=== PATIENT | female | born 1930 | race Caucasian/White ===

== ENCOUNTER 2017-08-28 12:43 | Observation (INO) | payer OTHER ==
[~2017-08-28] VITALS: Ht 149.9 cm; Wt 61.0 kg
[~2017-08-28 12:43] MED LIST: ACAI500 MG PO; FLOVENT DISKUS50 MCG; FLOVENT HFA12 GM INH; HARD NAILS2500 MCG PO; HYDROCODON-ACE1 EAC9 PO; MACROBID 100 M100 MG PO; MONTELUKAST SOD10 MG PO; OCUVITE SOFTGE1 EACH PO; RANITIDINE HCL300 M1 PO; SYMBICORT 80-10.2 GM INH; VITAMIN D32000 UNIT PO; Z LEVOXYL PO; Z.0.AMLODIPINE BESYL PO; Z.0.GABAPENTIN600 MG PO; Z.0.NEXIUM40 MG PO; Z.0.SIMVASTATIN20 MG PO
[2017-08-28] MEDS ORDERED: SODIUM CHLORIDE 0.9% 500ML 500 ML IV STA (13:18)
[2017-08-28] MEDS ORDERED: MORPHINE SULFATE 2 MG/ML SYR IV STA (13:18)
[2017-08-28] MEDS ORDERED: ONDANSETRON HCL INJ 2 MG/ML VIAL IV STA (13:18)
[2017-08-28] MEDS ORDERED: DIATRIZOATE MEGL/DIATRIZOA SOD 30 ML BTL PO ONE (13:27)
[2017-08-28 14:14] LABS: BASOPHILS % 0.4 % (0.0-1.0); HEMATOCRIT 40.8 % (34.2-44.1); HEMOGLOBIN 13.2 g/dL (12.0-16.0); LYMPHOCYTES # (AUTO) 0.4 (1.0-3.2); LYMPHOCYTES % 5.1 % (18.0-39.1); MEAN CORPUSCULAR HEMOGLOBIN 27.6 pg (28-32); MEAN CORPUSCULAR HGB CONC 32.4 g/dL (31-35); MEAN CORPUSCULAR VOLUME 85.4 fL (81-99); MONOCYTES # (AUTO) 0.1 (0.2-0.8); MONOCYTES % 1.6 % (4.4-11.3); NEUTROPHILS # (AUTO) 7.5 (2.1-6.9); PLATELET COUNT 361 x10e3/uL (140-360); RED BLOOD COUNT 4.78 x10e6/uL (3.6-5.1); RED CELL DISTRIBUTION WIDTH 15.7 % (11.7-14.4)
--- NOTE | 2017-08-28 14:16 | Diagnostic Imaging Report ---
PROCEDURE:US GALLBLADDER COMPARISON:None. INDICATIONS:Abdomen Pain TECHNIQUE: Pérez-scale and color doppler transverse and longitudinal images of the right upper quadrant of the abdomen were obtained. FINDINGS: Liver: 13.4 cm in right mid-clavicular line. Normal echogenicity. No masses. Main portal vein: 0.8 cm, hepatopetal flow Gallbladder: No stones, sludge, wall thickening, or pericholecystic fluid. Common Bile Duct: 0.6 cm, upper limits of normal. No intraluminal filling defects Sonographic Armendariz's sign: Negative Right kidney: 10.6 cm. Normal echogenicity. No solid masses or hydronephrosis. Pancreas: The visualized portions of the neck and proximal body are unremarkable. Inferior vena cava: Patent Aorta: Within normal limits Ascites: None in the right upper quadrant of the abdomen. CONCLUSION: 1. Essentially unremarkable right upper quadrant ultrasound. 2. No sonographic evidence of cholelithiasis or cholecystitis. No biliary ductal dilation. Ramesh Paulino M.D. Dictated by: Ramesh Paulino M.D. on 08/28/2017 at 14:25 Electronically approved by: Ramesh Paulino M.D. on 08/28/2017 at 14:25
[2017-08-28 14:19] LABS: INR 0.98; PROTHROMBIN TIME 13.5 seconds (11.9-14.5)
[2017-08-28 14:26] LABS: BILIRUBIN,URINE NEGATIVE (NEGATIVE); CLARITY,URINE SL CLOUDY (CLEAR); COLOR,URINE YELLOW (YELLOW); KETONES,URINE 1+ (NEGATIVE); LEUKOCYTE ESTERASE ,URINE TRACE (NEGATIVE); NITRITE,URINE NEGATIVE (NEGATIVE); PROTEIN,URINE DIPSTICK TRACE (NEGATIVE); URINE UROBILINOGEN 0.2 mg/dL (0.2 - 1)
[2017-08-28 14:35] LABS: ALANINE AMINOTRANSFERASE 10 IU/L (0-55); ALBUMIN 3.6 g/dL (3.5-5.0); ALBUMIN/GLOBULIN RATIO 0.7 (0.8-2.0); ALKALINE PHOSPHATASE 87 IU/L (40-150); AMYLASE 49 U/L (25-125); ANION GAP 16.1 mmol/L (8-16); BLOOD UREA NITROGEN 9 mg/dL (7-26); BUN/CREATININE RATIO 11 (6-25); CALCIUM 10.1 mg/dL (8.4-10.2); CARBON DIOXIDE 24 mmol/L (22-29); CHLORIDE 100 mmol/L (98-107); CREATINE KINASE 39 IU/L (29-168); CREATININE, SERUM 0.85 mg/dL (0.57-1.11); EST GLOMERULAR FILTRATION RATE > 60 ML/MIN (60-); GLUCOSE 155 mg/dL (74-118); LIPASE 19 U/L (8-78); POTASSIUM 4.1 mmol/L (3.5-5.1); SODIUM 136 mmol/L (136-145)
[2017-08-28 14:40] LABS: EPITHELIAL CELLS,URINE FEW /LPF; RBC,URINE 0-5 /HPF (0-5); TRANSITIONAL EPI CELLS,URINE FEW; WBC,URINE (MAN) 0-5 /HPF (0-5)
--- NOTE | 2017-08-28 15:24 | Diagnostic Imaging Report ---
PROCEDURE: A single AP view of the chest. COMPARISON: [facility], , CHEST SINGLE (PORTABLE), 01/16/2017, 19:38. INDICATIONS: ABDOMINAL PAIN FINDINGS: Lines/tubes: None. Lungs: The lungs are well inflated. No interval change in very mild prominence of the interstitial markings, likely reflecting chronic interstitial changes. There is no evidence of consolidation or pulmonary edema. Pleura: There is no pleural effusion or pneumothorax. Heart and mediastinum: Cardiac silhouette is unremarkable. Pulmonary vasculature is normal. Bones: No acute bony abnormality. IMPRESSION: 1. No acute cardiopulmonary abnormalities. Ramesh Paulino M.D. Dictated by: Ramesh Paulino M.D. on 08/28/2017 at 15:33 Electronically approved by: Ramesh Paulino M.D. on 08/28/2017 at 15:33
--- NOTE | 2017-08-28 16:04 | Diagnostic Imaging Report ---
PROCEDURE: CT ABDOMEN AND PELVIS WITH CONTRAST TECHNIQUE: The abdomen and pelvis were scanned utilizing a multidetector helical scanner from the diaphragm to the lesser trochanter after the IV administration of 100 cc of Isovue 370 and the oral administration of dilute Gastrografin. Coronal and sagittal multiplanar reformations were obtained. COMPARISON: [facility], CT, CT ABDOMEN/PELVIS W, 09/06/2012, 10:38. INDICATIONS: right flank pain for 2 days, abdominal pain, FINDINGS: LOWER THORAX: Linear subsegmental atelectasis versus scarring in the posteromedial left lower lobe. No consolidation. Moderate atherosclerotic soft plaque in the distal thoracic aorta HEPATOBILIARY: Stable calcified granulomas in hepatic segments VIII, VII and V (series 2, images 14, 18, and 35). No focal lesions. No ductal dilation. Gallbladder is unremarkable. SPLEEN: No splenomegaly. PANCREAS: No focal masses or ductal dilatation. No surrounding inflammatory changes, free fluid or well defined fluid collections. ADRENALS: No adrenal nodules. KIDNEYS/URETERS: Limited evaluation for renal calculi do to intravenous contrast. No hydronephrosis or hydroureter. No solid enhancing masses. PELVIC ORGANS/BLADDER: Bladder shows no focal lesions. Uterus is absent. No adnexal masses. PERITONEUM / RETROPERITONEUM: No free air or fluid. LYMPH NODES: No lymphadenopathy. VESSELS: Moderate atherosclerotic soft and hard plaque in the abdominal aorta and iliac vessels, as well as aortic branches, predominantly at the origin of celiac trunk, SMA, and bilateral renal arteries GI TRACT: Small to moderate hiatal hernia. No bowel dilation or evidence of obstruction. Appendix is not visualized. However, no pericecal inflammatory changes are noted. Multiple diverticula in the sigmoid colon, without surrounding inflammatory changes to suggest diverticulitis. BONES AND SOFT TISSUES: No aggressive lytic lesions. 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 Soft tissues are grossly unremarkable.. IMPRESSION: 1. Limited exam for evaluation of nephrolithiasis given the presence of contrast. No hydronephrosis or obstruction. 2. No bowel dilation or evidence of obstruction. The appendix is not visualized, however, no pericolonic/pericecal inflammatory changes are noted. 3. Sigmoid diverticulosis, without diverticulitis. 4. Moderate atherosclerotic disease of the abdominal aorta and branches. Ramesh Paulino M.D. Dictated by: Ramesh Paulino M.D. on 08/28/2017 at 16:13 Electronically approved by: Ramesh Paulino M.D. on 08/28/2017 at 16:13
[2017-08-28] MEDS ORDERED: ONDANSETRON HCL INJ 2 MG/ML VIAL IV PRN (17:00)
[2017-08-28] MEDS ORDERED: MORPHINE SULFATE 2 MG/ML SYR IV PRN (17:00)
[2017-08-28] MEDS: SODIUM CHLORIDE 0.9% 1000ML 1,000 ML IV SCH (18:39)
[2017-08-28 18:42] VITALS: BP 131/65
[2017-08-28 19:30] VITALS: BP 127/60
[2017-08-28] MEDS ORDERED: ACETAMINOPHEN 325 MG TAB PO PRN (20:30)
[2017-08-28 21:46] VITALS: BP 127/60
[2017-08-28 22:11] VITALS: BP 127/60
[2017-08-28] MEDS ORDERED: IOPAMIDOL 370 MG/ML 200 ML INFUS..BTL INJ ONE (22:14)
[2017-08-28] MEDS ORDERED: SODIUM CHLORIDE 0.9% 50ML 50 ML ONE (22:14)
--- NOTE | 2017-08-28 23:08 | Diagnostic Imaging Report ---
EXAM: VQ LUNG SCAN VENT PERFUSION DATE: 08/28/2017 12:00 AM Time stamp on exam: 2304 hours INDICATION: Shortness of breath, weakness, fatigue COMPARISON: AP view of the chest August 28, 2017 FINDINGS: Ventilation images of the lungs were obtained in multiple projections following administration of 11 mCi of Xe133 gas via inhalation. Distribution of tracer activity is irregular throughout the lungs. Limited wash-in and washout views. No segmental ventilatory defects are identified. Perfusion images of the lungs in multiple projections were obtained following intravenous administration of 6mCi of Tc-99m MAA. Distribution of tracer activity is mildly irregular throughout the lungs. There are no segmental perfusion defects of any size. The perfusion images are well matched to the aerosol images. The cardiac silhouette is unremarkable. IMPRESSION: Scan findings represent a very low probability for acute pulmonary embolic disease based on the PIOPED II criteria. Signed by: Dr. Nancy Byrd M.D. on 08/28/2017 11:05 PM
[2017-08-29] VITALS: BP 118/58
[2017-08-29] MEDS: SODIUM CHLORIDE 0.9% 1000ML 1,000 ML IV SCH ×2 (02:53→15:30)
[2017-08-29 05:00] VITALS: BP 131/65
[2017-08-29 07:00] VITALS: BP 115/59
[2017-08-29 07:44] VITALS: BP 115/59
[2017-08-29] MEDS ORDERED: PANTOPRAZOLE SOD 40 MG TABEC PO SCH (09:00)
[2017-08-29 11:24] VITALS: BP 118/59
[2017-08-29 15:39] VITALS: BP 125/57
--- NOTE | 2017-08-30 11:20 | History and Physical ---
SHORTSTAY SUMMARY PRIMARY CARE PROVIDER: [place] [facility]. ADMITTING DIAGNOSES: 1. Right upper quadrant epigastric abdominal pain. 2. History of hypertension. 3. Hyperlipidemia. 4. Hypothyroidism. 5. Gastroesophageal reflux. 6. Previous bleeding ulcer. 7. Inflammatory bowel disease. DISCHARGE DIAGNOSES 1. Right upper quadrant epigastric abdominal pain. 2. History of hypertension. 3. Hyperlipidemia. 4. Hypothyroidism. 5. Gastroesophageal reflux. 6. Previous bleeding ulcer. 7. Inflammatory bowel disease. BRIEF HISTORY: Ms. Brice is an 86 year lady presenting with right upper quadrant epigastric abdominal pain with nausea, vomiting and diarrhea for about 24 hours. The patient thinks this is worse than her usual flare up of IBS and was instructed to come to the ER for evaluation via the clinic. REVIEW OF SYSTEMS: She denies fever, chills or weight loss. She denies sinus congestion or sore throat. She denies chest pain or palpitation. She has a little bit of shortness of breath or dyspneas with exertion, but no wheezing or productive cough. She has abdominal pain as noted with nausea, vomiting and diarrhea. She denies hematemesis or melena. She denies dysuria or flank pain. She denies rash or pruritus. Denies joint pain or swelling. She denies bleeding or bruising. She denies headache, vertigo or loss of consciousness. She denies depression, agitation, homicidal or suicidal ideation. PAST MEDICAL HISTORY: Significant for longstanding hypertension, hyperlipidemia, hypothyroidism, gastroesophageal reflux, irritable bowel syndrome with both diarrhea and constipation. She had a bleeding ulcer last year [place]. CURRENT MEDICATIONS: Amlodipine 10 mg daily. Symbicort inhaler twice daily. Levothyroxine 88 mcg daily. Singulair 10 mg daily. Simvastatin 20 mg at bedtime. Ranitidine 300 mg daily. PAST SURGICAL HISTORY: She has a history of a hysterectomy, tonsillectomy and previous foot surgery. ALLERGIES: SHE HAS A STATED ALLERGY TO GABAPENTIN, CIPROFLOXACIN, HYDROCHLOROTHIAZIDE AND CODEINE WELL INFLUENZA AND TETANUS VACCINES. FAMILY HISTORY: Significant only for hypertension. SOCIAL HISTORY: The patient lives at home with her son. She does not smoke, drink or use illegal drugs. She is generally independently functioning. PHYSICAL EXAM: PSYCHIATRIC: She is alert and oriented times 3 with normal mood and affect. CONSTITUTIONAL: She has a normal body habitus and is in no acute distress. VITAL SIGNS: Blood pressure 125/57. Pulse 72 and regular. Respiratory rate 16. O2 sat 96% on room air. Temperature 97.4. HEENT: Her head is atraumatic. Her eyes are anicteric with clear conjunctivae. Ears and nares are without erythema or discharge. Oropharynx is clear. NECK: Is supple with no mass or thyromegaly. LYMPHATIC SYSTEM: She has no palpable cervical, axillary or inguinal adenopathy. CARDIOVASCULAR: Her heart has a regular rate and rhythm with 2-3/6 systolic murmur at the left sternal border, nonradiating. She has no carotid bruit. She has no peripheral edema. Has palpable dorsal pedal pulses. RESPIRATORY: Clear to auscultation and percussion with normal respiratory effort. GASTROINTESTINAL: Abdomen is soft. She has some mild diffuse tenderness without rebound or guarding. The least amount of tenderness is in the left lower quadrant. The most tenderness is in the right upper quadrant and epigastric area. Again no rebound or guarding. No hepatosplenomegaly or masses palpable and normal bowel sounds are present. CUTANEOUS: Her skin is warm and dry to touch with no rash or skin breakdown. MUSCULOSKELETAL: Joints are normal alignment without erythema or swelling. She has no calf tenderness. NEUROLOGIC: Exam is nonfocal with intact cranial nerves and no motor or sensory deficits. DIAGNOSTIC STUDIES: CT scan of the abdomen shows sigmoid diverticulosis without evidence of diverticulitis, essentially no acute disease. Ultrasound of the right upper quadrant showed normal-appearing gallbladder, no stones and normal-appearing liver. No biliary duct dilatation. Chest x-ray showed no acute disease. She had a D-dimer of 1.43, and so a VQ scan was done which was also negative. Her UA was clear. Her urine culture is negative at 24 hours. Her flu screen was negative. Her BNP 87.7. Troponin 0.006. Chemistry shows normal electrolytes. CO2 24. Creatinine 0.85. BUN 9 for normal GFR. Calcium 10.1. Glucose 155. Transaminases, bilirubin and alkaline phos are normal. Amylase 49, lipase 19, both normal. CBC shows a white count of 8.19 with 92% neutrophils, 5% lymphocytes and 2% monocytes. Hemoglobin 13.2, hematocrit 40.8 and platelet count 361,000. Coags are normal. BNP 87.7. Troponin 0.006. IMPRESSION AND PLAN 1. Abdominal pain in a setting of irritable bowel syndrome and gastric reflux. The patient's workup for more serious etiologies were all negative. She does feel at little bit better today. Will be sent home to resume regular diet, to continue Zantac 300 mg daily, and it was recommended that she takes fiber, like Citrucel 3 tablets every night at bedtime rather than using MiraLAX on a p.r.n. basis for constipation. 2. Hypertension, well controlled on amlodipine. Will be make no changes there. 3. For irritable bowel syndrome, patient continues on Align probiotic and again recommended fiber nightly as noted above. 4. History of peptic ulcer disease. Patient is started on Protonix. Her hemoglobin and hematocrit are stable. 5. For prophylaxis the patient is using SCDs for DVT prophylaxis and Protonix for GI prophylaxis. HOSPITAL COURSE: Patient was admitted to the floor overnight for observation. She got IV fluids. She also got some Protonix. She felt better the next day. She was still having a little bit of diarrhea. She was instructed to start taking Citrucel tablets 3 of them at bedtime for fiber supplementation which may improve her colon function and also help prevent diverticulosis from becoming a problem. Since the workup was negative, the patient will be discharged home to resume all of her home medications. Will continue a regular diet and activity as tolerated. Again will add some fiber supplement at bedtime on a regular basis to her medical regimen. The patient will follow up with her primary care physician within 2 weeks. Job#: [id number]
== END 2017-08-29 18:52 | disposition home or self-care (01) ==
LOC: ER 12:43 → IMCU 18:16
PROVIDERS: ADMIT Internal Medicine; ATTEND Internal Medicine
DX: R10.13 Epigastric pain (principal); K21.9 Gastro-esophageal reflux disease without esophagitis; K58.0 Irritable bowel syndrome with diarrhea; K57.30 Diverticulosis of large intestine without perforation or abscess without bleeding; I10 Essential (primary) hypertension; E03.9 Hypothyroidism, unspecified; E78.5 Hyperlipidemia, unspecified; J45.909 Unspecified asthma, uncomplicated; Z87.11 Personal history of peptic ulcer disease; Z88.1 Allergy status to other antibiotic agents; Z91.09 Other allergy status, other than to drugs and biological substances; Z88.8 Allergy status to other drugs, medicaments and biological substances; Z88.5 Allergy status to narcotic agent; Z88.7 Allergy status to serum and vaccine
CPT/HCPCS: 36415; 71045; 74177; 76705; 78582; 80053; 81001; 82150; 82550; 82553; 83690; 83880; 84484; 85025; 85379; 85610; 85730; 87086; 87400; 93005 ×2; 96360; 96361; 99284; A9540; A9558; G0378 ×2; J2405; J7030 ×2; J7040; Q9967

== ENCOUNTER 2018-10-28 15:12 | Emergency (ER) | payer OTHER ==
[~2018-10-28] VITALS: Ht 149.9 cm; Wt 60.8 kg
--- OUTSIDE RECORDS SUMMARY | 2018-10-28 15:15 | XMS REPORT | Clinical Summary ---
Author Author [facility] Organization [facility] Address Unknown Phone Unavailable Care Team Providers Care Envelope Stuffer Name Role Phone Mervat Luevano MD PCP Unavailable Philippe De La Cruz Unavailable Allergies Comments Active Allergy Reactions Severity Noted Date Ciprofloxacin 02/28/2017 FAINT Codeine 02/28/2017 Gabapentin 02/28/2017 Cqjygdtkqcm-Sghoywdi-Sydl 02/28/2017 iazid Influenza Virus Vaccines Hives 02/28/2017 RED STREAK ON ARM FOR 3 MONTHS Tetanus Vaccines And 02/28/2017 Toxoid Medications End Date Status Medication Sig Dispensed Refills Start Date Active biotin 5 mg Tab Take 1 tablet 0 by mouth daily. Active budesonide-formoterol Inhale 2 0 (SYMBICORT) 80-4.5 puffs by mcg/actuation inhaler mouth via inhaler 2 (two) times daily. Active cholecalciferol, vitamin Take 5,000 0 D3, 5,000 unit Tab Units by mouth daily. Active levothyroxine (SYNTHROID, Take 75 mcg 0 LEVOTHROID) 75 MCG tablet by mouth Every morning on an empty stomach. Active ranitidine (ZANTAC) 300 Take 300 mg 0 MG tablet by mouth nightly. Active simvastatin (ZOCOR) 40 MG Take 40 mg by 0 tablet mouth nightly. Active montelukast (SINGULAIR) Take 10 mg by 0 10 mg tablet mouth nightly 7 . Active fluticasone (FLONASE) 50 2 sprays 0 mcg/actuation nasal spray daily . 8 Active mupirocin (BACTROBAN) 2 % as needed . 0 ointment 8 Active pantoprazole (PROTONIX) daily . 0 20 MG tablet 8 Active VIT C/VIT Take by 0 E/LUTEIN/MIN/OMEGA-3 mouth. (OCUVITE ORAL) Active Bifidobacterium infantis Take by mouth 0 (ALIGN ORAL) daily. Active traMADol-acetaminophen Take 1 tablet 0 (ULTRACET) 37.5-325 mg by mouth per tablet every 6 (six) hours as needed for Pain. 01/29/2019 Active aspirin 81 MG chewable Take 1 tablet 0 tablet (81 mg total) 8 by mouth daily. 01/28/2019 Active atorvastatin (LIPITOR) 20 Take 1 tablet 0 MG tablet (20 mg total) 8 by mouth nightly. 01/29/2019 Active furosemide (LASIX) 20 MG Take 1 tablet 20 tablet 0 tablet (20 mg total) 8 by mouth daily. 01/28/2019 Active metoprolol (LOPRESSOR) 25 Take 0.5 0 MG tablet tablets (12.5 8 mg total) by mouth 2 (two) times daily. 01/28/2018 Discontinued amLODIPine (NORVASC) 10 Take 10 mg by 0 MG tablet mouth daily. 01/16/2018 Discontinued fexofenadine (PETRA) Take 180 mg 0 180 MG tablet by mouth daily. 01/16/2018 Discontinued traMADol (ULTRAM) 50 mg Take 50 mg by 0 tablet mouth every 6 (six) hours as needed for Pain. 03/02/2018 ferrous sulfate 325 (65 Take 1 tablet 30 tablet 0 FE) MG tablet (325 mg 7 total) by mouth daily with breakfast. 12/17/2017 Discontinued tiZANidine (ZANAFLEX) 4 Take 1 tablet 30 tablet 0 MG tablet (4 mg total) 7 by mouth every 8 (eight) hours as needed. 01/16/2018 Discontinued omeprazole (PRILOSEC) 40 Take 1 60 capsule 0 MG capsule capsule (40 7 mg total) by mouth 2 (two) times daily FOR 2 WEEKS THEN TRANSITION TO ONCE PER DAY AFTERWARDS. 12/17/2017 Discontinued ferrous sulfate 325 (65 Take 1 tablet 30 tablet 0 FE) MG EC tablet (325 mg 7 total) by mouth daily with breakfast. 01/16/2018 Discontinued meclizine (ANTIVERT) 25 Take 25 mg by 0 mg tablet mouth 3 (three) times daily as needed . 01/16/2018 Discontinued polyethylene glycol Take 17 g by 0 (GLYCOLAX) 17 gram/dose mouth. powder 01/28/2018 Discontinued ASCORBIC ACID/COLLAGEN Take 1 0 HYDR (COLLAGEN PLUS capsule by VITAMIN C ORAL) mouth. Active Problems Problem Noted Date S/P AVR 01/28/2018 S/P CABG x 3 01/28/2018 Vasogenic shock (HCC). post op. briefly on vasopressors 01/17/2018 Abnormal coronary angiogram: 70% distal Left main; 80% ostial LAD; 80% 01/16/2018 ostial CX--patient referred to Dr. Cat for ACB x 2 and AVR 01/16/2018 GERD (gastroesophageal reflux disease) 01/16/2018 Aortic stenosis 01/11/2018 Aortic stenosis, moderate 03/02/2017 Overview: Moderate to severe per echo SLEH 02/2017 Erosive gastritis 03/02/2017 Hiatal hernia 03/02/2017 GI bleed 03/02/2017 GI bleed due to NSAIDs 02/28/2017 Acquired hypothyroidism 11/14/2016 Mild persistent asthma, uncomplicated 11/14/2016 Atherosclerosis of aorta 01/19/2014 Chronic lower back pain 10/27/2011 Chronic neck pain 10/27/2011 Severe aortic stenosis Hyperlipidemia Hypertension Acute pulmonary edema (HCC). resovled w/ IV diuresis Resolved Problems Problem Noted Date Resolved Date Respiratory insufficiency 01/17/2018 01/28/2018 Left main coronary artery disease 01/16/2018 01/18/2018 Other specified hypotension 01/24/2018 Encounters Care Team Description Date Type Specialty Charanjit Cannon MD 01/17/2018 Anesthesia Event Rehan Cat MD BYPASS,AORTO CORONARY YONG/SVG 01/17/2018 Surgery 01/17/2018 Orders Only General Internal Medicine Do Rdz MD L CATH & CORONARY ANGIOS 01/16/2018 Surgery Do Rdz MD Dang, Thai Duc, MD Abnormal coronary angiogram; Acute pulmonary edema (HCC); Respiratory insufficiency; Aortic stenosis, moderate; Left main coronary artery disease 01/16/2018 Hospital Cardiology - Encounter 01/28/2018 Rehan Cat MD Severe aortic stenosis; Hyperlipidemia, unspecified hyperlipidemia type; Essential hypertension 12/17/2017 Office Visit Cardiology Do Rdz MD Severe aortic stenosis 12/14/2017 Hospital Radiology Encounter Do Rdz MD Severe aortic stenosis 12/14/2017 Hospital Radiology Encounter Do Rdz MD Severe aortic stenosis (Primary Dx) 12/10/2017 Outside Orders Central Scheduling after 10/27/2017 Social History Date Tobacco Use Types Packs/Day Years Used Former Smoker Smokeless Tobacco: Never Used Alcohol Use Drinks/Week oz/Week Comments No Sex Assigned at Date Recorded Not on file Industry Job Start Date Occupation Not on file Not on file Not on file Travel End Travel History Travel Start No recent travel history available. Last Filed Vital Signs Time Taken Vital Sign Reading 01/28/2018 12:13 PM CDT Blood Pressure 128/60 01/28/2018 12:13 PM CDT Pulse 80 01/28/2018 12:13 PM CDT Temperature 36 C (96.8 F) 01/28/2018 12:13 PM CDT Respiratory Rate 19 01/28/2018 12:13 PM CDT Oxygen Saturation 96% 01/21/2018 12:00 AM CDT Inhaled Oxygen 100% Concentration 01/28/2018 5:39 AM CDT Weight 58.3 kg (128 lb 8 oz) 01/16/2018 7:30 AM CDT Height 152.1 cm (4' 11.9") 01/28/2018 5:39 AM CDT Body Mass Index 25.18 Plan of Treatment Not on file Implants Device Identifier Shelf Expiration Date Model / Serial / Lot Implanted Type Area Manufactur er 04/22/2021 TFGT-19A / [id number] / Valve Tiss Trifecta W/Gld 19mm Valves N/A: Heart [facility] [employer] [id number] - [id number] MED:CARDIA Implanted: Qty: 1 on 01/17/2018 by Rehan Chowdhury MD Procedures Comments Procedure Name Priority Date/Time Associated Diagnosis VASCULAR DIAGRAM -SCAN 04/18/2018 11:11 AM CDT RHYTHM STRIP - SCAN 01/29/2018 11:40 AM CDT VASCULAR DIAGRAM -SCAN 01/29/2018 11:40 AM CDT ECHOCARDIOGRAM REPORT - 01/28/2018 SCAN 8:20 AM CDT CBC W/PLT COUNT & AUTO Routine 01/28/2018 DIFFERENTIAL 5:34 AM CDT CBC W/PLT COUNT & AUTO Routine 01/28/2018 DIFFERENTIAL 5:34 AM CDT BASIC METABOLIC PANEL (7) Routine 01/28/2018 5:34 AM CDT 2D ECHO W/ DOPPLER DOLLY 01/27/2018 (CW/PW/COLOR) 4:07 PM CDT BASIC METABOLIC PANEL (7) Routine 01/27/2018 4:10 AM CDT MAGNESIUM Routine 01/26/2018 5:24 AM CDT BASIC METABOLIC PANEL (7) Routine 01/26/2018 5:24 AM CDT XR CHEST 1 VIEW Routine 01/25/2018 PORTABLE/BEDSIDE 10:27 PM CDT ECG 12-LEAD Routine 01/25/2018 9:59 AM CDT MAGNESIUM Routine 01/25/2018 4:03 AM CDT BASIC METABOLIC PANEL (7) Routine 01/25/2018 4:03 AM CDT XR CHEST 1 VIEW Routine 01/24/2018 PORTABLE/BEDSIDE 4:53 AM CDT CBC W/PLT COUNT & AUTO Routine 01/24/2018 DIFFERENTIAL 4:48 AM CDT CBC W/PLT COUNT & AUTO Routine 01/24/2018 DIFFERENTIAL 4:48 AM CDT MAGNESIUM Routine 01/24/2018 4:48 AM CDT BASIC METABOLIC PANEL (7) Routine 01/24/2018 4:48 AM CDT CBC W/PLT COUNT & AUTO Routine 01/23/2018 DIFFERENTIAL 5:34 AM CDT APTT Routine 01/23/2018 5:34 AM CDT PROTHROMBIN TIME/INR Routine 01/23/2018 5:34 AM CDT CBC W/PLT COUNT & AUTO Routine 01/23/2018 DIFFERENTIAL 5:34 AM CDT MAGNESIUM Routine 01/23/2018 5:34 AM CDT BASIC METABOLIC PANEL (7) Routine 01/23/2018 5:34 AM CDT XR CHEST 1 VIEW Routine 01/22/2018 PORTABLE/BEDSIDE 5:47 AM CDT CBC W/PLT COUNT & AUTO Routine 01/22/2018 DIFFERENTIAL 4:36 AM CDT CBC W/PLT COUNT & AUTO Routine 01/22/2018 DIFFERENTIAL 4:36 AM CDT CALCIUM, IONIZED Routine 01/22/2018 4:36 AM CDT BLOOD GAS, ARTERIAL DOLLY 01/22/2018 4:33 AM CDT BASIC METABOLIC PANEL (7) Routine 01/22/2018 4:32 AM CDT MAGNESIUM Routine 01/22/2018 4:32 AM CDT CALCIUM, IONIZED STAT 01/21/2018 9:55 PM CDT MAGNESIUM STAT 01/21/2018 9:55 PM CDT POTASSIUM STAT 01/21/2018 9:55 PM CDT BLOOD GAS, ARTERIAL STAT 01/21/2018 4:13 PM CDT MAGNESIUM Routine 01/21/2018 10:28 AM CDT BASIC METABOLIC PANEL (7) Routine 01/21/2018 3:55 AM CDT BLOOD GAS, ARTERIAL DOLLY 01/21/2018 3:55 AM CDT CALCIUM, IONIZED Routine 01/21/2018 3:55 AM CDT MAGNESIUM Routine 01/21/2018 3:55 AM CDT XR CHEST 1 VIEW Routine 01/21/2018 PORTABLE/BEDSIDE 3:19 AM CDT CBC (HEMOGRAM ONLY) Routine 01/21/2018 3:00 AM CDT BASIC METABOLIC PANEL (7) Routine 01/20/2018 11:04 PM CDT TRANSFUSION SERVICE 01/20/2018 REPORT - SCAN 6:01 PM CDT BASIC METABOLIC PANEL (7) Routine 01/20/2018 9:37 AM CDT BLOOD GAS, ARTERIAL DOLLY 01/20/2018 9:36 AM CDT MAGNESIUM Add-On 01/20/2018 9:34 AM CDT CBC W/PLT COUNT & AUTO Routine 01/20/2018 DIFFERENTIAL 4:29 AM CDT CBC W/PLT COUNT & AUTO Routine 01/20/2018 DIFFERENTIAL 4:29 AM CDT POTASSIUM Routine 01/20/2018 3:56 AM CDT CALCIUM, IONIZED Routine 01/20/2018 3:56 AM CDT MAGNESIUM Routine 01/20/2018 3:56 AM CDT XR CHEST 1 VIEW Routine 01/20/2018 PORTABLE/BEDSIDE 3:46 AM CDT PREPARE LEUKO-REDUCED RBC STAT 01/19/2018 11:54 PM CDT BASIC METABOLIC PANEL (7) Routine 01/19/2018 7:23 PM CDT TRANSFUSION SERVICE 01/19/2018 REPORT - SCAN 6:02 PM CDT PROCALCITONIN Routine 01/19/2018 4:03 PM CDT CBC (HEMOGRAM ONLY) Routine 01/19/2018 4:03 PM CDT OXYGEN SATURATION, Routine 01/19/2018 MEASURED 12:15 PM CDT LACTIC ACID, ARTERIAL Routine 01/19/2018 12:15 PM CDT POCT-GLUCOSE METER Routine 01/19/2018 8:52 AM CDT XR CHEST 1 VIEW Routine 01/19/2018 PORTABLE/BEDSIDE 8:30 AM CDT POCT-GLUCOSE METER Routine 01/19/2018 3:35 AM CDT CBC W/PLT COUNT & AUTO Routine 01/19/2018 DIFFERENTIAL 3:29 AM CDT PHOSPHORUS Routine 01/19/2018 3:29 AM CDT MAGNESIUM Routine 01/19/2018 3:29 AM CDT CBC W/PLT COUNT & AUTO Routine 01/19/2018 DIFFERENTIAL 3:29 AM CDT CALCIUM, IONIZED Routine 01/19/2018 3:29 AM CDT BLOOD GAS, ARTERIAL Routine 01/19/2018 3:29 AM CDT BASIC METABOLIC PANEL (7) Routine 01/19/2018 3:29 AM CDT BLOOD GAS, ARTERIAL Routine 01/19/2018 1:13 AM CDT POCT-GLUCOSE METER Routine 01/19/2018 12:08 AM CDT POCT-GLUCOSE METER Routine 01/18/2018 8:13 PM CDT TRANSFUSION SERVICE 01/18/2018 REPORT - SCAN 6:02 PM CDT POCT-GLUCOSE METER Routine 01/18/2018 1:33 PM CDT CBC W/PLT COUNT & AUTO Routine 01/18/2018 DIFFERENTIAL 1:31 PM CDT CBC W/PLT COUNT & AUTO Routine 01/18/2018 DIFFERENTIAL 1:31 PM CDT CALCIUM, IONIZED Routine 01/18/2018 11:58 AM CDT GLUCOSE-STAT LAB STAT 01/18/2018 11:57 AM CDT POTASSIUM-STAT LAB Routine 01/18/2018 11:57 AM CDT BLOOD GAS, ARTERIAL Routine 01/18/2018 11:57 AM CDT POCT-GLUCOSE METER Routine 01/18/2018 9:33 AM CDT LACTIC ACID, ARTERIAL STAT 01/18/2018 7:47 AM CDT GLUCOSE-STAT LAB STAT 01/18/2018 7:47 AM CDT HGB/HCT (H&H) - STAT LAB STAT 01/18/2018 7:47 AM CDT BLOOD GAS, ARTERIAL Routine 01/18/2018 7:47 AM CDT POCT-GLUCOSE METER Routine 01/18/2018 6:17 AM CDT TRANSFUSE LEUKO-REDUCED STAT 01/18/2018 RED BLOOD CELLS 5:52 AM CDT FIBRINOGEN Routine 01/18/2018 5:38 AM CDT PT/APTT Routine 01/18/2018 5:38 AM CDT POCT-GLUCOSE METER Routine 01/18/2018 4:48 AM CDT XR CHEST 1 VIEW Routine 01/18/2018 PORTABLE/BEDSIDE 4:17 AM CDT POCT-GLUCOSE METER Routine 01/18/2018 3:35 AM CDT CBC W/PLT COUNT & AUTO Routine 01/18/2018 DIFFERENTIAL 3:26 AM CDT OXYGEN SATURATION, STAT 01/18/2018 MEASURED 3:26 AM CDT LACTIC ACID, ARTERIAL STAT 01/18/2018 3:26 AM CDT CALCIUM, IONIZED STAT 01/18/2018 3:26 AM CDT PHOSPHORUS Routine 01/18/2018 3:26 AM CDT MAGNESIUM Routine 01/18/2018 3:26 AM CDT BASIC METABOLIC PANEL (7) Routine 01/18/2018 3:26 AM CDT CBC W/PLT COUNT & AUTO Routine 01/18/2018 DIFFERENTIAL 3:26 AM CDT BLOOD GAS, ARTERIAL Routine 01/18/2018 2:22 AM CDT POCT-GLUCOSE METER Routine 01/18/2018 2:21 AM CDT POCT-GLUCOSE METER Routine 01/18/2018 1:14 AM CDT BLOOD GAS, ARTERIAL Routine 01/18/2018 1:12 AM CDT POTASSIUM Routine 01/17/2018 11:54 PM CDT HGB/HCT (H&H) - STAT LAB STAT 01/17/2018 11:54 PM CDT GLUCOSE-STAT LAB STAT 01/17/2018 11:54 PM CDT POTASSIUM-STAT LAB STAT 01/17/2018 11:54 PM CDT SODIUM NA-STAT LAB STAT 01/17/2018 11:54 PM CDT BLOOD GAS, ARTERIAL STAT 01/17/2018 11:54 PM CDT CALCIUM, IONIZED Routine 01/17/2018 11:54 PM CDT MAGNESIUM Routine 01/17/2018 11:54 PM CDT RRL CRITICAL LABS STAT 01/17/2018 (ABG,NA,K,H&H,GLUCOSE) 11:54 PM CDT PREPARE RBC STAT 01/17/2018 11:11 PM CDT POCT-GLUCOSE METER Routine 01/17/2018 10:28 PM CDT BLOOD GAS, ARTERIAL Routine 01/17/2018 8:18 PM CDT XR CHEST 1 VIEW STAT 01/17/2018 PORTABLE/BEDSIDE 7:05 PM CDT CBC W/PLT COUNT & AUTO Routine 01/17/2018 DIFFERENTIAL 6:47 PM CDT MAGNESIUM Routine 01/17/2018 6:47 PM CDT BASIC METABOLIC PANEL (7) Routine 01/17/2018 6:47 PM CDT CBC W/PLT COUNT & AUTO Routine 01/17/2018 DIFFERENTIAL 6:47 PM CDT LACTIC ACID, ARTERIAL STAT 01/17/2018 6:47 PM CDT OXYGEN SATURATION, STAT 01/17/2018 MEASURED 6:47 PM CDT APTT STAT 01/17/2018 6:47 PM CDT FIBRINOGEN STAT 01/17/2018 6:47 PM CDT PROTHROMBIN TIME/INR STAT 01/17/2018 6:47 PM CDT CALCIUM, IONIZED STAT 01/17/2018 6:47 PM CDT BLOOD GAS, ARTERIAL STAT 01/17/2018 6:47 PM CDT TRANSFUSION SERVICE 01/17/2018 REPORT - SCAN 6:02 PM CDT POCT-ACT Routine 01/17/2018 5:26 PM CDT HGB/HCT (H&H) - STAT LAB Routine 01/17/2018 5:15 PM CDT GLUCOSE-STAT LAB Routine 01/17/2018 5:15 PM CDT POTASSIUM-STAT LAB Routine 01/17/2018 5:15 PM CDT SODIUM NA-STAT LAB Routine 01/17/2018 5:15 PM CDT BLOOD GAS, ARTERIAL Routine 01/17/2018 5:15 PM CDT PROTHROMBIN TIME/INR STAT 01/17/2018 5:15 PM CDT APTT STAT 01/17/2018 5:15 PM CDT FIBRINOGEN STAT 01/17/2018 5:15 PM CDT THROMBOELASTOGRAPH (TEG) STAT 01/17/2018 5:15 PM CDT CALCIUM, IONIZED Routine 01/17/2018 5:15 PM CDT RRL CRITICAL LABS Routine 01/17/2018 (ABG,NA,K,H&H,GLUCOSE) 5:15 PM CDT PLATELET COUNT Routine 01/17/2018 5:15 PM CDT POCT-ACT Routine 01/17/2018 4:48 PM CDT HGB/HCT (H&H) - STAT LAB STAT 01/17/2018 4:37 PM CDT GLUCOSE-STAT LAB STAT 01/17/2018 4:37 PM CDT POTASSIUM-STAT LAB STAT 01/17/2018 4:37 PM CDT SODIUM NA-STAT LAB STAT 01/17/2018 4:37 PM CDT BLOOD GAS, ARTERIAL STAT 01/17/2018 4:37 PM CDT RRL CRITICAL LABS STAT 01/17/2018 (ABG,NA,K,H&H,GLUCOSE) 4:37 PM CDT POCT-ACT Routine 01/17/2018 3:54 PM CDT HGB/HCT (H&H) - STAT LAB STAT 01/17/2018 3:52 PM CDT GLUCOSE-STAT LAB STAT 01/17/2018 3:52 PM CDT POTASSIUM-STAT LAB STAT 01/17/2018 3:52 PM CDT SODIUM NA-STAT LAB STAT 01/17/2018 3:52 PM CDT BLOOD GAS, ARTERIAL STAT 01/17/2018 3:52 PM CDT RRL CRITICAL LABS STAT 01/17/2018 (ABG,NA,K,H&H,GLUCOSE) 3:52 PM CDT CARDIAC CATH REPORT - 01/17/2018 SCAN 3:41 PM CDT POCT-ACT Routine 01/17/2018 3:19 PM CDT HGB/HCT (H&H) - STAT LAB STAT 01/17/2018 3:17 PM CDT GLUCOSE-STAT LAB STAT 01/17/2018 3:17 PM CDT POTASSIUM-STAT LAB STAT 01/17/2018 3:17 PM CDT SODIUM NA-STAT LAB STAT 01/17/2018 3:17 PM CDT BLOOD GAS, ARTERIAL STAT 01/17/2018 3:17 PM CDT RRL CRITICAL LABS STAT 01/17/2018 (ABG,NA,K,H&H,GLUCOSE) 3:17 PM CDT TISSUE EXAM AP Routine 01/17/2018 2:50 PM CDT POCT-ACT Routine 01/17/2018 2:45 PM CDT HGB/HCT (H&H) - STAT LAB STAT 01/17/2018 2:43 PM CDT GLUCOSE-STAT LAB STAT 01/17/2018 2:43 PM CDT POTASSIUM-STAT LAB STAT 01/17/2018 2:43 PM CDT SODIUM NA-STAT LAB STAT 01/17/2018 2:43 PM CDT BLOOD GAS, ARTERIAL STAT 01/17/2018 2:43 PM CDT RRL CRITICAL LABS STAT 01/17/2018 (ABG,NA,K,H&H,GLUCOSE) 2:43 PM CDT POCT-ACT Routine 01/17/2018 2:20 PM CDT HGB/HCT (H&H) - STAT LAB Routine 01/17/2018 1:12 PM CDT GLUCOSE-STAT LAB Routine 01/17/2018 1:12 PM CDT POTASSIUM-STAT LAB Routine 01/17/2018 1:12 PM CDT SODIUM NA-STAT LAB Routine 01/17/2018 1:12 PM CDT BLOOD GAS, ARTERIAL Routine 01/17/2018 1:12 PM CDT RRL CRITICAL LABS Routine 01/17/2018 (ABG,NA,K,H&H,GLUCOSE) 1:12 PM CDT MC 01/17/2018 Coronary artery disease 9:04 AM CDT involving [place] coronary artery of [place] heart without angina pectoris Aortic valve stenosis, etiology of cardiac valve disease unspecified REPLACEMENT,VALVE AORTIC 01/17/2018 Coronary artery disease 9:04 AM CDT involving [place] coronary artery of [place] heart without angina pectoris Aortic valve stenosis, etiology of cardiac valve disease unspecified ENDOSCOPIC HARVEST,VEIN 01/17/2018 Coronary artery disease 9:04 AM CDT involving [place] coronary artery of [place] heart without angina pectoris Aortic valve stenosis, etiology of cardiac valve disease unspecified BYPASS,AORTO CORONARY 01/17/2018 Coronary artery disease YONG/SVG 9:04 AM CDT involving [place] coronary artery of [place] heart without angina pectoris Aortic valve stenosis, etiology of cardiac valve disease unspecified XR CHEST 1 VIEW STAT 01/17/2018 PORTABLE/BEDSIDE 4:48 AM CDT CREATINE KINASE (CK), Routine 01/17/2018 TOTAL AND MB 3:39 AM CDT TROPONIN I Routine 01/17/2018 3:39 AM CDT CBC W/PLT COUNT & AUTO Routine 01/17/2018 DIFFERENTIAL 3:36 AM CDT PLATELET AGGREGATION: Routine 01/17/2018 FUNCTION SCREEN 3:36 AM CDT APTT Routine 01/17/2018 3:36 AM CDT PROTHROMBIN TIME/INR Routine 01/17/2018 3:36 AM CDT CBC W/PLT COUNT & AUTO Routine 01/17/2018 DIFFERENTIAL 3:36 AM CDT BASIC METABOLIC PANEL (7) Routine 01/17/2018 3:36 AM CDT ECG 12-LEAD Routine 01/17/2018 3:18 AM CDT Procedure Note - Interface, External Ris In - 01/17/2018 7:01 PM CDT Ventricula r Rate 65 BPM Atrial Rate 65 BPM P-R Interval 210 ms QRS Duration 136 ms Q-T Interval 462 ms QTC Calculatio n(Bazett) 480 ms P [place] 39 degrees R [place] -64 degrees T [place] 66 degrees Sinus rhythm with 1st degree A-V block Right bundle branch block Left anterior fascicular block Bifascicul ar block Moderate voltage criteria for LVH, may be normal variant Cannot rule out Septal infarct , age undetermin ed Abnormal ECG No previous ECGs available ECG 12-LEAD Routine 01/17/2018 3:18 AM CDT TYPE AND SCREEN, Routine 01/16/2018 AUTOMATED 6:35 PM CDT ABD AO & LOWER EXT 01/16/2018 Severe aortic stenosis ANGIOS/ POSS PPI 1:40 PM CDT Case Notes (4) POP6 L CATH & CORONARY ANGIOS 01/16/2018 Severe aortic stenosis 1:40 PM CDT Case Notes (4) POP6 CT/CTA CHEST Routine 12/14/2017 Severe aortic stenosis 1:[address]/CTA ABDOMEN & PELVIS Routine 12/14/2017 Severe aortic stenosis 1:22 PM CDT POCT-CREATININE Routine 12/14/2017 12:18 PM CDT after 10/27/2017 Results * VASCULAR DIAGRAM -SCAN (04/18/2018 11:11 AM CDT) Only the most recent of 2 results within the time period is included. Narrative Performed At * RHYTHM STRIP - SCAN (01/29/2018 11:40 AM CDT) Narrative Performed At * ECHOCARDIOGRAM REPORT - SCAN (01/28/2018 8:20 AM CDT) Narrative Performed At * CBC with platelet count + automated diff (01/28/2018 5:34 AM CDT) Only the most recent of 10 results within the time period is included. WBC 14.4 (H) 3.5 - 10.5 K/L [facility] RBC 3.55 (L) 3.93 - 5.22 M/L [facility] Hemoglobin 9.9 (L) 11.2 - 15.7 GM/DL [facility] Hematocrit 31.5 (L) 34.1 - 44.9 % [facility] MCV 88.7 79.4 - 94.8 fL [facility] MCH 27.9 25.6 - 32.2 pg [facility] MCHC 31.4 (L) 32.2 - 35.5 GM/DL [facility] RDW 15.5 (H) 11.7 - 14.4 % [facility] Platelets 331 150 - 450 K/CU MM [facility] MPV 10.6 9.4 - 12.3 fL [facility] nRBC 0 0 - 0 /100 WBC [facility] % Neutros 74 % [facility] % Lymphs 13 % [facility] % Monos 8 % [facility] % Eos 2 % [facility] % Baso 1 % [facility] # Neutros 10.72 (H) 1.56 - 6.13 K/L [facility] # Lymphs 1.87 1.18 - 3.74 K/L [facility] # Monos 1.09 (H) 0.24 - 0.36 K/L [facility] # Eos 0.23 0.04 - 0.36 K/L [facility] # Baso 0.08 0.01 - 0.08 K/L [facility] Immature 3 (H) 0 - 1 % [facility] Granulocytes-Relative [facility] Specimen Blood - Arm, Left Performing Organization Address City/[facility] Services[facility] Phone Number [facility] [address] [place] [address] MEDICAL [facility] * Basic Metabolic Panel (01/28/2018 5:34 AM CDT) Only the most recent of 15 results within the time period is included. Sodium 135 (L) 136 - 145 meq/L [facility] Potassium 3.7 3.5 - 5.1 meq/L [facility] Chloride 99 98 - 107 meq/L [facility] CO2 26 22 - 29 meq/L [facility] BUN 17 7 - 21 mg/dL [facility] Creatinine 0.84 0.57 - 1.25 mg/dL [facility] Glucose 93 70 - 105 mg/dL [facility] Calcium 9.8 8.4 - 10.2 mg/dL [facility] EGFR 64Comment: ESTIMATED GFR IS mL/min/1.73 sq m [facility] NOT ACCURATE CREATININE [facility] CLEARANCE IN PREDICTING GLOMERULAR FILTRATION RATE. ESTIMATED GFR IS NOT APPLICABLE FOR DIALYSIS PATIENTS. Specimen Blood - Arm, Left Performing Organization Address City/[facility]/Zipcode Phone Number [facility] [address] [place] [address] [facility] * 2D Echo W/Doppler(CW/PW/Color) (01/27/2018 4:07 PM CDT) Ejection Fraction [facility] Narrative Performed At Transthoracic Echocardiography Report (TTE) [facility] Demographics [facility] Patient Name CARINA BRICE Date of Study01/27/2018 [id number] Female Visit Number [id number] [id number] Room [id number] Number Date of Birth2Referring PhysicianMidouglas Vidal MD Age87 year(s)JACINTO Burch Interpreting [facility] Needs to be Pre Physician Read Amanda Patel MD Procedure Type of Study TTE procedure:2DECHO W DOPPLER(CW/PW/COLOR) (DOLLY) Indications:Initial post operative evaluation of prosthetic valve. Clinical History , Asthma, HLD, HTN, Hypothyroidism HGB 8.7 HCT 28 % 01/17/18 ACBx3/AVR 19mm Trifecta Contrast Medium: Definity. Amount - 2 ml Height: 58 inches Weight: 58.06 kg (128 lbs) BSA: 1.51 m^2 BMI: 26.75 kg/m^2 HR: 90 bpm BP: 95/54 mmHg Summary 1. All of the LV segments are hyperkinetic . LVEF by Bran's method of disk assessment is normal (>60%) . 2. The right ventricular chamber size and systolic function are within normal limits. 3. Estimated peak systolic PA pressure is 25-30 mmHg . 4. The biologic prosthetic AoV appears well-seated with normal function by Doppler. Previous Study In comparison with the prior exam 02/2017 the following changes are noted: AVR is new . Signature Findings Technical Quality: Technically adequate exam. Rhythm/BPRegular sinus rhythm during the exam. Left Ventricle The left ventricle is chamber size (by PSLAX dimension) is normal (female - LVIDd 3.8-5.2cm) . Mild concentric LV hypertrophy. All of the LV segments are hyperkinetic . LVEF by Bran's method of disk assessment is normal (>60%) . Grade 1 diastolic dysfunction (impaired relaxation and low-normal LA pressure). Left AtriumLA size is mildly enlarged (35-41 ml/m2) . Right VentricleThe right ventricular chamber size and systolic function are within normal limits. Right Atrium RA cavity size is normal . Aortic Valve A biologic, type unknown AoV prosthesis is visualized . The prosthetic AoV appears well-seated with normal function by Doppler. Mitral Valve Mild MV leaflet thickening. Tricuspid ValveTV structure is normal. [id number]-[id number] tricuspid regurgitation. Estimated peak systolic PA pressure is 25-30 mmHg . Pulmonic Valve Normal PV structure and function. AortaAortic root size (SInus of Valsalva diameter) is normal . Proximal ascending aorta is poorly visualized. PericardiumA trivial pericardial effusion is present . IVC/SVC/PA/PV/PleuralThe estimated RA pressure by IVC dynamics 5-10mmHg . Chambers/Structures Left Ventricle LVIDd: 4.25 cm LVEDV:80.81 ml LVIDs: 3.02 cm LVESV:35.49 ml LV Septum Diastolic: 1.13 cm LV PW Diastolic: 1.09 cm LV FS: 28.9 % LVOT Diameter: 1.83 cm LVEF: 56.1 % Aorta Ascending Aorta: 3.18 cm Doppler/Quantitative Measurements Mitral Valve MV Peak E-Wave: 0.68 m/s MV Peak A-Wave: 0.89 m/s E/A Ratio: 0.76 Peak Gradient: 1.84 mmHg Deceleration Time: 181 msec MV Thierry. Peak: Tissue Doppler E' Septal Velocity: 0.04 m/s E' Lateral Velocity: 0.04 m/s Aortic Valve Peak Velocity: 2.16 m/s Mean Velocity: 1.47 m/s Peak Gradient: 18.65 mmHg Mean Gradient: 10.01 mmHg AV Area (continuity): 2 cm^2 AV VTI: 32.29 cm AV DVI: 0.76 LVOT Peak Velocity: 1.39 m/s Peak Gradient: 7.79 mmHg Mean Velocity: 1.04 m/s Mean Gradient: 5.01 mmHg LVOT Diameter: 1.83 cmLVOT VTI: 24.51 cm LVOT Area: 2.63 cm^2LVOT SV:64.43 ml LVOT CO: 5.8 l/minLVOT CI: 3.84 l/min/m^2 Procedure Note Interface, External Ris In - 01/27/2018 9:54 PM CDT Transthoracic Echocardiography Report (TTE) Demographics Patient Name CARINA BRICE Date of Study 01/27/2018 Gender Female Visit Number [id number] Race Room Number 1130 Number Date of 1930 Referring Physician Danni Viadl MD Age 87 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 Clinical History , Asthma, HLD, HTN, Hypothyroidism HGB 8.7 HCT 28 % 01/17/18 ACBx3/AVR 19mm Trifecta Contrast Medium: Definity. Amount - 2 ml Height: 58 inches Weight: 58.06 kg (128 lbs) BSA: 1.51 m^2 BMI: 26.75 kg/m^2 HR: 90 bpm BP: 95/54 mmHg Summary 1. All of the LV segments are hyperkinetic . LVEF by Bran's method of disk assessment is normal (>60%) . 2. The right ventricular chamber size and systolic function are within normal limits. 3. Estimated peak systolic PA pressure is 25-30 mmHg . 4. The biologic prosthetic AoV appears well-seated with normal function by Doppler. Previous Study In comparison with the prior exam 02/2017 the following changes are noted: AVR is new . Signature Findings Technical Quality: Technically adequate exam. Rhythm/BP Regular sinus rhythm during the exam. Left Ventricle The left ventricle is chamber size (by PSLAX dimension) is normal (female - LVIDd 3.8-5.2cm) . Mild concentric LV hypertrophy. All of the LV segments are hyperkinetic . LVEF by Bran's method of disk assessment is normal (>60%) . Grade 1 diastolic dysfunction (impaired relaxation and low-normal LA pressure). Left Atrium LA size is mildly enlarged (35-41 ml/m2) . Right Ventricle The right ventricular chamber size and systolic function are within normal limits. Right Atrium RA cavity size is normal . Aortic Valve A biologic, type unknown AoV prosthesis is visualized . The prosthetic AoV appears well-seated with normal function by Doppler. Mitral Valve Mild MV leaflet thickening. Tricuspid Valve TV structure is normal. Cgbf-[id number] tricuspid regurgitation. Estimated peak systolic PA pressure is 25-30 mmHg . Pulmonic Valve Normal PV structure and function. Aorta Aortic root size (SInus of Valsalva diameter) is normal . Proximal ascending aorta is poorly visualized. Pericardium A trivial pericardial effusion is present . IVC/SVC/PA/PV/Pleural The estimated RA pressure by IVC dynamics 5-10mmHg . Chambers/Structures Left Ventricle LVIDd: 4.25 cm LVEDV:80.81 ml LVIDs: 3.02 cm LVESV:35.49 ml LV Septum Diastolic: 1.13 cm LV PW Diastolic: 1.09 cm LV FS: 28.9 % LVOT Diameter: 1.83 cm LVEF: 56.1 % Aorta Ascending Aorta: 3.18 cm Doppler/Quantitative Measurements Mitral Valve MV Peak E-Wave: 0.68 m/s MV Peak A-Wave: 0.89 m/s E/A Ratio: 0.76 Peak Gradient: 1.84 mmHg Deceleration Time: 181 msec MV Thierry. Peak: Tissue Doppler E' Septal Velocity: 0.04 m/s E' Lateral Velocity: 0.04 m/s Aortic Valve Peak Velocity: 2.16 m/s Mean Velocity: 1.47 m/s Peak Gradient: 18.65 mmHg Mean Gradient: 10.01 mmHg AV Area (continuity): 2 cm^2 AV VTI: 32.29 cm AV DVI: 0.76 LVOT Peak Velocity: 1.39 m/s Peak Gradient: 7.79 mmHg Mean Velocity: 1.04 m/s Mean Gradient: 5.01 mmHg LVOT Diameter: 1.83 cm LVOT VTI: 24.51 cm LVOT Area: 2.63 cm^2 LVOT SV:64.43 ml LVOT CO: 5.8 l/min LVOT CI: 3.84 l/min/m^2 Performing Organization Address City/[facility] Services[facility] Phone Number [facility] ECHO HEARTLAB MKCKESSON CPACS * Magnesium (01/26/2018 5:24 AM CDT) Only the most recent of 14 results within the time period is included. Magnesium 2.0 1.6 - 2.6 mg/dL [facility] Specimen Blood Performing Organization Address City/[facility] Servicescomt Phone Number [facility] [phone] [place] [address] * XR chest 1 view portable / bedside (01/25/2018 10:27 PM CDT) Only the most recent of 9 results within the time period is included. Narrative Performed At FINAL REPORT [facility] RAD, CHEST, 1 VIEW, NON DEPT INDICATION: sob COMPARISON: Prior day's exam FINDINGS: Portable frontal view of the chest. IMPRESSION: Support Lines: None. Lungs and pleura: Improved aeration compared to the prior date. Decreased interstitial congestion and small volume of right effusion. No pneumothorax. Heart and mediastinum: Stable contours. Stable surgical changes. Additional findings: None. Signed: JR Vang Robert MD Report Verified Date/Time:01/25/2018 22:28:32 Reading Location: [address] Reading Room Procedure Note Interface, External Ris In - 01/25/2018 10:30 PM CDT FINAL REPORT RAD, CHEST, 1 VIEW, NON DEPT INDICATION: sob COMPARISON: Prior day's exam FINDINGS: Portable frontal view of the chest. IMPRESSION: Support Lines: None. Lungs and pleura: Improved aeration compared to the prior date. Decreased interstitial congestion and small volume of right effusion. No pneumothorax. Heart and mediastinum: Stable contours. Stable surgical changes. Additional findings: None. Signed: JR Vang Robert MD Report Verified Date/Time: 01/25/2018 22:28:32 Reading Location: [address] Reading Room Performing Organization Address City/[place]/[employer] Phone Number GE RIS * ECG 12 lead (01/25/2018 9:59 AM CDT) Only the most recent of 2 results within the time period is included. Narrative Performed At Ventricular Rate 84 BPM GE MUSE Atrial Rate 84 BPM P-R Interval 170 ms QRS Duration 112 ms Q-T Interval 398 ms QTC Calculation(Bazett) 470 ms P [place] 33 degrees R [place] -49 degrees T [place] 88 degrees Normal sinus rhythm Incomplete right bundle branch block Left anterior fascicular block Left ventricular hypertrophy with repolarization abnormality Abnormal ECG No previous ECGs available Confirmed by MD Lynch Mahboob ([id number]) on 01/26/2018 9:44:12 AM Procedure Note Interface, External Ris In - 01/26/2018 9:44 AM CDT Ventricular Rate 84 BPM Atrial Rate 84 BPM P-R Interval 170 ms QRS Duration 112 ms Q-T Interval 398 ms QTC Calculation(Bazett) 470 ms P [place] 33 degrees R [place] -49 degrees T [place] 88 degrees Normal sinus rhythm Incomplete right bundle branch block Left anterior fascicular block Left ventricular hypertrophy with repolarization abnormality Abnormal ECG No previous ECGs available Confirmed by MD Lynch Mahboob ([id number]) on 01/26/2018 9:44:12 AM Performing Organization Address City/State/[facility] ServicesMir [place] Phone Number GE MUSE * aPTT (01/23/2018 5:34 AM CDT) Only the most recent of 4 results within the time period is included. PTT 30.1 22.5 - 36.0 seconds [facility] Specimen Blood - Arm, Right Performing Organization Address [facility] Servicescomt Phone Number [address] [address] [facility] * Prothrombin time/INR (01/23/2018 5:34 AM CDT) Only the most recent of 4 results within the time period is included. Protime 14.3 11.7 - 14.7 seconds [facility] INR 1.1 <=5.9 [facility] Specimen Blood - Arm, Right Narrative Performed At RECOMMENDED COUMADIN/WARFARIN INR THERAPY RANGES [facility] STANDARD DOSE: 2.0 - 3.0 Includes: PROPHYLAXIS for venous thrombosis, [facility] systemic embolization; TREATMENT for venous thrombosis and/or pulmonary embolus. HIGH RISK: Target INR is 2.5-3.5 for patients with mechanical heart valves. Performing Organization Address [facility] Servicescomt Phone Number [address] [address] [facility] * Calcium, Ionized (01/22/2018 4:36 AM CDT) Only the most recent of 10 results within the time period is included. Calcium, Ion 1.13 1.12 - 1.27 mmol/L [facility] pH, Blood 7.43 [facility] Specimen Blood - Line, Arterial Performing Organization Address City/[facility] Servicescode Phone Number [facility] [address] [place] [address] [facility] * Blood gas, arterial (01/22/2018 4:33 AM CDT) Only the most recent of 19 results within the time period is included. pH, Arterial 7.43 7.35 - 7.45 [facility] pCO2, Arterial 49 (H) 35 - 45 mmHg [facility] pO2, Arterial 205 (H) 80 - 90 mmHg [facility] O2 Sat, Arterial 99.4 (H) 96.0 - 97.0 % [facility] HCO3, Arterial 32 (H) 21 - 29 mmol/L [facility] Base Excess, Arterial 6.5 (H) -2.0 - 3.0 mmol/L [facility] Patient Temperature 37.0 C [facility] FIO2 50.0 % [facility] Specimen Blood, Arterial - Line, Arterial Performing Organization Address City/[facility] Servicescode Phone Number [address] * Potassium (01/21/2018 9:55 PM CDT) Only the most recent of 3 results within the time period is included. Potassium 3.2 (L) 3.5 - 5.1 meq/L [facility] Specimen Blood - Line, Arterial Performing Organization Address City/[facility] [place] [address] [phone] * CBC (Hemogram only) (01/21/2018 3:00 AM CDT) Only the most recent of 2 results within the time period is included. WBC 10.3 3.5 - 10.5 K/L [facility] RBC 2.82 (L) 3.93 - 5.22 M/L [facility] Hemoglobin 8.1 (L) 11.2 - 15.7 GM/DL [facility] Hematocrit 24.6 (L) 34.1 - 44.9 % [facility] MCV 87.2 79.4 - 94.8 fL [facility] MCH 28.7 25.6 - 32.2 pg [facility] MCHC 32.9 32.2 - 35.5 GM/DL [facility] RDW 14.8 (H) 11.7 - 14.4 % [facility] Platelets 84 (L) 150 - 450 K/CU MM [facility] MPV 11.5 9.4 - 12.3 fL [facility] nRBC 0 0 - 0 /100 WBC [facility] Specimen Blood Performing Organization Address City/[facility] Servicescode Phone Number [address] [address] [facility] * TRANSFUSION SERVICE REPORT - SCAN (01/20/2018 6:01 PM CDT) Only the most recent of 4 results within the time period is included. Narrative Performed At * Prepare Leuko-Red RBC (01/19/2018 11:54 PM CDT) CROSSMATCH COMPATIBLE SAFETRACE TX Unit ABO O Pos SAFETRACE TX UNIT NUMBER [id number] SAFETRACE TX Status TRANSFUSED SAFETRACE TX Blood Bank Product RED BLOOD CELLS SAFETRACE TX PRODUCT CODE [id number] SAFET[facility] TX Specimen Other Performing Organization Address [facility] Phone Number [facility] [place] * Procalcitonin (01/19/2018 4:03 PM CDT) Procalcitonin 0.07 (H) <0.05 ng/mL [facility] Specimen Blood Narrative Performed At SEPSIS RISK (ng/mL) [facility] Low:0.05-0.50 [facility] Intermediate: 0.51-2.00 High: >=2.01 Performing Organization Address [facility] Servicescode Phone Number [address] [address] [facility] * Oxygen saturation, measured (01/19/2018 12:15 PM CDT) Only the most recent of 3 results within the time period is included. O2 Saturation (Measured) 58.7 % [facility] Specimen Blood Performing Organization Address City/[facility] Servicescode Phone Number [phone] [place] [address] * Lactic acid, arterial, whole blood (01/19/2018 12:15 PM CDT) Only the most recent of 4 results within the time period is included. Lactate, Art 0.8 0.5 - 2.2 mmol/L [facility] Specimen Blood, Arterial Narrative Performed At Effective 12/01/2015: Units/Reference Range Change [facility] New: 0.5-2.2 mmol/LPrevious: 5-20 mg/dL [facility] Performing Organization Address [facility] Servicescomt Phone Number [address] * POC-Glucose meter (01/19/2018 8:52 AM CDT) Only the most recent of 12 results within the time period is included. POC-Glucose Meter 106Comment: TESTED AT [facility] 70 - 110 mg/dL [address] Specimen Blood Performing Organization Address [facility] Servicescomt Phone Number [address] * Phosphorus (01/19/2018 3:29 AM CDT) Only the most recent of 2 results within the time period is included. Phosphorus 3.6 2.3 - 4.7 mg/dL [facility] Specimen Blood Performing Organization Address City/[facility] [place] [address] [phone] [place] [address] * Potassium-Stat Lab (01/18/2018 11:57 AM CDT) Only the most recent of 8 results within the time period is included. Potassium 4.2 3.6 - 5.5 meq/L [facility] Specimen Blood, Arterial Performing Organization Address City/[facility] [place] [address] [facility] * Glucose-Stat Lab (01/18/2018 11:57 AM CDT) Only the most recent of 9 results within the time period is included. Glucose 108 70 - 110 mg/dL [facility] Specimen Blood, Arterial Performing Organization Address City/[facility] Servicescode Phone Number [address] [address] [facility] * HGB/HCT (H&H)-Stat Lab (01/18/2018 7:47 AM CDT) Only the most recent of 8 results within the time period is included. Hemoglobin 9.2 (L) 12.0 - 15.0 g/dL [facility] Hematocrit 27.0 (L) 36.0 - 45.0 % [facility] Specimen Blood, Arterial Performing Organization Address [facility] Phone Number [address] [address] [facility] * Transfuse Leuko-Red RBC (01/18/2018 5:52 AM CDT) Only the most recent of 2 results within the time period is included. * PT/aPTT (01/18/2018 5:38 AM CDT) Protime 17.7 (H) 11.7 - 14.7 seconds [facility] INR 1.5 <=5.9 [facility] PTT 39.8 (H) 22.5 - 36.0 seconds [facility] Specimen Blood - Line, Arterial Narrative Performed At RECOMMENDED COUMADIN/WARFARIN INR THERAPY RANGES [facility] STANDARD DOSE: 2.0 - 3.0 Includes: PROPHYLAXIS for venous thrombosis, [facility] systemic embolization; TREATMENT for venous thrombosis and/or pulmonary embolus. HIGH RISK: Target INR is 2.5-3.5 for patients with mechanical heart valves. Performing Organization Address City/[facility] Servicescode Phone Number [address] [address] [facility] * Fibrinogen (01/18/2018 5:38 AM CDT) Only the most recent of 3 results within the time period is included. Fibrinogen 184 (L) 225 - 434 mg/dl [facility] Specimen Blood - Line, Arterial Performing Organization Address [facility] Phone Number [address] * Sodium Na-Stat Lab (01/17/2018 11:54 PM CDT) Only the most recent of 7 results within the time period is included. Sodium 137 135 - 148 meq/L [facility] Specimen Blood, Arterial - Line, Arterial Performing Organization Address [facility] Phone Number [address] * Prepare RBC (01/17/2018 11:11 PM CDT) CROSSMATCH COMPATIBLE SAFETRACE TX Unit ABO O Pos SAFETRACE TX UNIT NUMBER [id number] SAFETRACE TX Status RETURNED FROM ISSUE SAFETRACE TX Blood Bank Product RED BLOOD CELLS SAFETRACE TX PRODUCT CODE [id number] SAFETRACE TX CROSSMATCH COMPATIBLE SAFETRACE TX Unit ABO O Pos SAFETRACE TX UNIT NUMBER [id number] SAFETRACE TX Status RETURNED FROM ISSUE SAFETRACE TX Blood Bank Product RED BLOOD CELLS SAFETRACE TX PRODUCT CODE [id number] SAFETRACE TX Performing Organization Address [facility] Phone Number SAFETRACE TX * POC ACTIVATED CLOTTING TIME (01/17/2018 5:26 PM CDT) Only the most recent of 6 results within the time period is included. Activated Clotting Time 125Comment: TESTED AT [facility] sec [address] Specimen Blood Performing Organization Address [facility] [place] [address] [phone] [place] [address] * Thromboelastograph (TEG) (01/17/2018 5:15 PM CDT) TEG Activated Clotting 4.5 4.0 - 7.0 minutes [facility] TEG Fibrinogen Activity 67.2 61.0 - 73.0 degrees [facility] TEG Platelet Aggregation 50.4 (L) 55.0 - 65.0 MM [facility] TEG-H Activated Clotting 4.6 4.0 - 7.0 minutes [facility] TEG-H Fibrinogen Activity 66.7 61.0 - 73.0 degrees [facility] TEG-H Platelet 56.5 55.0 - 65.0 MM [facility] Aggregation [facility] Specimen Blood Performing Organization Address City/[facility] Servicescomt Phone Number [address] [phone] * Platelet count (01/17/2018 5:15 PM CDT) Platelets 101 (L) 150 - 450 K/CU MM [facility] Specimen Blood Performing Organization Address City/[facility] Phone Number [address] * CARDIAC CATH REPORT - SCAN (01/17/2018 3:41 PM CDT) Narrative Performed At * Tissue Exam (01/17/2018 2:50 PM CDT) Case Report Surgical Pathology [facility] Report [facility] Case: [id number] Authorizing Provider:Rehan Cat, Collected: 01/17/2018 1450 Ordering Location: [facility] Received: 01/18/2018 0815 PERIOPERATIVE SERVICES Pathologist: Charanjit Mackey MD Specimen:Aortic Valve DIAGNOSIS PART A AORTIC VALVE, REPAIR: [facility] SEVERELY CALCIFIED VALVULAR [facility] TISSUE. Signing Pathologist Direct Phone Line: [phone] CPT Code(s) 85913, 43759 [facility] CLINICAL HISTORY CAD, [facility] SPECIMEN SOURCE Aortic valve tissue [facility] GROSS DESCRIPTION The specimen is received in a [facility] formalin-filled container and [facility] labeled with the patient's information and labeled "aortic valve tissue" and consists of three yellow-white calcified leaflets measuring 1.7 x 1 x 0.2 cm. Book Reviewer sections are submitted A1 for decalcification. CG/pl MICROSCOPIC DESCRIPTION PERFORMED. [facility] Specimen Tissue - Aortic Valve Performing Organization Address [facility] Services[facility] Phone Number [address] [address] [facility] * Troponin I (01/17/2018 3:39 AM CDT) Troponin I 0.01 0.00 - 0.03 ng/mL [facility] Specimen Blood Narrative Performed At Troponin I (TnI) levels must be interpreted in the context of the presenting [facility] symptoms and the clinical findings. Elevated TnI levels indicate myocardial [facility] damage, but are not specific for ischemic heart disease. Elevated TnI levels are seen in patients with other cardiac conditions (including myocarditis and congestive heart failure), and slight TnI elevations occur in patients with other conditions, including sepsis, renal failure, acidosis, acute neurological disease, and persistent tachyarrhythmia. Performing Organization Address [facility] Phone Number [address] [address] [facility] * Creatine Kinase (CK), Total and MB (01/17/2018 3:39 AM CDT) Total CK 50 29 - 200 U/L [facility] CK-MB 1.2 0.0 - 6.6 ng/mL [facility] MB Relative Index 2.4 % [facility] Specimen Blood Narrative Performed At CK-MB Reference Range: [facility] <6.7Normal [facility] 6.7-10.0Borderline >10.0 Abnormal Performing Organization Address [facility] Services[facility] Phone Number [facility] [address] [place] [phone] * Platelet Aggregation: Function Screen (01/17/2018 3:36 AM CDT) Weak ADP 66 60 - 91 % [facility] Plt. Function Screen 60-100% indicates normal [facility] Interpretation platelet function [facility] Pathologist: Snow Arias MD [facility] (electronic signature) [facility] Platelets 217 150 - 450 K/CU MM [facility] Specimen Blood Narrative Performed At for patients on clopidogrel in past two weeks [facility] Performing Organization Address City/[facility]/Zipcode Phone Number [address] * Type and screen, automated (01/16/2018 6:35 PM CDT) ABO/RH AUTOMATED (BEAKER) O POSITIVE [facility] Ab Scrn NEGATIVE [facility] Specimen Blood Performing Organization Address City/State/Zipcode Phone Number [address] * CTA chest (12/14/2017 1:22 PM CDT) Narrative Performed At Addendum Begins Speak With Me [facility] REPORT STATUS:A ADDENDUM: Study reviewed by radiology. Agree with the nonvascular findings as described below. Signed: Rehan Lynn MD Report Verified Date/Time:12/14/2017 16:33:53 Reading Location: [facility] B1 P048 Angio Body Reading Room Addendum Ends FINAL REPORT CT angiography of the thoracoabdominal aorta and pelvic arteries, 14 Dec 2017 INDICATION: This is a 87 year old female with a diagnosis of aortic stenosis presents for preprocedure TAVR assessment.This study is performed in an attempt to avoid an invasive procedure. TECHNIQUE: Spiral acquisition before and during intravenous contrast administration using a Rebekah multidetector CT scanner. Images were obtained before and during the dynamic passage of intravenous contrast material.Multi-planar 3-D volume-rendering reconstruction was performed using an independent workstation interactively by the interpreting physician as well as the 3-D specialist for optimal visualization of the thoracoabdominal aorta, the pelvic arteries as well as its proximal branches. Please refer to the contrast sheet scanned in the EPIC system for the amount and route of contrast given. This exam was performed according to our departmental dose-optimisation programme, which includes automated exposure control, adjustment of the mA and/or kV according to patient size and/or use of iterative reconstruction technique. Dose modulation, iterative reconstruction, and/or weight based adjustment of the mA/kV was utilized to reduce the radiation dose to as low as reasonably achievable. FINDINGS: VASCULAR: The central pulmonary arteries are normal in calibre. The cardiac chambers demonstrate normal atrioventricular and ventriculoarterial concordance, and systemic and pulmonary venous return. The left ventricle is normal in size. Left atrial enlargement is identified. No evidence of mitral annular calcification. Coronary artery origins are normal and coronary artery calcification is seen in the left coronary territory. Patient has a diagnosis of aortic stenosis. The aortic valve is tricuspid. Aortic valve area is approximately 46 sq mm. Agatston score is 1759. Regarding the aorta, minimal calcification is seen in the aortic root and ascending thoracic aorta thereafter is free of calcification. The transverse arch and descending thoracic aorta has mild calcific atherosclerosis identified. In the infrarenal abdominal aorta, a combination of calcific and noncalcific atherosclerosis is seen. No acute aortic pathology is identified. No dissection or contained rupture is present. No ectasia or aneurysmal dilation is seen. Arch vessel branching pattern is normal and the visualised arch vessels are seen to be widely patent proximally. There is calcific atherosclerosis identified at the takeoff of the left subclavian artery, image 66, the minimum diameter is approximately 6.5 x 5.6 mm. At image 26, the left subclavian artery is at least 6 mm in diameter. Minimal calcification is seen in the takeoff of the right subclavian artery. At image 29, the right subclavian artery measures 6 mm in diameter. The coeliac axis, SMA, YONG are patent with no obstructive lesion identified. Single left and right renal arteries are seen, with calcific atherosclerosis identified. Overall, by multiplanar reformation, they are nonobstructive. The common iliac, external iliac, common femoral, and the visualised superficial femoral arteries, bilaterally, are widely patent, and some eccentric calcification is seen in the common iliac level. Dimensions that may be helpful TAVR as follows: Only minimal calcifications identified in the aortic root and otherwise the ascending thoracic aorta is free of calcification. The major and minor aortic annulus diameter measures 20.8 and 17.4 mm, respectively. The aortic annulus perimeter measured 62 mm and the cross-sectional area measures 291 mm2. The aortic annulus diameter at the traditional LVOT and coronal LVOT measures 16.8 and 20.0 mm, respectively. Data was measured at 40% reconstruction with the least motion artefact. For reference purpose, per SPENCER S3 brochure, recommendation are as follows: CT area between 273 to 345 mm2 (20 mm valve); 338 to 430 mm2 (23 mm valve); 430 to 546 mm2 (26 mm valve); 540 to 683 mm2 (29 mm valve). For reference purpose, per CoreValve Evolut R brochure, recommendation are as follows: CT perimeter between 56.5-62.8 mm (23 mm valve); 62.8-72.3 mm (26 mm valve); 72.3-81.7 mm (29 mm valve); and 81.7-94.2. mm (34 mm valve). Agatston Score is 1759. Aortic valve area is 46 sq mm. The sinus of Valsalva height to the takeoff of the coronary artery ostium, RCC (systole): 11.6 mm The sinus of Valsalva height to the takeoff of the coronary artery ostium, LCC (systole): 12.2 mm The sinus of Valsalva diameter, RCC (systole): 26.2 mm The sinus of Valsalva diameter, LCC (systole): 26.8 mm The sinus of Valsalva diameter, NCC (systole): 26.3 mm The sinotubular junction measures approximately 24.1 x 24.3 mm. The aortic root angulation measures 62.0 degrees. The angle of delivery is CAPE VERDEAN 1 CAU 9. The minimal and perpendicular abdominal aortic diameter measure 10.7 and 11.1 mm, respectively. There is no evidence of thoracoabdominal aortic aneurysm or stent placement present. The minimum and the perpendicular left common iliac artery measures 6.2 and 6.3 mm, respectively with mildtortuosity and mild focal calcific atherosclerosis present. The minimum and the perpendicular left external iliac artery measures 5.4 and 5.5 mm, respectively with minimaltortuosity and nocalcific atherosclerosis present. The minimum and the perpendicular left femoral artery measures 7.2 and 7.6 mm, respectively with minimaltortuosity and minimalcalcific atherosclerosis present. The minimum and the perpendicular right common iliac artery measures 8.3 and 9.5 mm, respectively with mildtortuosity and mildcalcific atherosclerosis present. The minimum and the perpendicular right external iliac artery measures 6.0 and 6.2 mm, respectively with mild tortuosity and nocalcific atherosclerosis present. The minimum and the perpendicular right femoral artery measures 6.9 and 7.2 mm, respectively with notortuosity and nocalcific atherosclerosis present. NONVASCULAR: The visualised thyroid gland appears unremarkable. The chest wall and mediastinum has no acute abnormalities identified. Some small lymph nodes are seen, considered nonspecific in nature. In the lung windows, no obvious endobronchial lesion is seen, and no pleural effusion is identified. There could be minimal bronchiectatic changes, best seen in the right lower lobe. Some subsegmental atelectatic changes are seen. A tiny 2 to 3 mm nodule is identified in the upper segment of the right lower lobe, near the fissure, of doubtful significance due to its small size. No suspicious pulmonary nodule is identified. Some mosaic perfusion pattern is identified, that may suggest small airways disease. In the abdomen, the liver and spleen appears unremarkable. Calcified granuloma is identified in the liver. The liver edge is smooth. No abnormal enhancing structure is identified. The gallbladder appears unremarkable. The pancreas has no gross abnormality identified. The adrenal glands are not enlarged. No acute renal pathology is seen and no hydronephrosis or perirenal fluid collection is identified. Bowel is not well assessed by CT angiography as enteric contrast not given. No obvious bowel dilation is identified. Diverticular disease is seen in the descending and sigmoid colon with no evidence of acute diverticulitis. An hiatus hernia is identified. No free air or free fluid seen in the abdomen and pelvis. No significant retroperitoneal adenopathy is seen. Some small lymph nodes are present, considered nonspecific in nature. The bladder appears unremarkable. The uterus is not identified. No obvious abnormal adnexal mass is seen though CT is not optimised in the assessment of pelvic gynecological structures. No acute bony pathology is noted. CONCLUSIONS: 1.Patient has a diagnosis of aortic stenosis. Aortic valve is tricuspid. Agatston score is 1759. Aortic valve area is 46 sq mm. Scattered calcification seen in the aortic root and remainder of the ascending thoracic aorta is unremarkable. No acute aortic pathology is identified. No mitral annular calcification is identified. Dimensions that may be helpful for TAVR as follows: 2.Normal coronary artery origins. Coronary artery calcification is seen in the left coronary system. 3.Pulmonary findings as described above. The central pulmonary artery is normal in caliber. 4.Other findings as described above. 5.An addendum will be dictated by the Rn Team Leader Radiologist regarding the nonvascular findings. Signed: Sanjeev Yates MD Report Verified Date/Time:12/14/2017 15:11:05 Reading Location: [facility] P047 Cardiology MRI Procedure Note Interface, External Ris In - 12/14/2017 4:36 PM CDT Addendum Begins REPORT STATUS:A ADDENDUM: Study reviewed by radiology. Agree with the nonvascular findings as described below. Signed: Rehan Lynn MD Report Verified Date/Time: 12/14/2017 16:33:53 Reading Location: [facility] P048 Angio Body Reading Room Addendum Ends FINAL REPORT CT angiography of the thoracoabdominal aorta and pelvic arteries, 14 Dec 2017 INDICATION: This is a 87 year old female with a diagnosis of aortic stenosis presents for preprocedure TAVR assessment. This study is performed in an attempt to avoid an invasive procedure. TECHNIQUE: Spiral acquisition before and during intravenous contrast administration using a Rebekah multidetector CT scanner. Images were obtained before and during the dynamic passage of intravenous contrast material. Multi-planar 3-D volume-rendering reconstruction was performed using an independent workstation interactively by the interpreting physician as well as the 3-D specialist for optimal visualization of the thoracoabdominal aorta, the pelvic arteries as well as its proximal branches. Please refer to the contrast sheet scanned in the EPIC system for the amount and route of contrast given. This exam was performed according to our departmental dose-optimisation programme, which includes automated exposure control, adjustment of the mA and/or kV according to patient size and/or use of iterative reconstruction technique. Dose modulation, iterative reconstruction, and/or weight based adjustment of the mA/kV was utilized to reduce the radiation dose to as low as reasonably achievable. FINDINGS: VASCULAR: The central pulmonary arteries are normal in calibre. The cardiac chambers demonstrate normal atrioventricular and ventriculoarterial concordance, and systemic and pulmonary venous return. The left ventricle is normal in size. Left atrial enlargement is identified. No evidence of mitral annular calcification. Coronary artery origins are normal and coronary artery calcification is seen in the left coronary territory. Patient has a diagnosis of aortic stenosis. The aortic valve is tricuspid. Aortic valve area is approximately 46 sq mm. Agatston score is 1759. Regarding the aorta, minimal calcification is seen in the aortic root and ascending thoracic aorta thereafter is free of calcification. The transverse arch and descending thoracic aorta has mild calcific atherosclerosis identified. In the infrarenal abdominal aorta, a combination of calcific and noncalcific atherosclerosis is seen. No acute aortic pathology is identified. No dissection or contained rupture is present. No ectasia or aneurysmal dilation is seen. Arch vessel branching pattern is normal and the visualised arch vessels are seen to be widely patent proximally. There is calcific atherosclerosis identified at the takeoff of the left subclavian artery, image 66, the minimum diameter is approximately 6.5 x 5.6 mm. At image 26, the left subclavian artery is at least 6 mm in diameter. Minimal calcification is seen in the takeoff of the right subclavian artery. At image 29, the right subclavian artery measures 6 mm in diameter. The coeliac axis, SMA, YONG are patent with no obstructive lesion identified. Single left and right renal arteries are seen, with calcific atherosclerosis identified. Overall, by multiplanar reformation, they are nonobstructive. The common iliac, external iliac, common femoral, and the visualised superficial femoral arteries, bilaterally, are widely patent, and some eccentric calcification is seen in the common iliac level. Dimensions that may be helpful TAVR as follows: Only minimal calcifications identified in the aortic root and otherwise the ascending thoracic aorta is free of calcification. The major and minor aortic annulus diameter measures 20.8 and 17.4 mm, respectively. The aortic annulus perimeter measured 62 mm and the cross-sectional area measures 291 mm2. The aortic annulus diameter at the traditional LVOT and coronal LVOT measures 16.8 and 20.0 mm, respectively. Data was measured at 40% reconstruction with the least motion artefact. For reference purpose, per SPENCER S3 brochure, recommendation are as follows: CT area between 273 to 345 mm2 (20 mm valve); 338 to 430 mm2 (23 mm valve); 430 to 546 mm2 (26 mm valve); 540 to 683 mm2 (29 mm valve). For reference purpose, per CoreValve Evolut R brochure, recommendation are as follows: CT perimeter between 56.5-62.8 mm (23 mm valve); 62.8-72.3 mm (26 mm valve); 72.3-81.7 mm (29 mm valve); and 81.7-94.2. mm (34 mm valve). Agatston Score is 1759. Aortic valve area is 46 sq mm. The sinus of Valsalva height to the takeoff of the coronary artery ostium, RCC (systole): 11.6 mm The sinus of Valsalva height to the takeoff of the coronary artery ostium, LCC (systole): 12.2 mm The sinus of Valsalva diameter, RCC (systole): 26.2 mm The sinus of Valsalva diameter, LCC (systole): 26.8 mm The sinus of Valsalva diameter, NCC (systole): 26.3 mm The sinotubular junction measures approximately 24.1 x 24.3 mm. The aortic root angulation measures 62.0 degrees. The angle of delivery is CAPE VERDEAN 1 CAU 9. The minimal and perpendicular abdominal aortic diameter measure 10.7 and 11.1 mm, respectively. There is no evidence of thoracoabdominal aortic aneurysm or stent placement present. The minimum and the perpendicular left common iliac artery measures 6.2 and 6.3 mm, respectively with mild tortuosity and mild focal calcific atherosclerosis present. The minimum and the perpendicular left external iliac artery measures 5.4 and 5.5 mm, respectively with minimal tortuosity and no calcific atherosclerosis present. The minimum and the perpendicular left femoral artery measures 7.2 and 7.6 mm, respectively with minimal tortuosity and minimal calcific atherosclerosis present. The minimum and the perpendicular right common iliac artery measures 8.3 and 9.5 mm, respectively with mild tortuosity and mild calcific atherosclerosis present. The minimum and the perpendicular right external iliac artery measures 6.0 and 6.2 mm, respectively with mild tortuosity and no calcific atherosclerosis present. The minimum and the perpendicular right femoral artery measures 6.9 and 7.2 mm, respectively with no tortuosity and no calcific atherosclerosis present. NONVASCULAR: The visualised thyroid gland appears unremarkable. The chest wall and mediastinum has no acute abnormalities identified. Some small lymph nodes are seen, considered nonspecific in nature. In the lung windows, no obvious endobronchial lesion is seen, and no pleural effusion is identified. There could be minimal bronchiectatic changes, best seen in the right lower lobe. Some subsegmental atelectatic changes are seen. A tiny 2 to 3 mm nodule is identified in the upper segment of the right lower lobe, near the fissure, of doubtful significance due to its small size. No suspicious pulmonary nodule is identified. Some mosaic perfusion pattern is identified, that may suggest small airways disease. In the abdomen, the liver and spleen appears unremarkable. Calcified granuloma is identified in the liver. The liver edge is smooth. No abnormal enhancing structure is identified. The gallbladder appears unremarkable. The pancreas has no gross abnormality identified. The adrenal glands are not enlarged. No acute renal pathology is seen and no hydronephrosis or perirenal fluid collection is identified. Bowel is not well assessed by CT angiography as enteric contrast not given. No obvious bowel dilation is identified. Diverticular disease is seen in the descending and sigmoid colon with no evidence of acute diverticulitis. An hiatus hernia is identified. No free air or free fluid seen in the abdomen and pelvis. No significant retroperitoneal adenopathy is seen. Some small lymph nodes are present, considered nonspecific in nature. The bladder appears unremarkable. The uterus is not identified. No obvious abnormal adnexal mass is seen though CT is not optimised in the assessment of pelvic gynecological structures. No acute bony pathology is noted. CONCLUSIONS: 1. Patient has a diagnosis of aortic stenosis. Aortic valve is tricuspid. Agatston score is 1759. Aortic valve area is 46 sq mm. Scattered calcification seen in the aortic root and remainder of the ascending thoracic aorta is unremarkable. No acute aortic pathology is identified. No mitral annular calcification is identified. Dimensions that may be helpful for TAVR as follows: 2. Normal coronary artery origins. Coronary artery calcification is seen in the left coronary system. 3. Pulmonary findings as described above. The central pulmonary artery is normal in caliber. 4. Other findings as described above. 5. An addendum will be dictated by the Rn Team Leader Radiologist regarding the nonvascular findings. Signed: Sanjeev Yates MD Report Verified Date/Time: 12/14/2017 15:11:05 Reading Location: [facility] P047 Cardiology MRI Performing Organization Address City/State/Zipcode Phone Number [facility] * CTA abdomen & pelvis (12/14/2017 1:22 PM CDT) Narrative Performed At Addendum Begins [facility] REPORT STATUS:A ADDENDUM: Study reviewed by radiology. Agree with the nonvascular findings as described below. Signed: Rehan Lynn MD Report Verified Date/Time:12/14/2017 16:33:53 Reading Location: [facility] P048 Angio Body Reading Room Addendum Ends FINAL REPORT CT angiography of the thoracoabdominal aorta and pelvic arteries, 14 Dec 2017 INDICATION: This is a 87 year old female with a diagnosis of aortic stenosis presents for preprocedure TAVR assessment.This study is performed in an attempt to avoid an invasive procedure. TECHNIQUE: Spiral acquisition before and during intravenous contrast administration using a Rebekah multidetector CT scanner. Images were obtained before and during the dynamic passage of intravenous contrast material.Multi-planar 3-D volume-rendering reconstruction was performed using an independent workstation interactively by the interpreting physician as well as the 3-D specialist for optimal visualization of the thoracoabdominal aorta, the pelvic arteries as well as its proximal branches. Please refer to the contrast sheet scanned in the EPIC system for the amount and route of contrast given. This exam was performed according to our departmental dose-optimisation programme, which includes automated exposure control, adjustment of the mA and/or kV according to patient size and/or use of iterative reconstruction technique. Dose modulation, iterative reconstruction, and/or weight based adjustment of the mA/kV was utilized to reduce the radiation dose to as low as reasonably achievable. FINDINGS: VASCULAR: The central pulmonary arteries are normal in calibre. The cardiac chambers demonstrate normal atrioventricular and ventriculoarterial concordance, and systemic and pulmonary venous return. The left ventricle is normal in size. Left atrial enlargement is identified. No evidence of mitral annular calcification. Coronary artery origins are normal and coronary artery calcification is seen in the left coronary territory. Patient has a diagnosis of aortic stenosis. The aortic valve is tricuspid. Aortic valve area is approximately 46 sq mm. Agatston score is 1759. Regarding the aorta, minimal calcification is seen in the aortic root and ascending thoracic aorta thereafter is free of calcification. The transverse arch and descending thoracic aorta has mild calcific atherosclerosis identified. In the infrarenal abdominal aorta, a combination of calcific and noncalcific atherosclerosis is seen. No acute aortic pathology is identified. No dissection or contained rupture is present. No ectasia or aneurysmal dilation is seen. Arch vessel branching pattern is normal and the visualised arch vessels are seen to be widely patent proximally. There is calcific atherosclerosis identified at the takeoff of the left subclavian artery, image 66, the minimum diameter is approximately 6.5 x 5.6 mm. At image 26, the left subclavian artery is at least 6 mm in diameter. Minimal calcification is seen in the takeoff of the right subclavian artery. At image 29, the right subclavian artery measures 6 mm in diameter. The coeliac axis, SMA, YONG are patent with no obstructive lesion identified. Single left and right renal arteries are seen, with calcific atherosclerosis identified. Overall, by multiplanar reformation, they are nonobstructive. The common iliac, external iliac, common femoral, and the visualised superficial femoral arteries, bilaterally, are widely patent, and some eccentric calcification is seen in the common iliac level. Dimensions that may be helpful TAVR as follows: Only minimal calcifications identified in the aortic root and otherwise the ascending thoracic aorta is free of calcification. The major and minor aortic annulus diameter measures 20.8 and 17.4 mm, respectively. The aortic annulus perimeter measured 62 mm and the cross-sectional area measures 291 mm2. The aortic annulus diameter at the traditional LVOT and coronal LVOT measures 16.8 and 20.0 mm, respectively. Data was measured at 40% reconstruction with the least motion artefact. For reference purpose, per SPENCER S3 brochure, recommendation are as follows: CT area between 273 to 345 mm2 (20 mm valve); 338 to 430 mm2 (23 mm valve); 430 to 546 mm2 (26 mm valve); 540 to 683 mm2 (29 mm valve). For reference purpose, per CoreValve Evolut R brochure, recommendation are as follows: CT perimeter between 56.5-62.8 mm (23 mm valve); 62.8-72.3 mm (26 mm valve); 72.3-81.7 mm (29 mm valve); and 81.7-94.2. mm (34 mm valve). Agatston Score is 1759. Aortic valve area is 46 sq mm. The sinus of Valsalva height to the takeoff of the coronary artery ostium, RCC (systole): 11.6 mm The sinus of Valsalva height to the takeoff of the coronary artery ostium, LCC (systole): 12.2 mm The sinus of Valsalva diameter, RCC (systole): 26.2 mm The sinus of Valsalva diameter, LCC (systole): 26.8 mm The sinus of Valsalva diameter, NCC (systole): 26.3 mm The sinotubular junction measures approximately 24.1 x 24.3 mm. The aortic root angulation measures 62.0 degrees. The angle of delivery is CAP[place] 1 CAU 9. The minimal and perpendicular abdominal aortic diameter measure 10.7 and 11.1 mm, respectively. There is no evidence of thoracoabdominal aortic aneurysm or stent placement present. The minimum and the perpendicular left common iliac artery measures 6.2 and 6.3 mm, respectively with mildtortuosity and mild focal calcific atherosclerosis present. The minimum and the perpendicular left external iliac artery measures 5.4 and 5.5 mm, respectively with minimaltortuosity and nocalcific atherosclerosis present. The minimum and the perpendicular left femoral artery measures 7.2 and 7.6 mm, respectively with minimaltortuosity and minimalcalcific atherosclerosis present. The minimum and the perpendicular right common iliac artery measures 8.3 and 9.5 mm, respectively with mildtortuosity and mildcalcific atherosclerosis present. The minimum and the perpendicular right external iliac artery measures 6.0 and 6.2 mm, respectively with mild tortuosity and nocalcific atherosclerosis present. The minimum and the perpendicular right femoral artery measures 6.9 and 7.2 mm, respectively with notortuosity and nocalcific atherosclerosis present. NONVASCULAR: The visualised thyroid gland appears unremarkable. The chest wall and mediastinum has no acute abnormalities identified. Some small lymph nodes are seen, considered nonspecific in nature. In the lung windows, no obvious endobronchial lesion is seen, and no pleural effusion is identified. There could be minimal bronchiectatic changes, best seen in the right lower lobe. Some subsegmental atelectatic changes are seen. A tiny 2 to 3 mm nodule is identified in the upper segment of the right lower lobe, near the fissure, of doubtful significance due to its small size. No suspicious pulmonary nodule is identified. Some mosaic perfusion pattern is identified, that may suggest small airways disease. In the abdomen, the liver and spleen appears unremarkable. Calcified granuloma is identified in the liver. The liver edge is smooth. No abnormal enhancing structure is identified. The gallbladder appears unremarkable. The pancreas has no gross abnormality identified. The adrenal glands are not enlarged. No acute renal pathology is seen and no hydronephrosis or perirenal fluid collection is identified. Bowel is not well assessed by CT angiography as enteric contrast not given. No obvious bowel dilation is identified. Diverticular disease is seen in the descending and sigmoid colon with no evidence of acute diverticulitis. An hiatus hernia is identified. No free air or free fluid seen in the abdomen and pelvis. No significant retroperitoneal adenopathy is seen. Some small lymph nodes are present, considered nonspecific in nature. The bladder appears unremarkable. The uterus is not identified. No obvious abnormal adnexal mass is seen though CT is not optimised in the assessment of pelvic gynecological structures. No acute bony pathology is noted. CONCLUSIONS: 1.Patient has a diagnosis of aortic stenosis. Aortic valve is tricuspid. Agatston score is 1759. Aortic valve area is 46 sq mm. Scattered calcification seen in the aortic root and remainder of the ascending thoracic aorta is unremarkable. No acute aortic pathology is identified. No mitral annular calcification is identified. Dimensions that may be helpful for TAVR as follows: 2.Normal coronary artery origins. Coronary artery calcification is seen in the left coronary system. 3.Pulmonary findings as described above. The central pulmonary artery is normal in caliber. 4.Other findings as described above. 5.An addendum will be dictated by the Rn Team Leader Radiologist regarding the nonvascular findings. Signed: Sanjeev Ytaes MD Report Verified Date/Time:12/14/2017 15:11:05 Reading Location: [place] [address] Cardiology MRI Procedure Note Interface, External Ris In - 12/14/2017 4:36 PM CDT Addendum Begins REPORT STATUS:A ADDENDUM: Study reviewed by radiology. Agree with the nonvascular findings as described below. Signed: Rehan Lynn MD Report Verified Date/Time: 12/14/2017 16:33:53 Reading Location: [place] [address] Angio Body Reading Room Addendum Ends FINAL REPORT CT angiography of the thoracoabdominal aorta and pelvic arteries, 14 Dec 2017 INDICATION: This is a 87 year old female with a diagnosis of aortic stenosis presents for preprocedure TAVR assessment. This study is performed in an attempt to avoid an invasive procedure. TECHNIQUE: Spiral acquisition before and during intravenous contrast administration using a Rebekha multidetector CT scanner. Images were obtained before and during the dynamic passage of intravenous contrast material. Multi-planar 3-D volume-rendering reconstruction was performed using an independent workstation interactively by the interpreting physician as well as the 3-D specialist for optimal visualization of the thoracoabdominal aorta, the pelvic arteries as well as its proximal branches. Please refer to the contrast sheet scanned in the EPIC system for the amount and route of contrast given. This exam was performed according to our departmental dose-optimisation programme, which includes automated exposure control, adjustment of the mA and/or kV according to patient size and/or use of iterative reconstruction technique. Dose modulation, iterative reconstruction, and/or weight based adjustment of the mA/kV was utilized to reduce the radiation dose to as low as reasonably achievable. FINDINGS: VASCULAR: The central pulmonary arteries are normal in calibre. The cardiac chambers demonstrate normal atrioventricular and ventriculoarterial concordance, and systemic and pulmonary venous return. The left ventricle is normal in size. Left atrial enlargement is identified. No evidence of mitral annular calcification. Coronary artery origins are normal and coronary artery calcification is seen in the left coronary territory. Patient has a diagnosis of aortic stenosis. The aortic valve is tricuspid. Aortic valve area is approximately 46 sq mm. Agatston score is 1759. Regarding the aorta, minimal calcification is seen in the aortic root and ascending thoracic aorta thereafter is free of calcification. The transverse arch and descending thoracic aorta has mild calcific atherosclerosis identified. In the infrarenal abdominal aorta, a combination of calcific and noncalcific atherosclerosis is seen. No acute aortic pathology is identified. No dissection or contained rupture is present. No ectasia or aneurysmal dilation is seen. Arch vessel branching pattern is normal and the visualised arch vessels are seen to be widely patent proximally. There is calcific atherosclerosis identified at the takeoff of the left subclavian artery, image 66, the minimum diameter is approximately 6.5 x 5.6 mm. At image 26, the left subclavian artery is at least 6 mm in diameter. Minimal calcification is seen in the takeoff of the right subclavian artery. At image 29, the right subclavian artery measures 6 mm in diameter. The coeliac axis, SMA, YONG are patent with no obstructive lesion identified. Single left and right renal arteries are seen, with calcific atherosclerosis identified. Overall, by multiplanar reformation, they are nonobstructive. The common iliac, external iliac, common femoral, and the visualised superficial femoral arteries, bilaterally, are widely patent, and some eccentric calcification is seen in the common iliac level. Dimensions that may be helpful TAVR as follows: Only minimal calcifications identified in the aortic root and otherwise the ascending thoracic aorta is free of calcification. The major and minor aortic annulus diameter measures 20.8 and 17.4 mm, respectively. The aortic annulus perimeter measured 62 mm and the cross-sectional area measures 291 mm2. The aortic annulus diameter at the traditional LVOT and coronal LVOT measures 16.8 and 20.0 mm, respectively. Data was measured at 40% reconstruction with the least motion artefact. For reference purpose, per [employer] S3 brochure, recommendation are as follows: CT area between 273 to 345 mm2 (20 mm valve); 338 to 430 mm2 (23 mm valve); 430 to 546 mm2 (26 mm valve); 540 to 683 mm2 (29 mm valve). For reference purpose, per [employer] brochure, recommendation are as follows: CT perimeter between 56.5-62.8 mm (23 mm valve); 62.8-72.3 mm (26 mm valve); 72.3-81.7 mm (29 mm valve); and 81.7-94.2. mm (34 mm valve). Agatston Score is 1759. Aortic valve area is 46 sq mm. The sinus of Valsalva height to the takeoff of the coronary artery ostium, RCC (systole): 11.6 mm The sinus of Valsalva height to the takeoff of the coronary artery ostium, LCC (systole): 12.2 mm The sinus of Valsalva diameter, RCC (systole): 26.2 mm The sinus of Valsalva diameter, LCC (systole): 26.8 mm The sinus of Valsalva diameter, NCC (systole): 26.3 mm The sinotubular junction measures approximately 24.1 x 24.3 mm. The aortic root angulation measures 62.0 degrees. The angle of delivery is [place] 1 CAU 9. The minimal and perpendicular abdominal aortic diameter measure 10.7 and 11.1 mm, respectively. There is no evidence of thoracoabdominal aortic aneurysm or stent placement present. The minimum and the perpendicular left common iliac artery measures 6.2 and 6.3 mm, respectively with mild tortuosity and mild focal calcific atherosclerosis present. The minimum and the perpendicular left external iliac artery measures 5.4 and 5.5 mm, respectively with minimal tortuosity and no calcific atherosclerosis present. The minimum and the perpendicular left femoral artery measures 7.2 and 7.6 mm, respectively with minimal tortuosity and minimal calcific atherosclerosis present. The minimum and the perpendicular right common iliac artery measures 8.3 and 9.5 mm, respectively with mild tortuosity and mild calcific atherosclerosis present. The minimum and the perpendicular right external iliac artery measures 6.0 and 6.2 mm, respectively with mild tortuosity and no calcific atherosclerosis present. The minimum and the perpendicular right femoral artery measures 6.9 and 7.2 mm, respectively with no tortuosity and no calcific atherosclerosis present. NONVASCULAR: The visualised thyroid gland appears unremarkable. The chest wall and mediastinum has no acute abnormalities identified. Some small lymph nodes are seen, considered nonspecific in nature. In the lung windows, no obvious endobronchial lesion is seen, and no pleural effusion is identified. There could be minimal bronchiectatic changes, best seen in the right lower lobe. Some subsegmental atelectatic changes are seen. A tiny 2 to 3 mm nodule is identified in the upper segment of the right lower lobe, near the fissure, of doubtful significance due to its small size. No suspicious pulmonary nodule is identified. Some mosaic perfusion pattern is identified, that may suggest small airways disease. In the abdomen, the liver and spleen appears unremarkable. Calcified granuloma is identified in the liver. The liver edge is smooth. No abnormal enhancing structure is identified. The gallbladder appears unremarkable. The pancreas has no gross abnormality identified. The adrenal glands are not enlarged. No acute renal pathology is seen and no hydronephrosis or perirenal fluid collection is identified. Bowel is not well assessed by CT angiography as enteric contrast not given. No obvious bowel dilation is identified. Diverticular disease is seen in the descending and sigmoid colon with no evidence of acute diverticulitis. An hiatus hernia is identified. No free air or free fluid seen in the abdomen and pelvis. No significant retroperitoneal adenopathy is seen. Some small lymph nodes are present, considered nonspecific in nature. The bladder appears unremarkable. The uterus is not identified. No obvious abnormal adnexal mass is seen though CT is not optimised in the assessment of pelvic gynecological structures. No acute bony pathology is noted. CONCLUSIONS: 1. Patient has a diagnosis of aortic stenosis. Aortic valve is tricuspid. Agatston score is 1759. Aortic valve area is 46 sq mm. Scattered calcification seen in the aortic root and remainder of the ascending thoracic aorta is unremarkable. No acute aortic pathology is identified. No mitral annular calcification is identified. Dimensions that may be helpful for TAVR as follows: 2. Normal coronary artery origins. Coronary artery calcification is seen in the left coronary system. 3. Pulmonary findings as described above. The central pulmonary artery is normal in caliber. 4. Other findings as described above. 5. An addendum will be dictated by the Rn Team Leader Radiologist regarding the nonvascular findings. Signed: Sanjeev Yates MD Report Verified Date/Time: 12/14/2017 15:11:05 Reading Location: [id number] Cardiology MRI Performing Organization Address City/State/Zipcode Phone Number GE RIS * POC-Creatinine (12/14/2017 12:18 PM CDT) POC-Creatinine 0.7Comment: TESTED AT [facility] 0.6 - 1.3 mg/dL [facility] [address] [facility] [address] [facility] POC-EGFR 79 mL/min/1.73M2 [facility] Specimen Blood Performing Organization Address City/[facility]/Zipcode Phone Number [facility] [address] [place] [address] MED[facility]ENTER after 10/27/2017 Insurance Payer Benefit Subscriber ID Type Phone Address Plan / Group [employer] [facility] [facility] Directives For more information, please contact: [facility] [address] [place], [place] [phone] Date Inactivated Comments Code Status Date Activated 01/28/2018 5:42 PM Full Code 01/17/2018 3:16 AM This code status was determined by: Patient 01/17/2018 3:16 AM Full Code 01/16/2018 6:25 PM This code status was determined by: Patient 01/16/2018 6:25 PM Full Code 01/16/2018 7:54 AM This code status was determined by: Patient 03/03/2017 1:33 PM Full Code 02/28/2017 7:40 PM This code status was determined by: Patient
--- OUTSIDE RECORDS SUMMARY | 2018-10-28 15:16 | XMS REPORT | Continuity of Care Document ---
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 01/24/2018 Diagnosis 02/15/2018 SNF: [facility] I35.0 NONRHEUMATIC AORTIC STENOSIS 01/24/2018 Diagnosis 02/15/2018 SNF: [facility] E03.9 HYPOTHYROIDISM, UNSPECIFIED 01/24/2018 Diagnosis 02/15/2018 SNF: [facility] J45.909 UNSPECIFIED ASTHMA, UNCOMPLICATED 01/24/2018 Diagnosis 02/15/2018 SNF: [facility] History of - coronary artery bypass grafting 01/24/2018 Diagnosis 02/15/2018 SNF: [facility] I10 ESSENTIAL HYPERTENSION 01/24/2018 Diagnosis 02/15/2018 SNF: [facility] I25.10 ATHEROSCLEROTIC HEART DISEASE OF [place] CORONARY ARTERY WITHOUT ANGINA PECTORIS 01/24/2018 Diagnosis 02/15/2018 SNF: [facility] J81.1 CHRONIC PULMONARY EDEMA 01/24/2018 Diagnosis 02/15/2018 SNF: [facility] E78.5 HYPERLIPIDEMIA, UNSPECIFIED 01/24/2018 Diagnosis 02/15/2018 SNF: [facility] K21.9 GASTRO-ESOPHAGEAL REFLUX DISEASE WITHOUT ESOPHAGITIS 01/24/2018 Diagnosis 02/15/2018 SNF: [facility] Medications Medication Details Route Status Patient Instructions Ordering Provider Order Date Source DuoNeb Solution 0.5-2.5 (3) MG/3ML 1 UNIT(S) PER NEB EVERY 6 HOURS NEEDED Inhalation Active 02/08/2018 [facility] Robitussin DM Syrup 100-10 MG/5ML Give 10 ml by mouth every 4 hours as needed for Cough Oral Inactive 02/08/2018 SNF: [facility] GlycoLax Powder Give 17 gram by mouth one time a day for constipation (in Liquid) Hold for Loose Stools Oral Active 02/08/2018 SNF: [facility] Lactulose Solution 20 GM/30ML Give 30 ml by mouth as needed for Constipation Daily for Constipation PRN AND Give 30 ml by mouth one time only for Constipation until 02/07/2018 23:59 x One dose now Oral Active 02/07/2018 SNF: [facility] Azithromycin Tablet 250 MG 1 TAB(S) BY MOUTH DAILY FOR 4 DAYS Oral Active 02/07/2018 SNF: [facility] Augmentin Tablet 500-125 MG 1 TAB(S) BY MOUTH 2 TIMES A DAY FOR 5 DAYS Oral Active 02/07/2018 SNF: [facility] Robitussin Chest Congestion Syrup 100 MG/5ML Give 10 ml by mouth three times a day for cough for 10 Days AND Give 10 ml by mouth as needed for cough TID Oral Active 02/06/2018 SNF: [facility] Zofran Tablet 4 MG 1 TAB(S) BY MOUTH EVERY 6 HOURS NEEDED Oral Active 01/31/2018 SNF: [facility] Tylenol Tablet 325 MG Give 2 tablet by mouth two times a day for pain AND Give 2 tablet by mouth as needed for pain bid Oral Active 01/31/2018 SNF: [facility] Synthroid Tablet 88 MCG 1 TAB(S) BY MOUTH EVERY MORNING Oral Active 01/30/2018 SNF: [facility] Docusate Sodium Capsule 100 MG Give 1 capsule by mouth two times a day for constipation Oral Active 01/29/2018 SNF: [facility] Tuberculin PPD Solution Inject 0.1 ml intradermally one time only for Prophylaxis for 1 Day Adm within first 24 hours of admission. Repeat yearly. Intradermal Active 01/29/2018 SNF: [facility] MiraLax Powder Give 17 gram by mouth as needed for constipation daily AND Give 17 gram by mouth one time only for constipation until 01/29/2018 23:59 x1 now Oral Active 01/29/2018 SNF: [facility] Ocuvite-Lutein Tablet Give 1 tablet by mouth one time a day for Supplement Oral Active 01/29/2018 SNF: [facility] Lasix Tablet 20 MG 1 TAB(S) BY MOUTH DAILY Oral Active 01/29/2018 SNF: [facility] Aspirin Tablet 81 MG Give 1 tablet by mouth one time a day related to NONRHEUMATIC AORTIC (VALVE) STENOSIS (I35.0) Oral Active 01/29/2018 SNF: [facility] Ferrous Sulfate Tablet 325 (65 Fe) MG Give 1 tablet by mouth one time a day for Supplement Oral Active 01/29/2018 SNF: [facility] Flonase Suspension 50 MCG/ACT 2 spray in both nostrils one time a day for Allergies Nasal Active 01/29/2018 SNF: [facility] Align Capsule 4 MG Give 1 capsule by mouth one time a day for Probiotic Oral Active 01/29/2018 SNF: [facility] Biotin Tablet 5 MG Give 1 tablet by mouth one time a day for Supplement Oral Active 01/29/2018 SNF: [facility] Protonix Tablet Delayed Release 40 MG 1 TAB(S) BY MOUTH DAILY Oral Active 01/29/2018 SNF: [facility] Vitamin D3 Tablet 5000 UNIT Give 1 tablet by mouth one time a day for Supplement Oral Active 01/29/2018 SNF: [facility] Mupirocin Ointment 2 % 1 APPLICATION TOPICALLY DAILY ON EACH SHIFT TO STERNUM AND LEFT LEG External Active 01/29/2018 SNF: [facility] Levothyroxine Sodium Tablet 75 MCG 1 TAB(S) BY MOUTH DAILY Oral Inactive 01/29/2018 SNF: [facility] Atorvastatin Calcium Tablet 20 MG 1 TAB(S) BY MOUTH AT BEDTIME Oral Active 01/29/2018 SNF: [facility] Montelukast Sodium Tablet 10 MG 1 TAB(S) BY MOUTH AT BEDTIME Oral Active 01/29/2018 SNF: [facility] RaNITidine HCl Tablet 300 MG Give 1 tablet by mouth at bedtime for GERD Oral Active 01/29/2018 SNF: [facility] Simvastatin Tablet 40 MG 1 TAB(S) BY MOUTH AT BEDTIME Oral Inactive 01/29/2018 SNF: [facility] Symbicort Aerosol 80-4.5 MCG/ACT 2 PUFF(S) BY MOUTH 2 TIMES A DAY Inhalation Active 01/28/2018 SNF: [facility] Ultracet Tablet 37.5-325 MG Give 1 tablet by mouth every 6 hours as needed for Pain Oral Active 01/28/2018 SNF: [facility] Allergies, Adverse Reactions, Alerts Substance Category Reaction Severity Reaction type Status Date Reported Comments Source Cipro 01/24/2018 SNF: [facility] Codeine 01/24/2018 SNF: [facility] FLU VACCINE 01/24/2018 SNF: [facility] Gabapentin 01/24/2018 SNF: [facility] HCT RESERPINE 01/24/2018 SNF: [facility] Tetanus Toxoids 01/24/2018 SNF: [facility] TOXOID 01/24/2018 SNF: [facility] Immunizations Immunization Date Given Site Status Last Updated Comments Source tuberculin skin test; purified protein derivative solution, intradermal 01/31/2018 Not Given SNF: [facility] tuberculin skin test; purified protein derivative solution, intradermal 01/29/2018 completed SNF: [facility] Influenza, seasonal, injectable 01/29/2018 Not Given SNF: [facility] pneumococcal polysaccharide vaccine, 23 valent 01/29/2018 Not Given SNF: [facility] Results Order Name Results Value Reference Range Date Interpretation Comments Source Vital Signs Vital Sign Value Date Comments Source Respitory Rate 18 02/15/2018 SNF: [facility] Temperature Oral (F) 98.3 F 02/15/2018 SNF: [facility] Systolic (mm Hg) 141 02/15/2018 SNF: [facility] Diastolic (mm Hg) 87 02/15/2018 SNF: [facility] Heart Rate 115 {beats}/min 02/15/2018 SNF: [facility] Respitory Rate 12 02/15/2018 SNF: [facility] Systolic (mm Hg) 117 02/15/2018 SNF: [facility] Diastolic (mm Hg) 73 02/15/2018 SNF: [facility] Temperature Oral (F) 98.6 F 02/15/2018 SNF: [facility] Heart Rate 101 {beats}/min 02/15/2018 SNF: [facility] Respitory Rate 18 02[facility]15/2018 [facility] Systolic (mm Hg) 128 02/15/2018 [facility] Diastolic (mm Hg) 62 02/15/2018 [facility] Temperature Oral (F) 98.2 F 02/15/2018 SNF: [facility] [place] Heart Rate 74 {beats}/min 02/15/2018 [facility] [place] [facility] [place] Systolic (mm Hg) 128 02/14/2018 [facility] Diastolic (mm Hg) 62 02/14/2018 [facility] Heart Rate 74 {beats}/min 02/14/2018 [facility] [place] [facility] Respitory Rate 18 02/14/2018 SNF: [facility] [place] Systolic (mm Hg) 133 02/14/2018 [facility] Diastolic (mm Hg) 80 02/14/2018 [facility] Temperature Oral (F) 98.4 F 02/14/2018 SNF: [facility] Heart Rate 93 {beats}/min 02/14/2018 SNF: [facility] [place] Systolic (mm Hg) 133 02/14/2018 [facility] [place] [facility] [place] Diastolic (mm Hg) 80 02/14/2018 SNF: [facility] Heart Rate 93 {beats}/min 02/14/2018 [facility] Respitory Rate 12 02/14/2018 [facility]: [facility] [place] [facility] Systolic (mm Hg) 105 02/14/2018 [facility] [place] Diastolic (mm Hg) 59 02/14/2018 [facility] Temperature Oral (F) 98.3 F 02/14/2018 [facility] [place] [facility] [place] Heart Rate 101 {beats}/min 02/14/2018 [facility] [place] Respitory Rate 18 02/13/2018 [facility] [place] Systolic (mm Hg) 128 02/13/2018 [facility] [place] [facility] [place] Diastolic (mm Hg) 65 02/13/2018 [facility]: [facility] [place] [facility] Temperature Oral (F) 97.8 F 02/13/2018 SNF: [facility] Heart Rate 74 {beats}/min 02/13/2018 [facility] [place] Systolic (mm Hg) 128 02/13/2018 [facility] [place] Diastolic (mm Hg) 65 02/13/2018 [facility] [place] Heart Rate 74 {beats}/min 02/13/2018 [facility] [place] Respitory Rate 18 02[facility]13/2018 [facility] Systolic (mm Hg) 137 02/13/2018 [facility] Diastolic (mm Hg) 69 02/13/2018 [facility]: [facility] [place] [facility] Temperature Oral (F) 97.6 F 02/13/2018 [facility] Heart Rate 88 {beats}/min 02/13/2018 [facility] [place] [facility] [place] Systolic (mm Hg) 137 02/13/2018 SN[facility]: [facility] [place] [facility] Diastolic (mm Hg) 69 02/13/2018 [facility] Heart Rate 88 {beats}/min 02/13/2018 SNF: [facility] Weight 130.6 02/13/2018 [facility] [place] [facility] [place] Respitory Rate 20 02/13/2018 [facility] Systolic (mm Hg) 118 02/13/2018 [facility] [place] [facility] [place] Diastolic (mm Hg) 60 02/13/2018 SNF: [facility] Temperature Oral (F) 97.3 F 02/13/2018 [facility] [place] [facility] [place] Heart Rate 83 {beats}/min 02/13/2018 [facility] Systolic (mm Hg) 133 02/12/2018 [facility] [place] Diastolic (mm Hg) 90 02/12/2018 [facility] [place] [facility] [place] Heart Rate 84 {beats}/min 02/12/2018 [facility] [place] Respitory Rate 20 02/12/2018 [facility] [place] [facility] [place] Systolic (mm Hg) 130 02/12/2018 [facility] [place] Diastolic (mm Hg) 82 02/12/2018 SNF: [facility] Temperature Oral (F) 98.1 F 02/12/2018 [facility] [place] [facility] Heart Rate 84 {beats}/min 02/12/2018 [facility] Systolic (mm Hg) 130 02/12/2018 [facility] Diastolic (mm Hg) 82 02/12/2018 [facility] [place] [facility] [place] Heart Rate 100 {beats}/min 02/12/2018 [facility] [place] Respitory Rate 20 02/12/2018 [facility] [place] Systolic (mm Hg) 122 02/12/2018 [facility] [place] Diastolic (mm Hg) 61 02/12/2018 [facility]: [facility] [place] [facility] Temperature Oral (F) 98.1 F 02/12/2018 SNF: [facility] Heart Rate 85 {beats}/min 02/12/2018 [facility] [place] [facility] [place] Systolic (mm Hg) 120 02/11/2018 [facility] [place] Diastolic (mm Hg) 69 02/11/2018 SNF: [facility] [place] [facility] [place] Heart Rate 94 {beats}/min 02/11/2018 [facility] [place] [facility] [place] Respitory Rate 20 02/11/2018 [facility] Systolic (mm Hg) 126 02/11/2018 [facility] [place] [facility] [place] Diastolic (mm Hg) 74 02/11/2018 [facility] Temperature Oral (F) 97.8 F 02/11/2018 [facility]: [facility] [place] [facility] Heart Rate 84 {beats}/min 02/11/2018 [facility] [place] [facility] Systolic (mm Hg) 136 02/11/2018 [facility] [place] [facility] Diastolic (mm Hg) 80 02/11/2018 [facility] [place] [facility] [place] Heart Rate 103 {beats}/min 02/11/2018 [facility] [place] [facility] [place] Respitory Rate 20 02/11/2018 [facility] [place] [facility] [place] Systolic (mm Hg) 107 02/11/2018 [facility] [place] Diastolic (mm Hg) 57 02/11/2018 [facility] [place] [facility] Temperature Oral (F) 98 F 02/11/2018 SNF: [facility] Heart Rate 94 {beats}/min 02/11/2018 [facility] [place] [facility] [place] Respitory Rate 18 02/11/2018 SN[facility]: [facility] [place] [facility] [place] Systolic (mm Hg) 121 02/11/2018 SNF: [facility] [place] [facility] [place] Diastolic (mm Hg) 64 02/11/2018 SNF: [facility] Temperature Oral (F) 98.2 F 02/11/2018 SNF: [facility] [place] Heart Rate 98 {beats}/min 02/11/2018 [facility] [place] [facility] [place] Systolic (mm Hg) 121 02/10/2018 [facility] [place] Diastolic (mm Hg) 64 02/10/2018 SNF: [facility] Heart Rate 98 {beats}/min 02/10/2018 [facility] [place] [facility] [place] Respitory Rate 17 02/10/2018 SNF: [facility] [place] [facility] [place] Systolic (mm Hg) 120 02/10/2018 SNF: [facility] [place] [facility] [place] Diastolic (mm Hg) 71 02/10/2018 SNF: [facility] Temperature Oral (F) 98.5 F 02/10/2018 SNF: [facility] Heart Rate 70 {beats}/min 02/10/2018 SNF: [facility] [place] Systolic (mm Hg) 119 02/10/2018 SNF: [facility] [place] [facility] [place] Diastolic (mm Hg) 65 02/10/2018 SNF: [facility] Heart Rate 65 {beats}/min 02/10/2018 SNF: [facility] [place] Respitory Rate 18 02/10/2018 SNF: [facility] [place] Systolic (mm Hg) 120 02/10/2018 [facility] [place] [facility] Diastolic (mm Hg) 70 02/10/2018 SNF: [facility] Temperature Oral (F) 97.5 F 02/10/2018 SNF: [facility] Heart Rate 76 {beats}/min 02/10/2018 [facility] [place] [facility] [place] Respitory Rate 18 02/09/2018 [facility]: [facility] [place] [facility] [place] Systolic (mm Hg) 132 02/09/2018 SNF: [facility] [place] [facility] Diastolic (mm Hg) 74 02/09/2018 SNF: [facility] Temperature Oral (F) 98 F 02/09/2018 SNF: [facility] Heart Rate 95 {beats}/min 02/09/2018 [facility] [place] [facility] [place] Systolic (mm Hg) 132 02/09/2018 [facility] [place] Diastolic (mm Hg) 74 02/09/2018 SN[facility]: [facility] [place] [facility] [place] Heart Rate 95 {beats}/min 02/09/2018 [facility] [place] [facility] [place] Respitory Rate 18 02/09/2018 [facility]: [facility] [place] [facility] [place] Systolic (mm Hg) 132 02/09/2018 [facility]: [facility] [place] [facility] [place] Diastolic (mm Hg) 78 02/09/2018 SNF: [facility] Temperature Oral (F) 97.9 F 02/09/2018 SNF: [facility] Heart Rate 92 {beats}/min 02/09/2018 SNF: [facility] Systolic (mm Hg) 141 02/09/2018 SNF: [facility] [place] [facility] [place] Diastolic (mm Hg) 89 02/09/2018 SNF: [facility] Heart Rate 103 {beats}/min 02/09/2018 SNF: [facility] Respitory Rate 18 02/09/2018 SNF: [facility] Systolic (mm Hg) 114 02/09/2018 SNF: [facility] [place] [facility] Diastolic (mm Hg) 84 02/09/2018 [facility] Temperature Oral (F) 98 F 02/09/2018 SNF: [facility] Heart Rate 92 {beats}/min 02/09/2018 [facility] [place] [facility] Respitory Rate 18 02/08/2018 [facility] Systolic (mm Hg) 129 02/08/2018 [facility]: [facility] [place] [facility] [place] Diastolic (mm Hg) 64 02/08/2018 SNF: [facility] Temperature Oral (F) 98 F 02/08/2018 [facility]: [facility] [place] [facility] Heart Rate 74 {beats}/min 02/08/2018 [facility] [place] [facility] [place] Systolic (mm Hg) 129 02/08/2018 [facility] [place] Diastolic (mm Hg) 64 02/08/2018 [facility] [place] Heart Rate 74 {beats}/min 02/08/2018 [facility] Respitory Rate 16 02/08/2018 [facility]: [facility] [place] Systolic (mm Hg) 140 02/08/2018 [facility] [place] Diastolic (mm Hg) 80 02/08/2018 [facility]: [facility] [place] [facility] Temperature Oral (F) 98.1 F 02/08/2018 [facility] [place] Heart Rate 86 {beats}/min 02/08/2018 [facility] Systolic (mm Hg) 148 02/08/2018 [facility] Diastolic (mm Hg) 83 02/08/2018 [facility] [place] [facility] Heart Rate 88 {beats}/min 02/08/2018 [facility] [place] Systolic (mm Hg) 132 02/07/2018 [facility] Diastolic (mm Hg) 64 02/07/2018 [facility] [place] Heart Rate 90 {beats}/min 02/07/2018 [facility] Respitory Rate 16 02/07/2018 [facility] [place] Systolic (mm Hg) 126 02/07/2018 SN[facility]: [facility] [place] Diastolic (mm Hg) 70 02/07/2018 SNF: [facility] Temperature Oral (F) 98.3 F 02/07/2018 [facility] [place] [facility] [place] Heart Rate 92 {beats}/min 02/07/2018 [facility] [place] Systolic (mm Hg) 126 02/07/2018 [facility]: [facility] [place] Diastolic (mm Hg) 70 02/07/2018 [facility] [place] [facility] [place] Heart Rate 100 {beats}/min 02/07/2018 [facility] Respitory Rate 18 02/07/2018 [facility] [place] Systolic (mm Hg) 107 02/07/2018 SN[facility]: [facility] [place] Diastolic (mm Hg) 53 02/07/2018 SNF: [facility] Temperature Oral (F) 98.1 F 02/07/2018 SNF: [facility] Heart Rate 80 {beats}/min 02/07/2018 SNF: [facility] Respitory Rate 17 02/06/2018 SNF: [facility] Temperature Oral (F) 98.1 F 02/06/2018 SNF: [facility] Systolic (mm Hg) 112 02/06/2018 SNF: [facility] Diastolic (mm Hg) 60 02/06/2018 SNF: [facility] Heart Rate 85 {beats}/min 02/06/2018 SNF: [facility] Respitory Rate 16 02/06/2018 SNF: [facility] Systolic (mm Hg) 116 02/06/2018 SNF: [facility] Diastolic (mm Hg) 62 02/06/2018 SNF: [facility] Temperature Oral (F) 98 F 02/06/2018 SNF: [facility] Heart Rate 86 {beats}/min 02/06/2018 SNF: [facility] Weight 130.4 02/06/2018 SNF: [facility] Systolic (mm Hg) 116 02/06/2018 SNF: [facility] Diastolic (mm Hg) 62 02/06/2018 SNF: [facility] Heart Rate 88 {beats}/min 02/06/2018 SNF: [facility] Respitory Rate 16 02/06/2018 SNF: [facility] Systolic (mm Hg) 114 02/06/2018 SNF: [facility] Diastolic (mm Hg) 60 02/06/2018 SNF: [facility] Temperature Oral (F) 97.7 F 02/06/2018 SNF: [facility] Heart Rate 84 {beats}/min 02/06/2018 SNF: [facility] Respitory Rate 18 02/06/2018 SNF: [facility] Systolic (mm Hg) 144 02/06/2018 SNF: [facility] Diastolic (mm Hg) 60 02/06/2018 SNF: [facility] Temperature Oral (F) 97.4 F 02/06/2018 SNF: [facility] Heart Rate 92 {beats}/min 02/06/2018 [facility] Systolic (mm Hg) 144 02/05/2018 [facility] [place] Diastolic (mm Hg) 60 02/05/2018 [facility] [place] [facility] [place] Heart Rate 95 {beats}/min 02/05/2018 [facility] [place] [facility] [place] Respitory Rate 18 02/05/2018 [facility] [place] Systolic (mm Hg) 106 02/05/2018 [facility] [place] Diastolic (mm Hg) 46 02/05/2018 [facility] [place] [facility] Temperature Oral (F) 97.6 F 02/05/2018 [facility] Heart Rate 84 {beats}/min 02/05/2018 SN[facility]: [facility] [place] [facility] Systolic (mm Hg) 106 02/05/2018 [facility] Diastolic (mm Hg) 46 02/05/2018 [facility] Heart Rate 84 {beats}/min 02/05/2018 [facility] [place] [facility] Respitory Rate 16 02/05/2018 [facility] [place] [facility] Systolic (mm Hg) 106 02/05/2018 [facility] [place] [facility] [place] Diastolic (mm Hg) 62 02/05/2018 [facility] [place] [facility] Temperature Oral (F) 97.4 F 02/05/2018 SNF: [facility] Heart Rate 84 {beats}/min 02/05/2018 [facility] [place] [facility] [place] Respitory Rate 18 02/04/2018 [facility] [place] Systolic (mm Hg[facility] 127 02/04/2018 [facility]: [facility] [place] Diastolic (mm Hg) 62 02/04/2018 [facility] [place] [facility] Temperature Oral (F) 97.8 F 02/04/2018 SNF: [facility] [place] [facility] [place] Heart Rate 74 {beats}/min 02/04/2018 [facility] [place] Systolic (mm Hg) 127 02/04/2018 [facility]: [facility] [place] Diastolic (mm Hg) 62 02/04/2018 [facility] [place] Heart Rate 74 {beats}/min 02/04/2018 [facility] [place] Respitory Rate 18 02[facility]04/2018 [facility] [place] Systolic (mm Hg) 130 02/04/2018 SN[facility]: [facility] [place] Diastolic (mm Hg) 67 02/04/2018 [facility] [place] [facility] [place] Temperature Oral (F) 97.6 F 02/04/2018 [facility] [place] [facility] [place] Heart Rate 89 {beats}/min 02/04/2018 [facility] [place] Systolic (mm Hg) 130 02/04/2018 SN[facility]: [facility] [place] Diastolic (mm Hg) 67 02/04/[facility] [place] Heart Rate 89 {beats}/min 02/04/2018 [facility] [place] [facility] [place] Respitory Rate 18 02[facility]04/2018 [facility] [place] Systolic (mm Hg) 100 02/04/2018 [facility] [place] Diastolic (mm Hg) 54 02/04/2018 [facility] [place] [facility] Temperature Oral (F) 97.6 F 02/04/2018 [facility] [place] Heart Rate 86 {beats}/min 02/04/2018 [facility] [place] [facility] [place] Systolic (mm Hg) 120 02/03/2018 [facility] [place] Diastolic (mm Hg) 62 02/03/2018 [facility] [place] [facility] [place] Heart Rate 94 {beats}/min 02/03/2018 [facility] [place] [facility] [place] Respitory Rate 18 02[facility]03/2018 [facility] [place] Systolic (mm Hg) 115 02/03/2018 SNF: [facility] [place] Diastolic (mm Hg) 68 02/03/2018 [facility] [place] [facility] Temperature Oral (F) 97.4 F 02/03/2018 [facility] [place] Heart Rate 104 {beats}/min 02/03/2018 [facility] [place] Systolic (mm Hg) 115 02/03/2018 SNF: [facility] [place] Diastolic (mm Hg) 68 02/03/2018 SNF: [facility] Heart Rate 104 {beats}/min 02/03/2018 SNF: [facility] Respitory Rate 20 02/03/2018 SNF: [facility] [place] Systolic (mm Hg) 110 02/03/2018 SNF: [facility] Diastolic (mm Hg) 54 02/03/2018 SNF: [facility] Temperature Oral (F) 97.9 F 02/03/2018 SNF: [facility] [place] Heart Rate 82 {beats}/min 02/03/2018 SNF: [facility] [place] Systolic (mm Hg) 140 02/02/2018 SNF: [facility] [place] Diastolic (mm Hg) 76 02/02/2018 SNF: [facility] Heart Rate 67 {beats}/min 02/02/2018 SNF: [facility] Respitory Rate 20 02/02/2018 SNF: [facility] Temperature Oral (F) 98.4 F 02/02/2018 SNF: [facility] Systolic (mm Hg) 155 02/02/2018 SNF: [facility] [place] Diastolic (mm Hg) 68 02/02/2018 SNF: [facility] Heart Rate 66 {beats}/min 02/02/2018 SNF: [facility] Respitory Rate 20 02/02/2018 SNF: [facility] Systolic (mm Hg) 116 02/02/2018 SNF: [facility] Diastolic (mm Hg) 62 02/02/2018 SNF: [facility] Temperature Oral (F) 98.3 F 02/02/2018 SNF: [facility] Heart Rate 85 {beats}/min 02/02/2018 SNF: [facility] [place] Systolic (mm Hg) 108 02/01/2018 SNF: [facility] Diastolic (mm Hg) 59 02/01/2018 SNF: [facility] Heart Rate 84 {beats}/min 02/01/2018 SNF: [facility] Respitory Rate 20 02/01/2018 SNF: [facility] Temperature Oral (F) 98.1 F 02/01/2018 [facility] [place] [facility] Systolic (mm Hg) 106 02/01/2018 [facility] [place] Diastolic (mm Hg) 59 02/01/2018 [facility] [place] [facility] [place] Heart Rate 82 {beats}/min 02/01/2018 [facility] [place] [facility] [place] Respitory Rate 18 02/01/2018 [facility] [place] [facility] [place] Systolic (mm Hg) 101 02/01/2018 [facility] [place] Diastolic (mm Hg) 59 02/01/2018 [facility] [place] [facility] [place] Temperature Oral (F) 97.9 F 02/01/2018 [facility] [place] [facility] [place] Heart Rate 74 {beats}/min 02/01/2018 [facility] [place] [facility] [place] Respitory Rate 18 02[facility]01/2018 [facility] [place] [facility] [place] Systolic (mm Hg) 138 02/01/2018 [facility] [place] [facility] [place] Diastolic (mm Hg) 64 02/01/2018 [facility] [place] [facility] Temperature Oral (F) 97.6 F 02/01/2018 [facility] [place] Heart Rate 86 {beats}/min 02/01/2018 [facility] [place] [facility] [place] Systolic (mm Hg) 183 01/31/2018 [facility] [place] [facility] [place] Diastolic (mm Hg) 67 01/31/2018 [facility] Heart Rate 93 {beats}/min 01/31/2018 [facility] [place] [facility] [place] Systolic (mm Hg) 127 01/31/2018 [facility] [place] [facility] [place] Diastolic (mm Hg) 64 01/31/2018 [facility] [place] [facility] [place] Heart Rate 99 {beats}/min 01/31/2018 [facility] [place] [facility] [place] Respitory Rate 18 01[facility]31/2018 [facility] [place] Systolic (mm Hg) 110 01/31/2018 [facility] [place] Diastolic (mm Hg) 58 01/31/2018 [facility] [place] [facility] Temperature Oral (F) 97.8 F 01/31/2018 [facility] [place] [facility] [place] Heart Rate 78 {beats}/min 01/31/2018 [facility] Respitory Rate 18 01/31/2018 [facility] [place] Systolic (mm Hg) 100 01/31/2018 [facility] [place] Diastolic (mm Hg) 44 01/31/2018 [facility] Temperature Oral (F) 98.2 F 01/31/2018 SNF: [facility] Heart Rate 80 {beats}/min 01/31/2018 SNF: [facility] [place] [facility] [place] Systolic (mm Hg) 143 01/30/2018 [facility] [place] Diastolic (mm Hg) 67 01/30/2018 [facility] [place] [facility] Heart Rate 80 {beats}/min 01/30/2018 [facility] Rate 18 01/30/2018 [facility] Systolic (mm Hg) 123 01/30/2018 [facility] Diastolic (mm Hg) 77 01/30/2018 SNF: [facility] Temperature Oral (F) 97.8 F 01/30/2018 [facility] Heart Rate 75 {beats}/min 01/30/2018 [facility] Weight 129.4 01/30/2018 [facility] Height 59 01/30/2018 [facility] Respitory Rate 18 01/30/2018 [facility] Systolic (mm Hg) 121 01/30/2018 [facility] [place] [facility] Diastolic (mm Hg) 86 01/30/2018 SNF: [facility] Temperature Oral (F) 97.6 F 01/30/2018 [facility] Heart Rate 77 {beats}/min 01/30/2018 [facility] [place] Systolic (mm Hg) 121 01/30/2018 [facility] [place] [facility] Diastolic (mm Hg) 86 01/30/2018 SNF: [facility] Heart Rate 77 {beats}/min 01/30/2018 [facility] [place] [facility] Respitory Rate 20 01/30/2018 SNF: [facility] Systolic (mm Hg) 118 01/30/2018 SNF: Cristin Johansen Diastolic (mm Hg) 52 01/30/2018 SNF: Cristin Simon [facility] Temperature Oral (F) 97.5 F 01/30/2018 SNF: Cristin Johansen Heart Rate 89 {beats}/min 01/30/2018 SNF: Cristin Johansen Systolic (mm Hg) 118 01/29/2018 SNF: Cristin Johansen Diastolic (mm Hg) 59 01/29/2018 SNF: Cristin Simon [facility] Heart Rate 77 {beats}/min 01/29/2018 SNF: Cristin Johansen Respitory Rate 20 01/29/2018 SNF: Cristin Simon [facility] Temperature Oral (F) 98.2 F 01/29/2018 SNF: Cristin Johansen Systolic (mm Hg) 108 01/29/2018 SNF: Cristin Johansen Diastolic (mm Hg) 51 01/29/2018 SNF: Cristin Simon [facility] Heart Rate 86 {beats}/min 01/29/2018 SNF: Cristin Johansen Respitory Rate 20 01/29/2018 SNF: Cristin Simon [facility] Systolic (mm Hg) 102 01/29/2018 SNF: Cristin Simon [facility] Diastolic (mm Hg) 55 01/29/2018 SNF: Cristin Simon [facility] Temperature Oral (F) 97.8 F 01/29/2018 SNF: Cristin Johansen Heart Rate 93 {beats}/min 01/29/2018 SNF: Cristin Simon [facility] Systolic (mm Hg) 125 01/28/2018 SNF: Cristin Simon [facility] Diastolic (mm Hg) 65 01/28/2018 SNF: Cristin Simon [facility] Temperature Oral (F) 98.2 F 01/28/2018 SNF: Cristin Siomn [facility] Respitory Rate 20 01/28/2018 SNF: Cristin iSmon [facility] Heart Rate 92 {beats}/min 01/28/2018 SNF: Cristin Simon [facility] Encounters Location Location Details Encounter Type Encounter Number Reason For Visit Attending Provider ADM Date DC Date Status Source Procedures Procedure Code Date Perfomer Comments Source
--- OUTSIDE RECORDS SUMMARY | 2018-10-28 15:16 | XMS REPORT ---
Author Author Kelsi Chirinos Organization Unknown Address [address] [facility]. 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 NED YEPEZ Unavailable Unavailable Advance directives Directive Description Status Cardiopulmonary Resuscitation FULL CODE Verified By Medical Record Only Allergies Type Substance Reaction Status drug allergy Cipro Active drug allergy Codeine Active propensity to adverse reactions FLU VACCINE Active drug allergy Gabapentin Active propensity to adverse reactions HCT RESERPINE Active drug allergy Tetanus Toxoids Active propensity to adverse reactions TOXOID Active Problems Problem Effective Dates Problem Status K58.9 IRRITABLE BOWEL SYNDROME WITHOUT DIARRHEA 01/24/2018 Active I35.0 NONRHEUMATIC AORTIC (VALVE) STENOSIS 01/24/2018 Active E03.9 HYPOTHYROIDISM, UNSPECIFIED 01/24/2018 Active J45.909 UNSPECIFIED ASTHMA, UNCOMPLICATED 01/24/2018 Active History of - coronary artery bypass grafting (situation) 01/24/2018 Active I10 ESSENTIAL (PRIMARY) HYPERTENSION 01/24/2018 Active I25.10 ATHEROSCLEROTIC HEART DISEASE OF [place] CORONARY ARTERY WITHOUT ANGINA PECTORIS 01/24/2018 Active J81.1 CHRONIC PULMONARY EDEMA 01/24/2018 Active E78.5 HYPERLIPIDEMIA, UNSPECIFIED 01/24/2018 Active K21.9 GASTRO-ESOPHAGEAL REFLUX DISEASE WITHOUT ESOPHAGITIS 01/24/2018 Active Medications Medication Dose Form Route Sig Text Dates Status Ocuvite-Lutein Tablet 1 tablet Tablet Oral Give 1 tablet by mouth one time a day for Supplement 01/29/2018 9:00:00 Lasix Tablet 20 MG 1 tablet Tablet Oral 1 TAB(S) BY MOUTH DAILY 01/29/2018 9:00:00 Aspirin Tablet 81 MG 1 tablet Tablet Oral Give 1 tablet by mouth one time a day related to NONRHEUMATIC AORTIC (VALVE) STENOSIS (I35.0) 01/29/2018 9:00:00 Symbicort Aerosol 80-4.5 MCG/ACT 2 puff Aerosol Inhalation 2 PUFF(S) BY MOUTH 2 TIMES A DAY 01/28/2018 17:00:00 Ferrous Sulfate Tablet 325 (65 Fe) MG 1 tablet Tablet Oral Give 1 tablet by mouth one time a day for Supplement 01/29/2018 9:00:00 Flonase Suspension 50 MCG/ACT 2 spray Suspension Nasal 2 spray in both nostrils one time a day for Allergies 01/29/2018 9:00:00 Align Capsule 4 MG 1 capsule Capsule Oral Give 1 capsule by mouth one time a day for Probiotic 01/29/2018 9:00:00 Biotin Tablet 5 MG 1 tablet Tablet Oral Give 1 tablet by mouth one time a day for Supplement 01/29/2018 9:00:00 Ultracet Tablet 37.5-325 MG 1 tablet Tablet Oral Give 1 tablet by mouth every 6 hours as needed for Pain 01/28/2018 15:30:00 Atorvastatin Calcium Tablet 20 MG 1 tablet Tablet Oral 1 TAB(S) BY MOUTH AT BEDTIME 01/28/2018 21:00:00 Levothyroxine Sodium Tablet 75 MCG 1 tablet Tablet Oral 1 TAB(S) BY MOUTH DAILY 01/29/2018 6:00:00 01/29/2018 14:19:00 Aborted Protonix Tablet Delayed Release 40 MG 1 tablet Tablet Delayed Release Oral 1 TAB(S) BY MOUTH DAILY 01/29/2018 9:00:00 Vitamin D3 Tablet 5000 UNIT 1 tablet Tablet Oral Give 1 tablet by mouth one time a day for Supplement 01/29/2018 9:00:00 Montelukast Sodium Tablet 10 MG 1 tablet Tablet Oral 1 TAB(S) BY MOUTH AT BEDTIME 01/28/2018 21:00:00 RaNITidine HCl Tablet 300 MG 1 tablet Tablet Oral Give 1 tablet by mouth at bedtime for GERD 01/28/2018 21:00:00 Simvastatin Tablet 40 MG 1 tablet Tablet Oral 1 TAB(S) BY MOUTH AT BEDTIME 01/28/2018 21:00:00 01/28/2018 21:00:00 Aborted Mupirocin Ointment 2 % Ointment External 1 APPLICATION TOPICALLY DAILY ON EACH SHIFT TO STERNUM AND LEFT LEG 01/29/2018 7:00:00 Docusate Sodium Capsule 100 MG 1 capsule Capsule Oral Give 1 capsule by mouth two times a day for constipation 01/29/2018 17:00:00 MiraLax Powder Powder Oral Give 17 gram by mouth as needed for constipation daily AND Give 17 gram by mouth one time only for constipation until 01/29/2018 23:59 x1 now 01/29/2018 14:30:00 Synthroid Tablet 88 MCG 1 tablet Tablet Oral 1 TAB(S) BY MOUTH EVERY MORNING 01/30/2018 6:00:00 Tylenol Tablet 325 MG Tablet Oral Give 2 tablet by mouth two times a day for pain AND Give 2 tablet by mouth as needed for pain bid 01/31/2018 12:30:00 Zofran Tablet 4 MG 1 tablet Tablet Oral 1 TAB(S) BY MOUTH EVERY 6 HOURS NEEDED 01/31/2018 12:45:00 Robitussin Chest Congestion Syrup 100 MG/5ML Syrup Oral Give 10 ml by mouth three times a day for cough for 10 Days AND Give 10 ml by mouth as needed for cough TID 02/06/2018 9:00:00 Lactulose Solution 20 GM/30ML Solution Oral Give 30 ml by mouth as needed for Constipation Daily for Constipation PRN AND Give 30 ml by mouth one time only for Constipation until 02/07/2018 23:59 x One dose now 02/07/2018 16:45:00 GlycoLax Powder 17 gram Powder Oral Give 17 gram by mouth one time a day for constipation (in Liquid) Hold for Loose Stools 02/08/2018 9:00:00 DuoNeb Solution 0.5-2.5 (3) MG/3ML 1 application Solution Inhalation 1 UNIT(S) PER NEB EVERY 6 HOURS NEEDED 02/08/2018 11:30:00 Robitussin DM Syrup 100-10 MG/5ML 10 ml Syrup Oral Give 10 ml by mouth every 4 hours as needed for Cough 02/08/2018 11:30:00 02/08/2018 11:30:00 Aborted Tuberculin PPD Solution 0.1 ml Solution Intradermal Inject 0.1 ml intradermally one time only for Prophylaxis for 1 Day Adm within first 24 hours of admission. Repeat yearly. 01/29/2018 16:00:00 01/30/2018 15:59:00 Completed Azithromycin Tablet 250 MG Tablet Oral 1 TAB(S) BY MOUTH DAILY FOR 4 DAYS 02/07/2018 9:00:00 02/12/2018 8:59:00 Completed Augmentin Tablet 500-125 MG 1 tablet Tablet Oral 1 TAB(S) BY MOUTH 2 TIMES A DAY FOR 5 DAYS 02/07/2018 9:00:00 02/12/2018 8:59:00 Completed Results No Known Results Vital signs Description Observation Date INTRAVASCULAR SYSTOLIC 125.0 mm[Hg] 01/28/2018 17:48:00 INTRAVASCULAR DIASTOLIC 65.0 mm[Hg] 01/28/2018 17:48:00 BODY TEMPERATURE 98.2 [degF] 01/28/2018 17:48:00 RESPIRATION RATE 20.0 /min 01/28/2018 17:48:00 HEART BEAT 92.0 {beats}/min 01/28/2018 17:48:00 OXYGEN SATURATION 96.0 % 01/28/2018 17:48:00 RESPIRATION RATE 20.0 /min 01/29/2018 1:32:36 INTRAVASCULAR SYSTOLIC 102.0 mm[Hg] 01/29/2018 1:32:36 INTRAVASCULAR DIASTOLIC 55.0 mm[Hg] 01/29/2018 1:32:36 BODY TEMPERATURE 97.8 [degF] 01/29/2018 1:32:36 HEART BEAT 93.0 {beats}/min 01/29/2018 1:32:36 INTRAVASCULAR SYSTOLIC 108.0 mm[Hg] 01/29/2018 10:21:23 INTRAVASCULAR DIASTOLIC 51.0 mm[Hg] 01/29/2018 10:21:23 HEART BEAT 86.0 {beats}/min 01/29/2018 10:21:23 RESPIRATION RATE 20.0 /min 01/29/2018 10:31:11 BODY TEMPERATURE 98.2 [degF] 01/29/2018 10:31:11 INTRAVASCULAR SYSTOLIC 118.0 mm[Hg] 01/29/2018 16:33:02 INTRAVASCULAR DIASTOLIC 59.0 mm[Hg] 01/29/2018 16:33:02 HEART BEAT 77.0 {beats}/min 01/29/2018 16:33:02 RESPIRATION RATE 20.0 /min 01/30/2018 3:33:54 INTRAVASCULAR SYSTOLIC 118.0 mm[Hg] 01/30/2018 3:33:54 INTRAVASCULAR DIASTOLIC 52.0 mm[Hg] 01/30/2018 3:33:54 BODY TEMPERATURE 97.5 [degF] 01/30/2018 3:33:54 HEART BEAT 89.0 {beats}/min 01/30/2018 3:33:54 PAIN LEVEL 3.0 {score} 01/30/2018 5:39:48 PAIN LEVEL 0.0 {score} 01/30/2018 5:47:23 INTRAVASCULAR SYSTOLIC 121.0 mm[Hg] 01/30/2018 8:32:49 INTRAVASCULAR DIASTOLIC 86.0 mm[Hg] 01/30/2018 8:32:49 HEART BEAT 77.0 {beats}/min 01/30/2018 8:32:49 RESPIRATION RATE 18.0 /min 01/30/2018 9:03:23 INTRAVASCULAR SYSTOLIC 121.0 mm[Hg] 01/30/2018 9:03:23 INTRAVASCULAR DIASTOLIC 86.0 mm[Hg] 01/30/2018 9:03:23 BODY TEMPERATURE 97.6 [degF] 01/30/2018 9:03:23 HEART BEAT 77.0 {beats}/min 01/30/2018 9:03:23 PAIN LEVEL 3.0 {score} 01/30/2018 11:53:01 BODY WEIGHT (MEASURED) 129.4 [lb_av] 01/30/2018 14:37:00 BODY HEIGHT (MEASURED) 59.0 [in_i] 01/30/2018 14:37:00 RESPIRATION RATE 18.0 /min 01/30/2018 17:49:10 INTRAVASCULAR SYSTOLIC 123.0 mm[Hg] 01/30/2018 17:49:10 INTRAVASCULAR DIASTOLIC 77.0 mm[Hg] 01/30/2018 17:49:10 BODY TEMPERATURE 97.8 [degF] 01/30/2018 17:49:10 HEART BEAT 75.0 {beats}/min 01/30/2018 17:49:10 INTRAVASCULAR SYSTOLIC 143.0 mm[Hg] 01/30/2018 19:40:55 INTRAVASCULAR DIASTOLIC 67.0 mm[Hg] 01/30/2018 19:40:55 HEART BEAT 80.0 {beats}/min 01/30/2018 19:40:55 PAIN LEVEL 6.0 {score} 01/30/2018 22:23:41 RESPIRATION RATE 18.0 /min 01/31/2018 1:09:51 INTRAVASCULAR SYSTOLIC 100.0 mm[Hg] 01/31/2018 1:09:51 INTRAVASCULAR DIASTOLIC 44.0 mm[Hg] 01/31/2018 1:09:51 BODY TEMPERATURE 98.2 [degF] 01/31/2018 1:09:51 HEART BEAT 80.0 {beats}/min 01/31/2018 1:09:51 PAIN LEVEL 5.0 {score} 01/31/2018 7:03:53 RESPIRATION RATE 18.0 /min 01/31/2018 8:56:24 INTRAVASCULAR SYSTOLIC 110.0 mm[Hg] 01/31/2018 8:56:24 INTRAVASCULAR DIASTOLIC 58.0 mm[Hg] 01/31/2018 8:56:24 BODY TEMPERATURE 97.8 [degF] 01/31/2018 8:56:24 HEART BEAT 78.0 {beats}/min 01/31/2018 8:56:24 INTRAVASCULAR SYSTOLIC 127.0 mm[Hg] 01/31/2018 10:53:09 INTRAVASCULAR DIASTOLIC 64.0 mm[Hg] 01/31/2018 10:53:09 HEART BEAT 99.0 {beats}/min 01/31/2018 10:53:09 INTRAVASCULAR SYSTOLIC 183.0 mm[Hg] 01/31/2018 19:43:08 INTRAVASCULAR DIASTOLIC 67.0 mm[Hg] 01/31/2018 19:43:08 HEART BEAT 93.0 {beats}/min 01/31/2018 19:43:08 RESPIRATION RATE 18.0 /min 01/31/2018 23:18:57 INTRAVASCULAR SYSTOLIC 138.0 mm[Hg] 01/31/2018 23:18:57 INTRAVASCULAR DIASTOLIC 64.0 mm[Hg] 01/31/2018 23:18:57 BODY TEMPERATURE 97.6 [degF] 01/31/2018 23:18:57 HEART BEAT 86.0 {beats}/min 01/31/2018 23:18:57 RESPIRATION RATE 18.0 /min 02/01/2018 1:53:46 INTRAVASCULAR SYSTOLIC 101.0 mm[Hg] 02/01/2018 1:53:46 INTRAVASCULAR DIASTOLIC 59.0 mm[Hg] 02/01/2018 1:53:46 BODY TEMPERATURE 97.9 [degF] 02/01/2018 1:53:46 HEART BEAT 74.0 {beats}/min 02/01/2018 1:53:46 PAIN LEVEL 3.0 {score} 02/01/2018 8:17:26 INTRAVASCULAR SYSTOLIC 106.0 mm[Hg] 02/01/2018 8:17:50 INTRAVASCULAR DIASTOLIC 59.0 mm[Hg] 02/01/2018 8:17:50 HEART BEAT 82.0 {beats}/min 02/01/2018 8:17:50 PAIN LEVEL 5.0 {score} 02/01/2018 11:30:16 PAIN LEVEL 2.0 {score} 02/01/2018 13:55:58 RESPIRATION RATE 20.0 /min 02/01/2018 14:25:39 BODY TEMPERATURE 98.1 [degF] 02/01/2018 14:25:39 PAIN LEVEL 3.0 {score} 02/01/2018 15:28:04 INTRAVASCULAR SYSTOLIC 108.0 mm[Hg] 02/01/2018 16:07:36 INTRAVASCULAR DIASTOLIC 59.0 mm[Hg] 02/01/2018 16:07:36 HEART BEAT 84.0 {beats}/min 02/01/2018 16:07:36 RESPIRATION RATE 20.0 /min 02/02/2018 2:10:22 INTRAVASCULAR SYSTOLIC 116.0 mm[Hg] 02/02/2018 2:10:22 INTRAVASCULAR DIASTOLIC 62.0 mm[Hg] 02/02/2018 2:10:22 BODY TEMPERATURE 98.3 [degF] 02/02/2018 2:10:22 HEART BEAT 85.0 {beats}/min 02/02/2018 2:10:22 PAIN LEVEL 2.0 {score} 02/02/2018 8:00:04 INTRAVASCULAR SYSTOLIC 155.0 mm[Hg] 02/02/2018 8:29:08 INTRAVASCULAR DIASTOLIC 68.0 mm[Hg] 02/02/2018 8:29:08 HEART BEAT 66.0 {beats}/min 02/02/2018 8:29:08 RESPIRATION RATE 20.0 /min 02/02/2018 9:19:56 BODY TEMPERATURE 98.4 [degF] 02/02/2018 9:19:56 PAIN LEVEL 5.0 {score} 02/02/2018 10:06:02 PAIN LEVEL 2.0 {score} 02/02/2018 10:56:55 PAIN LEVEL 2.0 {score} 02/02/2018 16:19:54 INTRAVASCULAR SYSTOLIC 140.0 mm[Hg] 02/02/2018 16:20:01 INTRAVASCULAR DIASTOLIC 76.0 mm[Hg] 02/02/2018 16:20:01 HEART BEAT 67.0 {beats}/min 02/02/2018 16:20:01 RESPIRATION RATE 20.0 /min 02/03/2018 2:37:18 INTRAVASCULAR SYSTOLIC 110.0 mm[Hg] 02/03/2018 2:37:18 INTRAVASCULAR DIASTOLIC 54.0 mm[Hg] 02/03/2018 2:37:18 BODY TEMPERATURE 97.9 [degF] 02/03/2018 2:37:18 HEART BEAT 82.0 {beats}/min 02/03/2018 2:37:18 INTRAVASCULAR SYSTOLIC 115.0 mm[Hg] 02/03/2018 8:14:48 INTRAVASCULAR DIASTOLIC 68.0 mm[Hg] 02/03/2018 8:14:48 HEART BEAT 104.0 {beats}/min 02/03/2018 8:14:48 PAIN LEVEL 2.0 {score} 02/03/2018 8:15:03 RESPIRATION RATE 18.0 /min 02/03/2018 11:21:00 INTRAVASCULAR SYSTOLIC 115.0 mm[Hg] 02/03/2018 11:21:00 INTRAVASCULAR DIASTOLIC 68.0 mm[Hg] 02/03/2018 11:21:00 BODY TEMPERATURE 97.4 [degF] 02/03/2018 11:21:00 HEART BEAT 104.0 {beats}/min 02/03/2018 11:21:00 PAIN LEVEL 3.0 {score} 02/03/2018 15:43:22 INTRAVASCULAR SYSTOLIC 120.0 mm[Hg] 02/03/2018 16:20:28 INTRAVASCULAR DIASTOLIC 62.0 mm[Hg] 02/03/2018 16:20:28 HEART BEAT 94.0 {beats}/min 02/03/2018 16:20:28 RESPIRATION RATE 18.0 /min 02/04/2018 0:20:42 INTRAVASCULAR SYSTOLIC 100.0 mm[Hg] 02/04/2018 0:20:42 INTRAVASCULAR DIASTOLIC 54.0 mm[Hg] 02/04/2018 0:20:42 BODY TEMPERATURE 97.6 [degF] 02/04/2018 0:20:42 HEART BEAT 86.0 {beats}/min 02/04/2018 0:20:42 PAIN LEVEL 2.0 {score} 02/04/2018 7:26:26 INTRAVASCULAR SYSTOLIC 130.0 mm[Hg] 02/04/2018 8:21:00 INTRAVASCULAR DIASTOLIC 67.0 mm[Hg] 02/04/2018 8:21:00 HEART BEAT 89.0 {beats}/min 02/04/2018 8:21:00 PAIN LEVEL 5.0 {score} 02/04/2018 8:54:09 RESPIRATION RATE 18.0 /min 02/04/2018 8:59:44 INTRAVASCULAR SYSTOLIC 130.0 mm[Hg] 02/04/2018 8:59:44 INTRAVASCULAR DIASTOLIC 67.0 mm[Hg] 02/04/2018 8:59:44 BODY TEMPERATURE 97.6 [degF] 02/04/2018 8:59:44 HEART BEAT 89.0 {beats}/min 02/04/2018 8:59:44 PAIN LEVEL 3.0 {score} 02/04/2018 15:04:17 INTRAVASCULAR SYSTOLIC 127.0 mm[Hg] 02/04/2018 16:06:58 INTRAVASCULAR DIASTOLIC 62.0 mm[Hg] 02/04/2018 16:06:58 HEART BEAT 74.0 {beats}/min 02/04/2018 16:06:58 RESPIRATION RATE 18.0 /min 02/04/2018 16:29:55 INTRAVASCULAR SYSTOLIC 127.0 mm[Hg] 02/04/2018 16:29:55 INTRAVASCULAR DIASTOLIC 62.0 mm[Hg] 02/04/2018 16:29:55 BODY TEMPERATURE 97.8 [degF] 02/04/2018 16:29:55 HEART BEAT 74.0 {beats}/min 02/04/2018 16:29:55 RESPIRATION RATE 16.0 /min 02/05/2018 1:03:09 INTRAVASCULAR SYSTOLIC 106.0 mm[Hg] 02/05/2018 1:03:09 INTRAVASCULAR DIASTOLIC 62.0 mm[Hg] 02/05/2018 1:03:09 BODY TEMPERATURE 97.4 [degF] 02/05/2018 1:03:09 HEART BEAT 84.0 {beats}/min 02/05/2018 1:03:09 PAIN LEVEL 4.0 {score} 02/05/2018 5:45:42 PAIN LEVEL 2.0 {score} 02/05/2018 7:38:27 INTRAVASCULAR SYSTOLIC 106.0 mm[Hg] 02/05/2018 10:03:43 INTRAVASCULAR DIASTOLIC 46.0 mm[Hg] 02/05/2018 10:03:43 HEART BEAT 84.0 {beats}/min 02/05/2018 10:03:43 RESPIRATION RATE 18.0 /min 02/05/2018 11:08:00 INTRAVASCULAR SYSTOLIC 106.0 mm[Hg] 02/05/2018 11:08:00 INTRAVASCULAR DIASTOLIC 46.0 mm[Hg] 02/05/2018 11:08:00 BODY TEMPERATURE 97.6 [degF] 02/05/2018 11:08:00 HEART BEAT 84.0 {beats}/min 02/05/2018 11:08:00 INTRAVASCULAR SYSTOLIC 144.0 mm[Hg] 02/05/2018 19:00:35 INTRAVASCULAR DIASTOLIC 60.0 mm[Hg] 02/05/2018 19:00:35 HEART BEAT 95.0 {beats}/min 02/05/2018 19:00:35 RESPIRATION RATE 18.0 /min 02/05/2018 20:26:33 INTRAVASCULAR SYSTOLIC 144.0 mm[Hg] 02/05/2018 20:26:33 INTRAVASCULAR DIASTOLIC 60.0 mm[Hg] 02/05/2018 20:26:33 BODY TEMPERATURE 97.4 [degF] 02/05/2018 20:26:33 HEART BEAT 92.0 {beats}/min 02/05/2018 20:26:33 RESPIRATION RATE 16.0 /min 02/06/2018 0:31:07 INTRAVASCULAR SYSTOLIC 114.0 mm[Hg] 02/06/2018 0:31:07 INTRAVASCULAR DIASTOLIC 60.0 mm[Hg] 02/06/2018 0:31:07 BODY TEMPERATURE 97.7 [degF] 02/06/2018 0:31:07 HEART BEAT 84.0 {beats}/min 02/06/2018 0:31:07 PAIN LEVEL 2.0 {score} 02/06/2018 4:39:36 PAIN LEVEL 0.0 {score} 02/06/2018 6:35:32 PAIN LEVEL 3.0 {score} 02/06/2018 7:47:46 INTRAVASCULAR SYSTOLIC 116.0 mm[Hg] 02/06/2018 9:30:28 INTRAVASCULAR DIASTOLIC 62.0 mm[Hg] 02/06/2018 9:30:28 HEART BEAT 88.0 {beats}/min 02/06/2018 9:30:28 BODY WEIGHT (MEASURED) 130.4 [lb_av] 02/06/2018 10:21:00 RESPIRATION RATE 16.0 /min 02/06/2018 12:43:48 INTRAVASCULAR SYSTOLIC 116.0 mm[Hg] 02/06/2018 12:43:48 INTRAVASCULAR DIASTOLIC 62.0 mm[Hg] 02/06/2018 12:43:48 BODY TEMPERATURE 98.0 [degF] 02/06/2018 12:43:48 HEART BEAT 86.0 {beats}/min 02/06/2018 12:43:48 INTRAVASCULAR SYSTOLIC 112.0 mm[Hg] 02/06/2018 17:54:25 INTRAVASCULAR DIASTOLIC 60.0 mm[Hg] 02/06/2018 17:54:25 HEART BEAT 85.0 {beats}/min 02/06/2018 17:54:25 RESPIRATION RATE 17.0 /min 02/06/2018 18:38:38 BODY TEMPERATURE 98.1 [degF] 02/06/2018 18:38:38 PAIN LEVEL 4.0 {score} 02/06/2018 21:25:10 PAIN LEVEL 0.0 {score} 02/07/2018 1:05:54 RESPIRATION RATE 18.0 /min 02/07/2018 1:32:30 INTRAVASCULAR SYSTOLIC 107.0 mm[Hg] 02/07/2018 1:32:30 INTRAVASCULAR DIASTOLIC 53.0 mm[Hg] 02/07/2018 1:32:30 BODY TEMPERATURE 98.1 [degF] 02/07/2018 1:32:30 HEART BEAT 80.0 {beats}/min 02/07/2018 1:32:30 PAIN LEVEL 2.0 {score} 02/07/2018 7:57:38 INTRAVASCULAR SYSTOLIC 126.0 mm[Hg] 02/07/2018 8:18:09 INTRAVASCULAR DIASTOLIC 70.0 mm[Hg] 02/07/2018 8:18:09 HEART BEAT 100.0 {beats}/min 02/07/2018 8:18:09 RESPIRATION RATE 16.0 /min 02/07/2018 10:51:43 INTRAVASCULAR SYSTOLIC 126.0 mm[Hg] 02/07/2018 10:51:43 INTRAVASCULAR DIASTOLIC 70.0 mm[Hg] 02/07/2018 10:51:43 BODY TEMPERATURE 98.3 [degF] 02/07/2018 10:51:43 HEART BEAT 92.0 {beats}/min 02/07/2018 10:51:43 PAIN LEVEL 3.0 {score} 02/07/2018 16:34:15 INTRAVASCULAR SYSTOLIC 132.0 mm[Hg] 02/07/2018 16:34:21 INTRAVASCULAR DIASTOLIC 64.0 mm[Hg] 02/07/2018 16:34:21 HEART BEAT 90.0 {beats}/min 02/07/2018 16:34:21 PAIN LEVEL 5.0 {score} 02/08/2018 6:58:06 PAIN LEVEL 2.0 {score} 02/08/2018 9:47:45 INTRAVASCULAR SYSTOLIC 148.0 mm[Hg] 02/08/2018 9:48:17 INTRAVASCULAR DIASTOLIC 83.0 mm[Hg] 02/08/2018 9:48:17 HEART BEAT 88.0 {beats}/min 02/08/2018 9:48:17 RESPIRATION RATE 16.0 /min 02/08/2018 13:55:29 INTRAVASCULAR SYSTOLIC 140.0 mm[Hg] 02/08/2018 13:55:29 INTRAVASCULAR DIASTOLIC 80.0 mm[Hg] 02/08/2018 13:55:29 BODY TEMPERATURE 98.1 [degF] 02/08/2018 13:55:29 HEART BEAT 86.0 {beats}/min 02/08/2018 13:55:29 PAIN LEVEL 3.0 {score} 02/08/2018 15:16:36 INTRAVASCULAR SYSTOLIC 129.0 mm[Hg] 02/08/2018 16:47:09 INTRAVASCULAR DIASTOLIC 64.0 mm[Hg] 02/08/2018 16:47:09 HEART BEAT 74.0 {beats}/min 02/08/2018 16:47:09 RESPIRATION RATE 18.0 /min 02/08/2018 18:04:58 INTRAVASCULAR SYSTOLIC 129.0 mm[Hg] 02/08/2018 18:04:58 INTRAVASCULAR DIASTOLIC 64.0 mm[Hg] 02/08/2018 18:04:58 BODY TEMPERATURE 98.0 [degF] 02/08/2018 18:04:58 HEART BEAT 74.0 {beats}/min 02/08/2018 18:04:58 RESPIRATION RATE 18.0 /min 02/09/2018 1:34:07 INTRAVASCULAR SYSTOLIC 114.0 mm[Hg] 02/09/2018 1:34:07 INTRAVASCULAR DIASTOLIC 84.0 mm[Hg] 02/09/2018 1:34:07 BODY TEMPERATURE 98.0 [degF] 02/09/2018 1:34:07 HEART BEAT 92.0 {beats}/min 02/09/2018 1:34:07 PAIN LEVEL 5.0 {score} 02/09/2018 7:46:12 PAIN LEVEL 5.0 {score} 02/09/2018 9:13:28 INTRAVASCULAR SYSTOLIC 141.0 mm[Hg] 02/09/2018 9:14:35 INTRAVASCULAR DIASTOLIC 89.0 mm[Hg] 02/09/2018 9:14:35 HEART BEAT 103.0 {beats}/min 02/09/2018 9:14:35 RESPIRATION RATE 18.0 /min 02/09/2018 9:54:14 INTRAVASCULAR SYSTOLIC 132.0 mm[Hg] 02/09/2018 9:54:14 INTRAVASCULAR DIASTOLIC 78.0 mm[Hg] 02/09/2018 9:54:14 BODY TEMPERATURE 97.9 [degF] 02/09/2018 9:54:14 HEART BEAT 92.0 {beats}/min 02/09/2018 9:54:14 PAIN LEVEL 0.0 {score} 02/09/2018 13:21:08 PAIN LEVEL 3.0 {score} 02/09/2018 17:54:43 INTRAVASCULAR SYSTOLIC 132.0 mm[Hg] 02/09/2018 17:54:52 INTRAVASCULAR DIASTOLIC 74.0 mm[Hg] 02/09/2018 17:54:52 HEART BEAT 95.0 {beats}/min 02/09/2018 17:54:52 RESPIRATION RATE 18.0 /min 02/09/2018 19:59:36 INTRAVASCULAR SYSTOLIC 132.0 mm[Hg] 02/09/2018 19:59:36 INTRAVASCULAR DIASTOLIC 74.0 mm[Hg] 02/09/2018 19:59:36 BODY TEMPERATURE 98.0 [degF] 02/09/2018 19:59:36 HEART BEAT 95.0 {beats}/min 02/09/2018 19:59:36 RESPIRATION RATE 18.0 /min 02/10/2018 1:37:18 INTRAVASCULAR SYSTOLIC 120.0 mm[Hg] 02/10/2018 1:37:18 INTRAVASCULAR DIASTOLIC 70.0 mm[Hg] 02/10/2018 1:37:18 BODY TEMPERATURE 97.5 [degF] 02/10/2018 1:37:18 HEART BEAT 76.0 {beats}/min 02/10/2018 1:37:18 INTRAVASCULAR SYSTOLIC 119.0 mm[Hg] 02/10/2018 8:15:39 INTRAVASCULAR DIASTOLIC 65.0 mm[Hg] 02/10/2018 8:15:39 HEART BEAT 65.0 {beats}/min 02/10/2018 8:15:39 RESPIRATION RATE 17.0 /min 02/10/2018 12:29:20 INTRAVASCULAR SYSTOLIC 120.0 mm[Hg] 02/10/2018 12:29:20 INTRAVASCULAR DIASTOLIC 71.0 mm[Hg] 02/10/2018 12:29:20 BODY TEMPERATURE 98.5 [degF] 02/10/2018 12:29:20 HEART BEAT 70.0 {beats}/min 02/10/2018 12:29:20 INTRAVASCULAR SYSTOLIC 121.0 mm[Hg] 02/10/2018 19:26:18 INTRAVASCULAR DIASTOLIC 64.0 mm[Hg] 02/10/2018 19:26:18 HEART BEAT 98.0 {beats}/min 02/10/2018 19:26:18 RESPIRATION RATE 18.0 /min 02/10/2018 20:41:12 INTRAVASCULAR SYSTOLIC 121.0 mm[Hg] 02/10/2018 20:41:12 INTRAVASCULAR DIASTOLIC 64.0 mm[Hg] 02/10/2018 20:41:12 BODY TEMPERATURE 98.2 [degF] 02/10/2018 20:41:12 HEART BEAT 98.0 {beats}/min 02/10/2018 20:41:12 RESPIRATION RATE 20.0 /min 02/11/2018 4:42:19 INTRAVASCULAR SYSTOLIC 107.0 mm[Hg] 02/11/2018 4:42:19 INTRAVASCULAR DIASTOLIC 57.0 mm[Hg] 02/11/2018 4:42:19 BODY TEMPERATURE 98.0 [degF] 02/11/2018 4:42:19 HEART BEAT 94.0 {beats}/min 02/11/2018 4:42:19 PAIN LEVEL 2.0 {score} 02/11/2018 7:26:52 INTRAVASCULAR SYSTOLIC 136.0 mm[Hg] 02/11/2018 10:56:27 INTRAVASCULAR DIASTOLIC 80.0 mm[Hg] 02/11/2018 10:56:27 HEART BEAT 103.0 {beats}/min 02/11/2018 10:56:27 RESPIRATION RATE 20.0 /min 02/11/2018 13:10:23 INTRAVASCULAR SYSTOLIC 126.0 mm[Hg] 02/11/2018 13:10:23 INTRAVASCULAR DIASTOLIC 74.0 mm[Hg] 02/11/2018 13:10:23 BODY TEMPERATURE 97.8 [degF] 02/11/2018 13:10:23 HEART BEAT 84.0 {beats}/min 02/11/2018 13:10:23 INTRAVASCULAR SYSTOLIC 120.0 mm[Hg] 02/11/2018 17:12:56 INTRAVASCULAR DIASTOLIC 69.0 mm[Hg] 02/11/2018 17:12:56 HEART BEAT 94.0 {beats}/min 02/11/2018 17:12:56 RESPIRATION RATE 20.0 /min 02/12/2018 2:52:00 INTRAVASCULAR SYSTOLIC 122.0 mm[Hg] 02/12/2018 2:52:00 INTRAVASCULAR DIASTOLIC 61.0 mm[Hg] 02/12/2018 2:52:00 BODY TEMPERATURE 98.1 [degF] 02/12/2018 2:52:00 HEART BEAT 85.0 {beats}/min 02/12/2018 2:52:00 PAIN LEVEL 2.0 {score} 02/12/2018 7:17:26 INTRAVASCULAR SYSTOLIC 130.0 mm[Hg] 02/12/2018 9:29:24 INTRAVASCULAR DIASTOLIC 82.0 mm[Hg] 02/12/2018 9:29:24 HEART BEAT 100.0 {beats}/min 02/12/2018 9:29:24 RESPIRATION RATE 20.0 /min 02/12/2018 9:34:43 INTRAVASCULAR SYSTOLIC 130.0 mm[Hg] 02/12/2018 9:34:43 INTRAVASCULAR DIASTOLIC 82.0 mm[Hg] 02/12/2018 9:34:43 BODY TEMPERATURE 98.1 [degF] 02/12/2018 9:34:43 HEART BEAT 84.0 {beats}/min 02/12/2018 9:34:43 PAIN LEVEL 3.0 {score} 02/12/2018 13:45:55 PAIN LEVEL 2.0 {score} 02/12/2018 14:29:46 INTRAVASCULAR SYSTOLIC 133.0 mm[Hg] 02/12/2018 16:48:31 INTRAVASCULAR DIASTOLIC 90.0 mm[Hg] 02/12/2018 16:48:31 HEART BEAT 84.0 {beats}/min 02/12/2018 16:48:31 PAIN LEVEL 7.0 {score} 02/12/2018 19:24:30 RESPIRATION RATE 20.0 /min 02/13/2018 2:53:54 INTRAVASCULAR SYSTOLIC 118.0 mm[Hg] 02/13/2018 2:53:54 INTRAVASCULAR DIASTOLIC 60.0 mm[Hg] 02/13/2018 2:53:54 BODY TEMPERATURE 97.3 [degF] 02/13/2018 2:53:54 HEART BEAT 83.0 {beats}/min 02/13/2018 2:53:54 PAIN LEVEL 5.0 {score} 02/13/2018 9:46:02 BODY WEIGHT (MEASURED) 130.6 [lb_av] 02/13/2018 9:47:00 INTRAVASCULAR SYSTOLIC 137.0 mm[Hg] 02/13/2018 9:47:02 INTRAVASCULAR DIASTOLIC 69.0 mm[Hg] 02/13/2018 9:47:02 HEART BEAT 88.0 {beats}/min 02/13/2018 9:47:02 RESPIRATION RATE 18.0 /min 02/13/2018 10:16:57 INTRAVASCULAR SYSTOLIC 137.0 mm[Hg] 02/13/2018 10:16:57 INTRAVASCULAR DIASTOLIC 69.0 mm[Hg] 02/13/2018 10:16:57 BODY TEMPERATURE 97.6 [degF] 02/13/2018 10:16:57 HEART BEAT 88.0 {beats}/min 02/13/2018 10:16:57 PAIN LEVEL 3.0 {score} 02/13/2018 16:15:03 INTRAVASCULAR SYSTOLIC 128.0 mm[Hg] 02/13/2018 16:15:12 INTRAVASCULAR DIASTOLIC 65.0 mm[Hg] 02/13/2018 16:15:12 HEART BEAT 74.0 {beats}/min 02/13/2018 16:15:12 RESPIRATION RATE 18.0 /min 02/13/2018 17:34:45 INTRAVASCULAR SYSTOLIC 128.0 mm[Hg] 02/13/2018 17:34:45 INTRAVASCULAR DIASTOLIC 65.0 mm[Hg] 02/13/2018 17:34:45 BODY TEMPERATURE 97.8 [degF] 02/13/2018 17:34:45 HEART BEAT 74.0 {beats}/min 02/13/2018 17:34:45 PAIN LEVEL 5.0 {score} 02/14/2018 0:26:05 RESPIRATION RATE 12.0 /min 02/14/2018 0:33:52 INTRAVASCULAR SYSTOLIC 105.0 mm[Hg] 02/14/2018 0:33:52 INTRAVASCULAR DIASTOLIC 59.0 mm[Hg] 02/14/2018 0:33:52 BODY TEMPERATURE 98.3 [degF] 02/14/2018 0:33:52 HEART BEAT 101.0 {beats}/min 02/14/2018 0:33:52 PAIN LEVEL 0.0 {score} 02/14/2018 3:18:55 PAIN LEVEL 5.0 {score} 02/14/2018 7:49:27 PAIN LEVEL 2.0 {score} 02/14/2018 9:51:21 INTRAVASCULAR SYSTOLIC 133.0 mm[Hg] 02/14/2018 9:52:44 INTRAVASCULAR DIASTOLIC 80.0 mm[Hg] 02/14/2018 9:52:44 HEART BEAT 93.0 {beats}/min 02/14/2018 9:52:44 RESPIRATION RATE 18.0 /min 02/14/2018 10:07:27 INTRAVASCULAR SYSTOLIC 133.0 mm[Hg] 02/14/2018 10:07:27 INTRAVASCULAR DIASTOLIC 80.0 mm[Hg] 02/14/2018 10:07:27 BODY TEMPERATURE 98.4 [degF] 02/14/2018 10:07:27 HEART BEAT 93.0 {beats}/min 02/14/2018 10:07:27 PAIN LEVEL 3.0 {score} 02/14/2018 15:05:35 INTRAVASCULAR SYSTOLIC 128.0 mm[Hg] 02/14/2018 16:18:13 INTRAVASCULAR DIASTOLIC 62.0 mm[Hg] 02/14/2018 16:18:13 HEART BEAT 74.0 {beats}/min 02/14/2018 16:18:13 RESPIRATION RATE 18.0 /min 02/14/2018 21:58:05 INTRAVASCULAR SYSTOLIC 128.0 mm[Hg] 02/14/2018 21:58:05 INTRAVASCULAR DIASTOLIC 62.0 mm[Hg] 02/14/2018 21:58:05 BODY TEMPERATURE 98.2 [degF] 02/14/2018 21:58:05 HEART BEAT 74.0 {beats}/min 02/14/2018 21:58:05 RESPIRATION RATE 12.0 /min 02/15/2018 2:07:55 INTRAVASCULAR SYSTOLIC 117.0 mm[Hg] 02/15/2018 2:07:55 INTRAVASCULAR DIASTOLIC 73.0 mm[Hg] 02/15/2018 2:07:55 BODY TEMPERATURE 98.6 [degF] 02/15/2018 2:07:55 HEART BEAT 101.0 {beats}/min 02/15/2018 2:07:55 PAIN LEVEL 4.0 {score} 02/15/2018 5:00:00 PAIN LEVEL 0.0 {score} 02/15/2018 6:33:21 PAIN LEVEL 2.0 {score} 02/15/2018 9:05:30 INTRAVASCULAR SYSTOLIC 141.0 mm[Hg] 02/15/2018 9:05:59 INTRAVASCULAR DIASTOLIC 87.0 mm[Hg] 02/15/2018 9:05:59 HEART BEAT 115.0 {beats}/min 02/15/2018 9:05:59 RESPIRATION RATE 18.0 /min 02/15/2018 9:52:00 BODY TEMPERATURE 98.3 [degF] 02/15/2018 9:52:00 Immunizations Vaccine Date Status Reason Influenza, seasonal, injectable 01/29/2018 Refused Allergies pneumococcal polysaccharide vaccine, 23 valent 01/29/2018 Refused Allergies tuberculin skin test; purified protein derivative solution, intradermal 01/31/2018 Refused Allergies tuberculin skin test; purified protein derivative solution, intradermal 01/29/2018 17:26:00 Completed Social History Smoking Status Start Date End Date Unknown if ever smoked 02/15/2018 18:10:07
--- OUTSIDE RECORDS SUMMARY | 2018-10-28 15:17 | XMS REPORT ---
Author Author [facility] Address Unknown Phone Unavailable Care Team Providers Care Hourly Sales Staff Name Role Phone EDIN TORRES Unavailable Unavailable JOSELO DARLING Unavailable Unavailable Alcira SANCHEZ Unavailable Unavailable Problems This patient has no known problems. Allergies, Adverse Reactions, Alerts This patient has no known allergies or adverse reactions. Medications This patient has no known medications. Results Test Description Test Time Test Comments Text Results Atomic Results Result Comments CBC W/PLT COUNT & AUTO DIFFERENTIAL 2018-01-28 06:45:00 WHITE BLOOD CELL COUNT (BEAKER) (test zxca=897) 14.4 K/ L 3.5-10.5 RED BLOOD CELL COUNT (BEAKER) (test opee=164) 3.55 M/ L 3.93-5.22 HEMOGLOBIN (BEAKER) (test lxoy=711) 9.9 GM/DL 11.2-15.7 HEMATOCRIT (BEAKER) (test igvg=220) 31.5 % 34.1-44.9 MEAN CORPUSCULAR VOLUME (BEAKER) (test rwok=288) 88.7 fL 79.4-94.8 MEAN CORPUSCULAR HEMOGLOBIN (BEAKER) (test dguk=530) 27.9 pg 25.6-32.2 MEAN CORPUSCULAR HEMOGLOBIN CONC (BEAKER) (test hmav=273) 31.4 GM/DL 32.2-35.5 RED CELL DISTRIBUTION WIDTH (BEAKER) (test bqoc=160) 15.5 % 11.7-14.4 PLATELET COUNT (BEAKER) (test mipd=779) 331 K/CU MM 150-450 MEAN PLATELET VOLUME (BEAKER) (test hjzl=346) 10.6 fL 9.4-12.3 NUCLEATED RED BLOOD CELLS (BEAKER) (test vwzt=223) 0 /100 WBC 0-0 NEUTROPHILS RELATIVE PERCENT (BEAKER) (test ncqd=917) 74 % LYMPHOCYTES RELATIVE PERCENT (BEAKER) (test uwuc=637) 13 % MONOCYTES RELATIVE PERCENT (BEAKER) (test qtyc=441) 8 % EOSINOPHILS RELATIVE PERCENT (BEAKER) (test ahia=887) 2 % BASOPHILS RELATIVE PERCENT (BEAKER) (test rtfe=230) 1 % NEUTROPHILS ABSOLUTE COUNT (BEAKER) (test cbun=525) 10.72 K/ L 1.56-6.13 LYMPHOCYTES ABSOLUTE COUNT (BEAKER) (test pzgt=199) 1.87 K/ L 1.18-3.74 MONOCYTES ABSOLUTE COUNT (BEAKER) (test zmoy=771) 1.09 K/ L 0.24-0.36 EOSINOPHILS ABSOLUTE COUNT (BEAKER) (test tayl=852) 0.23 K/ L 0.04-0.36 BASOPHILS ABSOLUTE COUNT (BEAKER) (test xxzg=445) 0.08 K/ L 0.01-0.08 IMMATURE GRANULOCYTES-RELATIVE PERCENT (BEAKER) (test vsul=9832) 3 % 0-1 BASIC METABOLIC [id number] 06:31:00* Test Item Value Reference Range Comments SODIUM (BEAKER) (test pqfn=252) 135 meq/L 136-145 POTASSIUM (BEAKER) (test piqp=434) 3.7 meq/L 3.5-5.1 CHLORIDE (BEAKER) (test ihho=716) 99 meq/L 98-107 CO2 (BEAKER) (test bddz=986) 26 meq/L 22-29 BLOOD UREA NITROGEN (BEAKER) (test kmpg=702) 17 mg/dL 7-21 CREATININE (BEAKER) (test gwhc=114) 0.84 mg/dL 0.57-1.25 GLUCOSE RANDOM (BEAKER) (test mpdm=077) 93 mg/dL 70-105 CALCIUM (BEAKER) (test jkql=422) 9.8 mg/dL 8.4-10.2 EGFR (BEAKER) (test fklq=3512) 64 mL/min/1.73 sq m ESTIMATED GFR IS NOT ACCURATE CREATININE CLEARANCE IN PREDICTING GLOMERULAR FILTRATION RATE. ESTIMATED GFR IS NOT APPLICABLE FOR DIALYSIS PATIENTS. BASIC METABOLIC [id number] 05:15:00* Test Item Value Reference Range Comments SODIUM (BEAKER) (test roxc=025) 135 meq/L 136-145 POTASSIUM (BEAKER) (test toff=910) 4.0 meq/L 3.5-5.1 CHLORIDE (BEAKER) (test zwap=485) 99 meq/L 98-107 CO2 (BEAKER) (test janj=829) 25 meq/L 22-29 BLOOD UREA NITROGEN (BEAKER) (test iofj=701) 15 mg/dL 7-21 CREATININE (BEAKER) (test jjot=192) 0.85 mg/dL 0.57-1.25 GLUCOSE RANDOM (BEAKER) (test mjka=289) 102 mg/dL 70-105 CALCIUM (BEAKER) (test qftk=176) 9.9 mg/dL 8.4-10.2 EGFR (BEAKER) (test yndk=5407) 63 mL/min/1.73 sq m ESTIMATED GFR IS NOT ACCURATE CREATININE CLEARANCE IN PREDICTING GLOMERULAR FILTRATION RATE. ESTIMATED GFR IS NOT APPLICABLE FOR DIALYSIS PATIENTS. [id number] 06:54:00* Test Item Value Reference Range Comments MAGNESIUM (BEAKER) (test blqz=308) 2.0 mg/dL 1.6-2.6 BASIC METABOLIC [id number] 06:54:00* Test Item Value Reference Range Comments SODIUM (BEAKER) (test yiom=247) 135 meq/L 136-145 POTASSIUM (BEAKER) (test edbt=081) 3.6 meq/L 3.5-5.1 CHLORIDE (BEAKER) (test iktc=005) 97 meq/L 98-107 CO2 (BEAKER) (test uobg=047) 26 meq/L 22-29 BLOOD UREA NITROGEN (BEAKER) (test jwdy=399) 14 mg/dL 7-21 CREATININE (BEAKER) (test qmoq=950) 0.77 mg/dL 0.57-1.25 GLUCOSE RANDOM (BEAKER) (test xbep=730) 103 mg/dL 70-105 CALCIUM (BEAKER) (test jduy=169) 10.1 mg/dL 8.4-10.2 EGFR (BEAKER) (test nbvc=6793) 71 mL/min/1.73 sq m ESTIMATED GFR IS NOT ACCURATE CREATININE CLEARANCE IN PREDICTING GLOMERULAR FILTRATION RATE. ESTIMATED GFR IS NOT APPLICABLE FOR DIALYSIS PATIENTS. RAD, CHEST, 1 VIEW, NON [id number] 22:28:00Reason for exam:->sobShould this be performed at the bedside?->YesFINAL REPORT RAD, CHEST, 1 VIEW, NON DEPT INDICATION: sob COMPARISON: Prior day's exam FINDINGS: Portable frontal view of the chest. IMPRESSION: Support Lines: None. Lungs and pleura: Improved aeration compared to the prior date. Decreased interstitial congestion and small volume of right effusion. No pneumothorax.Heart and mediastinum: Stable contours. Stable surgical changes.Additional findings: None. Signed: JR Ciera, Hermelinda BLACKeport Verified Date/Time: 01/25/2018 22:28:32 Reading Location: [address] Reading Room [id number] 06:45:00* Test Item Value Reference Range Comments MAGNESIUM (BEAKER) (test gvts=974) 2.1 mg/dL 1.6-2.6 BASIC METABOLIC [id number] 06:45:00* Test Item Value Reference Range Comments SODIUM (BEAKER) (test fvtu=675) 135 meq/L 136-145 POTASSIUM (BEAKER) (test emyo=821) 3.2 meq/L 3.5-5.1 CHLORIDE (BEAKER) (test pxpi=328) 95 meq/L 98-107 CO2 (BEAKER) (test mibx=126) 29 meq/L 22-29 BLOOD UREA NITROGEN (BEAKER) (test isdy=522) 14 mg/dL 7-21 CREATININE (BEAKER) (test dggb=287) 0.74 mg/dL 0.57-1.25 GLUCOSE RANDOM (BEAKER) (test ofig=752) 94 mg/dL 70-105 CALCIUM (BEAKER) (test zyrd=585) 9.6 mg/dL 8.4-10.2 EGFR (BEAKER) (test usus=2684) 74 mL/min/1.73 sq m ESTIMATED GFR IS NOT ACCURATE CREATININE CLEARANCE IN PREDICTING GLOMERULAR FILTRATION RATE. ESTIMATED GFR IS NOT APPLICABLE FOR DIALYSIS PATIENTS. [id number] 05:43:00* Test Item Value Reference Range Comments MAGNESIUM (BEAKER) (test rscr=055) 2.0 mg/dL 1.6-2.6 BASIC METABOLIC [id number] 05:43:00* Test Item Value Reference Range Comments SODIUM (BEAKER) (test xzzd=475) 137 meq/L 136-145 POTASSIUM (BEAKER) (test cfgq=954) 4.0 meq/L 3.5-5.1 CHLORIDE (BEAKER) (test uyea=666) 99 meq/L 98-107 CO2 (BEAKER) (test nksr=481) 30 meq/L 22-29 BLOOD UREA NITROGEN (BEAKER) (test xyac=499) 11 mg/dL 7-21 CREATININE (BEAKER) (test calc=141) 0.70 mg/dL 0.57-1.25 GLUCOSE RANDOM (BEAKER) (test nhue=729) 97 mg/dL 70-105 CALCIUM (BEAKER) (test ccyp=562) 9.5 mg/dL 8.4-10.2 EGFR (BEAKER) (test ccfj=5296) 79 mL/min/1.73 sq m ESTIMATED GFR IS NOT ACCURATE CREATININE CLEARANCE IN PREDICTING GLOMERULAR FILTRATION RATE. ESTIMATED GFR IS NOT APPLICABLE FOR DIALYSIS PATIENTS. CBC W/PLT COUNT & AUTO [id number] 05:07:00* Test Item Value Reference Range Comments WHITE BLOOD CELL COUNT (BEAKER) (test okmu=503) 8.4 K/ L 3.5-10.5 RED BLOOD CELL COUNT (BEAKER) (test fuot=365) 3.13 M/ L 3.93-5.22 HEMOGLOBIN (BEAKER) (test rfsa=064) 8.7 GM/DL 11.2-15.7 HEMATOCRIT (BEAKER) (test udfb=106) 28.0 % 34.1-44.9 MEAN CORPUSCULAR VOLUME (BEAKER) (test vekd=817) 89.5 fL 79.4-94.8 MEAN CORPUSCULAR HEMOGLOBIN (BEAKER) (test swup=531) 27.8 pg 25.6-32.2 MEAN CORPUSCULAR HEMOGLOBIN CONC (BEAKER) (test warm=993) 31.1 GM/DL 32.2-35.5 RED CELL DISTRIBUTION WIDTH (BEAKER) (test lgeu=629) 14.7 % 11.7-14.4 PLATELET COUNT (BEAKER) (test cott=054) 187 K/CU MM 150-450 MEAN PLATELET VOLUME (BEAKER) (test rpqd=039) 11.1 fL 9.4-12.3 NUCLEATED RED BLOOD CELLS (BEAKER) (test dnnr=394) 0 /100 WBC 0-0 NEUTROPHILS RELATIVE PERCENT (BEAKER) (test xhof=458) 67 % LYMPHOCYTES RELATIVE PERCENT (BEAKER) (test kytn=337) 14 % MONOCYTES RELATIVE PERCENT (BEAKER) (test fyln=090) 11 % EOSINOPHILS RELATIVE PERCENT (BEAKER) (test glqm=220) 3 % BASOPHILS RELATIVE PERCENT (BEAKER) (test vtti=397) 1 % NEUTROPHILS ABSOLUTE COUNT (BEAKER) (test xbdq=802) 5.57 K/ L 1.56-6.13 LYMPHOCYTES ABSOLUTE COUNT (BEAKER) (test oldg=974) 1.17 K/ L 1.18-3.74 MONOCYTES ABSOLUTE COUNT (BEAKER) (test cvjy=589) 0.95 K/ L 0.24-0.36 EOSINOPHILS ABSOLUTE COUNT (BEAKER) (test uwon=740) 0.26 K/ L 0.04-0.36 BASOPHILS ABSOLUTE COUNT (BEAKER) (test vkyp=878) 0.05 K/ L 0.01-0.08 IMMATURE GRANULOCYTES-RELATIVE PERCENT (BEAKER) (test vjno=9681) 4 % 0-1 RAD, CHEST, 1 VIEW, NON [id number] 05:05:00Reason for exam:->sobShould this be performed at the bedside?->YesFINAL REPORT Comparison exam: 01/22/2018 Pulmonary venous congestion, bibasilar atelectasis, and possible small right pleural effusion, unchanged. No pneumothorax. Stable cardiomediastinal contours. Signed: Juancarlos Almodovareport Verified Date/Time: 01/24/2018 05:05:04 Reading Location: [address] Ortho Consult Reading Room C METABOLIC [id number] 06:16:00* Test Item Value Reference Range Comments SODIUM (BEAKER) (test mkzu=783) 137 meq/L 136-145 POTASSIUM (BEAKER) (test jrur=963) 3.6 meq/L 3.5-5.1 CHLORIDE (BEAKER) (test fwib=188) 99 meq/L 98-107 CO2 (BEAKER) (test itpb=486) 27 meq/L 22-29 BLOOD UREA NITROGEN (BEAKER) (test beau=736) 12 mg/dL 7-21 CREATININE (BEAKER) (test ueuz=733) 0.69 mg/dL 0.57-1.25 GLUCOSE RANDOM (BEAKER) (test uilr=952) 98 mg/dL 70-105 CALCIUM (BEAKER) (test wayp=756) 9.2 mg/dL 8.4-10.2 EGFR (BEAKER) (test pnbf=9905) 81 mL/min/1.73 sq m ESTIMATED GFR IS NOT ACCURATE CREATININE CLEARANCE IN PREDICTING GLOMERULAR FILTRATION RATE. ESTIMATED GFR IS NOT APPLICABLE FOR DIALYSIS PATIENTS. [id number] 06:13:00* Test Item Value Reference Range Comments MAGNESIUM (BEAKER) (test vjve=588) 2.0 mg/dL 1.6-2.6 [id number] 06:01:00* Test Item Value Reference Range Comments PARTIAL THROMBOPLASTIN TIME (BEAKER) (test vbvh=168) 30.1 seconds 22.5-36.0 PROTHROMBIN TIME/[id number] 06:00:00* Test Item Value Reference Range Comments PROTIME (BEAKER) (test xxoq=881) 14.3 seconds 11.7-14.7 INR (BEAKER) (test hsbq=599) 1.1 <=5.9 RECOMMENDED COUMADIN/WARFARIN INR THERAPY RANGESSTANDARD DOSE: 2.0 - 3.0 Inclu joel: PROPHYLAXIS for venous thrombosis, systemic embolization; TREATMENT for isis ous thrombosis and/or pulmonary embolus.HIGH RISK: Target INR is 2.5-3.5 for pat ients with mechanical heart valves.CBC W/PLT COUNT & AUTO [id number] 05:56:00* Test Item Value Reference Range Comments WHITE BLOOD CELL COUNT (BEAKER) (test ctkj=886) 6.9 K/ L 3.5-10.5 RED BLOOD CELL COUNT (BEAKER) (test pubh=920) 2.83 M/ L 3.93-5.22 HEMOGLOBIN (BEAKER) (test qghm=796) 8.0 GM/DL 11.2-15.7 HEMATOCRIT (BEAKER) (test nsqw=293) 24.9 % 34.1-44.9 MEAN CORPUSCULAR VOLUME (BEAKER) (test qgin=669) 88.0 fL 79.4-94.8 MEAN CORPUSCULAR HEMOGLOBIN (BEAKER) (test tvxj=339) 28.3 pg 25.6-32.2 MEAN CORPUSCULAR HEMOGLOBIN CONC (BEAKER) (test lgtu=836) 32.1 GM/DL 32.2-35.5 RED CELL DISTRIBUTION WIDTH (BEAKER) (test ensd=602) 14.6 % 11.7-14.4 PLATELET COUNT (BEAKER) (test eerc=296) 134 K/CU MM 150-450 MEAN PLATELET VOLUME (BEAKER) (test xtgu=025) 11.2 fL 9.4-12.3 NUCLEATED RED BLOOD CELLS (BEAKER) (test gphu=658) 1 /100 WBC 0-0 NEUTROPHILS RELATIVE PERCENT (BEAKER) (test lekp=456) 61 % LYMPHOCYTES RELATIVE PERCENT (BEAKER) (test uigs=303) 19 % MONOCYTES RELATIVE PERCENT (BEAKER) (test ztjk=199) 14 % EOSINOPHILS RELATIVE PERCENT (BEAKER) (test kdua=914) 3 % BASOPHILS RELATIVE PERCENT (BEAKER) (test cjdx=818) 1 % NEUTROPHILS ABSOLUTE COUNT (BEAKER) (test sszl=826) 4.23 K/ L 1.56-6.13 LYMPHOCYTES ABSOLUTE COUNT (BEAKER) (test zzkj=694) 1.28 K/ L 1.18-3.74 MONOCYTES ABSOLUTE COUNT (BEAKER) (test dhhe=365) 0.94 K/ L 0.24-0.36 EOSINOPHILS ABSOLUTE COUNT (BEAKER) (test erwv=042) 0.20 K/ L 0.04-0.36 BASOPHILS ABSOLUTE COUNT (BEAKER) (test ghix=888) 0.06 K/ L 0.01-0.08 IMMATURE GRANULOCYTES-RELATIVE PERCENT (BEAKER) (test xlwa=4590) 3 % 0-1 TISSUE [id number] 15:06:00Surgical Pathology Report Case: [id number] Authorizing Provider: Rehan Cat, Collected: 01/17/2018 Anali MCKEON Ordering Location: [facility] Received: 01/18/2018 0815 PERIOPERATIVE SERVICES Pathologist: Charanjit Mackey MD Specimen: Aortic Valve PART A AORTIC VALVE, REPAIR:SEVERELY CALCIFIED VALVULAR TISSUE. Signing Pathologist Direct Phone Line: [phone] signed by Charanjit Mackey MD on 01/22/2018 at 3:06 AM56805, [id number], ASAortic valve tissueThe specimen is received in a formalin-filled container and labeled with the patient's information and labeled "aortic valve tissue" and consists of three yellow-white calcified leaflets measuring 1.7 x 1 x 0.2 cm. Body Artist sections are submitted A1 for decalcification. CG/pl PERFORMED.RAD, CHEST, 1 VIEW, NON [id number] 07:42:00Reason for exam:->pleural effusionShould this be performed at the bedside?->YesFINAL REPORT Chest one view compared to January 21 Discussion: Cardiomegaly, pulmonary edema, and basilar opacity which is obscuring hemidiaphragms probably a combination of atelectasis, edema, and small effusion. No pneumothorax. Pulmonary appearance may be minimally worse. Signed: Arnav Loveeport Verified Date/Time: 01/22/2018 07:42:39 Reading Location: [facility] Radiology Reading Room IUM, [id number] 05:37:00* Test Item Value Reference Range Comments CALCIUM IONIZED (BEAKER) (test truc=839) 1.13 mmol/L 1.12-1.27 PH, BLOOD (BEAKER) (test oqvz=2139) 7.43 BLOOD GAS, [id number] 05:34:00* Test Item Value Reference Range Comments PH ARTERIAL (BEAKER) (test eyhh=761) 7.43 7.35-7.45 PCO2 ARTERIAL (BEAKER) (test uvwf=137) 49 mmHg 35-45 PO2 ARTERIAL (BEAKER) (test ymhm=394) 205 mmHg 80-90 O2 SATURATION ARTERIAL (BEAKER) (test cgbb=694) 99.4 % 96.0-97.0 HCO3 ARTERIAL (BEAKER) (test crlb=263) 32 mmol/L 21-29 BASE EXCESS ARTERIAL (BEAKER) (test fkzk=001) 6.5 mmol/L -2.0-3.0 PATIENT TEMPERATURE (BEAKER) (test ieec=4186) 37.0 C FIO2 (BEAKER) (test urzu=6807) 50.0 % [id number] 05:32:00* Test Item Value Reference Range Comments MAGNESIUM (BEAKER) (test bwhs=808) 2.2 mg/dL 1.6-2.6 BASIC METABOLIC [id number] 05:32:00* Test Item Value Reference Range Comments SODIUM (BEAKER) (test etoi=521) 138 meq/L 136-145 POTASSIUM (BEAKER) (test ujfj=346) 3.6 meq/L 3.5-5.1 CHLORIDE (BEAKER) (test bygz=460) 101 meq/L 98-107 CO2 (BEAKER) (test iifg=799) 29 meq/L 22-29 BLOOD UREA NITROGEN (BEAKER) (test genl=606) 11 mg/dL 7-21 CREATININE (BEAKER) (test eigv=178) 0.59 mg/dL 0.57-1.25 GLUCOSE RANDOM (BEAKER) (test hepq=584) 113 mg/dL 70-105 CALCIUM (BEAKER) (test idqr=726) 9.1 mg/dL 8.4-10.2 EGFR (BEAKER) (test peer=8843) 97 mL/min/1.73 sq m ESTIMATED GFR IS NOT ACCURATE CREATININE CLEARANCE IN PREDICTING GLOMERULAR FILTRATION RATE. ESTIMATED GFR IS NOT APPLICABLE FOR DIALYSIS PATIENTS. CBC W/PLT COUNT & AUTO [id number] 05:05:00* Test Item Value Reference Range Comments WHITE BLOOD CELL COUNT (BEAKER) (test pgtj=871) 7.2 K/ L 3.5-10.5 RED BLOOD CELL COUNT (BEAKER) (test ygxs=610) 2.73 M/ L 3.93-5.22 HEMOGLOBIN (BEAKER) (test styk=234) 7.9 GM/DL 11.2-15.7 HEMATOCRIT (BEAKER) (test pbxv=538) 24.2 % 34.1-44.9 MEAN CORPUSCULAR VOLUME (BEAKER) (test ivpg=250) 88.6 fL 79.4-94.8 MEAN CORPUSCULAR HEMOGLOBIN (BEAKER) (test tgvz=329) 28.9 pg 25.6-32.2 MEAN CORPUSCULAR HEMOGLOBIN CONC (BEAKER) (test oakw=317) 32.6 GM/DL 32.2-35.5 RED CELL DISTRIBUTION WIDTH (BEAKER) (test gzue=055) 14.8 % 11.7-14.4 PLATELET COUNT (BEAKER) (test wwdj=423) 98 K/CU MM 150-450 MEAN PLATELET VOLUME (BEAKER) (test vdaq=480) 11.4 fL 9.4-12.3 NUCLEATED RED BLOOD CELLS (BEAKER) (test gaxa=737) 0 /100 WBC 0-0 NEUTROPHILS RELATIVE PERCENT (BEAKER) (test aagq=652) 66 % LYMPHOCYTES RELATIVE PERCENT (BEAKER) (test zvax=578) 15 % MONOCYTES RELATIVE PERCENT (BEAKER) (test yoss=311) 14 % EOSINOPHILS RELATIVE PERCENT (BEAKER) (test xefn=319) 4 % BASOPHILS RELATIVE PERCENT (BEAKER) (test lkzn=663) 1 % NEUTROPHILS ABSOLUTE COUNT (BEAKER) (test vtae=374) 4.76 K/ L 1.56-6.13 LYMPHOCYTES ABSOLUTE COUNT (BEAKER) (test olzb=897) 1.06 K/ L 1.18-3.74 MONOCYTES ABSOLUTE COUNT (BEAKER) (test cavr=208) 0.98 K/ L 0.24-0.36 EOSINOPHILS ABSOLUTE COUNT (BEAKER) (test hvmn=728) 0.25 K/ L 0.04-0.36 BASOPHILS ABSOLUTE COUNT (BEAKER) (test cdmj=866) 0.05 K/ L 0.01-0.08 IMMATURE GRANULOCYTES-RELATIVE PERCENT (BEAKER) (test rhnq=4572) 2 % 0-1 [id number] 22:29:00* Test Item Value Reference Range Comments POTASSIUM (BEAKER) (test ysui=694) 3.2 meq/L 3.5-5.1 [id number] 22:29:00* Test Item Value Reference Range Comments MAGNESIUM (BEAKER) (test yomg=068) 2.0 mg/dL 1.6-2.6 CALCIUM, [id number] 22:02:00* Test Item Value Reference Range Comments CALCIUM IONIZED (BEAKER) (test jcnv=599) 1.07 mmol/L 1.12-1.27 PH, BLOOD (BEAKER) (test twfe=5301) 7.52 BLOOD GAS, [id number] 16:24:00* Test Item Value Reference Range Comments PH ARTERIAL (BEAKER) (test aaei=353) 7.52 7.35-7.45 PCO2 ARTERIAL (BEAKER) (test xtrw=507) 37 mmHg 35-45 PO2 ARTERIAL (BEAKER) (test lwpg=150) 66 mmHg 80-90 O2 SATURATION ARTERIAL (BEAKER) (test yqnz=267) 95.0 % 96.0-97.0 HCO3 ARTERIAL (BEAKER) (test zhoy=061) 30 mmol/L 21-29 BASE EXCESS ARTERIAL (BEAKER) (test klcu=069) 6.4 mmol/L -2.0-3.0 PATIENT TEMPERATURE (BEAKER) (test jqsq=5098) 37.0 C FIO2 (BEAKER) (test ykhu=4068) 44.0 % [id number] 10:58:00* Test Item Value Reference Range Comments MAGNESIUM (BEAKER) (test trmm=082) 2.2 mg/dL 1.6-2.6 Specimen slightly hemolyzed Check Serum Magnesium level 2 hours after IV magnesium replacement.CALCIUM, [id number] 04:44:00* Test Item Value Reference Range Comments CALCIUM IONIZED (BEAKER) (test occr=766) 1.10 mmol/L 1.12-1.27 PH, BLOOD (BEAKER) (test aylz=6730) 7.49 BLOOD GAS, [id number] 04:43:00* Test Item Value Reference Range Comments PH ARTERIAL (BEAKER) (test zhjl=117) 7.49 7.35-7.45 PCO2 ARTERIAL (BEAKER) (test cjdk=530) 33 mmHg 35-45 PO2 ARTERIAL (BEAKER) (test mkmm=626) 73 mmHg 80-90 O2 SATURATION ARTERIAL (BEAKER) (test ozvd=503) 95.8 % 96.0-97.0 HCO3 ARTERIAL (BEAKER) (test xkcq=884) 25 mmol/L 21-29 BASE EXCESS ARTERIAL (BEAKER) (test xhqk=639) 1.9 mmol/L -2.0-3.0 PATIENT TEMPERATURE (BEAKER) (test zbiw=4627) 37.0 C FIO2 (BEAKER) (test btfy=0435) 100.0 % [id number] 04:26:00* Test Item Value Reference Range Comments MAGNESIUM (BEAKER) (test loyi=434) 2.0 mg/dL 1.6-2.6 BASIC METABOLIC [id number] 04:26:00* Test Item Value Reference Range Comments SODIUM (BEAKER) (test equl=677) 137 meq/L 136-145 POTASSIUM (BEAKER) (test rxra=159) 4.2 meq/L 3.5-5.1 CHLORIDE (BEAKER) (test ctii=602) 103 meq/L 98-107 CO2 (BEAKER) (test slym=795) 23 meq/L 22-29 BLOOD UREA NITROGEN (BEAKER) (test minx=042) 14 mg/dL 7-21 CREATININE (BEAKER) (test akjb=178) 0.59 mg/dL 0.57-1.25 GLUCOSE RANDOM (BEAKER) (test voga=917) 92 mg/dL 70-105 CALCIUM (BEAKER) (test hkqy=508) 8.9 mg/dL 8.4-10.2 EGFR (BEAKER) (test cjla=3605) 97 mL/min/1.73 sq m ESTIMATED GFR IS NOT ACCURATE CREATININE CLEARANCE IN PREDICTING GLOMERULAR FILTRATION RATE. ESTIMATED GFR IS NOT APPLICABLE FOR DIALYSIS PATIENTS. CBC (HEMOGRAM ONLY)2018-01-21 04:13:00* Test Item Value Reference Range Comments WHITE BLOOD CELL COUNT (BEAKER) (test nlne=504) 10.3 K/ L 3.5-10.5 RED BLOOD CELL COUNT (BEAKER) (test qdbp=374) 2.82 M/ L 3.93-5.22 HEMOGLOBIN (BEAKER) (test hppu=252) 8.1 GM/DL 11.2-15.7 HEMATOCRIT (BEAKER) (test mrui=555) 24.6 % 34.1-44.9 MEAN CORPUSCULAR VOLUME (BEAKER) (test txqc=668) 87.2 fL 79.4-94.8 MEAN CORPUSCULAR HEMOGLOBIN (BEAKER) (test slqh=267) 28.7 pg 25.6-32.2 MEAN CORPUSCULAR HEMOGLOBIN CONC (BEAKER) (test syth=097) 32.9 GM/DL 32.2-35.5 RED CELL DISTRIBUTION WIDTH (BEAKER) (test acqb=574) 14.8 % 11.7-14.4 PLATELET COUNT (BEAKER) (test yeaw=173) 84 K/CU MM 150-450 MEAN PLATELET VOLUME (BEAKER) (test byra=090) 11.5 fL 9.4-12.3 NUCLEATED RED BLOOD CELLS (BEAKER) (test lvnr=105) 0 /100 WBC 0-0 RAD, CHEST, 1 VIEW, NON [id number] 04:07:00Reason for exam:->chest tubes FINAL REPORT EXAMINATION: AP PORTABLE CHEST RADIOGRAPH CL INICAL INDICATION: Chest tubes IMPRESSION: Compared with 01/20/2018 The enlarged heart, parenchymal lung opacities and bilateral pleural effusions are stable. No evidence of new lung consolidation or pneumothorax. A right jugular central line is again noted, stable in position. Cardiac and mediastinal contours are uncha nged allowing for differences in technique and rotation. In summary, congestive heart failure-fluid overload. No significant interval change. Signed: Sharona Ruiz MDReport Verified Date/Time: 01/21/2018 04:07:48 Reading Location: [address] Reading Room C METABOLIC [id number] 23:35:00* Test Item Value Reference Range Comments SODIUM (BEAKER) (test yycl=562) 137 meq/L 136-145 POTASSIUM (BEAKER) (test hjew=317) 3.4 meq/L 3.5-5.1 CHLORIDE (BEAKER) (test hcah=835) 101 meq/L 98-107 CO2 (BEAKER) (test pjmd=535) 25 meq/L 22-29 BLOOD UREA NITROGEN (BEAKER) (test iwxn=692) 14 mg/dL 7-21 CREATININE (BEAKER) (test pzrl=000) 0.61 mg/dL 0.57-1.25 GLUCOSE RANDOM (BEAKER) (test ngod=774) 101 mg/dL 70-105 CALCIUM (BEAKER) (test mabl=785) 8.6 mg/dL 8.4-10.2 EGFR (BEAKER) (test enbb=9341) 93 mL/min/1.73 sq m ESTIMATED GFR IS NOT ACCURATE CREATININE CLEARANCE IN PREDICTING GLOMERULAR FILTRATION RATE. ESTIMATED GFR IS NOT APPLICABLE FOR DIALYSIS PATIENTS. [id number] 12:32:00* Test Item Value Reference Range Comments MAGNESIUM (BEAKER) (test bimu=807) 2.1 mg/dL 1.6-2.6 BASIC METABOLIC [id number] 10:12:00* Test Item Value Reference Range Comments SODIUM (BEAKER) (test umpy=396) 137 meq/L 136-145 POTASSIUM (BEAKER) (test usqw=177) 3.9 meq/L 3.5-5.1 CHLORIDE (BEAKER) (test tbcz=593) 106 meq/L 98-107 CO2 (BEAKER) (test cnol=899) 23 meq/L 22-29 BLOOD UREA NITROGEN (BEAKER) (test cozt=890) 15 mg/dL 7-21 CREATININE (BEAKER) (test ikwr=006) 0.66 mg/dL 0.57-1.25 GLUCOSE RANDOM (BEAKER) (test vmiy=441) 131 mg/dL 70-105 CALCIUM (BEAKER) (test omzh=199) 8.5 mg/dL 8.4-10.2 EGFR (BEAKER) (test xngp=5904) 85 mL/min/1.73 sq m ESTIMATED GFR IS NOT ACCURATE CREATININE CLEARANCE IN PREDICTING GLOMERULAR FILTRATION RATE. ESTIMATED GFR IS NOT APPLICABLE FOR DIALYSIS PATIENTS. BLOOD GAS, [id number] 09:44:00* Test Item Value Reference Range Comments PH ARTERIAL (BEAKER) (test udgi=393) 7.48 7.35-7.45 PCO2 ARTERIAL (BEAKER) (test ylhf=447) 34 mmHg 35-45 PO2 ARTERIAL (BEAKER) (test dwcw=509) 74 mmHg 80-90 O2 SATURATION ARTERIAL (BEAKER) (test brou=801) 95.9 % 96.0-97.0 HCO3 ARTERIAL (BEAKER) (test kqxb=251) 25 mmol/L 21-29 BASE EXCESS ARTERIAL (BEAKER) (test okfo=686) 1.5 mmol/L -2.0-3.0 PATIENT TEMPERATURE (BEAKER) (test dqhz=7419) 37.0 C FIO2 (BEAKER) (test vsas=4429) 100.0 % [id number] 06:22:00* Test Item Value Reference Range Comments POTASSIUM (BEAKER) (test rvij=926) 3.8 meq/L 3.5-5.1 Check Serum Potassium level 2 hours after oral potassium replacement completed o r 30 min after intravenous potassium replacement.RAD, CHEST, 1 VIEW, NON DEPT 2018-01-20 04:58:00Reason for exam:->chest tubesFINAL REPORT Chest one view. Clinical history: chest tubes Comparison: Chest radiograph 01/19/2018. Technique: A single frontal view of the chest was obtained. Findings:There is a right IJ central venous catheter with tip in the SVC. The patient is status post median sternotomy. There are worsening bilateral alveolar opacities compatible with pulmonary edema. Superimposed pneumonia cannot be excluded There is a cjehp-kh-uboblmuu right and small left pleural effusion. There is no pneumothorax. Signed: Linda Arceort Verified Date/Time: 01/20/2018 04:58:02 Reading Location: [address] Transitional Reading Room IUM, [id number] 04:56:00* Test Item Value Reference Range Comments CALCIUM IONIZED (BEAKER) (test mgik=529) 1.14 mmol/L 1.12-1.27 PH, BLOOD (BEAKER) (test padn=4052) 7.46 CBC W/PLT COUNT & AUTO [id number] 04:50:00* Test Item Value Reference Range Comments WHITE BLOOD CELL COUNT (BEAKER) (test iknr=687) 10.6 K/ L 3.5-10.5 RED BLOOD CELL COUNT (BEAKER) (test ndzv=999) 2.69 M/ L 3.93-5.22 HEMOGLOBIN (BEAKER) (test sads=400) 7.7 GM/DL 11.2-15.7 HEMATOCRIT (BEAKER) (test hcae=919) 23.6 % 34.1-44.9 MEAN CORPUSCULAR VOLUME (BEAKER) (test cnmq=816) 87.7 fL 79.4-94.8 MEAN CORPUSCULAR HEMOGLOBIN (BEAKER) (test wzcj=160) 28.6 pg 25.6-32.2 MEAN CORPUSCULAR HEMOGLOBIN CONC (BEAKER) (test ibqu=960) 32.6 GM/DL 32.2-35.5 RED CELL DISTRIBUTION WIDTH (BEAKER) (test wcik=007) 15.0 % 11.7-14.4 PLATELET COUNT (BEAKER) (test sycz=279) 54 K/CU MM 150-450 MEAN PLATELET VOLUME (BEAKER) (test ynbd=106) 12.0 fL 9.4-12.3 NUCLEATED RED BLOOD CELLS (BEAKER) (test bkyb=159) 0 /100 WBC 0-0 NEUTROPHILS RELATIVE PERCENT (BEAKER) (test cqtf=962) 80 % LYMPHOCYTES RELATIVE PERCENT (BEAKER) (test rdnk=927) 9 % MONOCYTES RELATIVE PERCENT (BEAKER) (test xamq=415) 10 % EOSINOPHILS RELATIVE PERCENT (BEAKER) (test lxjc=526) 1 % BASOPHILS RELATIVE PERCENT (BEAKER) (test grgp=009) 0 % NEUTROPHILS ABSOLUTE COUNT (BEAKER) (test txnv=699) 8.40 K/ L 1.56-6.13 LYMPHOCYTES ABSOLUTE COUNT (BEAKER) (test hydw=931) 0.92 K/ L 1.18-3.74 MONOCYTES ABSOLUTE COUNT (BEAKER) (test nquq=046) 1.01 K/ L 0.24-0.36 EOSINOPHILS ABSOLUTE COUNT (BEAKER) (test tsdv=398) 0.12 K/ L 0.04-0.36 BASOPHILS ABSOLUTE COUNT (BEAKER) (test mklu=510) 0.04 K/ L 0.01-0.08 IMMATURE GRANULOCYTES-RELATIVE PERCENT (BEAKER) (test doxm=9676) 1 % 0-1 [id number] 04:27:00* Test Item Value Reference Range Comments MAGNESIUM (BEAKER) (test klqs=770) 2.0 mg/dL 1.6-2.6 BASIC METABOLIC [id number] 20:11:00* Test Item Value Reference Range Comments SODIUM (BEAKER) (test kfir=795) 135 meq/L 136-145 POTASSIUM (BEAKER) (test pxyd=422) 3.7 meq/L 3.5-5.1 CHLORIDE (BEAKER) (test qbrv=256) 104 meq/L 98-107 CO2 (BEAKER) (test cylq=257) 21 meq/L 22-29 BLOOD UREA NITROGEN (BEAKER) (test tvll=735) 17 mg/dL 7-21 CREATININE (BEAKER) (test bzrw=605) 0.70 mg/dL 0.57-1.25 GLUCOSE RANDOM (BEAKER) (test yzsy=590) 86 mg/dL 70-105 CALCIUM (BEAKER) (test otrc=604) 8.6 mg/dL 8.4-10.2 EGFR (BEAKER) (test oitr=0959) 79 mL/min/1.73 sq m ESTIMATED GFR IS NOT ACCURATE CREATININE CLEARANCE IN PREDICTING GLOMERULAR FILTRATION RATE. ESTIMATED GFR IS NOT APPLICABLE FOR DIALYSIS PATIENTS. [id number] 17:27:00* Test Item Value Reference Range Comments PROCALCITONIN (BEAKER) (test xkon=0631) 0.07 ng/mL <0.05 SEPSIS RISK (ng/mL)Low: 0.05-0.50Intermediate: 0.51-2.00High: > =2.01CBC (HEMOGRAM ONLY)2018-01-19 16:24:00* Test Item Value Reference Range Comments WHITE BLOOD CELL COUNT (BEAKER) (test yqgy=406) 10.9 K/ L 3.5-10.5 RED BLOOD CELL COUNT (BEAKER) (test wlto=052) 2.75 M/ L 3.93-5.22 HEMOGLOBIN (BEAKER) (test vvsi=871) 7.9 GM/DL 11.2-15.7 HEMATOCRIT (BEAKER) (test cyat=985) 24.3 % 34.1-44.9 MEAN CORPUSCULAR VOLUME (BEAKER) (test xbai=373) 88.4 fL 79.4-94.8 MEAN CORPUSCULAR HEMOGLOBIN (BEAKER) (test xwct=014) 28.7 pg 25.6-32.2 MEAN CORPUSCULAR HEMOGLOBIN CONC (BEAKER) (test yqel=149) 32.5 GM/DL 32.2-35.5 RED CELL DISTRIBUTION WIDTH (BEAKER) (test sdrg=980) 15.4 % 11.7-14.4 PLATELET COUNT (BEAKER) (test yuhg=006) 53 K/CU MM 150-450 MEAN PLATELET VOLUME (BEAKER) (test bkme=917) 12.1 fL 9.4-12.3 NUCLEATED RED BLOOD CELLS (BEAKER) (test vbto=514) 0 /100 WBC 0-0 LACTIC ACID, ARTERIAL, WHOLE [id number] 12:39:00* Test Item Value Reference Range Comments LACTATE BLOOD ARTERIAL (2) (BEAKER) (test dyxo=9286) 0.8 mmol/L 0.5-2.2 Effective 12/01/2015: Units/Reference Range ChangeNew: 0.5-2.2 mmol/L Previous: 5 -20 mg/dLOXYGEN SATURATION, [id number] 12:23:00* Test Item Value Reference Range Comments O2 SATURATION (MEASURED) (BEAKER) (test swvq=3413) 58.7 % RAD, CHEST, 1 VIEW, NON [id number] 09:24:00Reason for exam:->chest tubes FINAL REPORT INDICATION: chest tubes COMPARISON: January 18, 2018 TECHNIQUE: Chest radiograph, single view, portable technique. FINDINGS / I MPRESSION: Left base chest tube and single mediastinal tube again demonstrated. Right internal jugular line terminates at the cavoatrial junction No discrete pn eumothorax demonstrated. There is a layering small right pleural effusion with p robable collapse of the right lower lobe, versus right lower lobe pneumonia and parapneumonic effusion. Intact median sternotomy wires noted. Signed: Beth Greene MDReport Verified Date/Time: 01/19/2018 09:24:24 Reading Location: [address] Ortho Consult Reading Room -GLUCOSE [id number] 08:53:00* Test Item Value Reference Range Comments POC-GLUCOSE METER (BEAKER) (test rbmc=6906) 106 mg/dL 70-110 TESTED AT [address] [address] POCT-GLUCOSE [id number] 08:53:00* Test Item Value Reference Range Comments POC-GLUCOSE METER (BEAKER) (test qjdb=3396) 93 mg/dL 70-110 TESTED AT [address] [address] POCT-GLUCOSE [id number] 08:53:00* Test Item Value Reference Range Comments POC-GLUCOSE METER (BEAKER) (test hzan=0989) 109 mg/dL 70-110 TESTED AT [address] [address] CBC W/PLT COUNT & AUTO [id number] 04:19:00* Test Item Value Reference Range Comments WHITE BLOOD CELL COUNT (BEAKER) (test oeah=466) 12.3 K/ L 3.5-10.5 RED BLOOD CELL COUNT (BEAKER) (test rseg=775) 2.94 M/ L 3.93-5.22 HEMOGLOBIN (BEAKER) (test grfx=474) 8.3 GM/DL 11.2-15.7 HEMATOCRIT (BEAKER) (test flpk=148) 25.8 % 34.1-44.9 MEAN CORPUSCULAR VOLUME (BEAKER) (test uacy=438) 87.8 fL 79.4-94.8 MEAN CORPUSCULAR HEMOGLOBIN (BEAKER) (test krsg=689) 28.2 pg 25.6-32.2 MEAN CORPUSCULAR HEMOGLOBIN CONC (BEAKER) (test gknu=410) 32.2 GM/DL 32.2-35.5 RED CELL DISTRIBUTION WIDTH (BEAKER) (test idxb=484) 15.8 % 11.7-14.4 PLATELET COUNT (BEAKER) (test chui=292) 62 K/CU MM 150-450 MEAN PLATELET VOLUME (BEAKER) (test tvjx=802) 11.8 fL 9.4-12.3 NUCLEATED RED BLOOD CELLS (BEAKER) (test urht=546) 0 /100 WBC 0-0 NEUTROPHILS RELATIVE PERCENT (BEAKER) (test gfve=012) 82 % LYMPHOCYTES RELATIVE PERCENT (BEAKER) (test clqf=902) 7 % MONOCYTES RELATIVE PERCENT (BEAKER) (test dyeo=641) 10 % EOSINOPHILS RELATIVE PERCENT (BEAKER) (test tfxo=777) 0 % BASOPHILS RELATIVE PERCENT (BEAKER) (test gyfc=714) 0 % NEUTROPHILS ABSOLUTE COUNT (BEAKER) (test fkis=136) 10.07 K/ L 1.56-6.13 LYMPHOCYTES ABSOLUTE COUNT (BEAKER) (test gqst=065) 0.90 K/ L 1.18-3.74 MONOCYTES ABSOLUTE COUNT (BEAKER) (test spma=669) 1.17 K/ L 0.24-0.36 EOSINOPHILS ABSOLUTE COUNT (BEAKER) (test ckim=286) 0.00 K/ L 0.04-0.36 BASOPHILS ABSOLUTE COUNT (BEAKER) (test qveb=300) 0.03 K/ L 0.01-0.08 IMMATURE GRANULOCYTES-RELATIVE PERCENT (BEAKER) (test gvqi=8263) 1 % 0-1 [id number] 04:06:00* Test Item Value Reference Range Comments PHOSPHORUS (BEAKER) (test xmxp=447) 3.6 mg/dL 2.3-4.7 [id number] 04:06:00* Test Item Value Reference Range Comments MAGNESIUM (BEAKER) (test ctlt=926) 2.1 mg/dL 1.6-2.6 BASIC METABOLIC [id number] 04:06:00* Test Item Value Reference Range Comments SODIUM (BEAKER) (test ysno=945) 137 meq/L 136-145 POTASSIUM (BEAKER) (test wyap=886) 4.1 meq/L 3.5-5.1 CHLORIDE (BEAKER) (test okhi=902) 106 meq/L 98-107 CO2 (BEAKER) (test wesy=329) 20 meq/L 22-29 BLOOD UREA NITROGEN (BEAKER) (test vbxg=833) 15 mg/dL 7-21 CREATININE (BEAKER) (test qqtm=529) 0.71 mg/dL 0.57-1.25 GLUCOSE RANDOM (BEAKER) (test ssjd=248) 96 mg/dL 70-105 CALCIUM (BEAKER) (test cqja=774) 8.5 mg/dL 8.4-10.2 EGFR (BEAKER) (test kaof=6777) 78 mL/min/1.73 sq m ESTIMATED GFR IS NOT ACCURATE CREATININE CLEARANCE IN PREDICTING GLOMERULAR FILTRATION RATE. ESTIMATED GFR IS NOT APPLICABLE FOR DIALYSIS PATIENTS. BLOOD GAS, [id number] 04:02:00* Test Item Value Reference Range Comments PH ARTERIAL (BEAKER) (test kpdu=774) 7.38 7.35-7.45 PCO2 ARTERIAL (BEAKER) (test etfe=963) 39 mmHg 35-45 PO2 ARTERIAL (BEAKER) (test ppyv=482) 76 mmHg 80-90 O2 SATURATION ARTERIAL (BEAKER) (test lhsm=595) 95.3 % 96.0-97.0 HCO3 ARTERIAL (BEAKER) (test mcbn=647) 23 mmol/L 21-29 BASE EXCESS ARTERIAL (BEAKER) (test yvsz=795) -2.0 mmol/L -2.0-3.0 PATIENT TEMPERATURE (BEAKER) (test eglw=9764) 36.7 C FIO2 (BEAKER) (test lafv=6571) 100.0 % CALCIUM, [id number] 04:00:00* Test Item Value Reference Range Comments CALCIUM IONIZED (BEAKER) (test ngrt=685) 1.17 mmol/L 1.12-1.27 PH, BLOOD (BEAKER) (test ukxx=2959) 7.38 BLOOD GAS, [id number] 01:21:00* Test Item Value Reference Range Comments PH ARTERIAL (BEAKER) (test exyt=921) 7.43 7.35-7.45 PCO2 ARTERIAL (BEAKER) (test ovzi=005) 35 mmHg 35-45 PO2 ARTERIAL (BEAKER) (test qwqr=045) 60 mmHg 80-90 O2 SATURATION ARTERIAL (BEAKER) (test tnrp=681) 92.1 % 96.0-97.0 HCO3 ARTERIAL (BEAKER) (test wlur=022) 23 mmol/L 21-29 BASE EXCESS ARTERIAL (BEAKER) (test dgzg=473) -1.1 mmol/L -2.0-3.0 PATIENT TEMPERATURE (BEAKER) (test moxt=3571) 37.0 C FIO2 (BEAKER) (test bevw=4712) 100.0 % POCT-GLUCOSE [id number] 22:53:00* Test Item Value Reference Range Comments POC-GLUCOSE METER (BEAKER) (test kieq=2392) 90 mg/dL 70-110 TESTED AT [facility] [address] [facility] [address] CBC W/PLT COUNT & AUTO [id number] 13:55:00* Test Item Value Reference Range Comments WHITE BLOOD CELL COUNT (BEAKER) (test kpar=171) 11.4 K/ L 3.5-10.5 RED BLOOD CELL COUNT (BEAKER) (test icpj=588) 3.14 M/ L 3.93-5.22 HEMOGLOBIN (BEAKER) (test lvls=601) 9.0 GM/DL 11.2-15.7 HEMATOCRIT (BEAKER) (test puhw=846) 27.1 % 34.1-44.9 MEAN CORPUSCULAR VOLUME (BEAKER) (test yefw=101) 86.3 fL 79.4-94.8 MEAN CORPUSCULAR HEMOGLOBIN (BEAKER) (test nirv=873) 28.7 pg 25.6-32.2 MEAN CORPUSCULAR HEMOGLOBIN CONC (BEAKER) (test yipk=779) 33.2 GM/DL 32.2-35.5 RED CELL DISTRIBUTION WIDTH (BEAKER) (test duhb=123) 15.4 % 11.7-14.4 PLATELET COUNT (BEAKER) (test ggdq=231) 68 K/CU MM 150-450 MEAN PLATELET VOLUME (BEAKER) (test tjjv=216) 11.0 fL 9.4-12.3 NUCLEATED RED BLOOD CELLS (BEAKER) (test aapk=301) 0 /100 WBC 0-0 NEUTROPHILS RELATIVE PERCENT (BEAKER) (test mokz=175) 82 % LYMPHOCYTES RELATIVE PERCENT (BEAKER) (test zrfj=887) 6 % MONOCYTES RELATIVE PERCENT (BEAKER) (test uurv=276) 12 % EOSINOPHILS RELATIVE PERCENT (BEAKER) (test mdol=786) 0 % BASOPHILS RELATIVE PERCENT (BEAKER) (test mogb=318) 0 % NEUTROPHILS ABSOLUTE COUNT (BEAKER) (test lrgh=370) 9.39 K/ L 1.56-6.13 LYMPHOCYTES ABSOLUTE COUNT (BEAKER) (test wqug=937) 0.65 K/ L 1.18-3.74 MONOCYTES ABSOLUTE COUNT (BEAKER) (test madc=437) 1.32 K/ L 0.24-0.36 EOSINOPHILS ABSOLUTE COUNT (BEAKER) (test dbyi=239) 0.00 K/ L 0.04-0.36 BASOPHILS ABSOLUTE COUNT (BEAKER) (test nbrz=017) 0.02 K/ L 0.01-0.08 IMMATURE GRANULOCYTES-RELATIVE PERCENT (BEAKER) (test yjne=6238) 0 % 0-1 POCT-GLUCOSE [id number] 13:36:00* Test Item Value Reference Range Comments POC-GLUCOSE METER (BEAKER) (test idtm=2797) 116 mg/dL 70-110 TESTED AT [facility] [address] [facility] [address] CALCIUM, [id number] 12:21:00* Test Item Value Reference Range Comments CALCIUM IONIZED (BEAKER) (test vxbe=821) 1.12 mmol/L 1.12-1.27 PH, BLOOD (BEAKER) (test ando=2531) 7.39 BLOOD GAS, [id number] 12:21:00* Test Item Value Reference Range Comments PH ARTERIAL (BEAKER) (test lolt=192) 7.37 7.35-7.45 PCO2 ARTERIAL (BEAKER) (test smyw=165) 46 mmHg 35-45 PO2 ARTERIAL (BEAKER) (test yqhb=908) 78 mmHg 80-90 O2 SATURATION ARTERIAL (BEAKER) (test twjt=324) 94.1 % 96.0-97.0 HCO3 ARTERIAL (BEAKER) (test pquq=223) 26 mmol/L 21-29 BASE EXCESS ARTERIAL (BEAKER) (test yphb=479) 0.5 mmol/L -2.0-3.0 PATIENT TEMPERATURE (BEAKER) (test fuew=5248) 38.3 C FIO2 (BEAKER) (test blkd=7251) 100.0 % GLUCOSE-STAT [id number] 12:16:00* Test Item Value Reference Range Comments GLUCOSE RANDOM (BEAKER) (test dqpx=429) 108 mg/dL 70-110 POTASSIUM-STAT [id number] 12:16:00* Test Item Value Reference Range Comments POTASSIUM (BEAKER) (test ywwc=077) 4.2 meq/L 3.6-5.5 POCT-GLUCOSE [id number] 09:35:00* Test Item Value Reference Range Comments POC-GLUCOSE METER (BEAKER) (test elyk=6257) 110 mg/dL 70-110 TESTED AT [facility] [address] [place] [address] LACTIC ACID, ARTERIAL, WHOLE [id number] 08:24:00* Test Item Value Reference Range Comments LACTATE BLOOD ARTERIAL (2) (BEAKER) (test lsca=3835) 2.0 mmol/L 0.5-2.2 Effective 12/01/2015: Units/Reference Range ChangeNew: 0.5-2.2 mmol/L Previous: 5 -20 mg/dLRAD, CHEST, 1 VIEW, NON [id number] 08:23:00Reason for exam:->s/p AVRShould this be performed at the bedside?->YesFINAL REPORT Chest one view INDICATION: AVR COMPARISON: 01/17/2018 IMPRESSION: ET and NG tubes have been removed. The remaining support devices are stable. 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 The cardiac silhouette is enlarged. Mediastinal widening is exaggerated by oblique positioning. Advise attention at follow-up. Increased diffuse lung opacities suggest worsening pulmonary edema and atelectasis. Superimposed pneumonitis or aspiration cannot be excluded. Dependent pleural effusions are present. Trace left apical pneumothorax is suspected. Signed: Jyoti Soriano MDReport Verified Date/Time: 01/18/2018 08:23:03 Reading Location: [facility] Room 08:2 3 AM BLOOD GAS, [id number] 08:05:00* Test Item Value Reference Range Comments PH ARTERIAL (BEAKER) (test hnum=758) 7.40 7.35-7.45 PCO2 ARTERIAL (BEAKER) (test ajvt=937) 40 mmHg 35-45 PO2 ARTERIAL (BEAKER) (test jzyg=104) 103 mmHg 80-90 O2 SATURATION ARTERIAL (BEAKER) (test dumn=507) 97.6 % 96.0-97.0 HCO3 ARTERIAL (BEAKER) (test jsmo=270) 24 mmol/L 21-29 BASE EXCESS ARTERIAL (BEAKER) (test rrdm=821) -0.6 mmol/L -2.0-3.0 PATIENT TEMPERATURE (BEAKER) (test uirn=5099) 37.2 C FIO2 (BEAKER) (test gkkc=8457) 100.0 % HGB/HCT (H&H) - STAT [id number] 08:05:00* Test Item Value Reference Range Comments HEMOGLOBIN (BEAKER) (test dcus=953) 9.2 g/dL 12.0-15.0 HEMATOCRIT (BEAKER) (test vewd=389) 27.0 % 36.0-45.0 GLUCOSE-STAT [id number] 08:02:00* Test Item Value Reference Range Comments GLUCOSE RANDOM (BEAKER) (test wmsb=387) 103 mg/dL 70-110 POCT-GLUCOSE [id number] 06:40:00* Test Item Value Reference Range Comments POC-GLUCOSE METER (BEAKER) (test favf=5109) 115 mg/dL 70-110 TESTED AT [facility] [address] [facility] [address] [id number] 05:58:00* Test Item Value Reference Range Comments FIBRINOGEN LEVEL (BEAKER) (test ckuk=188) 184 mg/dl 225-434 [id number] 05:58:00* Test Item Value Reference Range Comments PROTIME (BEAKER) (test zvwu=423) 17.7 seconds 11.7-14.7 INR (BEAKER) (test ebwh=049) 1.5 <=5.9 PARTIAL THROMBOPLASTIN TIME (BEAKER) (test nood=489) 39.8 seconds 22.5-36.0 RECOMMENDED COUMADIN/WARFARIN INR THERAPY RANGESSTANDARD DOSE: 2.0 - 3.0 Inclu joel: PROPHYLAXIS for venous thrombosis, systemic embolization; TREATMENT for isis ous thrombosis and/or pulmonary embolus.HIGH RISK: Target INR is 2.5-3.5 for pat ients with mechanical heart valves.[id number] 05:10:00* Test Item Value Reference Range Comments PHOSPHORUS (BEAKER) (test aaqn=142) 3.3 mg/dL 2.3-4.7 [id number] 05:10:00* Test Item Value Reference Range Comments MAGNESIUM (BEAKER) (test becu=821) 2.3 mg/dL 1.6-2.6 BASIC METABOLIC [id number] 05:10:00* Test Item Value Reference Range Comments SODIUM (BEAKER) (test kljx=691) 140 meq/L 136-145 POTASSIUM (BEAKER) (test sogt=831) 3.7 meq/L 3.5-5.1 CHLORIDE (BEAKER) (test cdir=494) 109 meq/L 98-107 CO2 (BEAKER) (test ytgs=876) 22 meq/L 22-29 BLOOD UREA NITROGEN (BEAKER) (test qakf=325) 12 mg/dL 7-21 CREATININE (BEAKER) (test nqgg=618) 0.71 mg/dL 0.57-1.25 GLUCOSE RANDOM (BEAKER) (test lxrq=528) 150 mg/dL 70-105 CALCIUM (BEAKER) (test jmlf=473) 8.0 mg/dL 8.4-10.2 EGFR (BEAKER) (test hngk=1335) 78 mL/min/1.73 sq m ESTIMATED GFR IS NOT ACCURATE CREATININE CLEARANCE IN PREDICTING GLOMERULAR FILTRATION RATE. ESTIMATED GFR IS NOT APPLICABLE FOR DIALYSIS PATIENTS. LACTIC ACID, ARTERIAL, WHOLE [id number] 05:00:00* Test Item Value Reference Range Comments LACTATE BLOOD ARTERIAL (2) (BEAKER) (test jzoj=0671) 3.4 mmol/L 0.5-2.2 Effective 12/01/2015: Units/Reference Range ChangeNew: 0.5-2.2 mmol/L Previous: 5 -20 mg/dLPOCT-GLUCOSE [id number] 04:54:00* Test Item Value Reference Range Comments POC-GLUCOSE METER (BEAKER) (test zurn=1252) 157 mg/dL 70-110 TESTED AT [place] [id number] [facility] [address] CALCIUM, [id number] 03:54:00* Test Item Value Reference Range Comments CALCIUM IONIZED (BEAKER) (test hhiz=798) 1.09 mmol/L 1.12-1.27 PH, BLOOD (BEAKER) (test vwrq=0362) 7.36 OXYGEN SATURATION, [id number] 03:52:00* Test Item Value Reference Range Comments O2 SATURATION (MEASURED) (BEAKER) (test eajb=3571) 57.2 % POCT-GLUCOSE [id number] 03:44:00* Test Item Value Reference Range Comments POC-GLUCOSE METER (BEAKER) (test ytgn=8940) 153 mg/dL 70-110 TESTED AT [place] [id number] [facility] [address] CBC W/PLT COUNT & AUTO [id number] 03:44:00* Test Item Value Reference Range Comments WHITE BLOOD CELL COUNT (BEAKER) (test muke=819) 10.3 K/ L 3.5-10.5 RED BLOOD CELL COUNT (BEAKER) (test vukx=535) 2.36 M/ L 3.93-5.22 HEMOGLOBIN (BEAKER) (test xvem=775) 6.8 GM/DL 11.2-15.7 HEMATOCRIT (BEAKER) (test xhvi=664) 21.2 % 34.1-44.9 MEAN CORPUSCULAR VOLUME (BEAKER) (test juzk=438) 89.8 fL 79.4-94.8 MEAN CORPUSCULAR HEMOGLOBIN (BEAKER) (test tbgh=109) 28.8 pg 25.6-32.2 MEAN CORPUSCULAR HEMOGLOBIN CONC (BEAKER) (test vlqe=378) 32.1 GM/DL 32.2-35.5 RED CELL DISTRIBUTION WIDTH (BEAKER) (test jidk=645) 13.2 % 11.7-14.4 PLATELET COUNT (BEAKER) (test hcov=661) 78 K/CU MM 150-450 MEAN PLATELET VOLUME (BEAKER) (test asyj=412) 10.8 fL 9.4-12.3 NUCLEATED RED BLOOD CELLS (BEAKER) (test ysqc=247) 0 /100 WBC 0-0 NEUTROPHILS RELATIVE PERCENT (BEAKER) (test beel=802) 84 % LYMPHOCYTES RELATIVE PERCENT (BEAKER) (test uyry=550) 6 % MONOCYTES RELATIVE PERCENT (BEAKER) (test sdyv=738) 9 % EOSINOPHILS RELATIVE PERCENT (BEAKER) (test uvxv=950) 0 % BASOPHILS RELATIVE PERCENT (BEAKER) (test vyqz=848) 0 % NEUTROPHILS ABSOLUTE COUNT (BEAKER) (test aijn=099) 8.58 K/ L 1.56-6.13 LYMPHOCYTES ABSOLUTE COUNT (BEAKER) (test olkw=330) 0.64 K/ L 1.18-3.74 MONOCYTES ABSOLUTE COUNT (BEAKER) (test gmop=678) 0.96 K/ L 0.24-0.36 EOSINOPHILS ABSOLUTE COUNT (BEAKER) (test yctn=791) 0.00 K/ L 0.04-0.36 BASOPHILS ABSOLUTE COUNT (BEAKER) (test qmsa=526) 0.01 K/ L 0.01-0.08 IMMATURE GRANULOCYTES-RELATIVE PERCENT (BEAKER) (test jjvd=5471) 1 % 0-1 BLOOD GAS, [id number] 02:29:00* Test Item Value Reference Range Comments PH ARTERIAL (BEAKER) (test labr=420) 7.38 7.35-7.45 PCO2 ARTERIAL (BEAKER) (test edix=984) 43 mmHg 35-45 PO2 ARTERIAL (BEAKER) (test wgmq=537) 78 mmHg 80-90 O2 SATURATION ARTERIAL (BEAKER) (test njkg=659) 95.6 % 96.0-97.0 HCO3 ARTERIAL (BEAKER) (test zkfw=824) 25 mmol/L 21-29 BASE EXCESS ARTERIAL (BEAKER) (test ubna=828) -0.5 mmol/L -2.0-3.0 PATIENT TEMPERATURE (BEAKER) (test prps=3598) 36.5 C FIO2 (BEAKER) (test nmba=6774) 100.0 % Post extubation ABGPOCT-GLUCOSE [id number] 02:25:00* Test Item Value Reference Range Comments POC-GLUCOSE METER (BEAKER) (test wleb=5544) 157 mg/dL 70-110 TESTED AT [facility] [address] [facility] [address] BLOOD GAS, [id number] 01:23:00* Test Item Value Reference Range Comments PH ARTERIAL (BEAKER) (test yavi=587) 7.37 7.35-7.45 PCO2 ARTERIAL (BEAKER) (test jfjk=193) 45 mmHg 35-45 PO2 ARTERIAL (BEAKER) (test fnma=484) 61 mmHg 80-90 O2 SATURATION ARTERIAL (BEAKER) (test zczu=033) 90.9 % 96.0-97.0 HCO3 ARTERIAL (BEAKER) (test hubh=793) 25 mmol/L 21-29 BASE EXCESS ARTERIAL (BEAKER) (test odbh=863) -0.4 mmol/L -2.0-3.0 PATIENT TEMPERATURE (BEAKER) (test sknp=9651) 36.7 C FIO2 (BEAKER) (test vhmj=6410) 40.0 % POCT-GLUCOSE [id number] 01:18:00* Test Item Value Reference Range Comments POC-GLUCOSE METER (BEAKER) (test hbqo=8964) 182 mg/dL 70-110 TESTED AT [place] [id number] [facility] [address] CALCIUM, [id number] 00:11:00* Test Item Value Reference Range Comments CALCIUM IONIZED (BEAKER) (test dujz=864) 1.00 mmol/L 1.12-1.27 PH, BLOOD (AKER) (test ocho=9340) 7.41 GLUCOSE-STAT [id number] 00:11:00* Test Item Value Reference Range Comments GLUCOSE RANDOM (BEAKER) (test yrke=298) 153 mg/dL 70-110 HGB/HCT (H&H) - STAT [id number] 00:11:00* Test Item Value Reference Range Comments HEMOGLOBIN (BEAKER) (test vgkb=053) 8.0 g/dL 12.0-15.0 HEMATOCRIT (BEAKER) (test isek=968) 24.0 % 36.0-45.0 [id number] 00:09:00* Test Item Value Reference Range Comments POTASSIUM (BEAKER) (test kbfn=936) 3.8 meq/L 3.5-5.1 PRN - repeat potassium levels every 1 hour until glucose level is less than 450 mg/[id number] 00:09:00* Test Item Value Reference Range Comments MAGNESIUM (BEAKER) (test ezjm=610) 2.3 mg/dL 1.6-2.6 PRN - repeat potassium levels every 1 hour until glucose level is less than 450 mg/dLBLOOD GAS, [id number] 00:09:00* Test Item Value Reference Range Comments PH ARTERIAL (BEAKER) (test zrqg=321) 7.41 7.35-7.45 PCO2 ARTERIAL (BEAKER) (test kxfl=277) 37 mmHg 35-45 PO2 ARTERIAL (BEAKER) (test imhf=137) 82 mmHg 80-90 O2 SATURATION ARTERIAL (BEAKER) (test rxkd=829) 96.5 % 96.0-97.0 HCO3 ARTERIAL (BEAKER) (test zstj=803) 23 mmol/L 21-29 BASE EXCESS ARTERIAL (BEAKER) (test pvli=344) -1.6 mmol/L -2.0-3.0 PATIENT TEMPERATURE (BEAKER) (test qxrj=1686) 36.5 C FIO2 (BEAKER) (test sjww=0893) 40.0 % SODIUM NA-STAT [id number] 00:09:00* Test Item Value Reference Range Comments SODIUM (BEAKER) (test prgg=204) 137 meq/L 135-148 POTASSIUM-STAT [id number] 00:09:00* Test Item Value Reference Range Comments POTASSIUM (BEAKER) (test hdze=199) 3.6 meq/L 3.6-5.5 POCT-GLUCOSE [id number] 22:49:00* Test Item Value Reference Range Comments POC-GLUCOSE METER (BEAKER) (test tcjr=9321) 183 mg/dL 70-110 TESTED AT [facility] [address] [facility] [address] BLOOD GAS, [id number] 20:25:00* Test Item Value Reference Range Comments PH ARTERIAL (BEAKER) (test gvqr=656) 7.40 7.35-7.45 PCO2 ARTERIAL (BEAKER) (test knbo=410) 36 mmHg 35-45 PO2 ARTERIAL (BEAKER) (test ovaa=065) 98 mmHg 80-90 O2 SATURATION ARTERIAL (BEAKER) (test glol=564) 98.0 % 96.0-97.0 HCO3 ARTERIAL (BEAKER) (test mghy=360) 23 mmol/L 21-29 BASE EXCESS ARTERIAL (BEAKER) (test scfz=365) -2.6 mmol/L -2.0-3.0 PATIENT TEMPERATURE (BEAKER) (test jluh=0814) 34.6 C FIO2 (BEAKER) (test zxag=1293) 40.0 % RAD, CHEST, 1 VIEW, NON [id number] 19:49:00Reason for exam:->s/p ACB, AVRShould this be performed at the bedside?->YesFINAL REPORT CHEST ONE VIEW HISTORY: Status post ACB and aVR COMPARISON: 01/17/2018 at 0448 hours FINDINGS: Single portable AP examination of the chest was performed. Interval median sternotomy. Substernal drain and left chest tube are present. No pneumothorax is identified. Right jugular catheter tip is in the SVC region. Endotracheal tube tip is 3.2 cm proximal to the gideon. Nasogastric tube tip is in the region of the stomach. Mild subsegmental atelectasis in the right perihilar region and left lung base. No pleural effusions are seen. Cardiac shadow normal in size. Signed: Keyanna Guerrero Verified Date/Time: 01/17/2018 19:49:50 Reading Location: [facility] Consult Reading Room INOGEN 2018-01-17 19:34:00* Test Item Value Reference Range Comments FIBRINOGEN LEVEL (BEAKER) (test owzn=141) 171 mg/dl 225-434 [id number] 19:34:00* Test Item Value Reference Range Comments PARTIAL THROMBOPLASTIN TIME (BEAKER) (test qhvi=156) 36.5 seconds 22.5-36.0 PROTHROMBIN TIME/[id number] 19:33:00* Test Item Value Reference Range Comments PROTIME (BEAKER) (test qouh=471) 19.5 seconds 11.7-14.7 INR (BEAKER) (test zexn=807) 1.7 <=5.9 RECOMMENDED COUMADIN/WARFARIN INR THERAPY RANGESSTANDARD DOSE: 2.0 - 3.0 Inclu joel: PROPHYLAXIS for venous thrombosis, systemic embolization; TREATMENT for isis ous thrombosis and/or pulmonary embolus.HIGH RISK: Target INR is 2.5-3.5 for pat ients with mechanical heart valves.[id number] 19:19:00* Test Item Value Reference Range Comments MAGNESIUM (BEAKER) (test idnf=030) 2.9 mg/dL 1.6-2.6 Specimen slightly hemolyzed BASIC METABOLIC [id number] 19:19:00* Test Item Value Reference Range Comments SODIUM (BEAKER) (test epym=905) 140 meq/L 136-145 POTASSIUM (BEAKER) (test mjhx=217) 3.9 meq/L 3.5-5.1 Specimen slightly hemolyzed CHLORIDE (BEAKER) (test dcyf=992) 107 meq/L 98-107 CO2 (BEAKER) (test unug=312) 22 meq/L 22-29 BLOOD UREA NITROGEN (BEAKER) (test xbup=231) 15 mg/dL 7-21 CREATININE (BEAKER) (test albn=954) 0.68 mg/dL 0.57-1.25 Specimen slightly hemolyzed GLUCOSE RANDOM (BEAKER) (test fsjf=852) 138 mg/dL 70-105 CALCIUM (BEAKER) (test fbee=265) 8.7 mg/dL 8.4-10.2 EGFR (BEAKER) (test zrah=7257) 82 mL/min/1.73 sq m ESTIMATED GFR IS NOT ACCURATE CREATININE CLEARANCE IN PREDICTING GLOMERULAR FILTRATION RATE. ESTIMATED GFR IS NOT APPLICABLE FOR DIALYSIS PATIENTS. LACTIC ACID, ARTERIAL, WHOLE [id number] 19:15:00* Test Item Value Reference Range Comments LACTATE BLOOD ARTERIAL (2) (BEAKER) (test qwgb=6755) 1.3 mmol/L 0.5-2.2 Specimen slightly hemolyzed Effective 12/01/2015: Units/Reference Range ChangeNew: 0.5-2.2 mmol/L Previous: 5 -20 mg/dLCBC W/PLT COUNT & AUTO [id number] 19:07:00* Test Item Value Reference Range Comments WHITE BLOOD CELL COUNT (BEAKER) (test hpeg=726) 11.3 K/ L 3.5-10.5 RED BLOOD CELL COUNT (BEAKER) (test mimz=176) 3.02 M/ L 3.93-5.22 HEMOGLOBIN (BEAKER) (test phwx=124) 9.1 GM/DL 11.2-15.7 HEMATOCRIT (BEAKER) (test psfc=027) 26.7 % 34.1-44.9 MEAN CORPUSCULAR VOLUME (BEAKER) (test fziz=265) 88.4 fL 79.4-94.8 MEAN CORPUSCULAR HEMOGLOBIN (BEAKER) (test ryvl=219) 30.1 pg 25.6-32.2 MEAN CORPUSCULAR HEMOGLOBIN CONC (BEAKER) (test jvza=783) 34.1 GM/DL 32.2-35.5 RED CELL DISTRIBUTION WIDTH (BEAKER) (test ucic=987) 13.1 % 11.7-14.4 PLATELET COUNT (BEAKER) (test vbah=345) 101 K/CU MM 150-450 MEAN PLATELET VOLUME (BEAKER) (test xzha=934) 11.1 fL 9.4-12.3 NUCLEATED RED BLOOD CELLS (BEAKER) (test nplp=264) 0 /100 WBC 0-0 NEUTROPHILS RELATIVE PERCENT (BEAKER) (test gihw=543) 75 % LYMPHOCYTES RELATIVE PERCENT (BEAKER) (test iqcj=367) 16 % MONOCYTES RELATIVE PERCENT (BEAKER) (test bvwu=586) 8 % EOSINOPHILS RELATIVE PERCENT (BEAKER) (test lufi=704) 0 % BASOPHILS RELATIVE PERCENT (BEAKER) (test nojj=362) 0 % NEUTROPHILS ABSOLUTE COUNT (BEAKER) (test xlmm=693) 8.47 K/ L 1.56-6.13 LYMPHOCYTES ABSOLUTE COUNT (BEAKER) (test utzo=271) 1.84 K/ L 1.18-3.74 MONOCYTES ABSOLUTE COUNT (BEAKER) (test kxcm=696) 0.85 K/ L 0.24-0.36 EOSINOPHILS ABSOLUTE COUNT (BEAKER) (test ktsq=671) 0.05 K/ L 0.04-0.36 BASOPHILS ABSOLUTE COUNT (BEAKER) (test rlcd=831) 0.02 K/ L 0.01-0.08 IMMATURE GRANULOCYTES-RELATIVE PERCENT (BEAKER) (test byur=4472) 1 % 0-1 [id number] 19:03:00* Test Item Value Reference Range Comments ACTIVATED CLOTTING TIME (BEAKER) (test bcbh=255) 125 sec TESTED AT [place] [address] [id number] 19:03:00* Test Item Value Reference Range Comments ACTIVATED CLOTTING TIME (BEAKER) (test gond=574) 516 sec TESTED AT [place] [address] [id number] 19:03:00* Test Item Value Reference Range Comments ACTIVATED CLOTTING TIME (BEAKER) (test wlxb=249) 521 sec TESTED AT [place] [address] [id number] 19:03:00* Test Item Value Reference Range Comments ACTIVATED CLOTTING TIME (BEAKER) (test zbeh=969) 709 sec TESTED AT [place] [address] [id number] 19:03:00* Test Item Value Reference Range Comments ACTIVATED CLOTTING TIME (BEAKER) (test oxhs=108) 835 sec TESTED AT [place] [address] [id number] 19:03:00* Test Item Value Reference Range Comments ACTIVATED CLOTTING TIME (BEAKER) (test qwrr=740) 615 sec TESTED AT [place] [address]330 CALCIUM, [id number] 18:58:00* Test Item Value Reference Range Comments CALCIUM IONIZED (BEAKER) (test yyxw=131) 1.15 mmol/L 1.12-1.27 PH, BLOOD (BEAKER) (test brda=2180) 7.47 OXYGEN SATURATION, [id number] 18:57:00* Test Item Value Reference Range Comments O2 SATURATION (MEASURED) (BEAKER) (test dwic=9136) 68.9 % BLOOD GAS, [id number] 18:57:00* Test Item Value Reference Range Comments PH ARTERIAL (BEAKER) (test hkoe=602) 7.47 7.35-7.45 PCO2 ARTERIAL (BEAKER) (test wtvg=530) 33 mmHg 35-45 PO2 ARTERIAL (BEAKER) (test vipl=177) 164 mmHg 80-90 O2 SATURATION ARTERIAL (BEAKER) (test gtzt=466) 99.2 % 96.0-97.0 HCO3 ARTERIAL (BEAKER) (test spsk=282) 24 mmol/L 21-29 BASE EXCESS ARTERIAL (BEAKER) (test zwpc=177) 0.4 mmol/L -2.0-3.0 PATIENT TEMPERATURE (BEAKER) (test mfvm=9172) 35.6 C FIO2 (BEAKER) (test lsql=9108) 40.0 % THROMBOELASTOGRAPH (TEG)[id number] 18:19:00* Test Item Value Reference Range Comments TEG ACTIVATED CLOTTING TIME (BEAKER) (test jygn=4651) 4.5 minutes 4.0-7.0 TEG FIBRINOGEN ACTIVITY (BEAKER) (test zuan=8078) 67.2 degrees 61.0-73.0 TEG PLT. AGGREGATION (BEAKER) (test fcqi=1367) 50.4 MM 55.0-65.0 TGH ACTIVATED CLOTTING TIME (BEAKER) (test wfqd=7085) 4.6 minutes 4.0-7.0 TGH FIBRINOGEN ACTIVITY (BEAKER) (test kgtp=4485) 66.7 degrees 61.0-73.0 TGH PLT. AGGREGATION (BEAKER) (test icoj=0701) 56.5 MM 55.0-65.0 PLATELET [id number] 18:13:00* Test Item Value Reference Range Comments PLATELET COUNT (BEAKER) (test anod=134) 101 K/CU MM 150-450 [id number] 17:44:00* Test Item Value Reference Range Comments FIBRINOGEN LEVEL (BEAKER) (test tpyf=982) 186 mg/dl 225-434 [id number] 17:44:00* Test Item Value Reference Range Comments PARTIAL THROMBOPLASTIN TIME (BEAKER) (test awhx=962) 33.9 seconds 22.5-36.0 PROTHROMBIN [id number] 17:43:00* Test Item Value Reference Range Comments PROTIME (BEAKER) (test vubv=102) 21.2 seconds 11.7-14.7 INR (BEAKER) (test licg=224) 1.8 <=5.9 RECOMMENDED COUMADIN/WARFARIN INR THERAPY RANGESSTANDARD DOSE: 2.0 - 3.0 Inclu joel: PROPHYLAXIS for venous thrombosis, systemic embolization; TREATMENT for isis ous thrombosis and/or pulmonary embolus.HIGH RISK: Target INR is 2.5-3.5 for pat ients with mechanical heart valves.CALCIUM, [id number] 17:25:00* Test Item Value Reference Range Comments CALCIUM IONIZED (BEAKER) (test fcdl=679) 1.07 mmol/L 1.12-1.27 PH, BLOOD (BEAKER) (test wlgn=8851) 7.50 BLOOD GAS, [id number] 17:24:00* Test Item Value Reference Range Comments PH ARTERIAL (BEAKER) (test ztxw=810) 7.50 7.35-7.45 PCO2 ARTERIAL (BEAKER) (test twur=267) 34 mmHg 35-45 PO2 ARTERIAL (BEAKER) (test hwvi=841) 157 mmHg 80-90 O2 SATURATION ARTERIAL (BEAKER) (test fnrp=848) 99.2 % 96.0-97.0 HCO3 ARTERIAL (BEAKER) (test wpsk=099) 26 mmol/L 21-29 BASE EXCESS ARTERIAL (BEAKER) (test smdq=128) 2.5 mmol/L -2.0-3.0 PATIENT TEMPERATURE (BEAKER) (test sbhc=6152) 35.5 C FIO2 (BEAKER) (test rexm=2645) 100.0 % GLUCOSE-STAT [id number] 17:24:00* Test Item Value Reference Range Comments GLUCOSE RANDOM (BEAKER) (test vthb=176) 179 mg/dL 70-110 HGB/HCT (H&H) - STAT [id number] 17:24:00* Test Item Value Reference Range Comments HEMOGLOBIN (BEAKER) (test xstr=329) 8.2 g/dL 12.0-15.0 HEMATOCRIT (BEAKER) (test ryhh=411) 24.0 % 36.0-45.0 SODIUM NA-STAT [id number] 17:23:00* Test Item Value Reference Range Comments SODIUM (BEAKER) (test hyjy=977) 135 meq/L 135-148 POTASSIUM-STAT [id number] 17:23:00* Test Item Value Reference Range Comments POTASSIUM (BEAKER) (test lqqp=054) 4.2 meq/L 3.6-5.5 BLOOD GAS, [id number] 16:46:00* Test Item Value Reference Range Comments PH ARTERIAL (BEAKER) (test etjw=155) 7.44 7.35-7.45 PCO2 ARTERIAL (BEAKER) (test otzj=441) 37 mmHg 35-45 PO2 ARTERIAL (BEAKER) (test yroa=431) 261 mmHg 80-90 O2 SATURATION ARTERIAL (BEAKER) (test xrna=045) 99.6 % 96.0-97.0 HCO3 ARTERIAL (BEAKER) (test jntw=879) 25 mmol/L 21-29 BASE EXCESS ARTERIAL (BEAKER) (test ebua=977) 0.7 mmol/L -2.0-3.0 PATIENT TEMPERATURE (BEAKER) (test rwcm=7158) 36.4 C FIO2 (BEAKER) (test fots=0152) 80.0 % GLUCOSE-STAT [id number] 16:46:00* Test Item Value Reference Range Comments GLUCOSE RANDOM (BEAKER) (test jxqr=630) 202 mg/dL 70-110 HGB/HCT (H&H) - STAT [id number] 16:46:00* Test Item Value Reference Range Comments HEMOGLOBIN (BEAKER) (test yhzy=325) 7.9 g/dL 12.0-15.0 HEMATOCRIT (BEAKER) (test oguy=897) 23.0 % 36.0-45.0 SODIUM NA-STAT [id number] 16:46:00* Test Item Value Reference Range Comments SODIUM (BEAKER) (test fnic=734) 134 meq/L 135-148 POTASSIUM-STAT [id number] 16:43:00* Test Item Value Reference Range Comments POTASSIUM (BEAKER) (test dzhh=759) 4.9 meq/L 3.6-5.5 BLOOD GAS, [id number] 16:01:00* Test Item Value Reference Range Comments PH ARTERIAL (BEAKER) (test uxpx=865) 7.49 7.35-7.45 PCO2 ARTERIAL (BEAKER) (test krxg=073) 31 mmHg 35-45 PO2 ARTERIAL (BEAKER) (test nael=901) 227 mmHg 80-90 O2 SATURATION ARTERIAL (BEAKER) (test kcbp=031) 99.6 % 96.0-97.0 HCO3 ARTERIAL (BEAKER) (test ctba=314) 24 mmol/L 21-29 BASE EXCESS ARTERIAL (BEAKER) (test hvbv=242) 0.1 mmol/L -2.0-3.0 PATIENT TEMPERATURE (BEAKER) (test ssrt=1531) 33.7 C FIO2 (BEAKER) (test fjmp=7603) 60.0 % SODIUM NA-STAT [id number] 15:59:00* Test Item Value Reference Range Comments SODIUM (BEAKER) (test daei=165) 131 meq/L 135-148 POTASSIUM-STAT [id number] 15:59:00* Test Item Value Reference Range Comments POTASSIUM (BEAKER) (test nemn=418) 6.3 meq/L 3.6-5.5 GLUCOSE-STAT [id number] 15:58:00* Test Item Value Reference Range Comments GLUCOSE RANDOM (BEAKER) (test sqpv=165) 207 mg/dL 70-110 HGB/HCT (H&H) - STAT [id number] 15:58:00* Test Item Value Reference Range Comments HEMOGLOBIN (BEAKER) (test odgv=420) 8.5 g/dL 12.0-15.0 HEMATOCRIT (BEAKER) (test fhur=295) 25.0 % 36.0-45.0 BLOOD GAS, [id number] 15:24:00* Test Item Value Reference Range Comments PH ARTERIAL (BEAKER) (test hdqb=765) 7.43 7.35-7.45 PCO2 ARTERIAL (BEAKER) (test slto=415) 36 mmHg 35-45 PO2 ARTERIAL (BEAKER) (test rfhy=281) 305 mmHg 80-90 O2 SATURATION ARTERIAL (BEAKER) (test smxx=972) 99.7 % 96.0-97.0 HCO3 ARTERIAL (BEAKER) (test hrpy=549) 27 mmol/L 21-29 BASE EXCESS ARTERIAL (BEAKER) (test hast=167) -0.5 mmol/L -2.0-3.0 PATIENT TEMPERATURE (BEAKER) (test bizv=6864) 26.0 C FIO2 (BEAKER) (test xofk=0417) 60.0 % GLUCOSE-STAT [id number] 15:24:00* Test Item Value Reference Range Comments GLUCOSE RANDOM (BEAKER) (test xluz=377) 196 mg/dL 70-110 HGB/HCT (H&H) - STAT [id number] 15:24:00* Test Item Value Reference Range Comments HEMOGLOBIN (BEAKER) (test xinl=148) 8.8 g/dL 12.0-15.0 HEMATOCRIT (BEAKER) (test tbms=310) 26.0 % 36.0-45.0 SODIUM NA-STAT [id number] 15:24:00* Test Item Value Reference Range Comments SODIUM (BEAKER) (test dbcr=369) 131 meq/L 135-148 POTASSIUM-STAT [id number] 15:23:00* Test Item Value Reference Range Comments POTASSIUM (BEAKER) (test ngxj=250) 5.2 meq/L 3.6-5.5 BLOOD GAS, [id number] 14:52:00* Test Item Value Reference Range Comments PH ARTERIAL (BEAKER) (test hxri=556) 7.49 7.35-7.45 PCO2 ARTERIAL (BEAKER) (test gyuo=963) 29 mmHg 35-45 PO2 ARTERIAL (BEAKER) (test tdpu=620) 306 mmHg 80-90 O2 SATURATION ARTERIAL (BEAKER) (test wfgz=485) 99.7 % 96.0-97.0 HCO3 ARTERIAL (BEAKER) (test ohgc=683) 24 mmol/L 21-29 BASE EXCESS ARTERIAL (BEAKER) (test rsdc=217) -1.7 mmol/L -2.0-3.0 PATIENT TEMPERATURE (BEAKER) (test eccv=8259) 26.0 C FIO2 (BEAKER) (test muje=1513) 60.0 % SODIUM NA-STAT [id number] 14:52:00* Test Item Value Reference Range Comments SODIUM (BEAKER) (test ojqz=539) 130 meq/L 135-148 GLUCOSE-STAT [id number] 14:52:00* Test Item Value Reference Range Comments GLUCOSE RANDOM (BEAKER) (test blzy=440) 181 mg/dL 70-110 HGB/HCT (H&H) - STAT [id number] 14:52:00* Test Item Value Reference Range Comments HEMOGLOBIN (BEAKER) (test fvcf=959) 7.8 g/dL 12.0-15.0 HEMATOCRIT (BEAKER) (test jfsj=237) 23.0 % 36.0-45.0 POTASSIUM-STAT [id number] 14:51:00* Test Item Value Reference Range Comments POTASSIUM (BEAKER) (test xpoz=782) 4.8 meq/L 3.6-5.5 BLOOD GAS, [id number] 13:27:00* Test Item Value Reference Range Comments PH ARTERIAL (BEAKER) (test dmnu=853) 7.32 7.35-7.45 PCO2 ARTERIAL (BEAKER) (test behy=289) 48 mmHg 35-45 PO2 ARTERIAL (BEAKER) (test gwzi=855) 321 mmHg 80-90 O2 SATURATION ARTERIAL (BEAKER) (test fgsc=996) 99.7 % 96.0-97.0 HCO3 ARTERIAL (BEAKER) (test kvth=958) 25 mmol/L 21-29 BASE EXCESS ARTERIAL (BEAKER) (test tzuf=570) -2.2 mmol/L -2.0-3.0 PATIENT TEMPERATURE (BEAKER) (test vljm=9982) 36.0 C FIO2 (BEAKER) (test oqpn=4118) 100.0 % GLUCOSE-STAT [id number] 13:26:00* Test Item Value Reference Range Comments GLUCOSE RANDOM (BEAKER) (test yhse=495) 100 mg/dL 70-110 SODIUM NA-STAT [id number] 13:26:00* Test Item Value Reference Range Comments SODIUM (BEAKER) (test drie=052) 139 meq/L 135-148 POTASSIUM-STAT [id number] 13:26:00* Test Item Value Reference Range Comments POTASSIUM (BEAKER) (test xntw=037) 4.1 meq/L 3.6-5.5 HGB/HCT (H&H) - STAT [id number] 13:26:00* Test Item Value Reference Range Comments HEMOGLOBIN (BEAKER) (test sbjo=771) 14.3 g/dL 12.0-15.0 HEMATOCRIT (BEAKER) (test pwew=542) 42.0 % 36.0-45.0 PLATELET AGGREGATION: FUNCTION [id number] 08:43:00* Test Item Value Reference Range Comments WEAK ADP RESULT(BEAKER) (test npvw=8350) 66 % 60-91 PLATELET FUNCTION SCREEN INTERP (BEAKER) (test qycj=9936) 60-100% indicates normal platelet function [id number] (BEAKER) (test zsur=0820) Snow Arias MD (electronic signature) PLATELET COUNT AGG (BEAKER) (test xsge=8657) 217 K/CU MM 150-450 for patients on clopidogrel in past two weeksRAD, CHEST, 1 VIEW, NON DEPT 2018-01-17 06:07:00Reason for exam:->chest painShould this be performed at the bedside?->YesFINAL REPORT Chest one view. Clinical history: chest pain Comparison: Chest radiograph 03/01/17 Technique: A single frontal view of the chest was obtained. Findings/Impression: The heart size is normal. The aorta is uncoiled and atherosclerotic. There is mild nonspecific diffuse interstitial prominence. There is no focal pulmonary consolidation, pleural effusion or pneumothorax. There is no pulmonary edema. Signed: Linda Arce MDReport Verified Date/Time: 01/17/2018 06:07:08 Reading Location: [address] Transitional Reading Room TINE KINASE (CK), TOTAL AND [id number] 04:26:00* Test Item Value Reference Range Comments CREATINE KINASE TOTAL (BEAKER) (test ahst=958) 50 U/L 29-200 CREATINE KINASE-MB (BEAKER) (test flnp=549) 1.2 ng/mL 0.0-6.6 CREATINE KINASE-MB INDEX (BEAKER) (test szuu=937) 2.4 % CK-MB Reference Range:<6.7 Normal6.7-10.0 Borderline>10.0 Abnormal TROPONIN [id number] 04:26:00* Test Item Value Reference Range Comments TROPONIN I (BEAKER) (test ozkh=861) 0.01 ng/mL 0.00-0.03 Troponin I (TnI) levels must be interpreted in the context of the presenting sym ptoms and the clinical findings. Elevated TnI levels indicate myocardial damage, but are not specific for ischemic heart disease. Elevated TnI levels are seen in patients with other cardiac conditions (including myocarditis and congestive h eart failure), and slight TnI elevations occur in patients with other conditions , including sepsis, renal failure, acidosis, acute neurological disease, and per sistent tachyarrhythmia.BASIC METABOLIC [id number] 04:16:00* Test Item Value Reference Range Comments SODIUM (BEAKER) (test gdww=472) 138 meq/L 136-145 POTASSIUM (BEAKER) (test fwny=159) 3.8 meq/L 3.5-5.1 CHLORIDE (BEAKER) (test aczz=828) 102 meq/L 98-107 CO2 (BEAKER) (test bsts=180) 24 meq/L 22-29 BLOOD UREA NITROGEN (BEAKER) (test pdai=787) 15 mg/dL 7-21 CREATININE (BEAKER) (test zafn=825) 0.80 mg/dL 0.57-1.25 GLUCOSE RANDOM (BEAKER) (test akal=135) 99 mg/dL 70-105 CALCIUM (BEAKER) (test saxs=453) 9.9 mg/dL 8.4-10.2 EGFR (BEAKER) (test bwnv=5073) 68 mL/min/1.73 sq m ESTIMATED GFR IS NOT ACCURATE CREATININE CLEARANCE IN PREDICTING GLOMERULAR FILTRATION RATE. ESTIMATED GFR IS NOT APPLICABLE FOR DIALYSIS PATIENTS. PROTHROMBIN TIME/[id number] 04:08:00* Test Item Value Reference Range Comments PROTIME (BEAKER) (test oflj=408) 13.9 seconds 11.7-14.7 INR (BEAKER) (test kyyo=503) 1.1 <=5.9 RECOMMENDED COUMADIN/WARFARIN INR THERAPY RANGESSTANDARD DOSE: 2.0 - 3.0 Inclu joel: PROPHYLAXIS for venous thrombosis, systemic embolization; TREATMENT for isis ous thrombosis and/or pulmonary embolus.HIGH RISK: Target INR is 2.5-3.5 for pat ients with mechanical heart valves.[id number] 04:08:00* Test Item Value Reference Range Comments PARTIAL THROMBOPLASTIN TIME (BEAKER) (test smga=165) 32.6 seconds 22.5-36.0 CBC W/PLT COUNT & AUTO [id number] 03:58:00* Test Item Value Reference Range Comments WHITE BLOOD CELL COUNT (BEAKER) (test srjn=979) 6.2 K/ L 3.5-10.5 RED BLOOD CELL COUNT (BEAKER) (test uqua=404) 5.13 M/ L 3.93-5.22 HEMOGLOBIN (BEAKER) (test jgwj=061) 14.6 GM/DL 11.2-15.7 HEMATOCRIT (BEAKER) (test evkj=383) 45.6 % 34.1-44.9 MEAN CORPUSCULAR VOLUME (BEAKER) (test cjum=770) 88.9 fL 79.4-94.8 MEAN CORPUSCULAR HEMOGLOBIN (BEAKER) (test xkfc=672) 28.5 pg 25.6-32.2 MEAN CORPUSCULAR HEMOGLOBIN CONC (BEAKER) (test njcm=246) 32.0 GM/DL 32.2-35.5 RED CELL DISTRIBUTION WIDTH (BEAKER) (test axxj=736) 13.1 % 11.7-14.4 PLATELET COUNT (BEAKER) (test rrkg=804) 209 K/CU MM 150-450 MEAN PLATELET VOLUME (BEAKER) (test lqej=119) 11.1 fL 9.4-12.3 NUCLEATED RED BLOOD CELLS (BEAKER) (test wqaw=181) 0 /100 WBC 0-0 NEUTROPHILS RELATIVE PERCENT (BEAKER) (test byoz=065) 65 % LYMPHOCYTES RELATIVE PERCENT (BEAKER) (test sizy=168) 20 % MONOCYTES RELATIVE PERCENT (BEAKER) (test auaz=230) 12 % EOSINOPHILS RELATIVE PERCENT (BEAKER) (test mokn=963) 2 % BASOPHILS RELATIVE PERCENT (BEAKER) (test vkmf=400) 1 % NEUTROPHILS ABSOLUTE COUNT (BEAKER) (test pvlx=156) 4.02 K/ L 1.56-6.13 LYMPHOCYTES ABSOLUTE COUNT (BEAKER) (test xcgc=165) 1.21 K/ L 1.18-3.74 MONOCYTES ABSOLUTE COUNT (BEAKER) (test zixl=313) 0.73 K/ L 0.24-0.36 EOSINOPHILS ABSOLUTE COUNT (BEAKER) (test ctvj=243) 0.13 K/ L 0.04-0.36 BASOPHILS ABSOLUTE COUNT (BEAKER) (test nmae=115) 0.05 K/ L 0.01-0.08 IMMATURE GRANULOCYTES-RELATIVE PERCENT (BEAKER) (test boev=2458) 0 % 0-1 CT, CTA [id number] 16:33:00Addendum BeginsREPORT STATUS:A ADDENDUM: Study reviewed by radiology. Agree with the nonvascular findings as described below. Signed: Rehan Lynn MDReport Verified Date/Time: 12/14/2017 16:33:53 Reading Location: [place] [address] Angio Body Reading RoomAddendum EndsFINAL REPORT CT angiography of the thoracoabdominal aorta [...] the dynamic passage of intravenous contrast material. Multi- planar 3-D volume-rendering reconstruction was performed using an [...] pulmonary venous return. The left ventricle is no rmal in size. Left atrial enlargement is identified. No evidence of mitral annul ar calcification. Coronary artery origins are normal and coronary artery calcifi cation is seen in the left coronary territory. Patient has a diagnosis of aortic stenosis. The aortic valve is tricuspid. Aortic valve area is approximately 46 sq mm. Agatston score is 1759. Regarding the aorta, minimal calcification is see n in the aortic root and ascending thoracic aorta thereafter is free of calcific ation. The transverse arch and descending thoracic aorta has mild calcific ather osclerosis identified. In the infrarenal abdominal aorta, a combination of calci fic and noncalcific atherosclerosis is seen. No acute aortic pathology is identi fied. No dissection or contained rupture is present. No ectasia or aneurysmal di lation is seen. Arch vessel branching pattern is normal and the visualised arch vessels are seen to be widely patent proximally. There is calcific atheroscleros is identified at the takeoff of the left subclavian artery, image 66, the minimu m diameter is approximately 6.5 x 5.6 mm. At image 26, the left subclavian arter y is at least 6 mm in diameter. Minimal calcification is seen in the takeoff of the right subclavian artery. At image 29, the right subclavian artery measures 6 mm in diameter. The coeliac axis, SMA, YONG are patent with no obstructive lesion identified. Single left and right renal arteries are seen, with calcific ather osclerosis identified. Overall, by multiplanar reformation, they are nonobstruct ruthann. The common iliac, external iliac, common femoral, and the visualised superf icial femoral arteries, bilaterally, are widely patent, and some eccentric calci fication is seen in the common iliac level. Dimensions that may be helpful TAVR as follows: Only minimal calcifications identified in the aortic root and otherw ise the ascending thoracic aorta is free of calcification. The major and minor a ortic annulus diameter measures 20.8 and 17.4 mm, respectively. The aortic annul us perimeter measured 62 mm and the cross-sectional area measures 291 mm2. The a ortic annulus diameter at the traditional LVOT and coronal LVOT measures 16.8 an d 20.0 mm, respectively. Data was measured at 40% reconstruction with the least motion artefact. For reference purpose, per [employer] S3 brochure, recommendation are as follows: CT area between 273 to 345 mm2 (20 mm valve); 338 to 430 mm2 (23 mm valve); 430 to 546 mm2 (26 mm valve); 540 to 683 mm2 (29 mm valve). For refe rence purpose, per [employer] brochure, recommendation are as follows: C T perimeter between 56.5-62.8 mm (23 mm valve); 62.8-72.3 mm (26 mm valve); 72.3 -81.7 mm (29 mm valve); and 81.7-94.2. mm (34 mm valve). Agatston Score is 1759. Aortic valve area is 46 sq mm. The sinus of Valsalva height to the takeoff of t he coronary artery ostium, RCC (systole): 11.6 mmThe sinus of Valsalva height to the takeoff of the coronary artery ostium, LCC (systole): 12.2 mm The sinus of Valsalva diameter, RCC (systole): 26.2 mmThe sinus of Valsalva diameter, LCC (sy stole): 26.8 mmThe sinus of Valsalva diameter, NCC (systole): 26.3 mm The sinotu bular junction measures approximately 24.1 x 24.3 mm. The aortic root angulation measures 62.0 degrees. The angle of delivery is UGANDAN 1 CAU 9. The minimal and pe rpendicular abdominal aortic diameter measure 10.7 and 11.1 mm, respectively. There is no evidence of thoracoabdominal aortic aneurysm or stent placement pre sent. The minimum and the perpendicular left common iliac artery measures 6.2 an d 6.3 mm, respectively with mild tortuosity and mild focal calcific atheroscle rosis present. The minimum and the perpendicular left external iliac artery isabel ures 5.4 and 5.5 mm, respectively with minimal tortuosity and no calcific athe rosclerosis present. The minimum and the perpendicular left femoral artery measu res 7.2 and 7.6 mm, respectively with minimal tortuosity and minimal calcific atherosclerosis present. The minimum and the perpendicular right common iliac ar hugo measures 8.3 and 9.5 mm, respectively with mild tortuosity and mild calci fic atherosclerosis present. The minimum and the perpendicular right external i liac artery measures 6.0 and 6.2 mm, respectively with mild tortuosity and no calcific atherosclerosis present. The minimum and the perpendicular right femora l artery measures 6.9 and 7.2 mm, respectively with no tortuosity and no calci fic atherosclerosis present. NONVASCULAR: The visualised thyroid gland appears u nremarkable. The chest wall and mediastinum has no acute abnormalities identifie d. Some small lymph nodes are seen, considered nonspecific in nature. In the jayashree g windows, no obvious endobronchial lesion is seen, and no pleural effusion is i dentified. There could be minimal bronchiectatic changes, best seen in the right lower lobe. Some subsegmental atelectatic changes are seen. A tiny 2 to 3 mm no dule is identified in the upper segment of the right lower lobe, near the fissur e, of doubtful significance due to its small size. No suspicious pulmonary nodul e is identified. Some mosaic perfusion pattern is identified, that may suggest s mall airways disease. In the abdomen, the liver and spleen appears unremarkable. Calcified granuloma is identified in the liver. The liver edge is smooth. No ab normal enhancing structure is identified. The gallbladder appears unremarkable. The pancreas has no gross abnormality identified. The adrenal glands are not enl arged. No acute renal pathology is seen and no hydronephrosis or perirenal fluid collection is identified. Bowel is not well assessed by CT angiography as enter ic contrast not given. No obvious bowel dilation is identified. Diverticular dis ease is seen in the descending and sigmoid colon with no evidence of acute diver ticulitis. An hiatus hernia is identified. No free air or free fluid seen in the abdomen and pelvis. No significant retroperitoneal adenopathy is seen. Some sma ll lymph nodes are present, considered nonspecific in nature. The bladder appear s unremarkable. The uterus is not identified. No obvious abnormal adnexal mass i s seen though CT is not optimised in the assessment of pelvic gynecological stru ctures. No acute bony pathology is noted. CONCLUSIONS: 1. Patient has a diagnos is of aortic stenosis. Aortic valve is tricuspid. Agatston score is 1759. Aortic valve area is 46 sq mm. Scattered calcification seen in the aortic root and rem ainder of the ascending thoracic aorta is unremarkable. No acute aortic patholog y is identified. No mitral annular calcification is identified. Dimensions that may be helpful for TAVR as follows: 2. Normal coronary artery origins. Coronary artery calcification is seen in the left coronary system. 3. Pulmonary findings as described above. The central pulmonary artery is normal in caliber. 4. Other findings as described above. 5. An addendum will be dictated by the Surgical Lead Radiologist regarding the nonvascular findings. Signed: Sanjeev Yates eport Verified Date/Time: 12/14/2017 15:11:05 Reading Location: [facility] P047 Car diology MRI 04 :[address], CTA, [id number] 16:33:00Addendum BeginsREPORT STATUS:A ADDENDUM: Study reviewed by radiology. Agree with the nonvascular findings as described below. Signed: Rehan Lynn MDReport Verified Date/Time: 12/14/2017 16:33:53 Reading Location: [facility] P048 Angio Body Reading RoomAddendum EndsFINAL REPORT CT angiography of the thoracoabdominal aorta [...] was performed according to our departmental dose-optimisation pr ogramme, which includes automated exposure control, adjustment of the mA and/or kV according to patient size and/or use of iterative reconstruction technique. D ose modulation, iterative reconstruction, and/or weight based adjustment of the mA/kV was utilized to reduce the radiation dose to as low as reasonably achievab le. FINDINGS: VASCULAR: The central pulmonary arteries are normal in calibre. The cardiac chambers demonstrate normal atrioventricular and ventriculoarterial concordance, and systemic and pulmonary venous return. The left ventricle is no rmal in size. Left atrial enlargement is identified. No evidence of mitral annul ar calcification. Coronary artery origins are normal and coronary artery calcifi cation is seen in the left coronary territory. Patient has a diagnosis of aortic stenosis. The aortic valve is tricuspid. Aortic valve area is approximately 46 sq mm. Agatston score is 1759. Regarding the aorta, minimal calcification is see n in the aortic root and ascending thoracic aorta thereafter is free of calcific ation. The transverse arch and descending thoracic aorta has mild calcific ather osclerosis identified. In the infrarenal abdominal aorta, a combination of calci fic and noncalcific atherosclerosis is seen. No acute aortic pathology is identi fied. No dissection or contained rupture is present. No ectasia or aneurysmal di lation is seen. Arch vessel branching pattern is normal and the visualised arch vessels are seen to be widely patent proximally. There is calcific atheroscleros is identified at the takeoff of the left subclavian artery, image 66, the minimu m diameter is approximately 6.5 x 5.6 mm. At image 26, the left subclavian arter y is at least 6 mm in diameter. Minimal calcification is seen in the takeoff of the right subclavian artery. At image 29, the right subclavian artery measures 6 mm in diameter. The coeliac axis, SMA, YONG are patent with no obstructive lesion identified. Single left and right renal arteries are seen, with calcific ather osclerosis identified. Overall, by multiplanar reformation, they are nonobstruct ruthann. The common iliac, external iliac, common femoral, and the visualised superf icial femoral arteries, bilaterally, are widely patent, and some eccentric calci fication is seen in the common iliac level. Dimensions that may be helpful TAVR as follows: Only minimal calcifications identified in the aortic root and otherw ise the ascending thoracic aorta is free of calcification. The major and minor a ortic annulus diameter measures 20.8 and 17.4 mm, respectively. The aortic annul us perimeter measured 62 mm and the cross-sectional area measures 291 mm2. The a ortic annulus diameter at the traditional LVOT and coronal LVOT measures 16.8 an d 20.0 mm, respectively. Data was measured at 40% reconstruction with the least motion artefact. For reference purpose, per [employer] S3 brochure, recommendation are as follows: CT area between 273 to 345 mm2 (20 mm valve); 338 to 430 mm2 (23 mm valve); 430 to 546 mm2 (26 mm valve); 540 to 683 mm2 (29 mm valve). For refe rence purpose, per [employer] brochure, recommendation are as follows: C T perimeter between 56.5-62.8 mm (23 mm valve); 62.8-72.3 mm (26 mm valve); 72.3 -81.7 mm (29 mm valve); and 81.7-94.2. mm (34 mm valve). Agatston Score is 1759. Aortic valve area is 46 sq mm. The sinus of Valsalva height to the takeoff of t he coronary artery ostium, RCC (systole): 11.6 mmThe sinus of Valsalva height to the takeoff of the coronary artery ostium, LCC (systole): 12.2 mm The sinus of Valsalva diameter, RCC (systole): 26.2 mmThe sinus of Valsalva diameter, LCC (sy stole): 26.8 mmThe sinus of Valsalva diameter, NCC (systole): 26.3 mm The sinotu bular junction measures approximately 24.1 x 24.3 mm. The aortic root angulation measures 62.0 degrees. The angle of delivery is UGANDAN 1 CAU 9. The minimal and pe rpendicular abdominal aortic diameter measure 10.7 and 11.1 mm, respectively. There is no evidence of thoracoabdominal aortic aneurysm or stent placement pre sent. The minimum and the perpendicular left common iliac artery measures 6.2 an d 6.3 mm, respectively with mild tortuosity and mild focal calcific atheroscle rosis present. The minimum and the perpendicular left external iliac artery isabel ures 5.4 and 5.5 mm, respectively with minimal tortuosity and no calcific athe rosclerosis present. The minimum and the perpendicular left femoral artery measu res 7.2 and 7.6 mm, respectively with minimal tortuosity and minimal calcific atherosclerosis present. The minimum and the perpendicular right common iliac ar hugo measures 8.3 and 9.5 mm, respectively with mild tortuosity and mild calci fic atherosclerosis present. The minimum and the perpendicular right external i liac artery measures 6.0 and 6.2 mm, respectively with mild tortuosity and no calcific atherosclerosis present. The minimum and the perpendicular right femora l artery measures 6.9 and 7.2 mm, respectively with no tortuosity and no calci fic atherosclerosis present. NONVASCULAR: The visualised thyroid gland appears u nremarkable. The chest wall and mediastinum has no acute abnormalities identifie d. Some small lymph nodes are seen, considered nonspecific in nature. In the jayashree g windows, no obvious endobronchial lesion is seen, and no pleural effusion is i dentified. There could be minimal bronchiectatic changes, best seen in the right lower lobe. Some subsegmental atelectatic changes are seen. A tiny 2 to 3 mm no dule is identified in the upper segment of the right lower lobe, near the fissur e, of doubtful significance due to its small size. No suspicious pulmonary nodul e is identified. Some mosaic perfusion pattern is identified, that may suggest s mall airways disease. In the abdomen, the liver and spleen appears unremarkable. Calcified granuloma is identified in the liver. The liver edge is smooth. No ab normal enhancing structure is identified. The gallbladder appears unremarkable. The pancreas has no gross abnormality identified. The adrenal glands are not enl arged. No acute renal pathology is seen and no hydronephrosis or perirenal fluid collection is identified. Bowel is not well assessed by CT angiography as enter ic contrast not given. No obvious bowel dilation is identified. Diverticular dis ease is seen in the descending and sigmoid colon with no evidence of acute diver ticulitis. An hiatus hernia is identified. No free air or free fluid seen in the abdomen and pelvis. No significant retroperitoneal adenopathy is seen. Some sma ll lymph nodes are present, considered nonspecific in nature. The bladder appear s unremarkable. The uterus is not identified. No obvious abnormal adnexal mass i s seen though CT is not optimised in the assessment of pelvic gynecological stru ctures. No acute bony pathology is noted. CONCLUSIONS: 1. Patient has a diagnos is of aortic stenosis. Aortic valve is tricuspid. Agatston score is 1759. Aortic valve area is 46 sq mm. Scattered calcification seen in the aortic root and rem ainder of the ascending thoracic aorta is unremarkable. No acute aortic patholog y is identified. No mitral annular calcification is identified. Dimensions that may be helpful for TAVR as follows: 2. Normal coronary artery origins. Coronary artery calcification is seen in the left coronary system. 3. Pulmonary findings as described above. The central pulmonary artery is normal in caliber. 4. Other findings as described above. 5. An addendum will be dictated by the Surgical Lead Radiologist regarding the nonvascular findings. Signed: Sanjeev Yates MDR eport Verified Date/Time: 12/14/2017 15:11:05 Reading Location: [place] [address] Car diology MRI 04 :33 PM [id number] 12:25:00* Test Item Value Reference Range Comments POC-CREATININE (LU) (test fbau=5986) 0.7 mg/dL 0.6-1.3 TESTED AT 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 PYLORI BY WARTHIN-STARRY STAIN - NEGATIVE FOR INTESTINAL METAPLASIA OR MALIGNANCY 96117, 28659MJ bleed, rule out H. pyloriGastric biopsyReceived in formalin labeled "biopsy, gastric" are two fragments each measuring 0.5 cm in greatest dimension. Entirely submitted A1. DB/plPerformed.HEMOGLOBIN AND [id number] 09:45:00* Test Item Value Reference Range Comments HEMOGLOBIN (BEAKER) (test sqdh=439) 8.7 GM/DL 11.2-15.7 HEMATOCRIT (BEAKER) (test rmlr=889) 30.4 % 34.1-44.9 If not done [facility] & AUTO [id number] 08:19:00* Test Item Value Reference Range Comments WHITE BLOOD CELL COUNT (BEAKER) (test ezif=183) 4.7 K/ L 3.5-10.5 RED BLOOD CELL COUNT (BEAKER) (test hqaj=043) 3.86 M/ L 3.93-5.22 HEMOGLOBIN (BEAKER) (test jgzz=827) 8.0 GM/DL 11.2-15.7 HEMATOCRIT (BEAKER) (test vioh=524) 28.1 % 34.1-44.9 MEAN CORPUSCULAR VOLUME (BEAKER) (test ydyr=640) 72.8 fL 79.4-94.8 MEAN CORPUSCULAR HEMOGLOBIN (BEAKER) (test pqoi=442) 20.7 pg 25.6-32.2 MEAN CORPUSCULAR HEMOGLOBIN CONC (BEAKER) (test zsgg=486) 28.5 GM/DL 32.2-35.5 RED CELL DISTRIBUTION WIDTH (BEAKER) (test djfs=694) 18.2 % 11.7-14.4 PLATELET COUNT (BEAKER) (test emmb=868) 288 K/CU MM 150-450 MEAN PLATELET VOLUME (BEAKER) (test arvn=198) 11.3 fL 9.4-12.3 NUCLEATED RED BLOOD CELLS (BEAKER) (test pzrz=124) 0 /100 WBC 0-0 NEUTROPHILS RELATIVE PERCENT (BEAKER) (test wtul=882) 56 % LYMPHOCYTES RELATIVE PERCENT (BEAKER) (test dmnb=033) 26 % MONOCYTES RELATIVE PERCENT (BEAKER) (test lras=511) 13 % EOSINOPHILS RELATIVE PERCENT (BEAKER) (test kere=844) 4 % BASOPHILS RELATIVE PERCENT (BEAKER) (test webr=157) 1 % NEUTROPHILS ABSOLUTE COUNT (BEAKER) (test hztn=451) 2.62 K/ L 1.56-6.13 LYMPHOCYTES ABSOLUTE COUNT (BEAKER) (test nylt=125) 1.24 K/ L 1.18-3.74 MONOCYTES ABSOLUTE COUNT (BEAKER) (test zpub=159) 0.59 K/ L 0.24-0.36 EOSINOPHILS ABSOLUTE COUNT (BEAKER) (test eshl=355) 0.19 K/ L 0.04-0.36 BASOPHILS ABSOLUTE COUNT (BEAKER) (test ddgk=631) 0.05 K/ L 0.01-0.08 IMMATURE GRANULOCYTES-RELATIVE PERCENT (BEAKER) (test oxls=9951) 0 % 0-1 BASIC METABOLIC [id number] 07:33:00* Test Item Value Reference Range Comments SODIUM (BEAKER) (test qxul=508) 137 meq/L 136-145 POTASSIUM (BEAKER) (test tlrj=340) 4.6 meq/L 3.5-5.1 Specimen slightly hemolyzed CHLORIDE (BEAKER) (test xutb=925) 105 meq/L 98-107 CO2 (BEAKER) (test ynoj=105) 22 meq/L 22-29 BLOOD UREA NITROGEN (BEAKER) (test yvie=648) 9 mg/dL 7-21 CREATININE (BEAKER) (test oatk=938) 0.88 mg/dL 0.57-1.25 Specimen slightly hemolyzed GLUCOSE RANDOM (BEAKER) (test sdiq=695) 91 mg/dL 70-105 CALCIUM (BEAKER) (test bmkl=347) 9.3 mg/dL 8.4-10.2 EGFR (BEAKER) (test bcmk=5172) 61 mL/min/1.73 sq m ESTIMATED GFR IS NOT ACCURATE CREATININE CLEARANCE IN PREDICTING GLOMERULAR FILTRATION RATE. ESTIMATED GFR IS NOT APPLICABLE FOR DIALYSIS PATIENTS. CBC W/PLT COUNT & AUTO [id number] 07:24:00* Test Item Value Reference Range Comments WHITE BLOOD CELL COUNT (BEAKER) (test hfvp=678) 5.6 K/ L 3.5-10.5 RED BLOOD CELL COUNT (BEAKER) (test imdp=110) 3.93 M/ L 3.93-5.22 HEMOGLOBIN (BEAKER) (test dzjn=832) 8.0 GM/DL 11.2-15.7 HEMATOCRIT (BEAKER) (test zclv=321) 28.2 % 34.1-44.9 MEAN CORPUSCULAR VOLUME (BEAKER) (test uaiy=849) 71.8 fL 79.4-94.8 MEAN CORPUSCULAR HEMOGLOBIN (BEAKER) (test wedb=380) 20.4 pg 25.6-32.2 MEAN CORPUSCULAR HEMOGLOBIN CONC (BEAKER) (test cbij=796) 28.4 GM/DL 32.2-35.5 RED CELL DISTRIBUTION WIDTH (BEAKER) (test hhpf=614) 17.8 % 11.7-14.4 PLATELET COUNT (BEAKER) (test cwlo=790) 265 K/CU MM 150-450 MEAN PLATELET VOLUME (BEAKER) (test wnws=285) 11.2 fL 9.4-12.3 NUCLEATED RED BLOOD CELLS (BEAKER) (test pasy=846) 0 /100 WBC 0-0 NEUTROPHILS RELATIVE PERCENT (BEAKER) (test gcxc=139) 50 % LYMPHOCYTES RELATIVE PERCENT (BEAKER) (test enos=323) 30 % MONOCYTES RELATIVE PERCENT (BEAKER) (test dmqc=321) 14 % EOSINOPHILS RELATIVE PERCENT (BEAKER) (test kzlg=028) 4 % BASOPHILS RELATIVE PERCENT (BEAKER) (test eqlx=291) 2 % NEUTROPHILS ABSOLUTE COUNT (BEAKER) (test jeih=693) 2.79 K/ L 1.56-6.13 LYMPHOCYTES ABSOLUTE COUNT (BEAKER) (test umug=741) 1.66 K/ L 1.18-3.74 MONOCYTES ABSOLUTE COUNT (BEAKER) (test euul=070) 0.75 K/ L 0.24-0.36 EOSINOPHILS ABSOLUTE COUNT (BEAKER) (test rlhs=895) 0.24 K/ L 0.04-0.36 BASOPHILS ABSOLUTE COUNT (BEAKER) (test gefv=097) 0.09 K/ L 0.01-0.08 IMMATURE GRANULOCYTES-RELATIVE PERCENT (BEAKER) (test fekc=4580) 0 % 0-1 BASIC METABOLIC [id number] 07:09:00* Test Item Value Reference Range Comments SODIUM (BEAKER) (test hntt=285) 136 meq/L 136-145 POTASSIUM (BEAKER) (test wdkn=445) 4.3 meq/L 3.5-5.1 CHLORIDE (BEAKER) (test yzcu=725) 107 meq/L 98-107 CO2 (BEAKER) (test rrhf=268) 21 meq/L 22-29 BLOOD UREA NITROGEN (BEAKER) (test aknr=506) 10 mg/dL 7-21 CREATININE (BEAKER) (test nwax=399) 0.81 mg/dL 0.57-1.25 GLUCOSE RANDOM (BEAKER) (test vslo=786) 81 mg/dL 70-105 CALCIUM (BEAKER) (test efwr=736) 8.9 mg/dL 8.4-10.2 EGFR (BEAKER) (test twcw=7146) 67 mL/min/1.73 sq m ESTIMATED GFR IS NOT ACCURATE CREATININE CLEARANCE IN PREDICTING GLOMERULAR FILTRATION RATE. ESTIMATED GFR IS NOT APPLICABLE FOR DIALYSIS PATIENTS. PT/[id number] 19:32:00* Test Item Value Reference Range Comments PROTIME (BEAKER) (test uctg=474) 13.5 seconds 11.7-14.7 INR (BEAKER) (test vipr=205) 1.0 <=5.9 PARTIAL THROMBOPLASTIN TIME (BEAKER) (test nmfy=888) 29.3 seconds 22.5-36.0 RECOMMENDED COUMADIN/WARFARIN INR THERAPY RANGESSTANDARD DOSE: 2.0 - 3.0 Inclu joel: PROPHYLAXIS for venous thrombosis, systemic embolization; TREATMENT for isis ous thrombosis and/or pulmonary embolus.HIGH RISK: Target INR is 2.5-3.5 for pat ients with mechanical heart valves.HEPATIC FUNCTION [id number] 19:22:00* Test Item Value Reference Range Comments TOTAL PROTEIN (BEAKER) (test qhgl=122) 7.4 gm/dL 6.0-8.3 ALBUMIN (BEAKER) (test qmub=2413) 4.5 g/dL 3.5-5.0 BILIRUBIN TOTAL (BEAKER) (test ombp=495) 0.3 mg/dL 0.2-1.2 BILIRUBIN DIRECT (BEAKER) (test epqd=044) 0.1 mg/dL 0.1-0.5 ALKALINE PHOSPHATASE (BEAKER) (test rgrj=416) 72 U/L 40-150 AST (SGOT) (BEAKER) (test omqd=350) 23 U/L 5-34 ALT (SGPT) (BEAKER) (test ytcd=873) 13 U/L 6-55 BASIC METABOLIC [id number] 19:22:00* Test Item Value Reference Range Comments SODIUM (BEAKER) (test ldtx=837) 140 meq/L 136-145 POTASSIUM (BEAKER) (test likn=712) 3.4 meq/L 3.5-5.1 CHLORIDE (BEAKER) (test bmcr=906) 105 meq/L 98-107 CO2 (BEAKER) (test xsel=114) 27 meq/L 22-29 BLOOD UREA NITROGEN (BEAKER) (test nfwy=646) 11 mg/dL 7-21 CREATININE (BEAKER) (test zdfs=051) 0.82 mg/dL 0.57-1.25 GLUCOSE RANDOM (BEAKER) (test alon=792) 123 mg/dL 70-105 CALCIUM (BEAKER) (test hvpo=906) 9.6 mg/dL 8.4-10.2 EGFR (BEAKER) (test klaj=6629) 66 mL/min/1.73 sq m ESTIMATED GFR IS NOT ACCURATE CREATININE CLEARANCE IN PREDICTING GLOMERULAR FILTRATION RATE. ESTIMATED GFR IS NOT APPLICABLE FOR DIALYSIS PATIENTS. CBC W/PLT COUNT & AUTO [id number] 19:14:00* Test Item Value Reference Range Comments WHITE BLOOD CELL COUNT (BEAKER) (test iily=625) 6.0 K/ L 3.5-10.5 RED BLOOD CELL COUNT (BEAKER) (test ajuo=379) 3.98 M/ L 3.93-5.22 HEMOGLOBIN (BEAKER) (test nqmv=713) 8.2 GM/DL 11.2-15.7 HEMATOCRIT (BEAKER) (test bmdc=388) 28.5 % 34.1-44.9 MEAN CORPUSCULAR VOLUME (BEAKER) (test bbqq=411) 71.6 fL 79.4-94.8 MEAN CORPUSCULAR HEMOGLOBIN (BEAKER) (test iyca=969) 20.6 pg 25.6-32.2 MEAN CORPUSCULAR HEMOGLOBIN CONC (BEAKER) (test jcic=043) 28.8 GM/DL 32.2-35.5 RED CELL DISTRIBUTION WIDTH (BEAKER) (test elsf=861) 17.5 % 11.7-14.4 PLATELET COUNT (BEAKER) (test tkpj=918) 279 K/CU MM 150-450 MEAN PLATELET VOLUME (BEAKER) (test kayd=322) 10.1 fL 9.4-12.3 NUCLEATED RED BLOOD CELLS (BEAKER) (test yfzn=629) 0 /100 WBC 0-0 NEUTROPHILS RELATIVE PERCENT (BEAKER) (test hfpx=772) 60 % LYMPHOCYTES RELATIVE PERCENT (BEAKER) (test tohf=404) 23 % MONOCYTES RELATIVE PERCENT (BEAKER) (test nopn=960) 12 % EOSINOPHILS RELATIVE PERCENT (BEAKER) (test kziu=911) 3 % BASOPHILS RELATIVE PERCENT (BEAKER) (test yimm=836) 1 % NEUTROPHILS ABSOLUTE COUNT (BEAKER) (test ufkl=317) 3.60 K/ L 1.56-6.13 LYMPHOCYTES ABSOLUTE COUNT (BEAKER) (test kndf=692) 1.39 K/ L 1.18-3.74 MONOCYTES ABSOLUTE COUNT (BEAKER) (test njqd=364) 0.72 K/ L 0.24-0.36 EOSINOPHILS ABSOLUTE COUNT (BEAKER) (test itat=831) 0.20 K/ L 0.04-0.36 BASOPHILS ABSOLUTE COUNT (BEAKER) (test jfwe=745) 0.08 K/ L 0.01-0.08 IMMATURE GRANULOCYTES-RELATIVE PERCENT (BEAKER) (test hwjb=4537) 1 % 0-1 US GALLBLADDER [facility] [address] [place] [id number] Patient Name: CARINA SANDOVAL MR #: [id number] : 1930 Age/Sex: 86/F Req #: [id number] Adm Physician: Ordered by: REHAN BELL [facility] Report #: [id number] Location: ER Room/Bed: Procedure: [id number] US/US GALLBLADDER Exam Date: Exam Time: REPORT STATUS: Signed PROCEDURE: US GALLBLADDER COMPARISON: None. INDICATIONS: Abdomen Pain TECHNIQUE: Pérez-scale and color doppler transverse and longitudinal images of the right upper quadrant of the abdomen were obtained. FINDINGS: Liver: 13.4 cm in right mid-clavicular line. Normal echogenicity. No masses. Main portal vein: 0.8 cm, hepatopetal flow Gallbladder: No stones, sludge, wall thickening, or pericholecystic fluid. Common Bile Duct: 0.6 cm, upper limi ts of normal. No intraluminal filling defects Sonographic Armendariz's sign: Ne gative Right kidney: 10.6 cm. Normal echogenicity. No solid masses or hydronephrosis. Pancreas: The visualized portions of the neck and proximal body are unremarkable. Inferior vena cava: Patent Aorta: Within norm al limits Ascites: None in the right upper quadrant of the abdomen. CON CLUSION: 1. Essentially unremarkable right upper quadrant ultrasound. 2. No sonographic evidence of cholelithiasis or cholecystitis. No biliary ductal dilation. Ramesh Mccoy M.D. Dictated by: Ramesh curtis M.D. on 08/28/2017 at 14:25 Electronically approved by: Ramesh smith M.D. on 08/28/2017 at 14:25 Dictated By: RAMESH MCCOY MD 1424 Transcribed B y: INFCE on 08/28/17 1429 COPY TO: REHAN BELL [facility] CHEST SINGLE (PORTABLE) [address], [place] [address] Patient Name: CARINA SANDOVAL MR #: [id number] : 1930 Age/Sex: 86/F Req #: [id number] Adm Physician: Ordered by: REHAN BELL NP Report #: [id number] Location: ER Room/Bed: Procedure: [id number] DX/CHEST SINGLE (PORTABLE) Ella kelly Date: 08/28/17 Exam Time: 1450 REPORT STATUS: Signed PROCEDURE: A single AP view of the chest. COMPARISON: [facility], , CHEST SINGLE (PORTABLE), 01/16/2017, 19:38. INDICA TIONS: ABDOMINAL PAIN FINDINGS: Lines/tubes: None. Lungs: The lungs are well inflated. No interval change in very mild prominence of th e interstitial markings, likely reflecting chronic interstitial changes. Ther e is no evidence of consolidation or pulmonary edema. Pleura: There is no pleural effusion or pneumothorax. Heart and mediastinum: Cardiac silho uette is unremarkable. Pulmonary vasculature is normal. Bones: No acut e bony abnormality. IMPRESSION: 1. No acute cardiopulmonary abnorm alities. Ramesh Mccoy M.D. Dictated by: Ramesh Mccoy M.D. on 08/28/2017 at 15:33 Electronically approved by: Ramesh Mccoy M.D. on 08/28/2017 at 15:33 Dictated By: RAMESH MCCOY MD E lectronically Signed By: RAMESH MCCOY MD on 08/28/171532 Transcribed By: ABDI PHILLIPS on 08/28/171532 COPY TO: REHAN BELL [facility] CT ABDOMEN/PELVIS W [facility] [address] [place] [address] Patient Name: CARINA SANDOVAL MR #: [id number] : 1930 Age/Sex: 86/F Req #: [id number] Adm Physician: Ordered by: REHAN BELL NP Report #: [id number] Location: ER Room/Bed: Procedure: [id number] CT/CT ABDOMEN/PELVIS W Exam Da te: 08/28/17 Exam Time: 1510 REPORT STATUS: Sig norberto PROCEDURE: CT ABDOMEN AND PELVIS WITH CONTRAST TECHNIQUE: The ab domen and pelvis were scanned utilizing a multidetector helical scanner from the diaphragm to the lesser trochanter after the IV administration of 100 cc of Isovue 370 and the oral administration of dilute Gastrografin. Coronal an d sagittal multiplanar reformations were obtained. COMPARISON: [facility], CT, CT ABDOMEN/PELVIS W, 09/06/2012, 10:38. INDICATIONS: right flank pain for 2 days, abdominal pain, FINDINGS: LOWER THORAX: Linear subsegmental atelectasis versus scarring in the posteromedial left lo wer lobe. No consolidation. Moderate atherosclerotic soft plaque in the dista l thoracic aorta HEPATOBILIARY: Stable calcified granulomas in hepatic seg ments VIII, VII and V (series 2, images 14, 18, and 35). No focal lesions. No ductal dilation. Gallbladder is unremarkable. SPLEEN: No splenomegaly. P ANCREAS: No focal masses or ductal dilatation. No surrounding inflammatory ch anges, free fluid or well defined fluid collections. ADRENALS: No adrenal nodules. KIDNEYS/URETERS: Limited evaluation for renal calculi do to intraveno us contrast. No hydronephrosis or hydroureter. No solid enhancing masses. P ELVIC ORGANS/BLADDER: Bladder shows no focal lesions. Uterus is absent. No ad nexal masses. PERITONEUM / RETROPERITONEUM: No free air or fluid. LYMPH NODES: No lymphadenopathy. VESSELS: Moderate atherosclerotic soft and hard nitish que in the abdominal aorta and iliac vessels, as well as aortic branches, pre dominantly at the origin of celiac trunk, SMA, and bilateral renal arteries GI TRACT: Small to moderate hiatal hernia. No bowel dilation or evidence of obstruction. Appendix is not visualized. However, no pericecal inflammato ry changes are noted. Multiple diverticula in the sigmoid colon, without surr ounding inflammatory changes to suggest diverticulitis. BONES AND SOFT TISSUES: No aggressive lytic lesions. 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 Soft tissues are grossly unremarkable.. IMPRESSION: 1. Limited exam for evaluation of nephrolithiasis given the presence of contrast. No hydronephrosis or obstruction. 2. No bowel dilati on or evidence of obstruction. The appendix is not visualized, however, no pe ricolonic/pericecal inflammatory changes are noted. 3. Sigmoid diverticulos is, without diverticulitis. 4. Moderate atherosclerotic disease of the abdomin al aorta and branches. Ramesh Mccoy M.D. Dictated by: Brittany Mccoy M.D. on 08/28/2017 at 16:13 Electronically approved by: Ramesh Mccoy M.D. on 08/28/2017 at 16:13 Dictated By: MICHELLE MCCOY MD 1613 Tr anscribed By: JOSE ALBERTO on 08/28/17 1613 COPY TO: REHAN BELL NP VQ LUNG SCAN VENT PERFUSION [place] [address] Patient Name: CARINA SANDOVAL MR #: [id number] : 1930 Age/Sex: 86/F Req #: [id number] Adm Physician: JOSELO DARLING MD Ordered by: REHAN BELL NP Report #: [id number] Location: [facility] Room/Bed: [place] [address] Procedure: [id number] NM/ VQ LUNG SCAN VENT PERFUSION Exam Date: Exam Time : REPORT STATUS: Signed EXAM: VQ LUNG SCAN VENT PERFUSION DATE: 08/28/2017 12:00 AM Time stamp on exam: 2304 hours INDICATION: Shortness of br eath, weakness, fatigue COMPARISON: AP view of the chest August 28, 2017 FINDINGS: Ventilation images of the lungs were obtained in multiple projecti ons following administration of 11 mCi of Xe133 gas via inhalation. Distribut ion of tracer activity is irregular throughout the lungs. Limited wash-in and washout views. No segmental ventilatory defects are identified. Perfusio n images of the lungs in multiple projections were obtained following intraven ous administration of 6mCi of Tc-99m MAA. Distribution of tracer activity is m ildly irregular throughout the lungs. There are no segmental perfusion defect s of any size. The perfusion images are well matched to the aerosol images. The cardiac silhouette is unremarkable. IMPRESSION: Scan findings r epresent a very low probability for acute pulmonary embolic disease based on t he PIOPED II criteria. Signed by: Dr. Negar Byrd M.D. on 08/28/2017 11:05 PM Dictated By: NEGAR BYRD MD 04 Transcribed By: STEPHANY on 08/28/172304 COPY TO: REHAN BELL NP
[2018-10-28] MEDS ORDERED: METOCLOPRAMIDE HCL 10 MG/2ML VIAL IV ONE (16:00)
--- NOTE | 2018-10-28 16:58 | Diagnostic Imaging Report ---
EXAMINATION: CHEST 2 VIEWS INDICATION: Chest pain. COMPARISON: Chest radiograph 08/28/2017. FINDINGS: TUBES and LINES: None. LUNGS: Lungs are well inflated. Lungs are clear. There is no evidence of pneumonia or pulmonary edema. PLEURA: No pleural effusion or pneumothorax. HEART AND MEDIASTINUM: The cardiac silhouette is unremarkable. Status post interval valve replacement. The aorta is ectatic with atherosclerotic calcifications. BONES AND SOFT TISSUES: No acute osseous abnormality. Status post interval median sternotomy. Partially seen hardware projects over the lumbar spine. UPPER ABDOMEN: No free air under the diaphragm. IMPRESSION: No acute radiographic abnormality. Signed by: Dr. Priscilla Gomez MD on 10/28/2018 4:54 PM
[2018-10-28 17:39] LABS: BASOPHILS # (AUTO) 0.1 (0.0-0.1); BASOPHILS % 0.8 % (0.0-1.0); EOSINOPHILS # (AUTO) 0.1 (0.0-0.4); EOSINOPHILS % 1.5 % (0.0-6.0); HEMATOCRIT 42.5 % (34.2-44.1); HEMOGLOBIN 13.7 g/dL (12.0-16.0); LYMPHOCYTES # (AUTO) 1.5 (1.0-3.2); LYMPHOCYTES % 18.8 % (18.0-39.1); MEAN CORPUSCULAR HEMOGLOBIN 27.5 pg (28-32); MEAN CORPUSCULAR HGB CONC 32.2 g/dL (31-35); MEAN CORPUSCULAR VOLUME 85.3 fL (81-99); MONOCYTES # (AUTO) 0.9 (0.2-0.8); MONOCYTES % 10.9 % (4.4-11.3); NEUTROPHILS # (AUTO) 5.4 (2.1-6.9); NEUTROPHILS % 67.9 % (38.7-80.0); PLATELET COUNT 220 x10e3/uL (140-360); RED BLOOD COUNT 4.98 x10e6/uL (3.6-5.1); RED CELL DISTRIBUTION WIDTH 14.3 % (11.7-14.4)
[2018-10-28 18:59] VITALS: BP 144/72
== END 2018-10-28 19:05 | disposition home or self-care (01) ==
LOC: ER 15:12
DX: R07.89 Other chest pain (principal); G58.8 Other specified mononeuropathies
CPT/HCPCS: 36415; 71046; 83880; 84484; 85025; 93005; 99284; J2765

== ENCOUNTER 2019-04-02 10:06 | Observation (INO) | payer OTHER ==
[~2019-04-02] VITALS: Ht 149.9 cm; Wt 65.5 kg
--- OUTSIDE RECORDS SUMMARY | 2019-04-02 10:09 | XMS REPORT | Clinical Summary ---
Author Author [facility] Organization [facility] Address Unknown Phone Unavailable Care Team Providers Care Photographic Restorer Name Role Phone Mervat Luevano MD PCP Unavailable Philippe De La Cruz Unavailable Allergies Comments Active Allergy Reactions Severity Noted Date Ciprofloxacin 02/28/2017 FAINT Codeine 02/28/2017 Gabapentin 02/28/2017 Vmyxfekryck-Pgsdihmd-Pgzu 02/28/2017 iazid Influenza Virus Vaccines Hives 02/28/2017 [...] (six) hours as needed for Pain. 01/29/2019 aspirin 81 MG chewable Take 1 tablet 0 tablet (81 mg total) 8 by mouth daily. 01/28/2019 atorvastatin (LIPITOR) 20 Take 1 tablet 0 MG tablet (20 mg total) 8 by mouth nightly. 01/29/2019 furosemide (LASIX) 20 MG Take 1 tablet 20 tablet 0 tablet (20 mg total) 8 by mouth daily. 01/28/2019 metoprolol (LOPRESSOR) 25 Take 0.5 0 MG tablet tablets (12.5 8 mg total) by mouth 2 (two) times daily. Active Problems Problem Noted Date S/P AVR [...] pulmonary edema (HCC). resovled w/ IV diuresis Social History Date Tobacco Use Types Packs/Day Years Used Former Smoker Smokeless Tobacco: Never Used Alcohol Use Drinks/Week oz/Week Comments No Sex Assigned at Date Recorded Not on file Industry Job Start Date Occupation Not on file Not on file Not on file Travel End Travel History Travel Start No recent travel history available. Last Filed Vital Signs Not on file Plan of Treatment Not on file Implants Device Identifier Shelf Expiration Date Model / Serial / Lot Implanted Type Area Manufactur er 04/22/2021 TFGT-19A / [id number] / Valve Tiss Trifecta W/Gld 19mm Valves N/A: Heart [facility] [employer] Tfgt-19a - [id number] MED:CARDIA Implanted: Qty: 1 on 01/17/2018 by Rehan Chowdhury MD Procedures Comments Procedure Name Priority Date/Time Associated Diagnosis RHYTHM STRIP - SCAN 12/18/2018 9:23 AM CDT VASCULAR DIAGRAM -SCAN 04/18/2018 11:11 AM CDT after 04/01/2018 Results * RHYTHM STRIP - SCAN (12/18/2018 9:23 AM CDT) Narrative Performed At * VASCULAR DIAGRAM -SCAN (04/18/2018 11:11 AM CDT) Narrative Performed At after 04/01/2018 Insurance Payer Benefit Subscriber ID Type Phone Address Plan / Group [employer] [facility] [facility] Direct[facility] For more information, please contact: [facility] [address] [place] [address] Date Inactivated Comments Code Status Date Activated [...]
--- OUTSIDE RECORDS SUMMARY | 2019-04-02 10:10 | XMS REPORT | Continuity of Care Document ---
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 01/24/2018 Diagnosis 02/15/2018 SNF: [facility] I35.0 NONRHEUMATIC AORTIC (VALVE) STENOSIS 01/24/2018 Diagnosis 02/15/2018 SNF: [facility] E03.9 HYPOTHYROIDISM, UNSPECIFIED 01/24/2018 Diagnosis 02/15/2018 SNF: [facility] J45.909 UNSPECIFIED ASTHMA, UNCOMPLICATED 01/24/2018 Diagnosis 02/15/2018 SNF: [facility] History of - coronary artery bypass grafting (situation) 01/24/2018 Diagnosis 02/15/2018 SNF: [facility] I10 ESSENTIAL (PRIMARY) HYPERTENSION 01/24/2018 Diagnosis 02/15/2018 SNF: [facility] I25.10 ATHEROSCLEROTIC HEART DISEASE OF [place] CORONARY ARTERY WITHOUT ANGINA PECTORIS 01/24/2018 Diagnosis 02/15/2018 SNF: [facility] J81.1 CHRONIC PULMONARY EDEMA 01/24/2018 Diagnosis 02/15/2018 SNF: [facility] E78.5 HYPERLIPIDEMIA, UNSPECIFIED 01/24/2018 Diagnosis 02/15/2018 SNF: [facility] K21.9 GASTRO-ESOPHAGEAL REFLUX DISEASE WITHOUT ESOPHAGITIS 01/24/2018 Diagnosis 02/15/2018 SNF: [facility] Medications Medication Details Route Status Patient Instructions Ordering Provider Order Date Source DuoNeb Solution 0.5-2.5 (3) MG/3ML 1 UNIT(S) PER NEB EVERY 6 HOURS NEEDED Inhalation Active 02/08/2018 SNF: [facility] Robitussin DM Syrup 100-10 MG/5ML Give 10 ml by mouth every 4 hours as needed for Cough Oral Inactive 02/08/2018 SNF: [facility] GlycoLax Powder Give 17 gram by mouth one time a day for constipation (in Liquid) Hold for Loose Stools Oral Active 02/08/2018 SNF: [facility] Lactulose Solution 20 GM/30ML Give 30 ml by mouth as needed for Constipation Daily for Constipation PRN AND Give 30 ml by mouth one time only for Constipation until 02/07/2018 23:59 x One dose now Oral Active 02/07/2018 SNF: [facility] Azithromycin Tablet 250 MG 1 TAB(S) BY MOUTH DAILY FOR 4 DAYS Oral Active 02/07/2018 SNF: [facility] Augmentin Tablet 500-125 MG 1 TAB(S) BY MOUTH 2 TIMES A DAY FOR 5 DAYS Oral Active 02/07/2018 SNF: [facility] Robitussin Chest Congestion Syrup 100 MG/5ML Give 10 ml by mouth three times a day for cough for 10 Days AND Give 10 ml by mouth as needed for cough TID Oral Active 02/06/2018 SNF: [facility] Zofran Tablet 4 MG 1 TAB(S) BY MOUTH EVERY 6 HOURS NEEDED Oral Active 01/31/2018 SNF: [facility] Tylenol Tablet 325 MG Give 2 tablet by mouth two times a day for pain AND Give 2 tablet by mouth as needed for pain bid Oral Active 01/31/2018 SNF: [facility] Synthroid Tablet 88 MCG 1 TAB(S) BY MOUTH EVERY MORNING Oral Active 01/30/2018 SNF: [facility] Docusate Sodium Capsule 100 MG Give 1 capsule by mouth two times a day for constipation Oral Active 01/29/2018 SNF: [facility] Tuberculin PPD Solution Inject 0.1 ml intradermally one time only for Prophylaxis for 1 Day Adm within first 24 hours of admission. Repeat yearly. Intradermal Active 01/29/2018 SNF: [facility] MiraLax Powder Give 17 gram by mouth as needed for constipation daily AND Give 17 gram by mouth one time only for constipation until 01/29/2018 23:59 x1 now Oral Active 01/29/2018 SNF: [facility] Ocuvite-Lutein Tablet Give 1 tablet by mouth one time a day for Supplement Oral Active 01/29/2018 SNF: [facility] Lasix Tablet 20 MG 1 TAB(S) BY MOUTH DAILY Oral Active 01/29/2018 SNF: [facility] Aspirin Tablet 81 MG Give 1 tablet by mouth one time a day related to NONRHEUMATIC AORTIC (VALVE) STENOSIS (I35.0) Oral Active 01/29/2018 SNF: [facility] Ferrous Sulfate Tablet 325 (65 Fe) MG Give 1 tablet by mouth one time a day for Supplement Oral Active 01/29/2018 SNF: [facility] Flonase Suspension 50 MCG/ACT 2 spray in both nostrils one time a day for Allergies Nasal Active 01/29/2018 SNF: [facility] Align Capsule 4 MG Give 1 capsule by mouth one time a day for Probiotic Oral Active 01/29/2018 SNF: [facility] Biotin Tablet 5 MG Give 1 tablet by mouth one time a day for Supplement Oral Active 01/29/2018 SNF: [facility] Protonix Tablet Delayed Release 40 MG 1 TAB(S) BY MOUTH DAILY Oral Active 01/29/2018 SNF: [facility] Vitamin D3 Tablet 5000 UNIT Give 1 tablet by mouth one time a day for Supplement Oral Active 01/29/2018 SNF: [facility] Mupirocin Ointment 2 % 1 APPLICATION TOPICALLY DAILY ON EACH SHIFT TO STERNUM AND LEFT LEG External Active 01/29/2018 SNF: [facility] Levothyroxine Sodium Tablet 75 MCG 1 TAB(S) BY MOUTH DAILY Oral Inactive 01/29/2018 SNF: [facility] Atorvastatin Calcium Tablet 20 MG 1 TAB(S) BY MOUTH AT BEDTIME Oral Active 01/29/2018 SNF: [facility] Montelukast Sodium Tablet 10 MG 1 TAB(S) BY MOUTH AT BEDTIME Oral Active 01/29/2018 SNF: [facility] RaNITidine HCl Tablet 300 MG Give 1 tablet by mouth at bedtime for GERD Oral Active 01/29/2018 SNF: [facility] Simvastatin Tablet 40 MG 1 TAB(S) BY MOUTH AT BEDTIME Oral Inactive 01/29/2018 SNF: [facility] Symbicort Aerosol 80-4.5 MCG/ACT 2 PUFF(S) BY MOUTH 2 TIMES A DAY Inhalation Active 01/28/2018 SNF: [facility] Ultracet Tablet 37.5-325 MG Give 1 tablet by mouth every 6 hours as needed for Pain Oral Active 01/28/2018 SNF: [facility] Allergies, Adverse Reactions, Alerts Substance Category Reaction Severity Reaction type Status Date Reported Comments Source Cipro 01/24/2018 SNF: [facility] Codeine 01/24/2018 SNF: [facility] FLU VACCINE 01/24/2018 SNF: [facility] Gabapentin 01/24/2018 SNF: [facility] HCT RESERPINE 01/24/2018 SNF: [facility] Tetanus Toxoids 01/24/2018 SNF: [facility] TOXOID 01/24/2018 SNF: [facility] Immunizations Immunization Date Given Site Status Last Updated Comments Source tuberculin skin test; purified protein derivative solution, intradermal 01/31/2018 Not Given SNF: [facility] tuberculin skin test; purified protein derivative solution, intradermal 01/29/2018 completed SNF: [facility] Influenza, seasonal, injectable 01/29/2018 Not Given SNF: [facility] pneumococcal polysaccharide vaccine, 23 valent 01/29/2018 Not Given SNF: [facility] Results No Data Provided for This Section Pathology Reports No Data Provided for This Section Diagnostic Reports No Data Provided for This Section Consultation Notes No Data Provided for This Section Discharge Summaries No Data Provided for This Section History and Physicals No Data Provided for This Section Vital Signs Vital Sign Value Date Comments Source Respitory Rate 18 02/15/2018 SNF: [facility] Temperature Oral (F) 98.3 F 02/15/2018 SNF: [facility] Systolic (mm Hg) 141 02/15/2018 SNF: [facility] Diastolic (mm Hg) 87 02/15/2018 SNF: [facility] Heart Rate 115 {beats}/min 02/15/2018 SNF: [facility] Respitory Rate 12 02/15/2018 SNF: [facility] Systolic (mm Hg) 117 02/15/2018 SNF: [facility] Diastolic (mm Hg) 73 02/15/2018 SNF: [facility] Temperature Oral (F) 98.6 F 02/15/2018 SNF: [facility] [place] Heart Rate 101 {beats}/min 02/15/2018 SNF: [facility] [place] Respitory Rate 18 02/15/2018 [facility] Systolic (mm Hg) 128 02/15/2018 [facility] [place] Diastolic (mm Hg) 62 02/15/2018 [facility] Temperature Oral (F) 98.2 F 02/15/2018 SNF: [facility] [place] Heart Rate 74 {beats}/min 02/15/2018 [facility] [place] Systolic (mm Hg) 128 02/14/2018 [facility] [place] Diastolic (mm Hg) 62 02/14/2018 SNF: [facility] Heart Rate 74 {beats}/min 02/14/2018 SNF: [facility] Respitory Rate 18 02/14/2018 SNF: [facility] [place] Systolic (mm Hg) 133 02/14/2018 [facility] [place] Diastolic (mm Hg) 80 02/14/2018 SNF: [facility] Temperature Oral (F) 98.4 F 02/14/2018 SNF: [facility] Heart Rate 93 {beats}/min 02/14/2018 SNF: [facility] Systolic (mm Hg) 133 02/14/2018 SNF: [facility] [place] Diastolic (mm Hg) 80 02/14/2018 SNF: [facility] Heart Rate 93 {beats}/min 02/14/2018 [facility] [place] Respitory Rate 12 02/14/2018 [facility] [place] Systolic (mm Hg) 105 02/14/2018 [facility] [place] Diastolic (mm Hg) 59 02/14/2018 SNF: [facility] Temperature Oral (F) 98.3 F 02/14/2018 SNF: [facility] [place] Heart Rate 101 {beats}/min 02/14/2018 [facility] Resp[facility] Rate 18 02/13/2018 [facility] [place] Systolic (mm Hg) 128 02/13/2018 [facility] [place] Diastolic (mm Hg) 65 02[facility]13/2018 [facility] Temperature Oral (F) 97.8 F 02/13/2018 [facility] [place] Heart Rate 74 {beats}/min 02/13/2018 [facility]: [facility] [place] Systolic (mm Hg) 128 02/13/2018 [facility] [place] Diastolic (mm Hg) 65 02/13/2018 [facility]: [facility] [place] Heart Rate 74 {beats}/min 02/13/2018 [facility]: [facility] [place] Respitory Rate 18 02/13/2018 SN[facility]: [facility] [place] Systolic (mm Hg) 137 02/13/2018 [facility]: [facility] [place] Diastolic (mm Hg) 69 02/13/2018 [facility] Temperature Oral (F) 97.6 F 02/13/2018 [facility] Heart Rate 88 {beats}/min 02/13/2018 [facility]: [facility] [place] Systolic (mm Hg) 137 02/13/2018 SN[facility]: [facility] [place] Diastolic (mm Hg) 69 02/13/2018 SNF: [facility] Heart Rate 88 {beats}/min 02/13/2018 [facility] Weight 130.6 02/13/2018 [facility]: [facility] Respitory Rate 20 02/13/2018 SN[facility]: [facility] [place] Systolic (mm Hg) 118 02/13/2018 [facility] [place] Diastolic (mm Hg) 60 02/13/2018 [facility]: [facility] Temperature Oral (F) 97.3 F 02/13/2018 SN[facility]: [facility] [place] Heart Rate 83 {beats}/min 02/13/2018 SN[facility]: [facility] [place] Systolic (mm Hg) 133 02/12/2018 [facility]: [facility] [place] Diastolic (mm Hg) 90 02/12/2018 SN[facility]: [facility] [place] Heart Rate 84 {beats}/min 02/12/2018 [facility] [place] Respitory Rate 20 02/12/2018 [facility] [place] Systolic (mm Hg) 130 02/12/2018 SN[facility]: [facility] [place] Diastolic (mm Hg) 82 02/12/2018 [facility]: [facility] Temperature Oral (F) 98.1 F 02/12/2018 SN[facility]: [facility] [place] Heart Rate 84 {beats}/min 02/12/2018 [facility] [place] Systolic (mm Hg) 130 02/12/2018 SN[facility]: [facility] [place] Diastolic (mm Hg) 82 02/12/2018 [facility] [place] Heart Rate 100 {beats}/min 02/12/2018 [facility] [place] Respitory Rate 20 02/12/2018 SN[facility]: [facility] [place] Systolic (mm Hg) 122 02/12/2018 [facility] [place] Diastolic (mm Hg) 61 02/12/2018 [facility]: [facility] Temperature Oral (F) 98.1 F 02/12/2018 [facility]: [facility] Heart Rate 85 {beats}/min 02/12/2018 [facility] [place] Systolic (mm Hg) 120 02/11/2018 [facility] [place] Diastolic (mm Hg) 69 02/11/2018 SNF: [facility] Heart Rate 94 {beats}/min 02/11/2018 [facility]: [facility] [place] Respitory Rate 20 02/11/2018 [facility] [place] Systolic (mm Hg) 126 02/11/2018 [facility] [place] Diastolic (mm Hg) 74 02/11/2018 [facility]: [facility] Temperature Oral (F) 97.8 F 02/11/2018 SN[facility]: [facility] [place] Heart Rate 84 {beats}/min 02/11/2018 [facility] [place] Systolic (mm Hg) 136 02/11/2018 SN[facility]: [facility] [place] Diastolic (mm Hg) 80 02/11/2018 [facility] [place] Heart Rate 103 {beats}/min 02/11/2018 [facility]: [facility] [place] Respitory Rate 20 02/11/2018 [facility] [place] Systolic (mm Hg) 107 02/11/2018 SN[facility]: [facility] [place] Diastolic (mm Hg) 57 02/11/2018 [facility]: [facility] [place] Temperature Oral (F) 98 F 02/11/2018 [facility]: [facility] [place] Heart Rate 94 {beats}/min 02/11/2018 [facility] [place] Respitory Rate 18 02/11/2018 [facility] [place] Systolic (mm Hg) 121 02/11/2018 [facility] [place] Diastolic (mm Hg) 64 02/11/2018 [facility]: [facility] Temperature Oral (F) 98.2 F 02/11/2018 [facility]: [facility] Heart Rate 98 {beats}/min 02/11/2018 [facility] [place] Systolic (mm Hg) 121 02/10/2018 [facility] [place] Diastolic (mm Hg) 64 02/10/2018 [facility]: [facility] Heart Rate 98 {beats}/min 02/10/2018 SN[facility]: [facility] [place] Respitory Rate 17 02[facility]10/2018 [facility] [place] Systolic (mm Hg) 120 02/10/2018 [facility] [place] Diastolic (mm Hg) 71 02/10/2018 [facility]: [facility] Temperature Oral (F) 98.5 F 02/10/2018 [facility]: [facility] Heart Rate 70 {beats}/min 02/10/2018 [facility] [place] Systolic (mm Hg) 119 02/10/2018 SN[facility]: [facility] [place] Diastolic (mm Hg) 65 02/10/2018 [facility]: [facility] [place] Heart Rate 65 {beats}/min 02/10/2018 SN[facility]: [facility] [place] Respitory Rate 18 02/10/2018 SN[facility]: [facility] [place] Systolic (mm Hg) 120 02/10/2018 [facility] [place] Diastolic (mm Hg) 70 02/10/2018 [facility]: [facility] Temperature Oral (F) 97.5 F 02/10/2018 SN[facility]: [facility] [place] Heart Rate 76 {beats}/min 02/10/2018 [facility] [place] Respitory Rate 18 02/09/2018 [facility]: [facility] [place] Systolic (mm Hg) 132 02/09/2018 SN[facility]: [facility] [place] Diastolic (mm Hg) 74 02/09/2018 [facility]: [facility] [place] Temperature Oral (F) 98 F 02/09/2018 [facility]: [facility] [place] Heart Rate 95 {beats}/min 02/09/2018 [facility]: [facility] [place] Systolic (mm Hg) 132 02/09/2018 [facility]: [facility] [place] Diastolic (mm Hg) 74 02/09/2018 SN[facility]: [facility] [place] Heart Rate 95 {beats}/min 02/09/2018 SNF: [facility] [place] Respitory Rate 18 02/09/2018 [facility]: [facility] [place] Systolic (mm Hg) 132 02/09/2018 [facility]: [facility] [place] Diastolic (mm Hg) 78 02/09/2018 [facility]: [facility] Temperature Oral (F) 97.9 F 02/09/2018 SN[facility]: [facility] [place] Heart Rate 92 {beats}/min 02/09/2018 [facility] [place] Systolic (mm Hg) 141 02/09/2018 [facility]: [facility] [place] Diastolic (mm Hg) 89 02/09/2018 [facility]: [facility] [place] Heart Rate 103 {beats}/min 02/09/2018 SN[facility]: [facility] [place] Respitory Rate 18 02/09/2018 [facility] [place] Systolic (mm Hg) 114 02/09/2018 [facility]: [facility] [place] Diastolic (mm Hg) 84 02/09/2018 [facility]: [facility] Temperature Oral (F) 98 F 02/09/2018 SN[facility]: [facility] [place] Heart Rate 92 {beats}/min 02/09/2018 SN[facility]: [facility] [place] Respitory Rate 18 02/08/2018 [facility] [place] Systolic (mm Hg) 129 02/08/2018 [facility]: [facility] [place] Diastolic (mm Hg) 64 02/08/2018 [facility] Temperature Oral (F) 98 F 02/08/2018 [facility]: [facility] [place] Heart Rate 74 {beats}/min 02/08/2018 [facility] [place] Systolic (mm Hg) 129 02/08/2018 [facility] [place] Diastolic (mm Hg) 64 02[facility]08/2018 [facility]: [facility] [place] Heart Rate 74 {beats}/min 02/08/2018 SN[facility]: [facility] [place] Respitory Rate 16 02[facility]08/2018 [facility] [place] Systolic (mm Hg) 140 02/08/2018 [facility]: [facility] [place] Diastolic (mm Hg) 80 02/08/2018 SNF: [facility] Temperature Oral (F) 98.1 F 02/08/2018 [facility] Heart Rate 86 {beats}/min 02/08/2018 [facility] [place] Systolic (mm Hg) 148 02/08/2018 SN[facility]: [facility] [place] Diastolic (mm Hg) 83 02/08/2018 [facility] Heart Rate 88 {beats}/min 02/08/2018 [facility] [place] Systolic (mm Hg) 132 02/07/2018 SN[facility]: [facility] [place] Diastolic (mm Hg) 64 02[facility]07/2018 [facility] Heart Rate 90 {beats}/min 02/07/2018 SN[facility]: [facility] [place] Respitory Rate 16 02/07/2018 [facility] [place] Systolic (mm Hg) 126 02/07/2018 SN[facility]: [facility] [place] Diastolic (mm Hg) 70 02/07/2018 [facility]: [facility] Temperature Oral (F) 98.3 F 02/07/2018 [facility] [place] Heart Rate 92 {beats}/min 02/07/2018 [facility]: [facility] [place] Systolic (mm Hg) 126 02/07/2018 [facility] [place] Diastolic (mm Hg) 70 02[facility]07/[facility] 100 {beats}/min [facility]07/[facility] [place] Respitory Rate 18 02[facility]07/2018 [facility] [place] Systolic (mm Hg) 107 02/07/2018 [facility] [place] Diastolic (mm Hg) 53 02/07/2018 SNF: [facility] Temperature Oral (F) 98.1 F 02/07/2018 SNF: [facility] [place] Heart Rate 80 {beats}/min 02/07/2018 [facility] Resp[facility] Rate 17 02/06/2018 SNF: [facility] Temperature Oral (F) 98.1 F 02/06/2018 [facility] [place] Systolic (mm Hg) 112 02/06/2018 [facility] [place] Diastolic (mm Hg) 60 02/06/2018 SNF: [facility] Heart Rate 85 {beats}/min 02/06/2018 [facility] Respitory Rate 16 02[facility]06/2018 [facility] Systolic (mm Hg) 116 02/06/2018 [facility] [place] Diastolic (mm Hg) 62 02/06/2018 SNF: [facility] Temperature Oral (F) 98 F 02/06/2018 SNF: [facility] Heart Rate 86 {beats}/min 02[facility]06/2018 [facility] Weight 130.4 02/06/2018 SNF: [facility] Systolic (mm Hg) 116 02/06/2018 SNF: [facility] [place] Diastolic (mm Hg) 62 02/06/2018 SNF: [facility] Heart Rate 88 {beats}/min 02/06/2018 [facility]: [facility] [place] Respitory Rate 16 02[facility]06/2018 [facility] Systolic (mm Hg) 114 02/06/2018 [facility] Diastolic (mm Hg) 60 02/06/2018 SNF: [facility] Temperature Oral (F) 97.7 F 02/06/2018 SNF: [facility] Heart Rate 84 {beats}/min 02/06/2018 [facility]: [facility] [place] Respitory Rate 18 02/06/2018 [facility] [place] Systolic (mm Hg) 144 02/06/2018 [facility]: [facility] [place] Diastolic (mm Hg) 60 02/06/2018 [facility]: [facility] Temperature Oral (F) 97.4 F 02/06/2018 SN[facility]: [facility] Heart Rate 92 {beats}/min 02/06/2018 [facility] [place] Systolic (mm Hg) 144 02/05/2018 SN[facility]: [facility] [place] Diastolic (mm Hg) 60 02/05/2018 [facility] Heart Rate 95 {beats}/min 02/05/2018 [facility] [place] Respitory Rate 18 02/05/2018 [facility] [place] Systolic (mm Hg) 106 02/05/2018 [facility] [place] Diastolic (mm Hg) 46 02/05/2018 [facility]: [facility] Temperature Oral (F) 97.6 F 02/05/2018 SNF: [facility] Heart Rate 84 {beats}/min 02/05/2018 [facility] [place] Systolic (mm Hg) 106 02/05/2018 [facility] [place] Diastolic (mm Hg) 46 02[facility]05/2018 [facility] Heart Rate 84 {beats}/min 02/05/2018 SN[facility]: [facility] [place] Respitory Rate 16 02/05/2018 [facility] [place] Systolic (mm Hg) 106 02/05/2018 SN[facility]: [facility] [place] Diastolic (mm Hg) 62 02/05/2018 [facility]: [facility] Temperature Oral (F) 97.4 F 02/05/2018 SN[facility]: [facility] [place] Heart Rate 84 {beats}/min 02/05/2018 [facility] [place] Respitory Rate 18 02/04/2018 [facility] [place] Systolic (mm Hg) 127 02/04/2018 SNF: [facility] [place] Diastolic (mm Hg) 62 02/04/2018 SNF: [facility] Temperature Oral (F) 97.8 F 02/04/2018 [facility]: [facility] Heart Rate 74 {beats}/min 02/04/2018 [facility] [place] Systolic (mm Hg) 127 02/04/2018 SN[facility]: [facility] [place] Diastolic (mm Hg) 62 02/04/2018 SN[facility]: [facility] [place] Heart Rate 74 {beats}/min 02/04/2018 SNF: [facility] [place] Respitory Rate 18 02[facility]04/2018 [facility] [place] Systolic (mm Hg) 130 02/04/2018 [facility] [place] Diastolic (mm Hg) 67 02/04/2018 [facility] Temperature Oral (F) 97.6 F 02/04/2018 SNF: [facility] Heart Rate 89 {beats}/min 02/04/2018 SN[facility]: [facility] [place] Systolic (mm Hg) 130 02/04/2018 SNF: [facility] [place] Diastolic (mm Hg) 67 02/04/2018 SNF: [facility] [place] Heart Rate 89 {beats}/min 02/04/2018 SNF: [facility] [place] Respitory Rate 18 02/04/2018 SNF: [facility] [place] Systolic (mm Hg) 100 02/04/2018 SNF: [facility] [place] Diastolic (mm Hg) 54 02/04/2018 SNF: [facility] Temperature Oral (F) 97.6 F 02/04/2018 SNF: [facility] Heart Rate 86 {beats}/min 02/04/2018 SN[facility]: [facility] [place] Systolic (mm Hg) 120 02/03/2018 [facility] [place] Diastolic (mm Hg) 62 02/03/2018 SN[facility]: [facility] [place] Heart Rate 94 {beats}/min 02/03/2018 SNF: [facility] [place] Respitory Rate 18 02[facility]03/2018 SNF: [facility] [place] Systolic (mm Hg) 115 02/03/2018 [facility] [place] Diastolic (mm Hg) 68 02/03/2018 SNF: [facility] Temperature Oral (F) 97.4 F 02/03/2018 SNF: [facility] Heart Rate 104 {beats}/min 02/03/2018 [facility] [place] Systolic (mm Hg) 115 02/03/2018 [facility]: [facility] [place] Diastolic (mm Hg) 68 02/03/2018 [facility] Heart Rate 104 {beats}/min 02/03/2018 SN[facility]: [facility] [place] Respitory Rate 20 02/03/2018 [facility] [place] Systolic (mm Hg) 110 02/03/2018 [facility] [place] Diastolic (mm Hg) 54 02/03/2018 [facility] Temperature Oral (F) 97.9 F 02/03/2018 SNF: [facility] Heart Rate 82 {beats}/min 02/03/2018 SN[facility]: [facility] [place] Systolic (mm Hg) 140 02/02/2018 SNF: [facility] [place] Diastolic (mm Hg) 76 02/02/2018 SNF: [facility] Heart Rate 67 {beats}/min 02/02/2018 [facility] [place] Respitory Rate 20 02/02/2018 [facility] Temperature Oral (F) 98.4 F 02/02/2018 [facility] [place] Systolic (mm Hg) 155 02/02/2018 [facility] [place] Diastolic (mm Hg) 68 02/02/2018 SNF: [facility] Heart Rate 66 {beats}/min 02/02/2018 [facility] [place] Respitory Rate 20 02/02/2018 SN[facility]: [facility] [place] Systolic (mm Hg) 116 02/02/2018 [facility]: [facility] [place] Diastolic (mm Hg) 62 02/02/2018 [facility] Temperature Oral (F) 98.3 F 02/02/2018 SNF: [facility] [place] Heart Rate 85 {beats}/min 02/02/2018 [facility]: [facility] [place] Systolic (mm Hg) 108 02/01/2018 SN[facility]: [facility] [place] Diastolic (mm Hg) 59 02/01/2018 SNF: [facility] [place] Heart Rate 84 {beats}/min 02/01/2018 SNF: [facility] [place] Respitory Rate 20 02/01/2018 SNF: [facility] [place] Temperature Oral (F) 98.1 F 02/01/2018 SNF: [facility] [place] Systolic (mm Hg) 106 02/01/2018 SNF: [facility] [place] Diastolic (mm Hg) 59 02/01/2018 SNF: [facility] [place] Heart Rate 82 {beats}/min 02/01/2018 SNF: [facility] [place] Respitory Rate 18 02/01/2018 [facility]: [facility] [place] Systolic (mm Hg) 101 02/01/2018 SN[facility]: [facility] [place] Diastolic (mm Hg) 59 02/01/2018 [facility] Temperature Oral (F) 97.9 F 02/01/2018 SNF: [facility] [place] Heart Rate 74 {beats}/min 02/01/2018 SNF: [facility] [place] Respitory Rate 18 02/01/2018 SNF: [facility] [place] Systolic (mm Hg) 138 02/01/2018 SNF: [facility] [place] Diastolic (mm Hg) 64 02/01/2018 [facility] Temperature Oral (F) 97.6 F 02/01/2018 SNF: [facility] [place] Heart Rate 86 {beats}/min 02/01/2018 SNF: [facility] [place] Systolic (mm Hg) 183 01/31/2018 SNF: [facility] [place] Diastolic (mm Hg) 67 01/31/2018 [facility] Heart Rate 93 {beats}/min 01/31/2018 [facility] [place] Systolic (mm Hg) 127 01/31/2018 SN[facility]: [facility] [place] Diastolic (mm Hg) 64 01/31/2018 [facility] Heart Rate 99 {beats}/min 01/31/2018 SN[facility]: [facility] [place] Respitory Rate 18 01/31/2018 SNF: [facility] [place] Systolic (mm Hg) 110 01/31/2018 [facility]: [facility] Diastolic (mm Hg) 58 01/31/2018 SNF: [facility] Temperature Oral (F) 97.8 F 01/31/2018 SNF: [facility] Heart Rate 78 {beats}/min 01/31/2018 SNF: [facility] Respitory Rate 18 01/31/2018 SN[facility]: [facility] [place] Systolic (mm Hg) 100 01/31/2018 SNF: [facility] Diastolic (mm Hg) 44 01/31/2018 SNF: [facility] Temperature Oral (F) 98.2 F 01/31/2018 SNF: [facility] Heart Rate 80 {beats}/min 01/31/2018 SNF: [facility] Systolic (mm Hg) 143 01/30/2018 SNF: [facility] Diastolic (mm Hg) 67 01/30/2018 SNF: [facility] Heart Rate 80 {beats}/min 01/30/2018 SNF: [facility] Respitory Rate 18 01/30/2018 SNF: [facility] Systolic (mm Hg) 123 01/30/2018 SNF: [facility] [place] Diastolic (mm Hg) 77 01/30/2018 SNF: [facility] Temperature Oral (F) 97.8 F 01/30/2018 SNF: [facility] Heart Rate 75 {beats}/min 01/30/2018 SNF: [facility] Weight 129.4 01/30/2018 SNF: [facility] Height 59 01/30/2018 SNF: [facility] Respitory Rate 18 01/30/2018 SNF: [facility] [place] Systolic (mm Hg) 121 01/30/2018 SN[facility]: [facility] [place] Diastolic (mm Hg) 86 01/30/2018 SNF: [facility] Temperature Oral (F) 97.6 F 01/30/2018 SNF: [facility] Heart Rate 77 {beats}/min 01/30/2018 [facility] Systolic (mm Hg) 121 01/30/2018 SN[facility]: [facility] Diastolic (mm Hg) 86 01/30/2018 SNF: [facility] Heart Rate 77 {beats}/min 01/30/2018 SNF: [facility] [place] Respitory Rate 20 01/30/2018 SNF: [facility] [place] Systolic (mm Hg) 118 01/30/2018 SNF: [facility] [place] Diastolic (mm Hg) 52 01/30/2018 SNF: [facility] Temperature Oral (F) 97.5 F 01/30/2018 SNF: [facility] [place] Heart Rate 89 {beats}/min 01/30/2018 [facility]: [facility] [place] Systolic (mm Hg) 118 01/29/2018 SN[facility]: [facility] [place] Diastolic (mm Hg) 59 01/29/2018 SNF: [facility] Heart Rate 77 {beats}/min 01/29/2018 SNF: [facility] Respitory Rate 20 01/29/2018 SNF: [facility] Temperature Oral (F) 98.2 F 01/29/2018 SNF: [facility] [place] Systolic (mm Hg) 108 01/29/2018 SNF: [facility] [place] Diastolic (mm Hg) 51 01/29/2018 SNF: [facility] Heart Rate 86 {beats}/min 01/29/2018 SNF: [facility] Respitory Rate 20 01/29/2018 SNF: [facility] Systolic (mm Hg) 102 01/29/2018 SNF: [facility] Diastolic (mm Hg) 55 01/29/2018 SNF: [facility] Temperature Oral (F) 97.8 F 01/29/2018 SNF: [facility] Heart Rate 93 {beats}/min 01/29/2018 [facility]: [facility] [place] Systolic (mm Hg) 125 01/28/2018 SNF: [facility] [place] Diastolic (mm Hg) 65 01/28/2018 SNF: [facility] Temperature Oral (F) 98.2 F 01/28/2018 SNF: [facility] Respitory Rate 20 01/28/2018 SNF: [facility] [place] Heart Rate 92 {beats}/min 01/28/2018 SNF: [facility] Encounters No Data Provided for This Section Procedures No Data Provided for This Section Assessment and Plan No Data Provided for This Section Plan of Care No Data Provided for This Section Social History Social History Date Source Smoking StatusStart DateEnd Date Unknown if ever smoked 02/15/2018 18:10:07 01/27/2018 SNF: [facility] Family History No Data Provided for This Section Advance Directives Order Name Results Value Date Source Advance Directives Advance Directives Cardiopulmonary Resuscitation 02/15/2018 SNF: [facility] Functional Status No Data Provided for This Section
[2019-04-02 10:33] LABS: BILIRUBIN,URINE NEGATIVE (NEGATIVE); CLARITY,URINE CLEAR (CLEAR); COLOR,URINE YELLOW (YELLOW); KETONES,URINE NEGATIVE (NEGATIVE); LEUKOCYTE ESTERASE ,URINE TRACE (NEGATIVE); NITRITE,URINE NEGATIVE (NEGATIVE); PROTEIN,URINE DIPSTICK NEGATIVE (NEGATIVE); URINE UROBILINOGEN 0.2 mg/dL (0.2 - 1)
[2019-04-02 10:36] LABS: BASOPHILS # (AUTO) 0.1 (0.0-0.1); BASOPHILS % 1.5 % (0.0-1.0); EOSINOPHILS # (AUTO) 0.2 (0.0-0.4); EOSINOPHILS % 2.8 % (0.0-6.0); HEMATOCRIT 43.7 % (34.2-44.1); HEMOGLOBIN 14.1 g/dL (12.0-16.0); LYMPHOCYTES # (AUTO) 1.6 (1.0-3.2); LYMPHOCYTES % 29.7 % (18.0-39.1); MEAN CORPUSCULAR HEMOGLOBIN 27.5 pg (28-32); MEAN CORPUSCULAR HGB CONC 32.3 g/dL (31-35); MEAN CORPUSCULAR VOLUME 85.2 fL (81-99); MONOCYTES # (AUTO) 0.7 (0.2-0.8); MONOCYTES % 13.9 % (4.4-11.3); NEUTROPHILS # (AUTO) 2.8 (2.1-6.9); NEUTROPHILS % 51.7 % (38.7-80.0); PLATELET COUNT 185 x10e3/uL (140-360); RED BLOOD COUNT 5.13 x10e6/uL (3.6-5.1); RED CELL DISTRIBUTION WIDTH 14.5 % (11.7-14.4)
[2019-04-02] MEDS ORDERED: SODIUM CHLORIDE 0.9% 1000ML 1,000 ML IV STA (10:36)
[2019-04-02] MEDS ORDERED: SODIUM CHLORIDE 0.9% 1000ML 500 ML IV STA (10:36)
[2019-04-02] MEDS ORDERED: ONDANSETRON HCL INJ 2MG/ML 2ML 2 MG/ML VIAL IV PRN (10:45)
[2019-04-02] MEDS ORDERED: ASPIRIN 81 MG CHEW TAB PO ONE (10:45)
[2019-04-02] MEDS ORDERED: TIZANIDINE HCL4 MG PO (10:47)
[2019-04-02] MEDS ORDERED: FUROSEMIDE40 MG PO (10:47)
[2019-04-02] MEDS ORDERED: METOPROLOL TART25 MG PO (10:47)
[2019-04-02] MEDS ORDERED: ATORVASTATIN CA40 MG PO (10:47)
[2019-04-02] MEDS ORDERED: ADVAIR 100-501 EACH (10:47)
[2019-04-02] MEDS ORDERED: FAMOTIDINE 20 MG/2 ML VIAL IV ONE (11:00)
[2019-04-02] MEDS ORDERED: ONDANSETRON HCL INJ 2MG/ML 2ML 2 MG/ML VIAL IV ONE (11:00)
[2019-04-02 11:04] LABS: ALANINE AMINOTRANSFERASE 15 IU/L (0-55); ALBUMIN 4.6 g/dL (3.5-5.0); ALBUMIN/GLOBULIN RATIO 1.4 (0.8-2.0); ALKALINE PHOSPHATASE 112 IU/L (40-150); ANION GAP 12.8 mmol/L (8-16); BLOOD UREA NITROGEN 15 mg/dL (7-26); BUN/CREATININE RATIO 17 (6-25); CALCIUM 10.5 mg/dL (8.4-10.2); CARBON DIOXIDE 31 mmol/L (22-29); CHLORIDE 98 mmol/L (98-107); CREATINE KINASE 70 IU/L (29-168); CREATININE, SERUM 0.87 mg/dL (0.57-1.11); EST GLOMERULAR FILTRATION RATE > 60 ML/MIN (60-); GLUCOSE 107 mg/dL (74-118); POTASSIUM 3.8 mmol/L (3.5-5.1); SODIUM 138 mmol/L (136-145)
[2019-04-02 11:05] LABS: BACTERIA,URINE FEW /HPF; EPITHELIAL CELLS,URINE FEW /LPF; RBC,URINE 0-5 /HPF (0-5)
[2019-04-02 11:09] LABS: INR 0.87; PROTHROMBIN TIME 12.3 seconds (11.9-14.5)
--- OUTSIDE RECORDS SUMMARY | 2019-04-02 11:27 | XMS REPORT | Clinical Summary ---
Author Author [facility] Organization [facility] Address Unknown Phone Unavailable Care Team Providers Care Supervisor Counseling And Guidance Name Role Phone Mervat Luevano MD PCP Unavailable Philippe De La Cruz Unavailable Allergies Comments Active Allergy Reactions Severity Noted Date Ciprofloxacin 02/28/2017 FAINT Codeine 02/28/2017 Gabapentin 02/28/2017 [id number] 02/28/2017 iazid Influenza Virus Vaccines Hives 02/28/2017 [...] Type Area Manufactur er 04/22/2021 TFGT-19A / [id number] / Valve Tiss Trifecta W/Gld 19mm Valves N/A: Heart [facility] AMANDA Tfgt-[id number] - [id number] MED:CARDIA Implanted: Qty: 1 on 01/17/2018 by [...] Address Plan / Group TEXAN[facility] TEX[facility] x[facility] Advance Directives For more information, please contact: [facility] [address] [place] [address] Date Inactivated Comments Code Status [...]
--- OUTSIDE RECORDS SUMMARY | 2019-04-02 11:27 | XMS REPORT | Continuity of Care Document ---
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 01/24/2018 Diagnosis 02/15/2018 SNF: [facility] I35.0 NONRHEUMATIC AORTIC (VALVE) STENOSIS 01/24/2018 Diagnosis 02/15/2018 SNF: [facility] E03.9 HYPOTHYROIDISM, UNSPECIFIED 01/24/2018 Diagnosis 02/15/2018 SNF: [facility] J45.909 UNSPECIFIED ASTHMA, UNCOMPLICATED 01/24/2018 Diagnosis 02/15/2018 SNF: [facility] History of - coronary artery bypass grafting (situation) 01/24/2018 Diagnosis 02/15/2018 SNF: [facility] I10 ESSENTIAL (PRIMARY) HYPERTENSION 01/24/2018 Diagnosis 02/15/2018 SNF: [facility] I25.10 ATHEROSCLEROTIC HEART DISEASE OF [place] CORONARY ARTERY WITHOUT ANGINA PECTORIS 01/24/2018 Diagnosis 02/15/2018 SNF: [facility] J81.1 CHRONIC PULMONARY EDEMA 01/24/2018 Diagnosis 02/15/2018 SNF: [facility] E78.5 HYPERLIPIDEMIA, UNSPECIFIED 01/24/2018 Diagnosis 02/15/2018 SNF: [facility] K21.9 GASTRO-ESOPHAGEAL REFLUX DISEASE WITHOUT ESOPHAGITIS 01/24/2018 Diagnosis 02/15/2018 SNF: [facility] Medications Medication Details Route Status Patient Instructions Ordering Provider Order Date Source DuoNeb Solution 0.5-2.5 (3) MG/3ML 1 UNIT(S) PER NEB EVERY 6 HOURS NEEDED Inhalation Active 02/08/2018 SNF: [facility] Robitussin DM Syrup 100-10 MG/5ML Give 10 ml by mouth every 4 hours as needed for Cough Oral Inactive 02/08/2018 SNF: [facility] GlycoLax Powder Give 17 gram by mouth one time a day for constipation (in Liquid) Hold for Loose Stools Oral Active 02/08/2018 SNF: [facility] Lactulose Solution 20 GM/30ML Give 30 ml by mouth as needed for Constipation Daily for Constipation PRN AND Give 30 ml by mouth one time only for Constipation until 02/07/2018 23:59 x One dose now Oral Active 02/07/2018 SNF: [facility] Azithromycin Tablet 250 MG 1 TAB(S) BY MOUTH DAILY FOR 4 DAYS Oral Active 02/07/2018 SNF: [facility] Augmentin Tablet 500-125 MG 1 TAB(S) BY MOUTH 2 TIMES A DAY FOR 5 DAYS Oral Active 02/07/2018 SNF: [facility] Robitussin Chest Congestion Syrup 100 MG/5ML Give 10 ml by mouth three times a day for cough for 10 Days AND Give 10 ml by mouth as needed for cough TID Oral Active 02/06/2018 SNF: [facility] Zofran Tablet 4 MG 1 TAB(S) BY MOUTH EVERY 6 HOURS NEEDED Oral Active 01/31/2018 SNF: [facility] Tylenol Tablet 325 MG Give 2 tablet by mouth two times a day for pain AND Give 2 tablet by mouth as needed for pain bid Oral Active 01/31/2018 SNF: [facility] Synthroid Tablet 88 MCG 1 TAB(S) BY MOUTH EVERY MORNING Oral Active 01/30/2018 SNF: [facility] Docusate Sodium Capsule 100 MG Give 1 capsule by mouth two times a day for constipation Oral Active 01/29/2018 SNF: [facility] Tuberculin PPD Solution Inject 0.1 ml intradermally one time only for Prophylaxis for 1 Day Adm within first 24 hours of admission. Repeat yearly. Intradermal Active 01/29/2018 SNF: [facility] MiraLax Powder Give 17 gram by mouth as needed for constipation daily AND Give 17 gram by mouth one time only for constipation until 01/29/2018 23:59 x1 now Oral Active 01/29/2018 SNF: [facility] Ocuvite-Lutein Tablet Give 1 tablet by mouth one time a day for Supplement Oral Active 01/29/2018 SNF: [facility] Lasix Tablet 20 MG 1 TAB(S) BY MOUTH DAILY Oral Active 01/29/2018 SNF: [facility] Aspirin Tablet 81 MG Give 1 tablet by mouth one time a day related to NONRHEUMATIC AORTIC (VALVE) STENOSIS (I35.0) Oral Active 01/29/2018 SNF: [facility] Ferrous Sulfate Tablet 325 (65 Fe) MG Give 1 tablet by mouth one time a day for Supplement Oral Active 01/29/2018 SNF: [facility] Flonase Suspension 50 MCG/ACT 2 spray in both nostrils one time a day for Allergies Nasal Active 01/29/2018 SNF: [facility] Align Capsule 4 MG Give 1 capsule by mouth one time a day for Probiotic Oral Active 01/29/2018 SNF: [facility] Biotin Tablet 5 MG Give 1 tablet by mouth one time a day for Supplement Oral Active 01/29/2018 SNF: [facility] Protonix Tablet Delayed Release 40 MG 1 TAB(S) BY MOUTH DAILY Oral Active 01/29/2018 SNF: [facility] Vitamin D3 Tablet 5000 UNIT Give 1 tablet by mouth one time a day for Supplement Oral Active 01/29/2018 SNF: [facility] Mupirocin Ointment 2 % 1 APPLICATION TOPICALLY DAILY ON EACH SHIFT TO STERNUM AND LEFT LEG External Active 01/29/2018 SNF: [facility] Levothyroxine Sodium Tablet 75 MCG 1 TAB(S) BY MOUTH DAILY Oral Inactive 01/29/2018 SNF: [facility] Atorvastatin Calcium Tablet 20 MG 1 TAB(S) BY MOUTH AT BEDTIME Oral Active 01/29/2018 SNF: [facility] Montelukast Sodium Tablet 10 MG 1 TAB(S) BY MOUTH AT BEDTIME Oral Active 01/29/2018 SNF: [facility] RaNITidine HCl Tablet 300 MG Give 1 tablet by mouth at bedtime for GERD Oral Active 01/29/2018 SNF: [facility] Simvastatin Tablet 40 MG 1 TAB(S) BY MOUTH AT BEDTIME Oral Inactive 01/29/2018 SNF: [facility] Symbicort Aerosol 80-4.5 MCG/ACT 2 PUFF(S) BY MOUTH 2 TIMES A DAY Inhalation Active 01/28/2018 SNF: [facility] Ultracet Tablet 37.5-325 MG Give 1 tablet by mouth every 6 hours as needed for Pain Oral Active 01/28/2018 SNF: [facility] Allergies, Adverse Reactions, Alerts Substance Category Reaction Severity Reaction type Status Date Reported Comments Source Cipro 01/24/2018 SNF: [facility] Codeine 01/24/2018 SNF: [facility] FLU VACCINE 01/24/2018 SNF: [facility] Gabapentin 01/24/2018 SNF: [facility] HCT RESERPINE 01/24/2018 SNF: [facility] Tetanus Toxoids 01/24/2018 SNF: [facility] TOXOID 01/24/2018 SNF: [facility] Immunizations Immunization Date Given Site Status Last Updated Comments Source tuberculin skin test; purified protein derivative solution, intradermal 01/31/2018 Not Given SNF: [facility] tuberculin skin test; purified protein derivative solution, intradermal 01/29/2018 completed SNF: [facility] Influenza, seasonal, injectable 01/29/2018 Not Given SNF: [facility] pneumococcal polysaccharide vaccine, 23 valent 01/29/2018 Not Given SNF: [facility] Results No Data Provided for This Section Pathology Reports No Data Provided for This Section Diagnostic Reports No Data Provided for This Section Consultation Notes No Data Provided for This Section Discharge Summaries No Data Provided for This Section History and Physicals No Data Provided for This Section Vital Signs Vital Sign Value Date Comments Source Respitory Rate 18 02/15/2018 SNF: [facility] Temperature Oral (F) 98.3 F 02/15/2018 SNF: [facility] Systolic (mm Hg) 141 02/15/2018 SNF: [facility] Diastolic (mm Hg) 87 02/15/2018 SNF: [facility] Heart Rate 115 {beats}/min 02/15/2018 SNF: [facility] Respitory Rate 12 02/15/2018 SNF: [facility] Systolic (mm Hg) 117 02/15/2018 SNF: [facility] Diastolic (mm Hg) 73 02/15/2018 SNF: [facility] Temperature Oral (F) 98.6 F 02/15/2018 SNF: [facility] [place] Heart Rate 101 {beats}/min 02/15/2018 SNF: [facility] [place] Respitory Rate 18 02/15/2018 [facility] Systolic (mm Hg) 128 02/15/2018 [facility] [place] Diastolic (mm Hg) 62 02/15/2018 [facility] Temperature Oral (F) 98.2 F 02/15/2018 SNF: [facility] [place] Heart Rate 74 {beats}/min 02/15/2018 [facility] [place] Systolic (mm Hg) 128 02/14/2018 [facility] [place] Diastolic (mm Hg) 62 02/14/2018 SNF: [facility] Heart Rate 74 {beats}/min 02/14/2018 SNF: [facility] Respitory Rate 18 02/14/2018 SNF: [facility] [place] Systolic (mm Hg) 133 02/14/2018 [facility] [place] Diastolic (mm Hg) 80 02/14/2018 SNF: [facility] Temperature Oral (F) 98.4 F 02/14/2018 SNF: [facility] Heart Rate 93 {beats}/min 02/14/2018 SNF: [facility] Systolic (mm Hg) 133 02/14/2018 SNF: [facility] [place] Diastolic (mm Hg) 80 02/14/2018 SNF: [facility] Heart Rate 93 {beats}/min 02/14/2018 [facility] [place] Respitory Rate 12 02/14/2018 [facility] [place] Systolic (mm Hg) 105 02/14/2018 [facility] [place] Diastolic (mm Hg) 59 02/14/2018 SNF: [facility] Temperature Oral (F) 98.3 F 02/14/2018 SNF: [facility] [place] Heart Rate 101 {beats}/min 02/14/2018 [facility] Rate 18 02/13/2018 [facility] [place] Systolic (mm Hg) 128 02[facility]13/2018 [facility] [place] Diastolic (mm Hg) 65 02/13/2018 [facility] Temperature Oral (F) 97.8 F 02/13/2018 [facility] [place] Heart Rate 74 {beats}/min 02/13/2018 [facility]: [facility] [place] Systolic (mm Hg) 128 02/13/2018 [facility] [place] Diastolic (mm Hg) 65 02/13/2018 SN[facility]: [facility] [place] Heart Rate 74 {beats}/min 02/13/2018 SN[facility]: [facility] [place] Respitory Rate 18 02/13/2018 SN[facility]: [facility] [place] Systolic (mm Hg) 137 02/13/2018 SN[facility]: [facility] [place] Diastolic (mm Hg) 69 02[facility]13/2018 [facility] Temperature Oral (F) 97.6 F 02/13/2018 [facility] Heart Rate 88 {beats}/min 02/13/2018 SN[facility]: [facility] [place] Systolic (mm Hg) 137 02/13/2018 SN[facility]: [facility] [place] Diastolic (mm Hg) 69 02/13/2018 SNF: [facility] Heart Rate 88 {beats}/min 02/13/2018 [facility] Weight 130.6 02/13/2018 [facility]: [facility] Respitory Rate 20 02/13/2018 SN[facility]: [facility] [place] Systolic (mm Hg) 118 02[facility]13/2018 [facility] [place] Diastolic (mm Hg) 60 02/13/2018 [facility] Temperature Oral (F) 97.3 F 02/13/2018 SN[facility]: [facility] [place] Heart Rate 83 {beats}/min 02/13/2018 SN[facility]: [facility] [place] Systolic (mm Hg) 133 02/12/2018 [facility] [place] Diastolic (mm Hg) 90 02/12/2018 SN[facility]: [facility] [place] Heart Rate 84 {beats}/min 02/12/2018 [facility]: [facility] [place] Respitory Rate 20 02/12/2018 [facility] [place] Systolic (mm Hg) 130 02/12/2018 SNF: [facility] [place] Diastolic (mm Hg) 82 02/12/2018 [facility]: [facility] Temperature Oral (F) 98.1 F 02/12/2018 SN[facility]: [facility] [place] Heart Rate 84 {beats}/min 02/12/2018 [facility] [place] Systolic (mm Hg) 130 02/12/2018 SNF: [facility] [place] Diastolic (mm Hg) 82 02/12/2018 [facility]: [facility] [place] Heart Rate 100 {beats}/min 02/12/2018 [facility]: [facility] [place] Respitory Rate 20 02/12/2018 [facility]: [facility] [place] Systolic (mm Hg) 122 02/12/2018 [facility]: [facility] [place] Diastolic (mm Hg) 61 02/12/2018 [facility] Temperature Oral (F) 98.1 F 02/12/2018 [facility]: [facility] Heart Rate 85 {beats}/min 02/12/2018 [facility] [place] Systolic (mm Hg) 120 02/11/2018 [facility]: [facility] [place] Diastolic (mm Hg) 69 02/11/2018 SNF: [facility] Heart Rate 94 {beats}/min 02/11/2018 [facility]: [facility] [place] Respitory Rate 20 02/11/2018 [facility] [place] Systolic (mm Hg) 126 02/11/2018 [facility] [place] Diastolic (mm Hg) 74 02/11/2018 [facility]: [facility] Temperature Oral (F) 97.8 F 02/11/2018 SN[facility]: [facility] [place] Heart Rate 84 {beats}/min 02/11/2018 [facility] [place] Systolic (mm Hg) 136 02/11/2018 SNF: [facility] [place] Diastolic (mm Hg) 80 02/11/2018 [facility] [place] Heart Rate 103 {beats}/min 02/11/2018 [facility]: [facility] [place] Respitory Rate 20 02/11/2018 [facility]: [facility] [place] Systolic (mm Hg) 107 02/11/2018 SNF: [facility] [place] Diastolic (mm Hg) 57 02/11/2018 SN[facility]: [facility] [place] Temperature Oral (F) 98 F 02/11/2018 SN[facility]: [facility] [place] Heart Rate 94 {beats}/min 02/11/2018 [facility] [place] Respitory Rate 18 02/11/2018 [facility]: [facility] [place] Systolic (mm Hg) 121 02/11/2018 [facility] [place] Diastolic (mm Hg) 64 02/11/2018 [facility]: [facility] Temperature Oral (F) 98.2 F 02/11/2018 SN[facility]: [facility] Heart Rate 98 {beats}/min 02/11/2018 [facility]: [facility] [place] Systolic (mm Hg) 121 02/10/2018 [facility] [place] Diastolic (mm Hg) 64 02/10/2018 [facility]: [facility] Heart Rate 98 {beats}/min 02/10/2018 [facility]: [facility] [place] Respitory Rate 17 02[facility]10/2018 [facility]: [facility] [place] Systolic (mm Hg) 120 02/10/2018 [facility]: [facility] [place] Diastolic (mm Hg) 71 02/10/2018 [facility]: [facility] Temperature Oral (F) 98.5 F 02/10/2018 SN[facility]: [facility] Heart Rate 70 {beats}/min 02/10/2018 [facility]: [facility] [place] Systolic (mm Hg) 119 02/10/2018 SNF: [facility] [place] Diastolic (mm Hg) 65 02/10/2018 SN[facility]: [facility] [place] Heart Rate 65 {beats}/min 02/10/2018 SN[facility]: [facility] [place] Respitory Rate 18 02/10/2018 SN[facility]: [facility] [place] Systolic (mm Hg) 120 02/10/2018 [facility]: [facility] [place] Diastolic (mm Hg) 70 02/10/2018 [facility]: [facility] Temperature Oral (F) 97.5 F 02/10/2018 SN[facility]: [facility] [place] Heart Rate 76 {beats}/min 02/10/2018 [facility]: [facility] [place] Respitory Rate 18 02/09/2018 SN[facility]: [facility] [place] Systolic (mm Hg) 132 02/09/2018 SNF: [facility] [place] Diastolic (mm Hg) 74 02/09/2018 SN[facility]: [facility] [place] Temperature Oral (F) 98 F 02/09/2018 [facility]: [facility] [place] Heart Rate 95 {beats}/min 02/09/2018 [facility]: [facility] [place] Systolic (mm Hg) 132 02/09/2018 SN[facility]: [facility] [place] Diastolic (mm Hg) 74 02/09/2018 SN[facility]: [facility] [place] Heart Rate 95 {beats}/min 02/09/2018 SN[facility]: [facility] [place] Respitory Rate 18 02/09/2018 [facility]: [facility] [place] Systolic (mm Hg) 132 02/09/2018 [facility]: [facility] [place] Diastolic (mm Hg) 78 02/09/2018 [facility]: [facility] Temperature Oral (F) 97.9 F 02/09/2018 SN[facility]: [facility] [place] Heart Rate 92 {beats}/min 02/09/2018 [facility]: [facility] [place] Systolic (mm Hg) 141 02/09/2018 [facility]: [facility] [place] Diastolic (mm Hg) 89 02/09/2018 SN[facility]: [facility] [place] Heart Rate 103 {beats}/min 02/09/2018 SN[facility]: [facility] [place] Respitory Rate 18 02/09/2018 [facility]: [facility] [place] Systolic (mm Hg) 114 02/09/2018 [facility]: [facility] [place] Diastolic (mm Hg) 84 02/09/2018 [facility]: [facility] Temperature Oral (F) 98 F 02/09/2018 SN[facility]: [facility] [place] Heart Rate 92 {beats}/min 02/09/2018 SN[facility]: [facility] [place] Respitory Rate 18 02/08/2018 [facility]: [facility] [place] Systolic (mm Hg) 129 02/08/2018 SN[facility]: [facility] [place] Diastolic (mm Hg) 64 02/08/2018 [facility] Temperature Oral (F) 98 F 02/08/2018 SN[facility]: [facility] [place] Heart Rate 74 {beats}/min 02/08/2018 [facility]: [facility] [place] Systolic (mm Hg) 129 02/08/2018 [facility]: [facility] [place] Diastolic (mm Hg) 64 02/08/2018 SN[facility]: [facility] [place] Heart Rate 74 {beats}/min 02/08/2018 SN[facility]: [facility] [place] Respitory Rate 16 02/08/2018 [facility]: [facility] [place] Systolic (mm Hg) 140 02/08/2018 [facility]: [facility] [place] Diastolic (mm Hg) 80 02/08/2018 SNF: [facility] Temperature Oral (F) 98.1 F 02/08/2018 [facility] Heart Rate 86 {beats}/min 02/08/2018 [facility] [place] Systolic (mm Hg) 148 02/08/2018 SN[facility]: [facility] [place] Diastolic (mm Hg) 83 02[facility]08/2018 [facility] Heart Rate 88 {beats}/min 02/08/2018 [facility]: [facility] [place] Systolic (mm Hg) 132 02/07/2018 [facility]: [facility] [place] Diastolic (mm Hg) 64 02/07/2018 [facility] Heart Rate 90 {beats}/min 02/07/2018 SN[facility]: [facility] [place] Respitory Rate 16 02/07/2018 [facility] [place] Systolic (mm Hg) 126 02/07/2018 SNF: [facility] [place] Diastolic (mm Hg) 70 02/07/2018 [facility]: [facility] Temperature Oral (F) 98.3 F 02/07/2018 [facility] [place] Heart Rate 92 {beats}/min 02/07/2018 [facility]: [facility] [place] Systolic (mm Hg) 126 02/07/2018 [facility] [place] Diastolic (mm Hg) 70 02/07/2018 [facility] 100 {beats}/min 02/07/2018 [facility] [place] Respitory Rate 18 02/07/2018 [facility] [place] Systolic (mm Hg) 107 02[facility]07/2018 [facility] [place] Diastolic (mm Hg) 53 02/07/2018 SNF: [facility] Temperature Oral (F) 98.1 F 02/07/2018 SNF: [facility] [place] Heart Rate 80 {beats}/min 02/07/2018 SN[facility]: [facility] [place] Respitory Rate 17 02/06/2018 SNF: [facility] Temperature Oral (F) 98.1 F 02/06/2018 SN[facility]: [facility] [place] Systolic (mm Hg) 112 02/06/2018 SN[facility]: [facility] [place] Diastolic (mm Hg) 60 02/06/2018 SNF: [facility] Heart Rate 85 {beats}/min 02/06/2018 SN[facility] Respitory Rate 16 02/06/2018 [facility] Systolic (mm Hg) 116 02/06/2018 [facility] Diastolic (mm Hg) 62 02/06/2018 SNF: [facility] Temperature Oral (F) 98 F 02/06/2018 SNF: [facility] Heart Rate 86 {beats}/min 02/06/2018 [facility] Weight 130.4 02/06/2018 SNF: [facility] - [facility] Systolic (mm Hg) 116 02/06/2018 SNF: [facility] [place] Diastolic (mm Hg) 62 02/06/2018 SNF: [facility] Heart Rate 88 {beats}/min 02/06/2018 [facility] Respitory Rate 16 02/06/2018 [facility] Systolic (mm Hg) 114 02/06/2018 [facility] Diastolic (mm Hg) 60 02/06/2018 SNF: [facility] Temperature Oral (F) 97.7 F 02/06/2018 SNF: [facility] Heart Rate 84 {beats}/min 02/06/2018 [facility] Respitory Rate 18 02/06/2018 [facility]: [facility] Systolic (mm Hg) 144 02/06/2018 [facility]: [facility] Diastolic (mm Hg) 60 02/06/2018 [facility] Temperature Oral (F) 97.4 F 02/06/2018 [facility]: [facility] Heart Rate 92 {beats}/min 02/06/2018 [facility]: [facility] Systolic (mm Hg) 144 02/05/2018 SNF: [facility] [place] Diastolic (mm Hg) 60 02/05/2018 [facility] Heart Rate 95 {beats}/min 02/05/2018 [facility] Respitory Rate 18 02/05/2018 [facility] Systolic (mm Hg) 106 02/05/2018 [facility] Diastolic (mm Hg) 46 02/05/2018 [facility]: [facility] Temperature Oral (F) 97.6 F 02/05/2018 [facility]: [facility] Heart Rate 84 {beats}/min 02/05/2018 [facility] Systolic (mm Hg) 106 02/05/2018 [facility] Diastolic (mm Hg) 46 02/05/2018 [facility] Heart Rate 84 {beats}/min 02/05/2018 [facility]: [facility] Respitory Rate 16 02/05/2018 [facility] Systolic (mm Hg) 106 02/05/2018 SN[facility]: [facility] [place] Diastolic (mm Hg) 62 02/05/2018 [facility]: [facility] Temperature Oral (F) 97.4 F 02/05/2018 SN[facility]: [facility] Heart Rate 84 {beats}/min 02/05/2018 [facility] Respitory Rate 18 02/04/2018 [facility] Systolic (mm Hg) 127 02/04/2018 SN[facility]: [facility] Diastolic (mm Hg) 62 02/04/2018 SNF: [facility] Temperature Oral (F) 97.8 F 02/04/2018 [facility]: [facility] Heart Rate 74 {beats}/min 02/04/2018 [facility] Systolic (mm Hg) 127 02/04/2018 SNF: [facility] [place] Diastolic (mm Hg) 62 02/04/2018 SN[facility]: [facility] Heart Rate 74 {beats}/min 02/04/2018 SN[facility]: [facility] Respitory Rate 18 02/04/2018 [facility] Systolic (mm Hg) 130 02/04/2018 [facility] Diastolic (mm Hg) 67 02/04/2018 [facility] Temperature Oral (F) 97.6 F 02/04/2018 SNF: [facility] Heart Rate 89 {beats}/min 02/04/2018 SN[facility]: [facility] Systolic (mm Hg) 130 02/04/2018 SN[facility]: [facility] [place] Diastolic (mm Hg) 67 02/04/2018 SNF: [facility] Heart Rate 89 {beats}/min 02/04/2018 SN[facility]: [facility] Respitory Rate 18 02/04/2018 SN[facility]: [facility] [place] Systolic (mm Hg) 100 02/04/2018 SN[facility]: [facility] Diastolic (mm Hg) 54 02/04/2018 SNF: [facility] Temperature Oral (F) 97.6 F 02/04/2018 SNF: [facility] Heart Rate 86 {beats}/min 02/04/2018 SN[facility]: [facility] Systolic (mm Hg) 120 02/03/2018 [facility] Diastolic (mm Hg) 62 02/03/2018 SN[facility]: [facility] Heart Rate 94 {beats}/min 02/03/2018 SN[facility]: [facility] Respitory Rate 18 02/03/2018 SN[facility]: [facility] Systolic (mm Hg) 115 02/03/2018 [facility] Diastolic (mm Hg) 68 02/03/2018 SNF: [facility] Temperature Oral (F) 97.4 F 02/03/2018 SNF: [facility] Heart Rate 104 {beats}/min 02/03/2018 [facility] Systolic (mm Hg) 115 02/03/2018 SN[facility]: [facility] [place] Diastolic (mm Hg) 68 02/03/2018 [facility] Heart Rate 104 {beats}/min 02/03/2018 SN[facility]: [facility] Respitory Rate 20 02[facility]03/2018 [facility] [place] Systolic (mm Hg) 110 02/03/2018 [facility] Diastolic (mm Hg) 54 02/03/2018 [facility] Temperature Oral (F) 97.9 F 02/03/2018 SNF: [facility] Heart Rate 82 {beats}/min 02/03/2018 SN[facility]: [facility] Systolic (mm Hg) 140 02/02/2018 SN[facility]: [facility] [place] Diastolic (mm Hg) 76 02/02/2018 SNF: [facility] Heart Rate 67 {beats}/min 02/02/2018 [facility] Resp[facility] Rate 20 02/02/2018 [facility] Temperature Oral (F) 98.4 F 02/02/2018 [facility] Systolic (mm Hg) 155 02/02/2018 [facility] Diastolic (mm Hg) 68 02/02/2018 SNF: [facility] Heart Rate 66 {beats}/min 02/02/2018 [facility] Respitory Rate 20 02/02/2018 [facility]: [facility] [place] Systolic (mm Hg) 116 02/02/2018 [facility]: [facility] Diastolic (mm Hg) 62 02/02/2018 [facility] Temperature Oral (F) 98.3 F 02/02/2018 SNF: [facility] Heart Rate 85 {beats}/min 02/02/2018 [facility]: [facility] Systolic (mm Hg) 108 02/01/2018 SN[facility]: [facility] Diastolic (mm Hg) 59 02/01/2018 SNF: [facility] Heart Rate 84 {beats}/min 02/01/2018 SN[facility]: [facility] Respitory Rate 20 02/01/2018 SN[facility]: [facility] Temperature Oral (F) 98.1 F 02/01/2018 SN[facility]: [facility] [place] Systolic (mm Hg) 106 02/01/2018 SN[facility]: [facility] [place] Diastolic (mm Hg) 59 02/01/2018 SN[facility]: [facility] Heart Rate 82 {beats}/min 02/01/2018 SN[facility]: [facility] Respitory Rate 18 02/01/2018 [facility] Systolic (mm Hg) 101 02/01/2018 [facility]: [facility] Diastolic (mm Hg) 59 02/01/2018 [facility] Temperature Oral (F) 97.9 F 02/01/2018 SN[facility]: [facility] Heart Rate 74 {beats}/min 02/01/2018 SN[facility]: [facility] Respitory Rate 18 02/01/2018 SN[facility]: [facility] [place] Systolic (mm Hg) 138 02/01/2018 SN[facility]: [facility] [place] Diastolic (mm Hg) 64 02/01/2018 [facility] Temperature Oral (F) 97.6 F 02/01/2018 SNF: [facility] Heart Rate 86 {beats}/min 02/01/2018 SN[facility]: [facility] [place] Systolic (mm Hg) 183 01/31/2018 SN[facility]: [facility] [place] Diastolic (mm Hg) 67 01/31/2018 [facility] Heart Rate 93 {beats}/min 01/31/2018 [facility] Systolic (mm Hg) 127 01/31/2018 [facility]: [facility] [place] Diastolic (mm Hg) 64 01/31/2018 [facility] Heart Rate 99 {beats}/min 01/31/2018 SN[facility]: [facility] Respitory Rate 18 01/31/2018 SN[facility]: [facility] [place] Systolic (mm Hg) 110 01/31/2018 [facility]: [facility] Diastolic (mm Hg) 58 01/31/2018 SNF: [facility] Temperature Oral (F) 97.8 F 01/31/2018 SNF: [facility] Heart Rate 78 {beats}/min 01/31/2018 SNF: [facility] Respitory Rate 18 01/31/2018 SN[facility]: [facility] [place] Systolic (mm Hg) 100 01/31/2018 SNF: [facility] Diastolic (mm Hg) 44 01/31/2018 SNF: [facility] Temperature Oral (F) 98.2 F 01/31/2018 SNF: [facility] Heart Rate 80 {beats}/min 01/31/2018 SNF: [facility] Systolic (mm Hg) 143 01/30/2018 SNF: [facility] Diastolic (mm Hg) 67 01/30/2018 SNF: [facility] Heart Rate 80 {beats}/min 01/30/2018 SNF: [facility] Respitory Rate 18 01/30/2018 SNF: [facility] Systolic (mm Hg) 123 01/30/2018 SNF: [facility] Diastolic (mm Hg) 77 01/30/2018 SNF: [facility] Temperature Oral (F) 97.8 F 01/30/2018 SNF: [facility] Heart Rate 75 {beats}/min 01/30/2018 SNF: [facility] Weight 129.4 01/30/2018 SNF: [facility] Height 59 01/30/2018 SNF: [facility] Respitory Rate 18 01/30/2018 SNF: [facility] Systolic (mm Hg) 121 01/30/2018 SN[facility]: [facility] Diastolic (mm Hg) 86 01/30/2018 SNF: [facility] Temperature Oral (F) 97.6 F 01/30/2018 SNF: [facility] Heart Rate 77 {beats}/min 01/30/2018 [facility] Systolic (mm Hg) 121 01/30/2018 SN[facility]: [facility] Diastolic (mm Hg) 86 01/30/2018 SNF: [facility] Heart Rate 77 {beats}/min 01/30/2018 SNF: [facility] Respitory Rate 20 01/30/2018 SNF: [facility] Systolic (mm Hg) 118 01/30/2018 SNF: [facility] Diastolic (mm Hg) 52 01/30/2018 SNF: [facility] Temperature Oral (F) 97.5 F 01/30/2018 SNF: [facility] Heart Rate 89 {beats}/min 01/30/2018 SN[facility]: [facility] [place] Systolic (mm Hg) 118 01/29/2018 SN[facility]: [facility] [place] Diastolic (mm Hg) 59 01/29/2018 SNF: [facility] Heart Rate 77 {beats}/min 01/29/2018 SNF: [facility] Respitory Rate 20 01/29/2018 SNF: [facility] Temperature Oral (F) 98.2 F 01/29/2018 SNF: [facility] [place] Systolic (mm Hg) 108 01/29/2018 SNF: [facility] Diastolic (mm Hg) 51 01/29/2018 SNF: [facility] Heart Rate 86 {beats}/min 01/29/2018 SNF: [facility] Respitory Rate 20 01/29/2018 SNF: [facility] Systolic (mm Hg) 102 01/29/2018 SNF: [facility] Diastolic (mm Hg) 55 01/29/2018 SNF: [facility] Temperature Oral (F) 97.8 F 01/29/2018 SNF: [facility] Heart Rate 93 {beats}/min 01/29/2018 [facility]: [facility] Systolic (mm Hg) 125 01/28/2018 SNF: [facility] Diastolic (mm Hg) 65 01/28/2018 SNF: [facility] Temperature Oral (F) 98.2 F 01/28/2018 SNF: [facility] Respitory Rate 20 01/28/2018 SNF: [facility] Heart Rate 92 {beats}/min 01/28/2018 SNF: [facility] Encounters No Data Provided for This Section Procedures No Data Provided for This Section Assessment and Plan No Data Provided for This Section Plan of Care No Data Provided for This Section Social History Social History Date Source Smoking StatusStart DateEnd Date Unknown if ever smoked 02/15/2018 18:10:07 01/27/2018 SNF: [facility] Family History No Data Provided for This Section Advance Directives Order Name Results Value Date Source Advance Directives Advance Directives Cardiopulmonary Resuscitation 02/15/2018 SNF: [facility] Functional Status No Data Provided for This Section
--- NOTE | 2019-04-02 12:03 | Diagnostic Imaging Report ---
EXAM: CHEST SINGLE (PORTABLE) DATE: 04/02/2019 10:36 AM INDICATION: Syncopal episode COMPARISON: 10/28/2018 FINDINGS: Postsurgical changes from median sternotomy and prosthetic cardiac valve replacement noted. The trachea is midline. The lungs are symmetrically expanded without evidence for large focal consolidation, pneumothorax, or significant pleural effusion. The cardiomediastinal silhouette and pulmonary vasculature are within normal limits. No acute osseous abnormality is identified. The surrounding soft tissues are unremarkable. IMPRESSION: No acute cardiopulmonary process identified. Signed by: Dr. Dane Ziegler MD on 04/02/2019 12:00 PM
--- NOTE | 2019-04-02 12:26 | Diagnostic Imaging Report ---
History:Dizziness, passed out Comparison studies:CT head and cervical spine 01/16/2017 Technique: Axial images were obtained from the skull base to the vertex. Axial images of the cervical spine. Coronal and sagittal images reconstructed from the axial data. Intravenous contrast: None Dose modulation, iterative reconstruction, and/or weight based adjustment of the mA/kV was utilized to reduce the radiation dose to as low as reasonably achievable. Findings: Scalp/skull: No abnormalities. Extra-axial spaces: No masses. No fluid collections. Brain sulci: Mildly prominent. Ventricles: Mild compensatory dilatation. No hydrocephalus. Parenchyma: Few hypodensities in the supratentorial white matter are small vessel ischemic changes. No masses, hemorrhage, acute or chronic cortical vascular insults. Sellar/suprasellar region: No abnormalities. Craniocervical junction: Patent foramen magnum. No Chiari one malformation. Incidental findings: Atherosclerotic calcifications in the carotid siphons and vertebral arteries . Bilateral cataract surgery changes. Cervical spine CT: Fractures: None. Soft tissues: No gross abnormalities. Atlantoaxial articulation: Degenerative changes without acute abnormality. Alignment: Straightening of the normal lordosis. Grade 1 anterolisthesis of C4 over C5. No scoliosis. Cervicomedullary junction: No abnormalities. Patent foramen magnum. Vertebrae: No infection or neoplasm. Degenerative changes: Decreased intervertebral space at C5-6 and C6-7 with sclerotic changes in the latter. Posterior disc osteophyte complex at the mid cervical spine results in mild canal stenosis. Uncinate process and facet hypertrophy at C5-6 and C6-7 results in moderate bilateral foraminal narrowing. Incidental findings: Atherosclerotic calcifications of the carotid siphons. Emphysematous changes at both lung apices. Impression: Head CT: No acute abnormalities. Chronic findings: 1. Mild generalized volume loss. 2. Mild supratentorial white matter small vessel ischemic changes. Cervical spine CT: 1. No acute abnormalities. 2. Cannot exclude ligament, spinal cord and or vascular abnormalities on the basis of this examination. Signed by: DR Jim Partida M.D. on 04/02/2019 12:23 PM
[2019-04-02] MEDS: CEFTRIAXONE SOD 1 GM/NS 50 ML 50 ML IV SCH (14:45)
[2019-04-02] MEDS ORDERED: ASPIRIN 81 MG CHEW TAB ONE (14:54)
--- NOTE | 2019-04-02 15:09 | History and Physical ---
PRIMARY CARE PHYSICIAN: Dr. Antony Crowell at [facility]. CHIEF COMPLAINT: Head contusion and syncope post fall. ALLERGIES: HYDROCHLOROTHIAZIDE, CODEINE, TETANUS VACCINE, TOXOIDS, AND INFLUENZA VIRUS VACCINES. HISTORY OF PRESENT ILLNESS: This is an 88-year-old female with past medical history of hypertension, CAD with a triple bypass, aortic valve stenosis, and hypothyroidism, presented to the ER with complaints of dizziness and passing out. She reports having mild dizziness for the past 4 days and last night around 1 a.m. she went to the bathroom and on her way back to her bed she felt lightheaded and passed out. She hit her head on the door and also hit her lower extremities, and woke up around 2:30 a.m. on the floor. She denies any chest pain, palpitations, nausea, vomiting, fever, chills, dysuria, or hematuria. She reports when waking up, she had a headache due to hitting her head with the door and was also sweating. Early a.m., she called her PCP, who prompted her to come to the ER for further evaluation. She reports living by herself and drove to the hospital by herself. She reports feeling dizzy at the time of assessment, but denies any chest pain or palpitations. In the ER, she was noted to have elevated blood pressure of 199/82, temperature 98.2, pulse is 74, respirations 18, and SpO2 of 97%. She was given aspirin x1, Zofran, and Pepcid. She was also given 1 L of normal saline. LABORATORY DATA: WBC was 5.32, hemoglobin 14.1, hematocrit 43.7, and platelet count 187. First set of cardiac enzymes negative, 0.002. Sodium 138, potassium 3.8, creatinine 0.85. UA shows trace leukocytes and 10 to 20 K WBCs. PAST MEDICAL HISTORY: 1. Hypertension. 2. CAD. 3. Hypothyroidism. 4. Sinus allergies. PAST SURGICAL HISTORY: She had triple bypass surgery on January 24, 2018. She had an aortic valve replacement at the same time and she had tonsillectomy and endometrial bleeding. FAMILY MEDICAL HISTORY: She reports her mother had heart problems, but of a uterine cancer. Sister has multiple heart problems and father of natural causes. SOCIAL HISTORY: She denies any tobacco, alcohol, or illicit drug use. She lives at home by herself. She is independent with her ADLs and is driving. REVIEW OF SYSTEMS: GENERAL: No acute distress. HEENT: Reports headache from the fall and has a left side bruising on the head. No vision problems. LUNGS: No shortness of breath or cough. CARDIOVASCULAR: No chest pain or palpitations. GI: No nausea, vomiting. Moving bowels regularly. NEURO: Dizziness reported and syncope. MUSCULOSKELETAL: No swelling or no pain. SKIN: She has bruising on her left side of the head and left side of leg. PHYSICAL ASSESSMENT: GENERAL: She is alert, awake, and oriented with no acute distress. HEENT: PERRLA. Normocephalic. LUNGS: Clear to auscultation. CARDIOVASCULAR: Heart rate and rhythm normal. GI: Abdomen is soft and nontender with normal bowel sounds heard. NEURO: She is alert, awake, and oriented x3. MUSCULOSKELETAL: Moves all extremities, equal, good strength, no edema noted. SKIN: Mild bruising noted on the left side of head and left side of leg. No other laceration or skin breakdown noted. IMAGING: She had a CT brain and C-spine, which were negative for acute process. Chest x-ray is also unremarkable. IMPRESSION: 1. Syncope, status post fall. 2. Hypertension. 3. History of coronary artery disease and aortic valve stenosis. 4. Hypothyroidism. PLAN: We will continue to monitor the patient on telemetry, we will do orthostatic blood pressure, and we will consult Cardiology given her extensive cardiac history. We will trend cardiac enzymes, we will order echocardiogram, we will have physical therapy to evaluate and treat. Further recommendations to follow. Dictated by CRYSTAL Delarosa Jakiching Eldon Saez MD MY/MODL /[id number]
[2019-04-02 16:29] VITALS: BP 145/62
[2019-04-02 16:33] VITALS: BP 145/62
[2019-04-02 16:34] VITALS: BP 145/62
[2019-04-02] MEDS ORDERED: FLUTICASONE PRO16 GM (16:47)
[2019-04-02] MEDS ORDERED: LEVOTHYROXINE75 MCG PO (16:48)
[2019-04-02] MEDS ORDERED: [UNRECOGNIZED DRUG - OTHER] PO (16:53)
[2019-04-02] MEDS: METOPROLOL TARTRATE 25 MG TAB PO SCH (17:09)
[2019-04-02] MEDS: SALMETEROL/FLUTICASONE 100/50 INH SCH (19:00)
[2019-04-02 20:00] VITALS: BP 108/59
[2019-04-02 20:14] LABS: CREATINE KINASE MB 0.5 ng/mL (0-5.0)
[2019-04-02 21:15] VITALS: BP 108/59
[2019-04-03] VITALS: BP 116/59
[2019-04-03 03:23] LABS: CREATINE KINASE MB 0.7 ng/mL (0-5.0)
[2019-04-03 04:00] VITALS: BP 148/67
[2019-04-03 06:00] LABS: BASOPHILS # (AUTO) 0.1 (0.0-0.1); BASOPHILS % 1.3 % (0.0-1.0); EOSINOPHILS # (AUTO) 0.2 (0.0-0.4); EOSINOPHILS % 3.2 % (0.0-6.0); HEMATOCRIT 42.4 % (34.2-44.1); HEMOGLOBIN 13.4 g/dL (12.0-16.0); LYMPHOCYTES # (AUTO) 1.9 (1.0-3.2); LYMPHOCYTES % 27.3 % (18.0-39.1); MEAN CORPUSCULAR HEMOGLOBIN 27.6 pg (28-32); MEAN CORPUSCULAR HGB CONC 31.6 g/dL (31-35); MEAN CORPUSCULAR VOLUME 87.4 fL (81-99); MONOCYTES # (AUTO) 0.8 (0.2-0.8); MONOCYTES % 11.4 % (4.4-11.3); NEUTROPHILS # (AUTO) 3.8 (2.1-6.9); NEUTROPHILS % 56.5 % (38.7-80.0); PLATELET COUNT 168 x10e3/uL (140-360); RED BLOOD COUNT 4.85 x10e6/uL (3.6-5.1); RED CELL DISTRIBUTION WIDTH 14.6 % (11.7-14.4)
[2019-04-03] MEDS ORDERED: LEVOTHYROXINE SODIUM 75 MCG TAB PO SCH (06:00)
[2019-04-03 06:31] LABS: ALANINE AMINOTRANSFERASE 14 IU/L (0-55); ALBUMIN 3.9 g/dL (3.5-5.0); ALBUMIN/GLOBULIN RATIO 1.3 (0.8-2.0); ALKALINE PHOSPHATASE 95 IU/L (40-150); ANION GAP 14.3 mmol/L (8-16); BLOOD UREA NITROGEN 14 mg/dL (7-26); BUN/CREATININE RATIO 17 (6-25); CARBON DIOXIDE 27 mmol/L (22-29); CHLORIDE 101 mmol/L (98-107); CHOL/HDL RATIO 3.1 (3.0-3.6); CHOLESTEROL 163 MD/DL (0-199); CREATININE, SERUM 0.82 mg/dL (0.57-1.11); EST GLOMERULAR FILTRATION RATE > 60 ML/MIN (60-); GLUCOSE 89 mg/dL (74-118); HDL CHOLESTEROL 52 MG/DL (40-60); LDL CHOLESTEROL 85 MG/DL (60-130); MAGNESIUM 2.2 MG/DL (1.3-2.1); PHOSPHORUS 4.3 MG/DL (2.3-4.7); POTASSIUM 4.3 mmol/L (3.5-5.1); SODIUM 138 mmol/L (136-145); TRIGLYCERIDES 129 MG/DL (0-149)
[2019-04-03] MEDS ORDERED: ACETAMINOPHEN 325 MG TAB PO PRN (07:15)
[2019-04-03] MEDS: SALMETEROL/FLUTICASONE 100/50 INH SCH (07:28)
[2019-04-03 08:04] VITALS: BP 130/62
[2019-04-03] MEDS: METOPROLOL TARTRATE 25 MG TAB PO SCH (08:46)
[2019-04-03 08:54] VITALS: BP 130/62
[2019-04-03] MEDS ORDERED: FUROSEMIDE 20 MG TAB PO SCH (09:00)
[2019-04-03] MEDS ORDERED: AMLODIPINE BESYLATE 5 MG TAB PO SCH (09:00)
[2019-04-03] MEDS ORDERED: MONTELUKAST SODIUM 10 MG TAB PO SCH (09:00)
[2019-04-03 12:26] VITALS: BP 139/59
[2019-04-03] MEDS: CEFTRIAXONE SOD 1 GM/NS 50 ML 50 ML IV SCH (14:30)
--- NOTE | 2019-04-03 18:43 | Consultation ---
DATE OF CONSULTATION: 04/03/2019 REASON FOR CONSULTATION: Syncope. CHIEF COMPLAINT: Passed out. HISTORY OF PRESENT ILLNESS: This is an 88-year-old female, largely independent, history of CAD, status post CABG in 2018, also AVR in 2018, hypertension, and hypothyroidism. The patient reports being followed by Dr. Aaron . The patient presents to [facility] ER with complaints of passing out prior to coming to ER. Cardiology was consulted to evaluate the patient given cardiac history. The patient seen in room, in no acute distress. 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 Reports waking up about 2 hours to 3 hours later, called her PCP later that morning and PCP advised her to go to the ER. The patient denies any palpitations prior to the event. The patient denies any episodes in the past. A tele was noted and reviewed the patient's sinus tho, heart rate in the 50s. Of note, the patient is on beta-melissa therapy at home. The patient reports being compliant with her medications. The patient denies any chest pains or shortness of breath. PAST MEDICAL HISTORY: CAD, status post CABG/AVR [place] [address] Stanton, hypertension, and hypothyroidism. PAST SURGICAL HISTORY: CABG x3/AVR November 2017, tonsillectomy, and hysterectomy. FAMILY HISTORY: Mother of cancer. Sister is alive, history of CAD. Father at the age of 84 from "old age." SOCIAL HISTORY: She lives alone. She is a . She denies any alcohol or tobacco use. HOME MEDICATIONS: Include aspirin 81 mg daily, amlodipine 5 mg daily, Atorvastatin 40 mg daily, metoprolol 12.5 mg b.i.d. ALLERGIES: INFLUENZA VACCINE, TETANUS VACCINE, CIPRO, CODEINE, GABAPENTIN, AND HYDROCHLOROTHIAZIDE. REVIEW OF SYSTEMS: GENERAL: Denies any fatigue, weakness, fevers, chills, or night sweats. SKIN: Has a bruise in her left frontal region and bruise in her bilateral knees. HEAD: As mentioned bruise in her left frontal region. Denies any nausea, vomiting, or vision changes. Positive for dizziness, lightheadedness as per HPI. Denies any vertigo, tinnitus, earaches, epistaxis, sore throat, swollen gum, or stiff neck. CARDIAC: Denies any chest pains or shortness of breath. Denies any palpitations, orthopnea, PND, or lower extremity edema. RESPIRATORY: Denies any shortness of breath. No hemoptysis. GI: Denies any nausea, vomiting, diarrhea, constipation, any melena, or hematochezia. URINARY: Positive for frequency and nocturia. Denies any hematuria or dysuria. VASCULAR: Denies any lower extremity edema or claudication. MUSCULOSKELETAL: Generalized joint pains, back pains. NEUROLOGIC: Dizziness, lightheadedness as per HPI. Denies any seizure disorder. HEMATOLOGY: Denies any anemia. Positive for bruising. ENDOCRINE: Denies any heat or cold intolerance, any polyuria, polydipsia, or polyphagia. PHYSICAL EXAMINATION: VITAL SIGNS: Height 59 inches, weight 144 pounds, temperature 96.4, pulse 63, respiratory rate 18, blood pressure 130/62, and pulse ox 98% on room air. GENERAL: Appears stated age, reliable informant. No acute distress. SKIN: No rashes. Positive bruise on the left frontal region and also bruise to bilateral knees. HEENT: Pupils equal and reactive. Extraocular movements are intact. Trachea midline. Soft carotid bruit noted bilaterally. No JVD. Oral mucosa pink. HEART: Regular rate and rhythm. Systolic murmur heard in right upper sternal border. LUNGS: Bilateral breath sounds clear to auscultation. Good airway entry and exit. ABDOMEN: Soft, nontender, and nondistended. No organomegaly noted. MUSCULOSKELETAL: Good muscle strength throughout. No lower extremity swelling. VASCULAR: +2 bilateral radial pulses. +2 DP and PT pulses bilaterally. NEUROLOGIC: Cranial nerves II through XII seem intact. LABORATORY DATA: White count 6.7, hemoglobin 13.4, hematocrit 42, and platelets 168. Chemistry; sodium 138, potassium 4.3, chloride 101, BUN 14, and creatinine 0.8. Troponin 0.002, next 0.022, next 0.002. BNP 190. TSH 1.8. CT of the brain, mild white matter small vessel ischemic changes. Chest x-ray, no acute abnormalities. EKG, sinus rhythm, heart rate of 70. ASSESSMENT: 1. Vasovagal syncope. 2. Coronary artery disease, status post coronary artery bypass graft x3/aortic valve replacement, November of 2017. 3. Hypertension. 4. Hyperlipidemia. PLAN: 1. The patient presents with vasovagal syncope per history, has been on beta-melissa therapy. Advised to stop beta-melissa therapy, liberalize heart rate. Tele was noted and reviewed. Heart rate largely in the 50s and low 60s. 2. We will get an echo to evaluate heart function and structure. 3. We will get carotid Doppler to evaluate for any stenosis. 4. Continue telemonitoring. 5. Continue the patient on anti-platelet and statin therapy. 6. Antihypertensive as BP allows. However, we will recommend to liberalize BP. 7. We will continue to monitor the patient. Thank you very much for this consult. Dictated by Mich Howe NP Carmen Hebert MD DC/JUANY /[id number]
--- NOTE | 2019-04-04 05:41 | Discharge Summary ---
PRIMARY CARE DOCTOR: Dr. Mervat Luevano with [facility]. CONSULTING PHYSICIAN: Dr. Carmen Hebert with Cardiology. FINAL DIAGNOSES: 1. Syncope, status post fall, likely due to vasovagal response. 2. History of hypertension. 3. History of coronary artery disease and aortic replacement. 4. Hyperthyroidism. PROCEDURES: Echo was done with EF of 60%. CT of brain and C-spine were unremarkable for acute process. Carotid Doppler was also negative preliminary per Cardiology. HISTORY: Per HPI. HOSPITAL COURSE: This is an 88-year-old female, who presented after a fall and passing out overnight while trying to get from her bathroom to her bed. She hit her head and lower extremities with lightheaded before the fall and was passed out for about an hour and a half. Upon arrival to the ER, she was alert, awake, and oriented x3. No dizziness. No chest pain. No shortness of breath or fever. Dizziness had improved. Lab work was unremarkable. She was normal sinus rhythm on the monitor and Cardiology was consulted for further workup. Echo and carotid Dopplers were within normal limits, CT of the brain and C-spine showed no acute processes. She was monitored on telemetry overnight with no acute changes or rhythm changes noted. Cardiology has evaluated the patient and has cleared the patient for discharge. Likely the fall is due to vasovagal response and advised to follow up with her kitchen steward/stewardess at [facility]. If symptoms reoccur, she is advised to return to the hospital, so loop recorder can be inserted to check for arrhythmias. She is agreeable to going home. She is feeling much better now. Vital signs have been stable, afebrile. We will discharge her home today. PHYSICAL EXAMINATION: VITAL SIGNS: Temperature is 97.2, pulse is 59, blood pressure is 139/59, respirations 18, SpO2 is 96%. GENERAL: No acute distress. NECK: Supple. LUNGS: Clear to auscultation. CARDIOVASCULAR: S1 and S2. No chest pain. ABDOMEN: Soft and nontender. EXTREMITIES: Moves all extremities. No edema noted. NEUROLOGIC: She is alert, awake, and oriented x3. CONDITION AT DISCHARGE: Improved and stable. DISCHARGE MEDICATIONS: Please see medication reconciliation list. FOLLOWUP: Follow up with Dr. Mervat Luevano in 1 week and follow up with her kitchen steward/stewardess in 1 to 2 weeks. Discharge management time was 32 minutes. Dictated by Julienne Proctor, ANP MD YESENIA Oglesby/ROMÁNL /[id number] cc: MD Gwen RowellPrattville Baptist Hospital
== END 2019-04-03 15:45 | disposition home or self-care (01) ==
LOC: ER 10:06 → ERHOLD 10:43 → INTOOBSV 10:43 → MED/SURG3 15:05
PROVIDERS: ADMIT Internal Medicine; ATTEND Internal Medicine
DX: R55 Syncope and collapse (principal); I10 Essential (primary) hypertension; I25.10 Atherosclerotic heart disease of native coronary artery without angina pectoris; E03.9 Hypothyroidism, unspecified; S00.93XA Contusion of unspecified part of head, initial encounter; W19.XXXA Unspecified fall, initial encounter; Y93.9 Activity, unspecified; Y92.003 Bedroom of unspecified non-institutional (private) residence as the place of occurrence of the external cause; I35.0 Nonrheumatic aortic (valve) stenosis; Z95.1 Presence of aortocoronary bypass graft
CPT/HCPCS: 36415 ×2; 70450; 71045; 72125; 80053 ×2; 80061; 81001; 82550 ×2; 82553 ×2; 83605; 83735 ×2; 83880; 84100; 84443; 84484 ×2; 85025 ×2; 85610; 85730; 87086; 93005; 93306; 93880; 97161; 99284; G0378 ×2; J0696 ×2; J2405; J7030